=== PATIENT | male | born 1955 | race Caucasian/White ===

== ENCOUNTER → 2016-05-22 | Outpatient (CLI) | payer OTHER ==
--- NOTE | 2016-05-22 16:46 | REP ---
Lumbar spine series: Seven views. History: Pain. Comparison study: 02/13/2010. Findings: There is a mild levoconvex curve on the AP view unchanged. There is straightening of the normal lumbar lordosis on lateral radiograph. There is diffuse degenerative disc disease in the lumbar spine. This is most pronounced at L4-5 L3-4 and L2-3. The L4-5 and L3-4 changes are more pronounced than on 2009 prior study. Vacuum phenomenon are visible at L5 S1, L4-5, and L2-3 discs. There is osteoarthritic facet hypertrophy bilaterally L2-3 through L5-S1. Sacrum and SI joints are intact. Psoas margins are symmetric. Pedicles and posterior elements are intact. No bony destructive lesion is seen. There is no evidence of spondylolysis or spondylolisthesis. Impression: Advanced diffuse degenerative spondylosis change. Radiographically more pronounced than on February 2010 prior study. Signed by Yunior Portillo MD 05/22/2016 04:58 P
== END ==
LOC: M WUC 16:12
PROVIDERS: ATTEND Family Medicine
DX: M47.816 Spondylosis without myelopathy or radiculopathy, lumbar region (principal)

== ENCOUNTER → 2016-07-05 | Outpatient (CLI) | payer OTHER ==
[2016-07-05 12:22] LABS: BASO % 0.9 % (0.0-1.0); EOS # 0.2 K/mm3 (0.0-0.50); LARGE UNSTAINED CELL # 0.1 K/mm3 (0.0-0.4); LYMPH # 1.8 K/mm3 (1.5-4.5); LYMPH % 27.5 % (24.0-44.0); MEAN CORPUSCULAR HEMOGLOBIN 30.1 pg (27.0-33.0); MEAN CORPUSCULAR HGB CONC 32.7 g/dl (32.0-36.5); MONO # 0.3 K/mm3 (0.0-0.8); MONO % 5.5 % (0.0-5.0); NEUTROPHILS # 3.7 K/mm3 (1.8-7.7); NEUTROPHILS % 60.1 % (36.0-66.0); PLATELET COUNT, AUTOMATED 191 k/mm3 (150-450); RED CELL DISTRIBUTION WIDTH 12.4 % (11.5-14.5); WHITE BLOOD COUNT 6.1 K/mm3 (4.0-10.0)
[2016-07-05 12:41] LABS: ALBUMIN 3.9 GM/DL (3.2-5.2); ALBUMIN/GLOBULIN RATIO 1.18 (1.00-1.93); ALKALINE PHOSPHATASE 83 U/L (45-117); ALT/SGPT 51 U/L (12-78); ANION GAP 9 MEQ/L (8-16); AST/SGOT 39 U/L (15-37); BILIRUBIN,TOTAL 0.8 MG/DL (0.2-1.0); BLOOD UREA NITROGEN 25 MG/DL (7-18); CALCIUM LEVEL 8.6 MG/DL (8.8-10.2); CARBON DIOXIDE LEVEL 27 MEQ/L (21-32); CHLORIDE LEVEL 102 MEQ/L (98-107); CHOLESTEROL LEVEL 96 MG/DL (<200); CREATININE FOR GFR 0.87 MG/DL (0.70-1.30); FREE T4 1.17 NG/DL (0.76-1.46); GLOMERULAR FILTRATION RATE > 60.0 (>49); GLUCOSE, FASTING 120 MG/DL (80-110); POTASSIUM SERUM 4.4 MEQ/L (3.5-5.1); SODIUM LEVEL 138 MEQ/L (136-145); TOTAL PROTEIN 7.2 GM/DL (6.4-8.2); TRIGLYCERIDES LEVEL 56 MG/DL (<150)
== END ==
LOC: M WUC 08:10
PROVIDERS: ATTEND Family Medicine
DX: E11.9 Type 2 diabetes mellitus without complications (principal); K21.0 Gastro-esophageal reflux disease with esophagitis; E78.00 Pure hypercholesterolemia, unspecified

== ENCOUNTER → 2016-10-12 | Outpatient (CLI) | payer OTHER ==
[2016-10-12 12:54] LABS: ANION GAP 7 MEQ/L (8-16); BLOOD UREA NITROGEN 24 MG/DL (7-18); CALCIUM LEVEL 8.9 MG/DL (8.8-10.2); CARBON DIOXIDE LEVEL 27 MEQ/L (21-32); CHLORIDE LEVEL 103 MEQ/L (98-107); CREATININE FOR GFR 0.92 MG/DL (0.70-1.30); GLOMERULAR FILTRATION RATE > 60.0 (>49); GLUCOSE, FASTING 132 MG/DL (80-110); POTASSIUM SERUM 4.3 MEQ/L (3.5-5.1); SODIUM LEVEL 137 MEQ/L (136-145)
== END ==
LOC: M WUC 09:22
PROVIDERS: ATTEND Physician Assistant
DX: E11.9 Type 2 diabetes mellitus without complications (principal)

== ENCOUNTER → 2017-01-11 | Outpatient (CLI) | payer OTHER | LOC: M WUC 08:40 | PROVIDERS: ATTEND Physician Assistant Medical | DX: E11.9 Type 2 diabetes mellitus without complications (principal) ==

== ENCOUNTER → 2017-07-07 | Outpatient (CLI) | payer MEDICARE, OTHER ==
[2017-07-07 12:01] LABS: ALBUMIN 4.1 GM/DL (3.2-5.2); ALBUMIN/GLOBULIN RATIO 1.28 (1.00-1.93); ALKALINE PHOSPHATASE 86 U/L (45-117); ALT/SGPT 48 U/L (12-78); ANION GAP 7 MEQ/L (8-16); AST/SGOT 53 U/L (7-37); BILIRUBIN,TOTAL 1.1 MG/DL (0.2-1.0); BLOOD UREA NITROGEN 21 MG/DL (7-18); CARBON DIOXIDE LEVEL 27 MEQ/L (21-32); CHLORIDE LEVEL 104 MEQ/L (98-107); CREATININE FOR GFR 0.86 MG/DL (0.70-1.30); GLOMERULAR FILTRATION RATE > 60.0 (>49); GLUCOSE, FASTING 112 MG/DL (70-100); POTASSIUM SERUM 4.5 MEQ/L (3.5-5.1); SODIUM LEVEL 138 MEQ/L (136-145); TOTAL PROTEIN 7.3 GM/DL (6.4-8.2)
[2017-07-07 12:50] LABS: ESTIMATED AVERAGE GLUCOSE 146 MG/DL (60-110); HEMOGLOBIN A1c 6.7 %
== END ==
LOC: M WUC 10:42
DX: E11.9 Type 2 diabetes mellitus without complications (principal)
CPT/HCPCS: 80053

== ENCOUNTER → 2017-10-01 | Outpatient (CLI) | payer MEDICARE, OTHER ==
[2017-10-01 13:37] LABS: ESTIMATED AVERAGE GLUCOSE 154 MG/DL (60-110)
[2017-10-01 14:24] LABS: ANION GAP 8 MEQ/L (8-16); BLOOD UREA NITROGEN 28 MG/DL (7-18); CALCIUM LEVEL 9.1 MG/DL (8.8-10.2); CARBON DIOXIDE LEVEL 28 MEQ/L (21-32); CHLORIDE LEVEL 106 MEQ/L (98-107); CHOLESTEROL LEVEL 95 MG/DL (<200); CREATININE FOR GFR 0.95 MG/DL (0.70-1.30); GLOMERULAR FILTRATION RATE > 60.0 (>49); GLUCOSE, FASTING 98 MG/DL (70-100); HDL CHOLESTEROL 50 MG/DL (>40); NON-HDL-C 45 MG/DL; POTASSIUM SERUM 4.6 MEQ/L (3.5-5.1); SODIUM LEVEL 142 MEQ/L (136-145); TRIGLYCERIDES LEVEL 50 MG/DL (<150)
[2017-10-01 14:40] LABS: MALB URINE SIEMENS 13.4 MG/L; MAU/CREAT RATIO 4.9 MCG/MG (0.0-30.0)
== END ==
LOC: M WUC 12:34
DX: E78.00 Pure hypercholesterolemia, unspecified (principal); E11.9 Type 2 diabetes mellitus without complications
CPT/HCPCS: 83036

== ENCOUNTER → 2018-01-03 | Outpatient (CLI) | payer MEDICARE, OTHER ==
[2018-01-03 14:06] LABS: ANION GAP 10 MEQ/L (8-16); BLOOD UREA NITROGEN 24 MG/DL (7-18); CALCIUM LEVEL 8.8 MG/DL (8.8-10.2); CARBON DIOXIDE LEVEL 26 MEQ/L (21-32); CHLORIDE LEVEL 105 MEQ/L (98-107); CHOLESTEROL LEVEL 94 MG/DL (<200); CREATININE FOR GFR 0.79 MG/DL (0.70-1.30); GLOMERULAR FILTRATION RATE > 60.0 (>49); GLUCOSE, FASTING 89 MG/DL (70-100); HDL CHOLESTEROL 40 MG/DL (>40); LDL CHOLESTEROL 42 MG/DL (<100); NON-HDL-C 54 MG/DL; POTASSIUM SERUM 4.2 MEQ/L (3.5-5.1); SODIUM LEVEL 141 MEQ/L (136-145); TRIGLYCERIDES LEVEL 62 MG/DL (<150)
[2018-01-03 14:16] LABS: BASO # 0.1 10^3/uL (0.0-0.2); EOS # 0.3 10^3/uL (0.0-0.50); HEMATOCRIT 42.4 % (42.0-52.0); HEMOGLOBIN 13.9 g/dl (13.5-17.5); IMMATURE GRANULOCYTE % 0.3 % (0-3.0); LYMPH % 25.6 % (24.0-44.0); MEAN CORPUSCULAR HEMOGLOBIN 29.8 pg (27.0-33.0); MEAN CORPUSCULAR HGB CONC 32.8 g/dl (32.0-36.5); MONO # 0.6 10^3/uL (0.0-0.8); MONO % 7.5 % (0.0-5.0); NEUTROPHILS # 4.8 10^3/uL (1.8-7.7); NEUTROPHILS % 61.6 % (36.0-66.0); PLATELET COUNT, AUTOMATED 196 10^3/uL (150-450); RED BLOOD COUNT 4.66 10^6/uL (4.30-6.10); RED CELL DISTRIBUTION WIDTH 12.5 % (11.5-14.5); WHITE BLOOD COUNT 7.7 10^3/uL (4.0-10.0)
[2018-01-03 14:41] LABS: ESTIMATED AVERAGE GLUCOSE 134 MG/DL (60-110); HEMOGLOBIN A1c 6.3 %
[2018-01-04 14:27] LABS: PSA TOTAL 0.2 ng/mL (0.0-4.0)
== END ==
LOC: M WUC 09:19
DX: E11.9 Type 2 diabetes mellitus without complications (principal)
CPT/HCPCS: 83036

== ENCOUNTER → 2018-03-30 | Outpatient (CLI) | payer MEDICARE, OTHER ==
[2018-03-30 11:47] LABS: BASO # 0.1 10^3/uL (0.0-0.2); BASO % 0.9 % (0.0-1.0); EOS # 0.3 10^3/uL (0.0-0.50); EOS % 3.5 % (0.0-3.0); HEMATOCRIT 43.1 % (42.0-52.0); LYMPH # 1.7 10^3/uL (1.5-4.5); LYMPH % 21.6 % (24.0-44.0); MEAN CORPUSCULAR HEMOGLOBIN 29.8 pg (27.0-33.0); MEAN CORPUSCULAR HGB CONC 32.5 g/dl (32.0-36.5); MEAN CORPUSCULAR VOLUME 91.7 fl (80.0-96.0); MONO # 0.4 10^3/uL (0.0-0.8); MONO % 5.4 % (0.0-5.0); NEUTROPHILS # 5.3 10^3/uL (1.8-7.7); NEUTROPHILS % 68.3 % (36.0-66.0); PLATELET COUNT, AUTOMATED 215 10^3/uL (150-450); WHITE BLOOD COUNT 7.7 10^3/uL (4.0-10.0)
[2018-03-30 12:02] LABS: ALBUMIN 3.7 GM/DL (3.2-5.2); ALT/SGPT 50 U/L (12-78); BILIRUBIN,TOTAL 1.1 MG/DL (0.2-1.0); BLOOD UREA NITROGEN 20 MG/DL (7-18); CALCIUM LEVEL 8.7 MG/DL (8.8-10.2); CARBON DIOXIDE LEVEL 31 MEQ/L (21-32); CHLORIDE LEVEL 103 MEQ/L (98-107); CREATININE FOR GFR 0.89 MG/DL (0.70-1.30); GLOMERULAR FILTRATION RATE > 60.0 (>49); GLUCOSE, FASTING 127 MG/DL (70-100); POTASSIUM SERUM 4.5 MEQ/L (3.5-5.1); SODIUM LEVEL 140 MEQ/L (136-145); TOTAL PROTEIN 7.5 GM/DL (6.4-8.2)
[2018-03-30 14:04] LABS: HEMOGLOBIN A1c 7.2 %
== END ==
LOC: M WUC 09:31
PROVIDERS: ATTEND Family Medicine
DX: I10 Essential (primary) hypertension (principal); E11.9 Type 2 diabetes mellitus without complications

== ENCOUNTER → 2018-05-09 | Outpatient (CLI) | payer MEDICARE, OTHER ==
[2018-05-09 10:31] LABS: HEMOGLOBIN A1c 7.1 %
== END ==
LOC: M WUC 08:09
PROVIDERS: ATTEND Physician Assistant
DX: E11.9 Type 2 diabetes mellitus without complications (principal)

== ENCOUNTER → 2018-12-04 | Outpatient (CLI) | payer MEDICARE, OTHER ==
[2018-12-04 17:05] LABS: ALBUMIN 3.6 GM/DL (3.2-5.2); ALT/SGPT 51 U/L (12-78); BILIRUBIN,TOTAL 0.8 MG/DL (0.2-1.0); BLOOD UREA NITROGEN 20 MG/DL (7-18); CALCIUM LEVEL 8.5 MG/DL (8.8-10.2); CARBON DIOXIDE LEVEL 26 MEQ/L (21-32); CHLORIDE LEVEL 102 MEQ/L (98-107); CHOLESTEROL LEVEL 109 MG/DL (<200); CHOLESTEROL RISK RATIO 2.422 (<5); CREATININE FOR GFR 0.72 MG/DL (0.70-1.30); FREE T4 1.22 NG/DL (0.76-1.46); GLOMERULAR FILTRATION RATE > 60.0 (>49); GLUCOSE, FASTING 86 MG/DL (70-100); HDL CHOLESTEROL 45 MG/DL (>40); LDL CHOLESTEROL 52 MG/DL (<100); NON-HDL-C 64 MG/DL; POTASSIUM SERUM 3.9 MEQ/L (3.5-5.1); SODIUM LEVEL 138 MEQ/L (136-145); TRIGLYCERIDES LEVEL 58 MG/DL (<150)
[2018-12-04 17:21] LABS: MALB URINE SIEMENS 6.8 MG/L
[2018-12-04 17:47] LABS: HEMOGLOBIN A1c 6.4 %
[2018-12-06 14:29] LABS: PSA TOTAL 0.3 ng/mL (0.0-4.0)
== END ==
LOC: M ADAMS 08:47
PROVIDERS: ATTEND Physician Assistant
DX: E11.9 Type 2 diabetes mellitus without complications (principal); I10 Essential (primary) hypertension; Z12.5 Encounter for screening for malignant neoplasm of prostate; R97.20 Elevated prostate specific antigen [PSA]

== ENCOUNTER → 2018-12-05 | Outpatient (CLI) | payer MEDICARE, OTHER ==
[~2018-12-05] MED LIST: METHACHOLINE KIT (J7674) INH ONE
--- NOTE | 2018-12-05 10:07 | PFTRPT ---
Height: 70.50 Inches Weight: 245.00 Lbs BSA: 2.29 Diagnosis: R05 DATE OF PROCEDURE: 12/05/2018 ORDERED BY: Dr. Quiroz INTERPRETATION: Study of excellent technical quality. Under protocol, methacholine was administered. Even after a maximal dose of 25 mg or 188.875 CDUs, no provocation dose ever achieved. IMPRESSION: Negative methacholine challenge study. MTDD
--- NOTE | 2018-12-05 16:46 | REP ---
CT of the sinuses without contrast Indication: Cough, recurrent sinus infections. Comparison: None Technique: Axial CT of the maxillofacial bones was performed without contrast. Coronal and axial bone reformatted images were provided. Findings: There is no pneumatized right frontal sinus. The small left frontal sinus is clear. The frontal ethmoid recesses are clear. The anterior and posterior ethmoid air cells are clear. The sphenoid sinuses are clear. The sphenoethmoid recesses are clear. The sphenoid sinus septum inserts on the right. There is mild mucosal thickening of the left maxillary sinus. There is moderate dependent mucosal thickening/fluid within the right maxillary sinus. There is a linear defect within the medial wall of the right maxillary sinus. The right ostiomeatal unit is occluded. The left ostiomeatal unit is patent. The nasal processes are clear. There is rightward bowing of the nasal septum. The cribriform plate and the fovea ethmoidalis are intact. The mastoid air cells are clear. Impression: Mild of the thickening of the left maxillary sinus. Moderate of the thickening/fluid within the right maxillary sinus with involvement of the right ostiomeatal unit. Medial wall right maxillary sinus bony defect, question prior surgery. Rightward bowing of the nasal septum. Electronically Signed by Albina Pablo MD 12/05/2018 11:14 A
== END ==
LOC: M RAD 08:21
PROVIDERS: ATTEND Allergy & Immunology Allergy
DX: R05 Cough (principal); K21.9 Gastro-esophageal reflux disease without esophagitis; J32.9 Chronic sinusitis, unspecified; J30.89 Other allergic rhinitis
CPT/HCPCS: 70486; 94070; 95070; J7674

== ENCOUNTER → 2018-12-30 | Outpatient (CLI) | payer MEDICARE, OTHER ==
--- NOTE | 2018-12-30 14:55 | REP ---
Lower Extremity Venous Reflux: Right Reflux Left Reflux CFV Reflux yes no Ant. Acc. GSV Present no yes Reflux no no Greater saph/fem junction 2.4 mm yes 5.3 mm no Greater saph vein mid thigh 4.5 mm yes 4.1 mm yes Greater saph vein at knee 3.2 mm yes 2.8 mm yes SFV PROX no no SFV MID no no SFV DISTAL no no POPLITEAL VEIN no no LSV 6.2 mm yes 3.4 mm no Electronically Signed by Thien Crow MD 12/30/2018 02:46 P
--- NOTE | 2018-12-30 16:12 | REP ---
Right lower extremity Doppler arterial ultrasound: Brachial artery peak systole: 140 mmHg. Dorsalis pedis peak systole: 140 mmHg. CHIEF OF ANESTHESIOLOGY peak systole: 160 mmHg. CRISTOPHER: 1.1 Peak Systolic Phasicity Velocity VIS[employer]ER 121.2 triphasic Profunda 92.5 triphasic SFA prox 97.6 triphasic SFA mid 103.4 triphasic SFA dist 101.9 triphasic Pop 112.1 triphasic SHANDRA prox 77.9 triphasic Tib/P tr 76.7 triphasic CHIEF OF ANESTHESIOLOGY pr 48.9 triphasic CHIEF OF ANESTHESIOLOGY dst 64.8 triphasic SHANDRA dst 49.7 triphasic the Left lower extremity Doppler arterial ultrasound: Brachial artery peak systole: 130 mmHg. Dorsalis pedis peak systole: 140 mmHg. CHIEF OF ANESTHESIOLOGY peak systole: 170 mmHg. 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 There are triphasic waveforms throughout bilaterally. Electronically Signed by Thien Crow MD 12/30/2018 01:52 P
== END ==
LOC: M RAD 11:08
PROVIDERS: ATTEND Surgery Vascular Surgery
DX: I70.213 Atherosclerosis of native arteries of extremities with intermittent claudication, bilateral legs (principal); M79.604 Pain in right leg; Z86.718 Personal history of other venous thrombosis and embolism

== ENCOUNTER → 2019-03-07 | Outpatient (CLI) | payer MEDICARE, OTHER ==
[2019-03-07 09:46] LABS: BASO % 0.6 % (0.0-1.0); EOS # 0.4 10^3/uL (0.0-0.5); EOS % 5.7 % (0.0-3.0); HEMATOCRIT 44.4 % (42.0-52.0); HEMOGLOBIN 13.8 g/dl (13.5-17.5); LYMPH # 1.3 10^3/uL (1.5-5.0); LYMPH % 20.7 % (24.0-44.0); MEAN CORPUSCULAR HEMOGLOBIN 29.2 pg (27.0-33.0); MEAN CORPUSCULAR HGB CONC 31.1 g/dl (32.0-36.5); MEAN CORPUSCULAR VOLUME 93.9 fl (80.0-96.0); MONO # 0.5 10^3/uL (0.0-0.8); MONO % 8.6 % (0.0-5.0); NEUTROPHILS % 64.2 % (36.0-66.0); PLATELET COUNT, AUTOMATED 195 10^3/uL (150-450); RED BLOOD COUNT 4.73 10^6/uL (4.30-6.10); WHITE BLOOD COUNT 6.2 10^3/uL (4.0-10.0)
[2019-03-07 10:22] LABS: ALBUMIN 3.8 GM/DL (3.2-5.2); ALT/SGPT 40 U/L (12-78); BILIRUBIN,TOTAL 0.9 MG/DL (0.2-1.0); BLOOD UREA NITROGEN 22 MG/DL (7-18); CALCIUM LEVEL 8.6 MG/DL (8.8-10.2); CARBON DIOXIDE LEVEL 29 MEQ/L (21-32); CHLORIDE LEVEL 104 MEQ/L (98-107); CHOLESTEROL LEVEL 113 MG/DL (<200); CHOLESTEROL RISK RATIO 2.306 (<5); CREATININE FOR GFR 0.83 MG/DL (0.70-1.30); FREE T4 1.09 NG/DL (0.76-1.46); GLOMERULAR FILTRATION RATE > 60.0 (>49); GLUCOSE, FASTING 102 MG/DL (70-100); HDL CHOLESTEROL 49 MG/DL (>40); LDL CHOLESTEROL 52 MG/DL (<100); NON-HDL-C 64 MG/DL; POTASSIUM SERUM 4.5 MEQ/L (3.5-5.1); SODIUM LEVEL 139 MEQ/L (136-145); TOTAL PROTEIN 7.3 GM/DL (6.4-8.2); TRIGLYCERIDES LEVEL 61 MG/DL (<150)
[2019-03-07 10:45] LABS: HEMOGLOBIN A1c 6.7 %
== END ==
LOC: M WUC 08:06
PROVIDERS: ATTEND Family Medicine
DX: Z12.5 Encounter for screening for malignant neoplasm of prostate (principal); E78.00 Pure hypercholesterolemia, unspecified; E11.9 Type 2 diabetes mellitus without complications; I10 Essential (primary) hypertension
CPT/HCPCS: 36415; 80053; 80061; 83036; 84439; 84443; 85025; G0103

== ENCOUNTER → 2019-06-06 | Outpatient (CLI) | payer MEDICARE, OTHER ==
[2019-06-06 10:24] LABS: BLOOD UREA NITROGEN 20 MG/DL (7-18); CALCIUM LEVEL 8.8 MG/DL (8.8-10.2); CARBON DIOXIDE LEVEL 29 MEQ/L (21-32); CHLORIDE LEVEL 103 MEQ/L (98-107); CREATININE FOR GFR 0.75 MG/DL (0.70-1.30); GLOMERULAR FILTRATION RATE > 60.0 (>49); GLUCOSE, FASTING 118 MG/DL (70-100); SODIUM LEVEL 138 MEQ/L (136-145)
[2019-06-06 10:35] LABS: HEMOGLOBIN A1c 6.7 %
== END ==
LOC: M WUC 08:08
PROVIDERS: ATTEND Physician Assistant
DX: Z00.00 Encounter for general adult medical examination without abnormal findings (principal); E11.9 Type 2 diabetes mellitus without complications

== ENCOUNTER → 2019-09-08 | Outpatient (CLI) | payer MEDICARE, OTHER ==
--- NOTE | 2019-09-09 10:08 | REP ---
REASON FOR EXAM: Cough. COMPARISON: 07/20/2017, the latest prior. The interstitial markings have diffusely increased compared to the prior exam, right greater than left. There is cardiomegaly. There is a diffuse haziness seen throughout the pulmonary vascularity. The pleural angles remain sharp. There is no significant change in appearance of the osseous structures. IMPRESSION: There is pulmonary fibrosis, however, I am concerned that there is interstitial edema superimposed upon chronic change. This needs to be correlated clinically. Electronically Signed by Aiedn Fine DO 09/11/2019 09:54 A
== END ==
LOC: M WUC 15:24
PROVIDERS: ATTEND Physician Assistant
DX: R91.8 Other nonspecific abnormal finding of lung field (principal)

== ENCOUNTER → 2019-11-08 | Outpatient (CLI) | payer MEDICARE, OTHER ==
--- NOTE | 2019-12-28 15:25 | REP ---
HIGH RESOLUTION CHEST CT WITH IV CONTRAST: HISTORY: Other nonspecific abnormal finding of lung field. COMPARISON: CT studies reviewed from 09/27/19 done at [facility] and 08/26/15. CONTRAST DOSE: 75 ml of intravenous Isovue 370 is administered. FINDINGS: High resolution 1 mm axial images demonstrate advanced predominantly peripheral subpleural pattern of pulmonary fibrosis with areas of honeycombing. This is most pronounced in the lower lobes and bases, but also present in the upper lobes. It is essentially unchanged from the comparison study of 09/27/19, but more pronounced than on the comparison exam from 2016. There is no evidence of pleural or pericardial effusion. There are scattered, mildly prominent mediastinal and hilar lymph nodes which are unchanged from the 09/27/19 study and slightly more prominent than on the 2016 exam. No adrenal lesion is seen. There is a small accessory splenule. The visualized upper abdominal structures are otherwise unremarkable. Some left coronary artery vascular calcification is present. The main pulmonary artery and central pulmonary artery are somewhat dilated, consistent with pulmonary arterial hypertension. The ascending aorta measures 4.2 cm in AP dimension. The main pulmonary artery segment measures 4.2 cm in greatest diameter. IMPRESSION: Advanced predominantly peripheral pattern of interstitial pulmonary fibrosis with series of honeycombing, unchanged from the 09/27/19 exam. Granulomatous calcification right upper lobe. Mild mediastinal and hilar adenopathy MTDD
== END ==
LOC: M RAD 11:33
PROVIDERS: ATTEND Internal Medicine Pulmonary Disease
DX: J84.10 Pulmonary fibrosis, unspecified (principal); R59.1 Generalized enlarged lymph nodes

== ENCOUNTER → 2019-12-06 | Outpatient (CLI) | payer MEDICARE, OTHER ==
[2019-12-06 18:20] LABS: BASO # 0.1 10^3/uL (0.0-0.2); BASO % 0.9 % (0.0-1.0); EOS # 0.3 10^3/uL (0.0-0.5); EOS % 3.3 % (0.0-3.0); HEMATOCRIT 43.4 % (42.0-52.0); HEMOGLOBIN 14.3 g/dl (13.5-17.5); LYMPH % 21.9 % (24.0-44.0); MEAN CORPUSCULAR HEMOGLOBIN 31.2 pg (27.0-33.0); MEAN CORPUSCULAR HGB CONC 32.9 g/dl (32.0-36.5); MEAN CORPUSCULAR VOLUME 94.8 fl (80.0-96.0); MONO # 0.5 10^3/uL (0.0-0.8); MONO % 5.9 % (0.0-5.0); NEUTROPHILS % 67.7 % (36.0-66.0); PLATELET COUNT, AUTOMATED 204 10^3/uL (150-450); RED BLOOD COUNT 4.58 10^6/uL (4.30-6.10); WHITE BLOOD COUNT 8.9 10^3/uL (4.0-10.0)
[2019-12-06 18:34] LABS: HEMOGLOBIN A1c 6.5 %
[2019-12-06 18:43] LABS: ALBUMIN 3.9 GM/DL (3.2-5.2); ALT/SGPT 38 U/L (12-78); BILIRUBIN,TOTAL 1.1 MG/DL (0.2-1.0); BLOOD UREA NITROGEN 23 MG/DL (7-18); CALCIUM LEVEL 8.7 MG/DL (8.8-10.2); CARBON DIOXIDE LEVEL 31 MEQ/L (21-32); CHLORIDE LEVEL 105 MEQ/L (98-107); CHOLESTEROL LEVEL 97 MG/DL (<200); CHOLESTEROL RISK RATIO 2.108 (<5); CREATININE FOR GFR 0.77 MG/DL (0.70-1.30); GLOMERULAR FILTRATION RATE > 60.0 (>49); GLUCOSE, FASTING 77 MG/DL (70-100); HDL CHOLESTEROL 46 MG/DL (>40); LDL CHOLESTEROL 38 MG/DL (<100); NON-HDL-C 51 MG/DL; NT-PRO BNP 159 PG/ML (<125); POTASSIUM SERUM 4.3 MEQ/L (3.5-5.1); SODIUM LEVEL 140 MEQ/L (136-145); TOTAL PROTEIN 7.8 GM/DL (6.4-8.2); TRIGLYCERIDES LEVEL 64 MG/DL (<150)
[2019-12-06 20:14] LABS: MALB URINE SIEMENS 20.1 MG/L; MAU/CREAT RATIO 6.6 MCG/MG (0.0-30.0)
== END ==
LOC: M WUC 14:24
PROVIDERS: ATTEND Family Medicine
DX: E11.9 Type 2 diabetes mellitus without complications (principal); E78.00 Pure hypercholesterolemia, unspecified; R05 Cough

== ENCOUNTER → 2019-12-26 | Outpatient (CLI) | payer MEDICARE, OTHER ==
--- NOTE | 2020-01-10 09:42 | REP ---
CHEST X-RAY CLINICAL: Cough. COMPARISON: 09/08/2019. FINDINGS: Diffuse chronic interstitial changes and fibrosis are again noted. Superimposed pulmonary edema cannot be excluded. No discrete new focal consolidation, obvious effusion, or pneumothorax is appreciated as compared to prior examination. Stable cardiomegaly again noted. Skeletal structures are intact. IMPRESSION: * Suspected advanced chronic fibrosis and interstitial disease. Superimposed pulmonary edema cannot be excluded. * No new focal consolidation or effusion. MTDD
== END ==
LOC: M WUC 10:33
PROVIDERS: ATTEND Otolaryngology
DX: R06.02 Shortness of breath (principal); R91.8 Other nonspecific abnormal finding of lung field

== ENCOUNTER → 2020-02-23 | Outpatient (CLI) | payer MEDICARE, OTHER ==
[2020-02-23 16:20] LABS: BASO # 0.1 10^3/uL (0.0-0.2); BASO % 0.8 % (0.0-1.0); EOS # 0.3 10^3/uL (0.0-0.5); EOS % 2.4 % (0.0-3.0); HEMATOCRIT 47.4 % (42.0-52.0); HEMOGLOBIN 14.2 g/dl (13.5-17.5); LYMPH # 1.7 10^3/uL (1.5-5.0); LYMPH % 15.9 % (24.0-44.0); MEAN CORPUSCULAR HEMOGLOBIN 28.8 pg (27.0-33.0); MEAN CORPUSCULAR VOLUME 96.1 fl (80.0-96.0); MONO # 0.6 10^3/uL (0.0-0.8); MONO % 5.5 % (0.0-5.0); NEUTROPHILS # 7.9 10^3/uL (1.5-8.5); PLATELET COUNT, AUTOMATED 201 10^3/uL (150-450); RED BLOOD COUNT 4.93 10^6/uL (4.30-6.10); WHITE BLOOD COUNT 10.5 10^3/uL (4.0-10.0)
[2020-02-23 16:51] LABS: C REACTIVE PROTEIN QUANTITATIV 1.19 MG/DL (0.00-0.30); FERRITIN 46 NG/ML (26-388); IRON (FE) 80 UG/DL (65-175); PERCENT SATURATION 21.7 % (19.7-50.0); RHEUMATOID FACTOR QUANT < 10.0 IU/ML (<15.0); THYROID STIMULATING HORMONE 0.621 uIU/ML (0.358-3.740); TOTAL IRON BINDING CAPACITY 368 UG/DL (250-450)
[2020-02-23 16:52] LABS: TOTAL 25(OH) VITAMIN D 15.7 NG/ML (30.0-100.0)
[2020-02-23 16:53] LABS: FOLATE 15.3 NG/ML (>5.4); VITAMIN B12 LEVEL 349 PG/ML (247-911)
[2020-02-23 17:10] LABS: ERYTHROCYTE SEDIMENTATION RATE 11 mm/hr (0-20)
[2020-02-27 16:08] LABS: ANTI DOUBLE STRAND-DNA AB 24 IU/mL (0-9); ANTINUCLEAR ANTIBODIES DIRECT Positive (Negative); RNP ANTIBODIES 0.2 AI (0.0-0.9); SJOGREN'S ANTI SS-A <0.2 AI (0.0-0.9); SJOGREN'S ANTI SS-B <0.2 AI (0.0-0.9); SMITH ANTIBODIES <0.2 AI (0.0-0.9)
== END ==
LOC: M WUC 10:55
DX: R05 Cough (principal)

== ENCOUNTER → 2020-02-27 | Outpatient (CLI) | payer MEDICARE, OTHER ==
[~2020-02-27] MED LIST changes: +E-Z-GAS II EFFERVESCENT PACKET (SODIUM BICARB./CITRIC ACID/SIMETHICONE) As Ordered ONE; +E-Z-HD 98% w/w 340GM SUSP BTL As Ordered ONE; +E-Z-PAQUE 96% w/w SUSP 176GM BTL As Ordered ONE; -METHACHOLINE KIT (J7674) INH ONE
--- NOTE | 2020-02-27 18:03 | REP ---
INDICATION: COATING OF MUCOUS MEMBRANE OF TONGUE. Status post fundoplication surgery COMPARISON: Chest x-ray dated is 12/26/2019 TECHNIQUE: This procedure was performed by Itzel Teague [facility], under the direct supervision of Dr. Tang. Images were reviewed with Dr. Tang prior to dictation. Liquid barium was given in the erect position, as well as in the prone oblique position in order to perform a double contrast upper GI examination. FINDINGS: A single view PA chest x-ray is submitted as a batch unloader film. There appears to be no change since the previous chest x-ray dated 12/26/2019. The oral and pharyngeal stages of deglutition were unremarkable. Esophageal transport is prompt and efficient and there is no evidence of esophagitis, stricture, or mucosal ring. There is no evidence of a hiatal hernia. There is no gastroesophageal reflux noted . IMPRESSION: Unremarkable esophagram. 0.3 minutes of fluoroscopy time was utilized for this procedure. Some fluoroscopic images are performed with last image hold technology. These images require no additional radiation. <Electronically signed by Itzel Teague > 02/27/20 [id number] <Electronically signed by Thien Tang > 02/27/20 [id number]
== END ==
LOC: M RAD 08:02
PROVIDERS: ATTEND Internal Medicine Gastroenterology
DX: K14.3 Hypertrophy of tongue papillae (principal); K22.70 Barrett's esophagus without dysplasia; K44.9 Diaphragmatic hernia without obstruction or gangrene; Z12.11 Encounter for screening for malignant neoplasm of colon

== ENCOUNTER → 2020-03-11 | Outpatient (CLI) | payer MEDICARE, OTHER ==
--- NOTE | 2020-03-11 13:56 | REP ---
INDICATION: ABNORMAL LUNG FINDING. COMPARISON: Comparison chest x-ray 12/26/2019. TECHNIQUE: Two views.. FINDINGS: Lungs are symmetrically aerated. There is a diffuse interstitial fibrosis pattern moderate to marked in degree and unchanged from the 12/26/2019 study. Overall, there is some relative volume loss in the right hemithorax with shift of the mediastinum to the right. This is mild and its appearance may be exaggerated by mild dextroconvex thoracic scoliosis. It is unchanged in any event. No acute infiltrate is seen. Heart remains enlarged unchanged. Cardiothoracic ratio measures 50.0%. The aorta is somewhat tortuous as before. IMPRESSION: Advanced diffuse interstitial fibrosis pattern. Mild cardiomegaly. No focal infiltrate seen. Findings unchanged.. <Electronically signed by Immanuel Portillo > 03/11/20 [id number]
== END ==
LOC: M WUC 13:25
PROVIDERS: ATTEND Internal Medicine Pulmonary Disease
DX: R91.8 Other nonspecific abnormal finding of lung field (principal); I51.7 Cardiomegaly; J84.10 Pulmonary fibrosis, unspecified

== ENCOUNTER → 2020-03-15 | Outpatient (REF) | payer MEDICARE, OTHER ==
[~2020-03-15] MED LIST changes: +ASPI-161 PO; +ASPI81CH33 PO; +ATOR40TA75 PO; -E-Z-GAS II EFFERVESCENT PACKET (SODIUM BICARB./CITRIC ACID/SIMETHICONE) As Ordered ONE; -E-Z-HD 98% w/w 340GM SUSP BTL As Ordered ONE; -E-Z-PAQUE 96% w/w SUSP 176GM BTL As Ordered ONE; +GABA-843 PO; +VICT18IN2 SC
[2020-03-15 18:22] LABS: BLOOD UREA NITROGEN 29 MG/DL (7-18); CALCIUM LEVEL 7.9 MG/DL (8.8-10.2); CARBON DIOXIDE LEVEL 28 MEQ/L (21-32); CHLORIDE LEVEL 104 MEQ/L (98-107); CREATININE FOR GFR 0.77 MG/DL (0.70-1.30); GLOMERULAR FILTRATION RATE > 60.0 (>49); GLUCOSE, FASTING 157 MG/DL (70-100); NT-PRO BNP 482 PG/ML (<125); POTASSIUM SERUM 4.9 MEQ/L (3.5-5.1); SODIUM LEVEL 137 MEQ/L (136-145)
== END ==
LOC: M LAB REF 17:07
PROVIDERS: ATTEND Family Medicine
DX: R60.0 Localized edema (principal)

== ENCOUNTER → 2020-03-15 | Outpatient (REF) | payer MEDICARE, OTHER ==
[~2020-03-15] MED LIST changes: +LOVE0.01 SC
[2020-03-15 18:19] LABS: ALBUMIN 2.9 GM/DL (3.2-5.2); BLOOD UREA NITROGEN 28 MG/DL (7-18); C REACTIVE PROTEIN QUANTITATIV 0.35 MG/DL (0.00-0.30); CALCIUM LEVEL 7.9 MG/DL (8.8-10.2); CARBON DIOXIDE LEVEL 29 MEQ/L (21-32); CHLORIDE LEVEL 104 MEQ/L (98-107); CREATININE FOR GFR 0.76 MG/DL (0.70-1.30); GLOMERULAR FILTRATION RATE > 60.0 (>49); GLUCOSE, FASTING 157 MG/DL (70-100); NT-PRO BNP 478 PG/ML (<125); PHOSPHORUS LEVEL 3.9 MG/DL (2.5-4.9); POTASSIUM SERUM 4.8 MEQ/L (3.5-5.1); RHEUMATOID FACTOR QUANT < 10.0 IU/ML (<15.0); SODIUM LEVEL 137 MEQ/L (136-145)
[2020-03-21 16:09] LABS: ANCA-ATYPICAL <1:20 titer (Neg:<1:20); ANGIOTENSIN 1 CONVERTING ENZYM 31 U/L (14-82); ANTI DOUBLE STRAND-DNA AB 20 IU/mL (0-9); ANTINUCLEAR ANTIBODIES DIRECT Positive (Negative); ASPERGILLUS FUMIGATUS AB Negative (Negative); AUREOBASIDIUM PULLULANS Negative (Negative); CYCLIC CITRULLINATED PEPTIDE 4 units (0-19); CYTOPLASMIC NEUTROP AB ANCA-C <1:20 titer (Neg:<1:20); MICROPOLYSPORA FAENI AB Negative (Negative); PERINUCLEAR AB ANCA-P <1:20 titer (Neg:<1:20); PIGEON SERUM AB Negative (Negative); RNP ANTIBODIES <0.2 AI (0.0-0.9); SJOGREN'S ANTI SS-A <0.2 AI (0.0-0.9); SJOGREN'S ANTI SS-B <0.2 AI (0.0-0.9); SMITH ANTIBODIES <0.2 AI (0.0-0.9); THERMOACTINOMYCES SACCHARI Negative (Negative); THERMOACTINOMYCES VULGARIS Negative (Negative)
== END ==
LOC: M LAB REF 17:05
PROVIDERS: ATTEND Internal Medicine Pulmonary Disease
DX: R06.02 Shortness of breath (principal); R60.0 Localized edema

== ENCOUNTER 2020-03-19 14:49 | Inpatient (IN) | payer MEDICARE, OTHER ==
[~2020-03-19] VITALS: Ht 177.8 cm; Wt 105.9 kg
[2020-03-19] MEDS ORDERED: ASPI81CH33 PO (15:18)
[2020-03-19] MEDS ORDERED: ATOR40TA75 PO (15:18)
[2020-03-19] MEDS ORDERED: VICT18IN2 SC (15:18)
[2020-03-19] MEDS ORDERED: HEPARIN DRIP 25,000 UNITS in IV 1 EA IV SCH (15:35)
[2020-03-19] MEDS ORDERED: HEPARIN SOD (PORCINE) 5000UNITS/ML 1ML VIAL/SYRINGE IV ONE (15:45)
--- NOTE | 2020-03-19 16:05 | REP ---
INDICATION: DYSPNEA/COUGH. COMPARISON: 03/11/2020. TECHNIQUE: SINGLE PORTABLE AP VIEW OF THE CHEST WAS PERFORMED. FINDINGS: Once again there is diffuse bilateral interstitial fibrotic change which appears similar to the prior study. I see no definite superimposed acute infiltrate. There is again evident right-sided volume loss with shift of heart mediastinal structures to the right. The prominent cardiac silhouette and mediastinal silhouette are unchanged. IMPRESSION: Stable interstitial fibrotic change and mild cardiomegaly. No definite acute infiltrate. <Electronically signed by Thien Tang > 03/19/20 [id number]
[2020-03-19 16:57] LABS: BASO # 0.1 10^3/uL (0.0-0.2); BASO % 0.5 % (0.0-1.0); EOS # 0.1 10^3/uL (0.0-0.5); EOS % 0.5 % (0.0-3.0); HEMATOCRIT 42.9 % (42.0-52.0); HEMOGLOBIN 13.2 g/dl (13.5-17.5); LYMPH # 0.9 10^3/uL (1.5-5.0); LYMPH % 8.2 % (24.0-44.0); MEAN CORPUSCULAR HGB CONC 30.8 g/dl (32.0-36.5); MEAN CORPUSCULAR VOLUME 94.3 fl (80.0-96.0); MONO # 0.3 10^3/uL (0.0-0.8); MONO % 2.4 % (0.0-5.0); NEUTROPHILS # 9.6 10^3/uL (1.5-8.5); NEUTROPHILS % 87.9 % (36.0-66.0); PLATELET COUNT, AUTOMATED 204 10^3/uL (150-450); RED BLOOD COUNT 4.55 10^6/uL (4.30-6.10); WHITE BLOOD COUNT 10.9 10^3/uL (4.0-10.0)
[2020-03-19 17:14] LABS: INR 1.13; PARTIAL THROMBOPLASTIN TIME 26.2 SECONDS (24.2-38.5); PROTHROMBIN TIME 14.8 SECONDS (12.5-14.3)
[2020-03-19 17:22] LABS: ALBUMIN 3.1 GM/DL (3.2-5.2); ALT/SGPT 57 U/L (12-78); BILIRUBIN,DIRECT 0.1 MG/DL (0.0-0.2); BILIRUBIN,TOTAL 0.4 MG/DL (0.2-1.0); BLOOD UREA NITROGEN 25 MG/DL (7-18); CALCIUM LEVEL 8.3 MG/DL (8.8-10.2); CARBON DIOXIDE LEVEL 30 MEQ/L (21-32); CHLORIDE LEVEL 103 MEQ/L (98-107); CK-MB VALUE MASS 4.9 NG/ML (<3.6); CPK CREATINE PHOSPHOKINASE 148 U/L (39-308); CREATININE FOR GFR 0.73 MG/DL (0.70-1.30); GLOMERULAR FILTRATION RATE > 60.0 (>49); GLUCOSE, FASTING 155 MG/DL (70-100); MB/CK RELATIVE INDEX 3.31 (< OR =4); NT-PRO BNP 659 PG/ML (<125); POTASSIUM SERUM 4.7 MEQ/L (3.5-5.1); SODIUM LEVEL 138 MEQ/L (136-145); THYROID STIMULATING HORMONE 0.693 uIU/ML (0.358-3.740); THYROXINE (T4) 6.7 UG/DL (4.5-12.0); TOTAL PROTEIN 6.8 GM/DL (6.4-8.2); TROPONIN I < 0.02 NG/ML (< 0.10)
[2020-03-19] MEDS ORDERED: ISOVUE-370 76% 100ML VIAL As Ordered ONE (18:41)
[2020-03-19] MEDS ORDERED: ASPI-161 PO (18:49)
[2020-03-19] MEDS ORDERED: GABA-843 PO (18:49)
--- NOTE | 2020-03-19 19:00 | REPVR ---
PROCEDURE INFORMATION: Exam: CT Angiography Chest With Contrast Exam date and time: 03/19/2020 6:24 PM Age: 64 years old Clinical indication: Other: Hypoxia; Additional info: Hypoxia, suspect pulmonary embolism TECHNIQUE: Imaging protocol: Computed tomographic angiography of the chest with intravenous contrast. 3D rendering (Not supervised by radiologist): MIP and/or 3D reconstructed images were created by the technologist. Radiation optimization: All CT scans at this facility use at least one of these dose optimization techniques: automated exposure control; mA and/or kV adjustment per patient size (includes targeted exams where dose is matched to clinical indication); or iterative reconstruction. Contrast material: ISOVUE 370; Contrast volume: 75 ml; Contrast route: INTRAVENOUS (IV); COMPARISON: CT Chest with contrast 11/08/2019 12:13 PM FINDINGS: Pulmonary arteries: There is enlargement of the central pulmonary arteries, findings which can be associated with pulmonary arterial hypertension which should be correlated clinically. There are no pulmonary emboli. Aorta: There is fusiform dilatation of the ascending thoracic aorta which measures 4.2 cm. maximally. There is no dissection or saccular component. There is mild atherosclerosis in the thoracic aorta. Lungs: Redemonstration of bilateral predominantly subpleural foci of septal thickening honeycombing consistent with interstitial lung disease. Findings are unchanged in comparison to the prior study. Calcified granuloma right upper lobe. Pleural space: Unremarkable. No pneumothorax. No pleural effusion. Heart: There is moderate atherosclerotic calcification of the coronary arteries. Lymph nodes: Redemonstration of stable diffuse mediastinal and bilateral hilar lymphadenopathy. Bones/joints: The spine demonstrates mild degenerative changes. Soft tissues: Unremarkable. IMPRESSION: 1. Redemonstration of bilateral predominantly subpleural foci of septal thickening honeycombing consistent with interstitial lung disease. Findings are unchanged in comparison to the prior study. 2. There is fusiform dilatation of the ascending thoracic aorta which measures 4.2 cm. maximally. There is no dissection or saccular component. 3. Redemonstration of stable diffuse mediastinal and bilateral hilar lymphadenopathy. 4. There is enlargement of the central pulmonary arteries, findings which can be associated with pulmonary arterial hypertension which should be correlated clinically. 5. There are no pulmonary emboli. Electronically signed by: Hector Tovar On 03/19/2020 19:00:13 PM
[2020-03-19] MEDS ORDERED: ENOXAPARIN 120MG/0.8ML SYRINGE (J1650 PER 10MG) SC SCH (21:00)
[2020-03-19] MEDS ORDERED: GABAPENTIN 300 MG CAP PO PRN (21:00)
[2020-03-19] MEDS ORDERED: MAALOX 30 ML SUSP *UDC PO PRN (21:45)
[2020-03-19] MEDS ORDERED: ACETAMINOPHEN TAB 650MG DOSE (2X325MG) PO PRN (21:45)
[2020-03-19] MEDS ORDERED: DEXTROSE 50% 50 ML SYRINGE IV PRN (21:45)
[2020-03-19] MEDS ORDERED: GLUCOSE 4GM CHEW TABLET PO PRN (21:45)
[2020-03-19] MEDS ORDERED: GLUCAGON INJ 1MG VIAL SC PRN (21:45)
[2020-03-19] MEDS ORDERED: CEPACOL LOZENGE PO PRN (21:45)
[2020-03-19] MEDS: BENZONATATE 100 MG CAP PO SCH (22:00)
--- NOTE | 2020-03-19 22:00 | HPEPDOC ---
General Date of Admission Date of Service: Mar 19, 2020 Primary Care Physician: LINDSAY SELF DO Attending Physician: Gene Lang MD Chief Complaint The patient is a 64-year-old male admitted with a reason for visit of SOB. Source: Patient, Old records Exam Limitations: No limitations History of Present Illness 10-14 days ago Mr. Engle reports that he began to have bilateral leg swelling. He is not certain what caused the swelling. He denies any unusual activity. He had some Lasix on hand from previous episode of edema and he began to take it. He reports that after he started taking Lasix the swelling in his right side went down, but on the left it didn't change much. Roughly 1 week ago he was seen by Dr. Mclean to follow what he calls "scarring on his right lung." At this visit he was prescribed supplemental oxygen, which is new to him. Additionally some more lab work was done. 3-4 days ago he noticed a significant worsening in his dyspnea. Specifically he began to have difficulty walking from his chair to the bathroom which she describes as "not very far distance." Two days ago the oxygen that was prescribed by Dr. Mclean was delivered and he has been using 1. 52 liters at rest and up to 4 L with activity. On the day of admission he spoke to Dr. Mclean by phone. He explained the fact that there was a difference in the swelling in his legs Dr. Mclean ordered an ultrasound. This ultrasound was positive for "occlusive DVT in the distal femoral vein and popliteal vein on the left side." Consequently, Mr. Engle was directed to the ER for further evaluation and treatment. Almost incidentally at the end of his history he mentioned that he did have a DVT in his right leg about 5 years ago. During this episode he was prescribed Xarelto initially but it "didn't work and the clot just kept getting bigger" therefore he was changed to heparin (I tried to clarify whether was unfractionated or low molecular weight and he simply didn't know this information). Per the patient's report a doctor in [place] stopped the heparin about 2 months later and told him he didn't need it anymore. Home Medications Scheduled Aspirin (Aspirin EC) 81 Mg Tablet., 81 MG PO DAILY, (Reported) Atorvastatin Calcium (Atorvastatin Calcium) 40 Mg Tablet, 40 MG PO QHS, (Reported) Liraglutide (Victoza 3-Dontrell) 0.6 Mg/0.1 Ml Pen.injctr, 1.8 MG SC DAILY, (Reported) Scheduled PRN Gabapentin (Gabapentin) 300 Mg Capsule, 900 MG PO BID PRN for PAIN, (Reported) Allergies Coded Allergies: No Known Drug Allergies (Verified Allergy, Unknown, 12/02/18) Past Medical History Medical History Type 2 diabetes, interstitial lung disease, history of DVT in right leg (roughly 2014) Surgical History 04/2019 Nicole fundoplication ([facility] in [place]) Family History Father at 62 years old complications of diabetes Mother at 69 years old of thyroid cancer Brothers (7): 1 of complications of mental retardation and he and age, one of mesothelioma, one of liver failure Sisters (5): 1 of complications of diabetes, one of renal failure Sons (2): No known medical problems Social History * Smoker: non-smoker Alcohol: Denies Drugs: denies He owns his own home and lives there with his . He reports that he has all on he needs on one floor, however, there are 3 or 4 steps necessary to access the home. A-FIB/CHADSVASC A-FIB History Current/History of A-Fib/PAF?: No Current PO Anticoag Therapy: Yes Review of Systems Constitutional: Reports: Weakness, Fatigue; Denies: Chills, Fever ENT: Denies: Head Aches, Dysphagia, Sore Throat Skin: Denies: Rash, Lesions, Breakdown Pulmonary: Reports: Dyspnea, Cough, Pleuritic Chest Pain Cardiovascular: Reports: Edema (left greater than right); Denies: Chest Pain, Palpitations, Orthopnea Gastrointestinal: Denies: Nausea, Vomiting, Abdominal Pain, Diarrhea, Constipation Genitourinary: Denies: Dysuria, Hematuria Hematologic: Denies: Bruising, Bleeding Excessively Endocrine: Denies: Polydipsia, Polyphagia, Polyuria Neurological: Denies: Change in speech, Confusion Psych: Reports: Mood Normal Physical Examination General Exam: Positive: Alert, No Acute Distress Eye Exam: Positive: PERRLA, Conjunctiva & lids normal; Negative: Sclera icteric ENT Exam: Positive: Atraumatic, Pharynx Normal, Other ENT (upper dentures); Negative: Mucous membr. moist/pink (slightly dry) Neck Exam: Positive: Supple; Negative: JVD, Lymphadenopathy Chest Exam: Positive: Clear to auscultation, Normal air movement, Other (deep inspiration causes coughing) Heart Exam: Positive: Rate Normal, Regular Rhythm, Normal S1, Normal S2, Murmurs (23/6 holosystolic left lower sternal border, probably mitral regurg); Negative: Rubs Abdomen Exam: Positive: Normal bowel sounds, Soft; Negative: Tenderness, Hepatospenomegaly Extremity Exam: Positive: Edema (trace pitting edema on the right, 1+ pitting edema on the left), Normal pulses; Negative: Clubbing, Cyanosis Skin Exam: Positive: Nl turgor and temperature; Negative: Breakdown, Lesion Psych Exam: Positive: Mental status NL, Mood NL, Oriented x 3 Vital Signs Vital Signs Date Time Temp Pulse Resp B/P (MAP) Pulse Ox O2 Delivery O2 Flow Rate FiO2 03/19/20 21:19 72 20 97 Nasal Cannula 2.0 03/19/20 21:16 160/82 (108) 03/19/20 14:50 98.4 Laboratory Data Labs 24H Laboratory Tests 2 03/19/20 16:34: Immature Granulocyte % (Auto) 0.5, Neutrophils (%) (Auto) 87.9H, Lymphocytes (%) (Auto) 8.2L, Monocytes (%) (Auto) 2.4, Eosinophils (%) (Auto) 0.5, Basophils (%) (Auto) 0.5, Neutrophils # (Auto) 9.6H, Lymphocytes # (Auto) 0.9L, Monocytes # (Auto) 0.3, Eosinophils # (Auto) 0.1, Basophils # (Auto) 0.1, Nucleated Red Blood Cells % (auto) 0.0, Prothrombin Time 14.8H, Prothromb Time International Ratio 1.13, Activated Partial Thromboplast Time 26.2, Anion Gap 5L, Glomerular Filtration Rate > 60.0, Calcium Level 8.3L, Total Bilirubin 0.4, Direct Bilirubin 0.1, Aspartate Amino Transf (AST/SGOT) 26, Alanine Aminotransferase (ALT/SGPT) 57, Alkaline Phosphatase 107, Total Creatine Kinase 148, Creatine Kinase MB 4.9H, Creatine Kinase MB Relative Index 3.31, Troponin I < 0.02, SM-Rcj-M-Type Natriuretic Peptide 659H, Total Protein 6.8, Albumin 3.1L, Albumin/Globulin Ratio 0.8, Thyroid Stimulating Hormone (TSH) 0.693, Thyroxine (T4) 6.7 03/19/20 17:29: Coronavirus (COVID-19)(PCR) NEGATIVE, Influenza Type A (RT-PCR) NEGATIVE, Influenza Type B (RT-PCR) NEGATIVE, Respiratory Syncytial Virus (PCR) NEGATIVE CBC/BMP Laboratory Tests 03/19/20 16:34 Assessment/Plan This is a 64-year-old man with history of recurrent deep vein thrombosis and worsening dyspnea who requires an acute care admission because of a previous history of complicated anticoagulation and to further evaluate his dyspnea. Problems (1) DVT of lower limb, acute Status: Acute Discussed With: Nurse, Patient Problem Text: He has an acute DVT of his left lower extremity. He will need to be anticoagulated for this. Since this is his second DVT, and because I was unable to find a complete hypercoagulability workup, I will order this now. I'm not exactly sure what to make of the history of his previous Xarelto failure and need to go home on subcutaneous heparin. I think this needs to further i nvestigated and perhaps the day team will be able to get more information from his physician to clarify this. For now I will start him on treatment dose of low-dose molecular weight heparin. (2) Edema Discussed With: Patient Problem Text: I'm not certain why he had bilateral lower extremity edema and dyspnea in the first place. There are several possible reasons, but congestive heart failure is one of them. He has a mildly elevated BNP. I do hear a murmur consistent with mitral regurgitation. I've ordered an echocardiogram to help clarify this. I have held off on ordering diuretics at this time, in part because his creatinine is elevated over his baseline at present. He reports that he sees Dr. Zafar for his cardiac care if a consultation is needed. (3) Interstitial lung disease Status: Chronic Problem Text: He has a known history of interstitial lung disease with a chronic cough. Per the patient's report he has been sent to a specialist at [facility] in [place] specifically to address his cough. He sees Dr. Mclean for his pulmonary care. I don't see the need to involve pulmonology at this time, but it's always good to know that he does see them in case he decompensates. (4) Type 2 diabetes mellitus Status: Chronic Problem Text: His home regimen includes Victoza 1.8 mg subcutaneously daily and metformin 1 g by mouth twice a day (the metformin did not make it on to his home med list for some reason). While here in the hospital, because of the potential for dye studies, I will not start him on metformin. I did order his Victoza but he'll have to use his home medication. I also ordered fingersticks before meals and at bedtime with a standard sliding scale. Plan / VTE VTE Prophylaxis Ordered?: Yes Plan Advanced Directives: Health Care Proxy (HCP) (he believes that he has a healthcare proxy filled out but he does not have a copy with him. He verbally identified his , Margoth Gardner , as his alternate decision maker should he be unable to make his own decisions. We did also explicitly discuss his CODE STATUS and he wishes to be FULL CODE at this time.) Gene Lang MD Mar 19, 2020 22:00
[2020-03-19 23:25] VITALS: BP 145/96
[2020-03-20] MEDS ORDERED: GABAPENTIN 300 MG CAP PO PRN (00:30)
[2020-03-20] MEDS: BENZONATATE 100 MG CAP PO SCH ×3 (05:05→21:02)
[2020-03-20 06:00] VITALS: BP 125/73
[2020-03-20 06:48] LABS: HEMATOCRIT 41.3 % (42.0-52.0); HEMOGLOBIN 12.6 g/dl (13.5-17.5); MEAN CORPUSCULAR HEMOGLOBIN 28.8 pg (27.0-33.0); MEAN CORPUSCULAR HGB CONC 30.5 g/dl (32.0-36.5); MEAN CORPUSCULAR VOLUME 94.3 fl (80.0-96.0); PLATELET COUNT, AUTOMATED 192 10^3/uL (150-450); RED BLOOD COUNT 4.38 10^6/uL (4.30-6.10); WHITE BLOOD COUNT 10.3 10^3/uL (4.0-10.0)
[2020-03-20 07:16] LABS: BLOOD UREA NITROGEN 19 MG/DL (7-18); CALCIUM LEVEL 8.3 MG/DL (8.8-10.2); CARBON DIOXIDE LEVEL 32 MEQ/L (21-32); CHLORIDE LEVEL 102 MEQ/L (98-107); CREATININE FOR GFR 0.72 MG/DL (0.70-1.30); GLOMERULAR FILTRATION RATE > 60.0 (>49); GLUCOSE, FASTING 92 MG/DL (70-100); MAGNESIUM LEVEL 2.2 MG/DL (1.8-2.4); POTASSIUM SERUM 4.3 MEQ/L (3.5-5.1); SODIUM LEVEL 137 MEQ/L (136-145)
[2020-03-20] MEDS: HumaLOG INSULIN (NovoLOG) PER UNIT SC SCH ×3 (07:30→17:29)
--- NOTE | 2020-03-20 08:33 | ECGEPIP ---
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
[2020-03-20] MEDS: ASPIRIN 81 MG ENTERIC TAB PO SCH (08:36)
[2020-03-20] MEDS: predniSONE 10 MG TAB PO SCH (08:36)
[2020-03-20 11:31] LABS: DRVV SCREEN 39.3 SEC
[2020-03-20] MEDS: ENOXAPARIN 120MG/0.8ML SYRINGE (J1650 PER 10MG) SC SCH ×3 (12:00→23:02)
[2020-03-20 14:00] VITALS: BP 96/61
--- NOTE | 2020-03-20 14:12 | IPNPDOC ---
Text Note Date of Service The patient was seen on 03/20/20. NOTE SUBJECTIVE: -No leg pain. LLE continues to be swollen without pain of difficulty walking -Is on 2L NC, reports that he was recently started on home O2 by Dr. Mclean and goes up to 4L with exertion i/s/o ILD -On asking him about the history of Xarelto failure--> he reports that he was started on xarelto when he was diagnosed with his first DVT a few years ago. After about 5 month of taking, his leg had not reduced in size and the swelling was actually increasing and clot burden was worse on repeat imaging and that is why he was switched to lovenox (LMWH) injections with eventual resolution of his symptoms. They did discontinue the lovenox after about 6 months. OBJECTIVE: General: Alert, No Acute Distress Eye: PERRLA, EOMI, anicteric, MMM ENT: MMM, has dentures Neck: Supple, no JVD, or palpable adenopathy Chest: Dry velcro like crackles worse in posterior lower lung santana, no wet crackles, no rhonchi, no wheezing Heart: 2/6 holosystolic murmur at left lower sternal border, otherwise RRR Abdomen : Normal bowel sounds, Soft, NTND Extremity: Trace pitting edema on the right, 1+ pitting edema on the left, WWP, nontender calves. Skin: Nl turgor and temperature, no breakdown or rashes Psych: Mental status NL, Mood NL, Oriented x 3 Laboratory Data: Reviewed. Assessment: 64-year-old man with history of now recurrent unprovoked deep vein thrombosis and worsening dyspnea in the setting of ILD recently started on home O2. Recurrent unprovoked DVT of lower limb, acute -continue therapeutic dosing lovenox BID, with plan for anticoagulation for life, and home discharge with lovenox given the history of clot extension on xarelto over months. -Had hypercoagulability workup ordered at admission. Unfortunately utility in the setting of an acute clot is low, but will follow up. -lovenox teaching Probable CHF -Has some mild LE edema and a mildly elevated BNP. -f/u echocardiogram -will have him follow up with Dr. Zafar (his outpatient monogram maker) in the outpatient setting -lasix 40 IV once Chronic Interstitial lung disease -He has a known history of interstitial lung disease with a chronic cough. Per the patient's report he has been sent to a specialist at [facility] in [place] specifically to address his cough. He sees Dr. Mclean for his pulmonary care. -continue supplemental O2 with goal >88% -continue home cough drops Type 2 diabetes mellitus -SSI AC/HS -c/w home victoza -holding metformin -hypolgycemia protocol -FSBG AC/HS -consistent carb diet Dispo: PT/OT, likely home tomorrow VS,Fishbone, I+O VS, Fishbone, I+O Laboratory Tests 03/19/20 16:34 03/20/20 06:23 Vital Signs Date Time Temp Pulse Resp B/P (MAP) Pulse Ox O2 Delivery O2 Flow Rate FiO2 03/20/20 06:00 97.5 65 20 125/73 (90) 94 Nasal Cannula 5.0 I&O- Last 24 Hours up to 6 AM 03/20/20 06:00 Intake Total 470 ml Output Total 500 ml Balance -30 ml YSABEL BEAVERS MD Mar 20, 2020 14:12
[2020-03-20 14:30] VITALS: BP 130/80
[2020-03-20] MEDS ORDERED: FUROSEMIDE 40MG/4ML VIAL (J1940) IV ONE (14:45)
[2020-03-20] MEDS ORDERED: HumaLOG INSULIN (NovoLOG) PER UNIT SC SCH (21:00)
[2020-03-20] MEDS ORDERED: ATORVASTATIN 20 MG TAB PO SCH (21:00)
[2020-03-20] MEDS: LIRAGLUTIDE SC SCH (21:00)
[2020-03-20 22:00] VITALS: BP 129/71
[2020-03-21] MEDS: BENZONATATE 100 MG CAP PO SCH (05:18)
[2020-03-21 06:00] VITALS: BP 123/75
[2020-03-21] MEDS: ASPIRIN 81 MG ENTERIC TAB PO SCH (09:09)
[2020-03-21] MEDS: predniSONE 10 MG TAB PO SCH (09:09)
[2020-03-21] MEDS: LIRAGLUTIDE SC SCH (09:11)
[2020-03-21] MEDS: HumaLOG INSULIN (NovoLOG) PER UNIT SC SCH ×2 (09:11→12:00)
[2020-03-21] MEDS ORDERED: LOVE0.01 SC (09:34)
--- NOTE | 2020-03-21 09:46 | DS.PDOC ---
Discharge Summary General Date of Admission Mar 19, 2020 at 21:43 Date of Discharge 03/21/2020 Attending Physician: YSABEL BEAVERS MD Discharge Summary PROCEDURES PERFORMED DURING STAY: None ADMITTING DIAGNOSES: 1. Acute LLE DVT DISCHARGE DIAGNOSES: 1. Acute LLE DVT 2. ILD with chronic hypoxemic respiratory failure on home oxygen therapy 3. Type 2 diabetes 4. History of DVT in right leg (roughly 2014) COMPLICATIONS/CHIEF COMPLAINT: Dvt Of Lower Limb,Acute. HISTORY OF PRESENT ILLNESS: 64 yo man with ILD recently started on home oxygen therapy by Dr. Mclean and a history of remote unprovoked DVT in 2014 c/b xarelto failure and treated with ~6months of lovenox with resolution, who was recently seen by Dr. Mclean in clinic and complained of bilateral L>R LE swelling and Dr. Mclean ordered a doppler venous US that found an occlusive DVT in the distal femoral vein and popliteal vein on the left side and directed him to the ED for further evaluation and treatment. HOSPITAL COURSE: On presentation, he had a CTA that was negative for a PE and was started on therapeutic lovenox given the history of a NoAC failure with xarelto. On asking him about the history of the Xarelto failure, he reported that he was started on xarelto when he was diagnosed with his first DVT in 2014 but after about 5 month of taking it, his leg had not reduced in size and the swelling was actually increasing and clot burden was worse on repeat imaging and that is why he was switched to lovenox (LMWH) injections with eventual resolution of his symptoms. They did discontinue the lovenox after about 6 months. His oxygen requirement did not change from baseline 2L at rest and 4-5L with exertion. He was given 40mg of IV lasix for possible CHF for which it is unclear if he has, without any change in his respiratory status or volume status. He is now being discharged home on therapeutic BID lovenox and will follow up with is PCP in clinic within 1 week. Of note, he will require official hypercoagulable workup in about 6 weeks after treatment of the acute DVT to investigate possibly underlying disorder precipitating unprovoked DVTs. Some hypercoagulable workup was ordered at admission, but their interpretation is limited by the ongoing consumptive process i/s/an acute clot. DISCHARGE MEDICATIONS: Please see below. ALLERGIES: Please see below. PHYSICAL EXAMINATION ON DISCHARGE: VITAL SIGNS: Please see below. General: Alert, No Acute Distress Eye: PERRLA, EOMI, anicteric, MMM ENT: MMM, has dentures Neck: Supple, no JVD, or palpable adenopathy Chest: Dry velcro like crackles worse in posterior lower lung santana, no wet crackles, no rhonchi, no wheezing Heart: 2/6 holosystolic murmur at left lower sternal border, otherwise RRR Abdomen : Normal bowel sounds, Soft, NTND Extremity: Trace pitting edema on the right, 1+ pitting edema on the left, WWP, nontender calves. Skin: Nl turgor and temperature, no breakdown or rashes Psych: Mental status NL, Mood NL, Oriented x 3 LABORATORY DATA: Please see below. IMAGING: CTA chest: Pulmonary arteries: There is enlargement of the central pulmonary arteries, findings which can be associated with pulmonary arterial hypertension which should be correlated clinically. There are no pulmonary emboli. Aorta: There is fusiform dilatation of the ascending thoracic aorta which measures 4.2 cm. maximally. There is no dissection or saccular component. There is mild atherosclerosis in the thoracic aorta. Lungs: Redemonstration of bilateral predominantly subpleural foci of septal thickening honeycombing consistent with interstitial lung disease. Findings are unchanged in comparison to the prior study. Calcified granuloma right upper lobe. Pleural space: Unremarkable. No pneumothorax. No pleural effusion. Heart: There is moderate atherosclerotic calcification of the coronary arteries. Lymph nodes: Redemonstration of stable diffuse mediastinal and bilateral hilar lymphadenopathy. Bones/joints: The spine demonstrates mild degenerative changes. Soft tissues: Unremarkable. IMPRESSION: 1. Redemonstration of bilateral predominantly subpleural foci of septal thickening honeycombing consistent with interstitial lung disease. Findings are unchanged in comparison to the prior study. 2. There is fusiform dilatation of the ascending thoracic aorta which measures 4.2 cm. maximally. There is no dissection or saccular component. 3. Redemonstration of stable diffuse mediastinal and bilateral hilar lymphadenopathy. 4. There is enlargement of the central pulmonary arteries, findings which can be associated with pulmonary arterial hypertension which should be correlated clinically. 5. There are no pulmonary emboli. CXR: Stable interstitial fibrotic change and mild cardiomegaly. No definite acute infiltrate. PROGNOSIS: Good ACTIVITY: As tolerated DIET: Consistent carbohydrate DISCHARGE PLAN: Home with therapeutic lovenox DISPOSITION: Home DISCHARGE INSTRUCTIONS: 1. Home with therapeutic lovenox, and close PCP follow up ITEMS TO FOLLOWUP ON ON OUTPATIENT: 1. DVT 2. ILD with pulm DISCHARGE CONDITION: Stable TIME SPENT ON DISCHARGE: 46 minutes. Vital Signs/I&Os Vital Signs Date Time Temp Pulse Resp B/P (MAP) Pulse Ox O2 Delivery O2 Flow Rate FiO2 03/21/20 06:00 96.8 56 18 123/75 (91) 96 Nasal Cannula 2.0 I&O- Last 24 Hours up to 6 AM 03/21/20 06:00 Intake Total 930 ml Output Total 1750 ml Balance -820 ml Laboratory Data Labs 24H Laboratory Tests 2 03/20/20 12:13: Bedside Glucose (Misc Panel) 131H 03/20/20 16:28: Bedside Glucose (Misc Panel) 132H 03/20/20 19:56: Bedside Glucose (Misc Panel) 162H 03/21/20 06:02: Bedside Glucose (Misc Panel) 104 FSBS Laboratory Tests Test 03/20/20 12:13 03/20/20 16:28 03/20/20 19:56 03/21/20 06:02 Range/Units Bedside Glucose (Misc Panel) 131 132 162 104 80-115 MG/DL Discharge Medications Scheduled Aspirin (Aspirin EC) 81 Mg Tablet.dr, 81 MG PO DAILY, (Reported) Atorvastatin Calcium (Atorvastatin Calcium) 40 Mg Tablet, 40 MG PO QHS, (Reported) Enoxaparin Sodium (Lovenox) 120 Mg/0.8 Ml Syringe, 110 MG SC BID@1100,2300 Liraglutide (Victoza 3-Dontrell) 0.6 Mg/0.1 Ml Pen.injctr, 1.8 MG SC DAILY, (Reported ) Scheduled PRN Gabapentin (Gabapentin) 300 Mg Capsule, 900 MG PO BID PRN for PAIN, (Reported) Allergies Coded Allergies: No Known Drug Allergies (Verified Allergy, Unknown, 12/02/18) YSABEL BEAVERS MD Mar 21, 2020 09:46
[2020-03-21] MEDS: ENOXAPARIN 120MG/0.8ML SYRINGE (J1650 PER 10MG) SC SCH (11:23)
[2020-03-25 16:08] LABS: ANCA-ATYPICAL <1:20 titer (Neg:<1:20); ANTI THROMBIN 3 ANTIGEN IMMUNO 70 % (72-124); ANTI THROMBIN 3 FUNCT ACTIVITY 79 % (75-135); CARDIOLIPIN IGA ANTIBODY <9 APL U/mL (0-11); CARDIOLIPIN IGG ANTIBODY <9 GPL U/mL (0-14); CARDIOLIPIN IGM ANTIBODY 22 MPL U/mL (0-12); CYTOPLASMIC NEUTROP AB ANCA-C <1:20 titer (Neg:<1:20); HOMOCYST(E)INE SERUM 9.2 umol/L (0.0-17.2); PERINUCLEAR AB ANCA-P <1:20 titer (Neg:<1:20); PROTEIN C ANTIGEN 74 % (60-150); PROTEIN S ANTIGEN FREE 72 % (57-157); PROTEIN S ANTIGEN TOTAL 61 % (60-150)
== END 2020-03-21 13:00 | disposition home or self-care (01) | DRG 300 ==
LOC: M ED 14:49 → M ED INP 21:43 → ENRESERV 22:11 → M MSPAV 23:24
PROVIDERS: ADMIT Family Medicine; ATTEND Internal Medicine
DX: I82.411 Acute embolism and thrombosis of right femoral vein (principal); J84.9 Interstitial pulmonary disease, unspecified; J96.11 Chronic respiratory failure with hypoxia; I82.431 Acute embolism and thrombosis of right popliteal vein; I50.9 Heart failure, unspecified; E11.9 Type 2 diabetes mellitus without complications; Z79.82 Long term (current) use of aspirin; Z79.899 Other long term (current) drug therapy; Z99.81 Dependence on supplemental oxygen; Z20.828 Contact with and (suspected) exposure to other viral communicable diseases

== ENCOUNTER → 2020-03-19 | Outpatient (CLI) | payer MEDICARE, OTHER ==
--- NOTE | 2020-03-19 14:17 | REP ---
INDICATION: LT LEG PAIN SWELLING ? R/O DVT. COMPARISON: None. TECHNIQUE: Unilateral left lower extremity duplex venous ultrasound: FINDINGS: There is somewhat heterogeneous hypoechoic material occluding the left popliteal and distal femoral vein consistent with occlusive DVT. The segment of vein involved is noncompressible and shows absence of flow on color Doppler interrogation. The mid and proximal femoral vein and the common femoral vein segments are clear on the left.. IMPRESSION: Study is positive for occlusive DVT in the distal femoral vein and popliteal vein on the left side. <Electronically signed by Immanuel Portillo > 03/19/20 [id number]
== END ==
LOC: M RAD 13:36
PROVIDERS: ATTEND Internal Medicine Pulmonary Disease
DX: I82.4Z2 Acute embolism and thrombosis of unspecified deep veins of left distal lower extremity (principal)

== ENCOUNTER → 2020-04-29 | Outpatient (CLI) | payer MEDICARE, OTHER ==
[~2020-04-29] MED LIST changes: +GABA-282 PO; -GABA-843 PO
[2020-04-29 16:54] LABS: BASO # 0.1 10^3/uL (0.0-0.2); BASO % 0.7 % (0.0-1.0); EOS # 0.6 10^3/uL (0.0-0.5); EOS % 5.2 % (0.0-3.0); HEMOGLOBIN 14.6 g/dl (13.5-17.5); LYMPH # 1.8 10^3/uL (1.5-5.0); LYMPH % 14.4 % (24.0-44.0); MEAN CORPUSCULAR HEMOGLOBIN 29.3 pg (27.0-33.0); MEAN CORPUSCULAR HGB CONC 30.4 g/dl (32.0-36.5); MEAN CORPUSCULAR VOLUME 96.4 fl (80.0-96.0); MONO # 0.6 10^3/uL (0.0-0.8); MONO % 4.5 % (0.0-5.0); NEUTROPHILS # 9.1 10^3/uL (1.5-8.5); NEUTROPHILS % 74.9 % (36.0-66.0); PLATELET COUNT, AUTOMATED 252 10^3/uL (150-450); RED BLOOD COUNT 4.98 10^6/uL (4.30-6.10); WHITE BLOOD COUNT 12.1 10^3/uL (4.0-10.0)
[2020-04-29 17:01] LABS: C REACTIVE PROTEIN QUANTITATIV 0.42 MG/DL (0.00-0.30)
[2020-04-29 17:35] LABS: ERYTHROCYTE SEDIMENTATION RATE 36 mm/hr (0-20)
[2020-04-29 19:13] LABS: APPEARANCE, URINE CLEAR (CLEAR); BACTERIA, URINE AUTO NEGATIVE (NEGATIVE); BILIRUBIN, URINE AUTO NEGATIVE (NEGATIVE); BLOOD, URINE BLOOD NEGATIVE (NEGATIVE); COLOR, URINE YELLOW (YELLOW); GLUCOSE, URINE (UA) AUTO NEGATIVE (NEGATIVE); KETONE, URINE AUTO NEGATIVE (NEGATIVE); LEUKOCYTE ESTERASE, URINE AUTO NEGATIVE (NEGATIVE); NITRITE, URINE AUTO NEGATIVE (NEGATIVE); PROTEIN, URINE AUTO NEGATIVE (NEGATIVE); RBC, URINE AUTO 0 /HPF (0-3); SPECIFIC GRAVITY URINE AUTO 1.012 (1.002-1.035); SQUAMOUS EPITHELIAL CELL UR AU 0 /HPF (0-6); UROBILINOGEN, URINE AUTO 0.2 mg/dL (0.0-2.0); WBC, URINE AUTO 1 /HPF (0-3)
[2020-04-29 19:40] LABS: CREATININE,RANDOM URINE 78.5 MG/DL; TOTAL PROTEIN,RANDOM URINE 7.2 MG/DL (0.0-12.0)
[2020-05-01 14:08] LABS: DRVV SCREEN 47.3 SEC
[2020-05-01 14:13] LABS: PTT LUPUS TYPE ANTICOAG SCREEN 1.2 (0-1.2)
[2020-05-01 14:20] LABS: DRVV CONFIRM 37.5 SEC
[2020-05-01 14:26] LABS: NORMALIZED RATIO 1.2 (0.00-1.20)
[2020-05-02 13:08] LABS: ANA (HEP2) Positive (.); ANGIOTENSIN 1 CONVERTING ENZYM 26 U/L (14-82); ANTI CENTROMERE ANTIBODY <0.2 AI (0.0-0.9); ANTI DS-DNA AB Negative (Negative); ANTI SCLERODERMA ANTIBODIES <0.2 AI (0.0-0.9); ANTI-HISTONE ANTIBODIES 0.6 Units (0.0-0.9); BETA-2 GLYCOPROTEIN I ABY IGA <9 (0-25); BETA-2 GLYCOPROTEIN I ABY IGG <9 (0-20); BETA-2 GLYCOPROTEIN I ABY IGM <9 (0-32); CARDIOLIPIN IGA ANTIBODY <9 APL U/mL (0-11); CARDIOLIPIN IGG ANTIBODY <9 GPL U/mL (0-14); CARDIOLIPIN IGM ANTIBODY 20 MPL U/mL (0-12); COMPLEMENT TOTAL (CH50) > 60 U/mL (>41); CYCLIC CITRULLINATED PEPTIDE 5 units (0-19); RNP ANTIBODY 0.2 AI (0.0-0.9); SMITHS ANTIBODY < 0.2 AI (0.0-0.9); SSA SJOGRENS A <0.2 AI (0.0-0.9); SSB SJOGRENS B <0.2 AI (0.0-0.9)
[2020-05-04 05:09] LABS: HEXAGONAL PHASE PHOSPHOLIPID 0 sec (0-11)
== END ==
LOC: M WUC 14:39
PROVIDERS: ATTEND Internal Medicine
DX: R76.8 Other specified abnormal immunological findings in serum (principal); M25.439 Effusion, unspecified wrist; R91.8 Other nonspecific abnormal finding of lung field

== ENCOUNTER → 2020-05-06 | Outpatient (CLI) | payer MEDICARE, OTHER ==
[2020-05-16 02:07] LABS: ALDOLASE 9.4 U/L (3.3-10.3); ANTI JO-1 ANTIBODIES <20 Units (<20); ANTI-GLOMERULAR BASEMENT MEMB 6 units (0-20); ANTI-U1 RNP AB <20 Units (<20); Mi-2 ANTIBODIES Negative (Negative)
== END ==
LOC: M WUC 12:10
PROVIDERS: ATTEND Internal Medicine
DX: J84.9 Interstitial pulmonary disease, unspecified (principal); R06.02 Shortness of breath; I50.31 Acute diastolic (congestive) heart failure

== ENCOUNTER → 2020-05-06 | Outpatient (CLI) | payer MEDICARE, OTHER ==
[2020-05-06 16:46] LABS: BLOOD UREA NITROGEN 21 MG/DL (7-18); CALCIUM LEVEL 9.2 MG/DL (8.8-10.2); CARBON DIOXIDE LEVEL 35 MEQ/L (21-32); CHLORIDE LEVEL 96 MEQ/L (98-107); CREATININE FOR GFR 0.87 MG/DL (0.70-1.30); GLOMERULAR FILTRATION RATE > 60.0 (>49); GLUCOSE, FASTING 122 MG/DL (70-100); NT-PRO BNP 293 PG/ML (<125); POTASSIUM SERUM 4.3 MEQ/L (3.5-5.1); SODIUM LEVEL 137 MEQ/L (136-145)
== END ==
LOC: M WUC 12:18
PROVIDERS: ATTEND Internal Medicine Cardiovascular Disease
DX: R06.02 Shortness of breath (principal); I50.31 Acute diastolic (congestive) heart failure

== ENCOUNTER → 2020-05-25 | Outpatient (CLI) | payer MEDICARE, OTHER | LOC: M LABSMTC 10:58 | PROVIDERS: ATTEND Internal Medicine Cardiovascular Disease | DX: Z01.812 Encounter for preprocedural laboratory examination (principal); I50.31 Acute diastolic (congestive) heart failure; Z20.822 Contact with and (suspected) exposure to COVID-19 ==

== ENCOUNTER → 2020-07-11 | Outpatient (REF) | payer MEDICARE, OTHER ==
[~2020-07-11] MED LIST changes: +ELIQ5TAB PO; +ELIQ5TAB4 PO; +FURO20TA2 PO; +FURO40TA2 PO; +HYDR200T3 PO; +MEDR8TAB PO; +METF-838 PO; +OFEV1CAP2 PO; +SPIR-10 PO
[2020-07-11 17:08] LABS: PERCENT SATURATION 45.4 % (19.7-50.0)
== END ==
LOC: M LAB REF 15:34
PROVIDERS: ATTEND Internal Medicine Pulmonary Disease
DX: D64.9 Anemia, unspecified (principal)

== ENCOUNTER → 2020-07-30 | Outpatient (CLI) | payer MEDICARE, OTHER ==
[2020-07-30 12:33] LABS: BASO % 0.2 % (0.0-1.0); EOS # 0.2 10^3/uL (0.0-0.5); EOS % 2.1 % (0.0-3.0); HEMATOCRIT 47.7 % (42.0-52.0); HEMOGLOBIN 15.4 g/dl (13.5-17.5); LYMPH # 3.3 10^3/uL (1.5-5.0); LYMPH % 34.1 % (24.0-44.0); MEAN CORPUSCULAR HEMOGLOBIN 29.4 pg (27.0-33.0); MEAN CORPUSCULAR HGB CONC 32.3 g/dl (32.0-36.5); MEAN CORPUSCULAR VOLUME 91.2 fl (80.0-96.0); MONO # 0.4 10^3/uL (0.0-0.8); MONO % 3.8 % (2.0-8.0); NEUTROPHILS # 5.7 10^3/uL (1.5-8.5); NEUTROPHILS % 59.4 % (36.0-66.0); PLATELET COUNT, AUTOMATED 155 10^3/uL (150-450); RED BLOOD COUNT 5.23 10^6/uL (4.30-6.10); WHITE BLOOD COUNT 9.7 10^3/uL (4.0-10.0)
[2020-07-30 13:07] LABS: ALBUMIN 3.1 GM/DL (3.2-5.2); ALT/SGPT 138 U/L (12-78); BLOOD UREA NITROGEN 35 MG/DL (7-18); CALCIUM LEVEL 8.7 MG/DL (8.8-10.2); CARBON DIOXIDE LEVEL 37 MEQ/L (21-32); CHLORIDE LEVEL 95 MEQ/L (98-107); CHOLESTEROL LEVEL 123 MG/DL (<200); CHOLESTEROL RISK RATIO 1.556 (<5); CREATININE FOR GFR 0.76 MG/DL (0.70-1.30); GLOMERULAR FILTRATION RATE > 60.0 (>49); GLUCOSE, FASTING 150 MG/DL (70-100); HDL CHOLESTEROL 79 MG/DL (>40); LDL CHOLESTEROL 30 MG/DL (<100); NON-HDL-C 44 MG/DL; POTASSIUM SERUM 4.5 MEQ/L (3.5-5.1); SODIUM LEVEL 136 MEQ/L (136-145); TOTAL PROTEIN 6.5 GM/DL (6.4-8.2); TRIGLYCERIDES LEVEL 72 MG/DL (<150)
[2020-07-30 13:54] LABS: HEMOGLOBIN A1c 8.6 %
[2020-07-31 10:23] LABS: MALB URINE SIEMENS 33.2 MG/L; MAU/CREAT RATIO 21.6 MCG/MG (0.0-30.0)
== END ==
LOC: M WUC 08:27
PROVIDERS: ATTEND Family Medicine
DX: E78.00 Pure hypercholesterolemia, unspecified (principal); E11.9 Type 2 diabetes mellitus without complications; Z12.5 Encounter for screening for malignant neoplasm of prostate
CPT/HCPCS: 36415; 80053; 80061; 82043; 83036; 85025; G0103

== ENCOUNTER → 2020-08-11 | Outpatient (CLI) | payer MEDICARE, OTHER ==
--- NOTE | 2020-08-13 10:46 | SLEEPCENT ---
NOCTURNAL POLYSOMNOGRAPHY DATE: 08/11/2020 ORDERED BY: Cachorro Mclean M.D. Nocturnal polysomnography was performed for evaluation of sleep physiology in this patient with a prior history of obstructive sleep apnea syndrome who has accomplished significant weight loss and who suffers from significant pulmonary hypertension. Testing was started on 3 liters of oxygen delivered via nasal cannula. During the start of the test, the patient delivered his oxygen to his mouth using the nasal cannula. 8 hours and 7 minutes of data were reviewed. There were 335 minutes of sleep identified. Sleep latency was mildly prolonged at 40.5 minutes. REM latency was mildly prolonged at 121.5 minutes. Sleep architecture was fairly good. There were four REM cycles noted. Overall sleep efficiency was 69.4%. The electrocardiogram showed a sinus rhythm throughout with an average heart rate of 74 beats per minute; rate range 60 to 100. EEG showed fairly normal waveforms for wake and sleep. There were no focal events identified. There were only four obstructive respiratory events identified of 10 seconds in duration or greater for an apnea-hypopnea index of well within normal limits at 0.7. There was snoring noted and respiratory-related arousals occurred 4.5 times per hour when arousals from snoring were included. The patient's oxygen saturation was low and variable with desaturations to 80 seen over the initial portion of the study. The patient was instructed to move his cannula to his nose and the flow rate was increased to 4 liters. Subsequent to that change, no desaturations below 90% were seen throughout the remainder of the study. There was some activity noted in the limb EMG leads, but limb movement arousal index was only 5.7. IMPRESSION: 1. Normal nocturnal polysomnography with snoring. 2. Hypoxemia. RECOMMENDATION: Supplemental oxygen at 4 L/min delivered via nasal cannula placed within the nose resulted in adequate oxygen saturations. Fernando Dennis M.D. ([facility])
== END ==
LOC: M SLEEP 20:00
PROVIDERS: ATTEND Internal Medicine Pulmonary Disease
DX: G47.33 Obstructive sleep apnea (adult) (pediatric) (principal); I27.23 Pulmonary hypertension due to lung diseases and hypoxia

== ENCOUNTER → 2020-08-16 | Outpatient (CLI) | payer MEDICARE, OTHER ==
[~2020-08-16] MED LIST changes: +ISOVUE-370 76% 100ML VIAL As Ordered ONE
--- NOTE | 2020-08-16 14:32 | REP ---
INDICATION: PULMONARY HTN UNSPEC. COMPARISON: 03/19/2020. TECHNIQUE: CT chest performed following the intravenous administration of 100 cc of Isovue 370. Sagittal and coronal reconstruction images are performed. FINDINGS: Lungs: There is a large calcified granuloma anteriorly in the right upper lobe again identified. There is stable significant diffuse parenchymal fibrosis, right greater than left, with associated honeycombing. There is no superimposed acute abnormality appreciated. Mediastinum: Mild scattered mediastinal adenopathy has decreased since the prior study. Joanna: Mild bilateral hilar adenopathy has decreased since the prior study. Axilla: No adenopathy. Pleura: No effusion. Heart: Slightly enlarged. Thoracic aorta: No aneurysm or dissection. There is mild ectasia of the ascending thoracic aorta unchanged. Enlargement of the central pulmonary arteries is stable, again this may signify pulmonary arterial hypertension. Upper abdominal structures: Unremarkable. Visualized osseous structures: There are mild degenerative changes of the spine without compression deformity. IMPRESSION: Previously noted mediastinal and hilar adenopathy has decreased since the prior exam. Otherwise stable CT chest as discussed in detail above. <Electronically signed by Thien Tang > 08/16/20 [id number]
== END ==
LOC: M RAD 13:43
PROVIDERS: ATTEND Internal Medicine Pulmonary Disease
DX: I27.20 Pulmonary hypertension, unspecified (principal)
CPT/HCPCS: 71260; Q9967

== ENCOUNTER → 2020-08-22 | Outpatient (REF) | payer MEDICARE, OTHER ==
[~2020-08-22] MED LIST changes: -ISOVUE-370 76% 100ML VIAL As Ordered ONE
[2020-08-22 14:06] LABS: ALBUMIN 3.1 GM/DL (3.2-5.2); BILIRUBIN,DIRECT 0.2 MG/DL (0.0-0.2); BILIRUBIN,TOTAL 0.8 MG/DL (0.2-1.0); TOTAL PROTEIN 6.6 GM/DL (6.4-8.2)
== END ==
LOC: M LAB REF 12:55
PROVIDERS: ATTEND Internal Medicine Pulmonary Disease
DX: J84.10 Pulmonary fibrosis, unspecified (principal)

== ENCOUNTER → 2020-09-23 | Outpatient (CLI) | payer MEDICARE, OTHER ==
[2020-09-23 13:52] LABS: ALBUMIN 2.9 GM/DL (3.2-5.2); BILIRUBIN,DIRECT 0.2 MG/DL (0.0-0.2); BILIRUBIN,TOTAL 0.7 MG/DL (0.2-1.0); TOTAL PROTEIN 6.3 GM/DL (6.4-8.2)
== END ==
LOC: M WUC 11:29
DX: Z51.81 Encounter for therapeutic drug level monitoring (principal); J84.10 Pulmonary fibrosis, unspecified

== ENCOUNTER → 2020-10-01 | Outpatient (REF) | payer MEDICARE, OTHER ==
[2020-10-01 18:08] LABS: COMPLEMENT C3 127 MG/DL (90-180); COMPLEMENT C4 22 MG/DL (10-40)
[2020-10-01 18:09] LABS: TOTAL PROTEIN,RANDOM URINE 31.1 MG/DL (0.0-12.0)
[2020-10-01 18:55] LABS: AMORPHOUS SEDIMENT LARGE (NEGATIVE); APPEARANCE, URINE TURBID (CLEAR); BACTERIA, URINE AUTO NEGATIVE (NEGATIVE); BILIRUBIN, URINE AUTO NEGATIVE (NEGATIVE); BLOOD, URINE BLOOD NEGATIVE (NEGATIVE); COLOR, URINE YELLOW (YELLOW); GLUCOSE, URINE (UA) AUTO 3+ mg/dL (NEGATIVE); KETONE, URINE AUTO NEGATIVE (NEGATIVE); LEUKOCYTE ESTERASE, URINE AUTO NEGATIVE (NEGATIVE); MUCUS, URINE LARGE (NEGATIVE); NITRITE, URINE AUTO NEGATIVE (NEGATIVE); PROTEIN, URINE AUTO NEGATIVE (NEGATIVE); RBC, URINE AUTO 0 /HPF (0-3); SPECIFIC GRAVITY URINE AUTO 1.031 (1.002-1.035); SQUAMOUS EPITHELIAL CELL UR AU 0 /HPF (0-6); WBC, URINE AUTO 0 /HPF (0-3)
[2020-10-02 12:07] LABS: DRVV SCREEN 37.5 SEC
== END ==
LOC: M SFHCRHEU 13:19
PROVIDERS: ATTEND Internal Medicine
DX: R76.8 Other specified abnormal immunological findings in serum (principal)
CPT/HCPCS: 81001; 82570; 84156; 85730; 86160; 86162; G0463

== ENCOUNTER → 2020-11-14 | Outpatient (REF) | payer MEDICARE, OTHER | LOC: M LAB REF 10:03 | PROVIDERS: ATTEND Internal Medicine Pulmonary Disease | DX: R05 Cough (principal); R09.3 Abnormal sputum; J45.40 Moderate persistent asthma, uncomplicated ==

== ENCOUNTER → 2020-11-26 | Outpatient (CLI) | payer MEDICARE, OTHER ==
[2020-11-26 16:31] LABS: ALBUMIN 2.8 GM/DL (3.2-5.2); ALT/SGPT 53 U/L (12-78); BILIRUBIN,TOTAL 0.4 MG/DL (0.2-1.0); BLOOD UREA NITROGEN 19 MG/DL (7-18); CALCIUM LEVEL 8.4 MG/DL (8.8-10.2); CARBON DIOXIDE LEVEL 37 MEQ/L (21-32); CHLORIDE LEVEL 101 MEQ/L (98-107); CREATININE FOR GFR 0.53 MG/DL (0.70-1.30); GLOMERULAR FILTRATION RATE > 60.0 (>49); GLUCOSE, FASTING 82 MG/DL (70-100); POTASSIUM SERUM 4.3 MEQ/L (3.5-5.1); SODIUM LEVEL 141 MEQ/L (136-145); TOTAL PROTEIN 6.1 GM/DL (6.4-8.2)
[2020-11-26 17:03] LABS: HEMOGLOBIN A1c 6.8 %
== END ==
LOC: M WUC 09:25
PROVIDERS: ATTEND Physician Assistant
DX: E09.8 Drug or chemical induced diabetes mellitus with unspecified complications (principal)

== ENCOUNTER → 2021-01-06 | Outpatient (CLI) | payer MEDICARE, OTHER ==
[2021-01-06 20:05] LABS: ALBUMIN 2.8 GM/DL (3.2-5.2); BILIRUBIN,DIRECT 0.2 MG/DL (0.0-0.2); BILIRUBIN,TOTAL 0.4 MG/DL (0.2-1.0); TOTAL PROTEIN 6.9 GM/DL (6.4-8.2)
== END ==
LOC: M WUC 14:51
PROVIDERS: ATTEND Internal Medicine Pulmonary Disease
DX: J84.10 Pulmonary fibrosis, unspecified (principal)

== ENCOUNTER → 2021-01-15 | Outpatient (CLI) | payer MEDICARE, OTHER ==
[~2021-01-15] MED LIST changes: +BENZ-18 PO; +PANT40TA29 PO; +TRES1INJ SC; +TYVA0.6S NEB; +TYVA0.6S3
--- NOTE | 2021-01-15 13:20 | DEXAMM ---
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 COMPARISON: None. TECHNIQUE: Bone density was measured using dual-energy x-ray absorptionmetry (DEXA). FINDINGS: AP SPINE L1-L4 BMD 1.676 g/cm2 Young Adult T-Score 3.9 Age Matched Z-Score 4.0. LT FEMUR, TOTAL BMD 0.875 g/cm2 Young Adult T-Score -1.1 Age Matched Z-Score -1.0. LT NECK BMD 0.817 g/cm2 Young Adult T-Score -1.6 Age Matched Z-Score -0.8. RT FEMUR, TOTAL BMD 0.808 g/cm2 Young Adult T-Score -1.6 Age Matched Z-Score -1.5. RT NECK BMD 0.794 g/cm2 Young Adult T-Score -1.8 Age Matched Z-Score -1.0. IMPRESSION: There is normal bone density of the spine. There is low bone density of the left hip. There is low bone density of the right hip FOLLOW-UP: Recommendation for the next bone density exam: 2 years. <Electronically signed by Immanuel Portillo > 01/15/21 [id number]
== END ==
LOC: M WHC 10:53
PROVIDERS: ATTEND Internal Medicine
DX: Z79.52 Long term (current) use of systemic steroids (principal)

== ENCOUNTER 2021-01-24 18:37 | Inpatient (IN) | payer MEDICARE, OTHER ==
[~2021-01-24] VITALS: Ht 177.8 cm; Wt 80.4 kg
[~2021-01-24 18:37] MED LIST changes: -BENZ-18 PO; -PANT40TA29 PO; -TYVA0.6S NEB
--- OUTSIDE RECORDS SUMMARY | 2021-01-24 18:43 | CCD | Continuity of Care Document ---
Author Author Mateusz KAMARA AK Organization Unknown Address [id number] [place] [address] 6 [address] [place] [address] Phone [phone] Care Team Providers Care Entry Level Finance Name Role Phone Monik Hernandez D.O. AUTM Cecilia Hi M.D. AUTM [phone] Stephane Bacon M.D. AUTM [phone] Ana Maria Matos M.D FACP AUTM [phone] [facility] AUTM [phone] [employer] AUTM [phone] Cachorro Mclean D.O. AUTM [phone] Problems Active Problems Provider Date Essential hypertension Monik Hernandez D.O. Onset: Type 2 diabetes mellitus Monik Hernandez D.O. Onset: 0 07/25/2014 Pure hypercholesterolemia Monik Hernandez D.O. Onset: 07/25/2014 Morbid obesity Monik Hernandez D.O. Onset: 2014 History of thromboembolism of vein Alex Kaye Onset: 07/25/2014 Difficulty breathing Monik Hernandez D.O. Onset: 07/25 Sciatica Monik Hernandez D.O. Onset: 2014 Aneurysm of thoracic aorta Monik Hernandez D.O. Onset: 08/27/2014 Note: CT 08/2014 shows mildly dilated 4.5 cm, Echo 2016 dilated aortic root 4.4 cm Solitary nodule of lung Monik Hernandez D.O. Onset: Note: CT 08/2014 shows nodule that needs 6 month follow up 02/2015 Multiple joint pain Monik Hernandez D.O. Onset: 2014 Body mass index 40+ - severely obese Bryce Kaye Onset: 03/18/2015 Post-thrombotic syndrome of right lower extremity Monik Cisneros D.O. Onset: 03/19/2015 Obstructive sleep apnea syndrome Monik Hernandez D.O. Onset: 07/30/2015 Helicobacter-associated gastritis MARTHA Gordon Onset : 10/01/2015 Gastro-esophageal reflux disease with esophagitis Monik Cisneros D.O. Onset: 04/08/2016 Low back pain Monik Hernandez D.O. Onset: 2015 Pain in right lower limb Monik Hernandez D.O. Onset: 06/09/2015 Pain in calf Monik Hernandez D.O. Onset: 2015 Diastolic dysfunction Monik Hernandez D.O. Onset: 05/14 Note: Grade I echo 2017 Noriega's esophagus Monik Hernandez D.O. Onset: 2017 Gastro-esophageal reflux disease with esophagitis Monik Cisneros D.O. Onset: 01/04/2018 Social History Type Date Description Comments Sex Unknown ETOH Use Denies alcohol use Recreational Drug Use Denies Drug Use Tobacco Use Start: Unknown Patient has never smoked Smoking Status Reviewed: 12/02/20 Patient has never smoked Exercise Type/Frequency Does not exercise Allergies, Adverse Reactions, Alerts Description No Known Drug Allergies Medications Active Medications SIG Qnty Indications Ordering Provide r Date Blood Glucose Test Strips Premium Strips 2 times a day 200units Monik Hernandez D.O. 12/02 Tresiba Flextouch 20 0Unit/ML Solution Pen-Inject inject 8 units daily and increase per instructions. 6units E09.8 Lou KayeOHarley 08/13/2020 4 Wheeled Walker With Seat And Basket Use as directed. Dx: hypoxia, pulmonary hypertension, pulmonary fibrosis J84.9 Lou BentonOHarley 08/13/2020 BD Samantha 2Gen To Be Used With Victoza Once Daily 100units Bryec Kaye.OHarley 04/08 Oxygen 2l n/c Bryce Kaye.O Harley 03/18/2020 BD Uf Samantha Pen Needle [id number] To Be Used With Victoza Once Daily 10 0units Bryce Kaye.OHarley 05/30/2019 Pen [place] 32G X 4 mm Misc to be used with victoza once daily 100units E11.65 Lou Kaye OHarley 08/11/2017 Accu-Chek Amanda Plus Strips Use To Test Blood Sugar Once A Day 100units Lou KayeO Harley 11/27/2016 Aspir-[address] 1 by mouth every day 90tabs E11.9 Bryce Kaye.O. 07/29 Victoza 18mg/3ML Solution Pen-Inje ct Inject 1.8MG Subcutaneously Once Daily as Directed 27units E11.65 Bryce Shepard.OHarley 06/12/2015 Atorvastatin Calcium 40mg Tablets take 1 tablet by mouth every night 90tabs E78.0 Lou KayeOHarley 2014 Metformin HCL ER 500mg Tablets ER 24HR Take Two Tablets By Mouth Twice A Day With Meals 360tabs E11.9 Bryce Shepard.OHarley 07/25/2014 Eliquis 5mg Tablets take one half tablet by mouth twice a day Unknown Furosemide 40mg Tablets 1/2 tab by mouth daily Lea Lira, JACINTO Spironolactone 25mg Tablets Kenny Zafar M.D. Hydroxychloroquine Sulfate 200mg T ablets Take Two Tablet By Mouth Every Day Unknown Gabapentin 300mg Capsules Unknown Ofev 150mg Capsules Unknown Tyvaso 0.6mg/ml Solution four times a day Unknown Methylprednisolone 16mg Tablets daily Unknown Immunizations Description No Information Available Vital Signs Date Vital Result Comment 12/02/2020 1:34pm BP Systolic 124 mmHg BP Diastolic 74 mmHg Height 67 inches 5'7" Weight 187.25 lb BMI (Body Mass Index) 29.3 kg/m2 Heart Rate 92 /min Respiratory Rate 20 /min Body Temperature 97.9 F O2 % BldC Oximetry 93 % [place] Body Weight 148 lb 08/13/2020 2:14pm BP Systolic 128 mmHg BP Diastolic 84 mmHg Height 67 inches 5'7" Weight 209.00 lb BMI (Body Mass Index) 32.7 kg/m2 Heart Rate 98 /min Body Temperature 97.8 F O2 % BldC Oximetry 96 % [place] Body Weight 148 lb Results Test Acquired Date Facility Test Result H/L Range Note Hemoglobin A1c 11/26/2020 [facility] Outpatient Testi ng (Registration) [address], [place] [id number] [phone] Hemoglobin A1c 6.8 % Normal 1 Estimated Average Glucose 148 mg/dL High 60-110 Comprehensive Metabolic Profil 11/26/2020 [facility] Outpa tient Testing (Registration) [address] [place] [id number] [phone] Glucose, Fasting 82 mg/dL Normal 70-100 Blood Urea Nitrogen 19 mg/dL High 7-18 Creatinine For GFR 0.53 mg/dL Low 0.70-1.30 Glomerular Filtration Rate > 60.0 Normal >49 2 Sodium Level 141 mEq/L Normal 136-145 Potassium Serum 4.3 mEq/L Normal 3.5-5.1 Chloride Level 101 mEq/L Normal 98-107 Carbon Dioxide Level 37 mEq/L High 21-32 Anion Gap 3 mEq/L Low 8-16 Calcium Level 8.4 mg/dL Low 8.8-10.2 Ast/Sgot 32 U/L Normal 7-37 Alt/SGPT 53 U/L Normal 12-78 Alkaline Phosphatase 85 U/L Normal 45-117 Bilirubin,Total 0.4 mg/dL Normal 0.2-1.0 Total Protein 6.1 GM/DL Low 6.4-8.2 Albumin 2.8 GM/DL Low 3.2-5.2 Albumin/Globulin Ratio 0.8 Normal Comprehensive Metabolic Profil 07/30/[address] [address] [phone] Glucose, Fasting 150 mg/dL High 70-100 Blood Urea Nitrogen 35 mg/dL High 7-18 Creatinine For GFR 0.76 mg/dL Normal 0.70-1.30 Glomerular Filtration Rate > 60.0 Normal >49 3 Sodium Level 136 mEq/L Normal 136-145 Potassium Serum 4.5 mEq/L Normal 3.5-5.1 Chloride Level 95 mEq/L Low 98-107 Carbon Dioxide Level 37 mEq/L High 21-32 Anion Gap 4 mEq/L Low 8-16 Calcium Level 8.7 mg/dL Low 8.8-10.2 Ast/Sgot 40 U/L High 7-37 Alt/SGPT 138 U/L High 12-78 Alkaline Phosphatase 84 U/L Normal 45-117 Bilirubin,Total 1.0 mg/dL Normal 0.2-1.0 Total Protein 6.5 GM/DL Normal 6.4-8.2 Albumin 3.1 GM/DL Low 3.2-5.2 Albumin/Globulin Ratio 0.9 Normal Hemoglobin A1c 07/30/[address] [address] [phone] Hemoglobin A1c 8.6 % Normal 4 Estimated Average Glucose 200 mg/dL High 60-110 Lipid Panel 07/30/[address] [address] [phone] Triglycerides Level 72 mg/dL Normal <150 Cholesterol Level 123 mg/dL Normal <200 HDL Cholesterol 79 mg/dL Normal >40 LDL Cholesterol 30 mg/dL Normal <100 Non-HDL-C 44 mg/dL Normal Cholesterol Risk Ratio 1.556 Normal <5 CBC With Differential 07/30/[address] [address] [phone] White Blood Count 9.7 10 Normal 4.0-10.0 Red Blood Count 5.23 10 Normal 4.30-6.10 Hemoglobin 15.4 g/dL Normal 13.5-17.5 Hematocrit 47.7 % Normal 42.0-52.0 Mean Corpuscular Volume 91.2 fl Normal 80.0-96.0 Mean Corpuscular Hemoglobin 29.4 pg Normal 27.0-33.0 Mean Corpuscular HGB Conc 32.3 g/dL Normal 32.0-36.5 Red Cell Distribution Width 12.6 % Normal 11.5-14.5 Platelet Count, Automated 155 10 Normal 150-450 Neutrophils % 59.4 % Normal 36.0-66.0 Lymph % 34.1 % Normal 24.0-44.0 [place] % 3.8 % Normal 2.0-8.0 Eos % 2.1 % Normal 0.0-3.0 Baso % 0.2 % Normal 0.0-1.0 Immature Granulocyte % 0.4 % Normal 0-3.0 Nucleated Red Blood Cell % 0.0 % Normal 0-0 Neutrophils # 5.7 10 Normal 1.5-8.5 Lymph # 3.3 10 Normal 1.5-5.0 [place] # 0.4 10 Normal 0.0-0.8 Eos # 0.2 10 Normal 0.0-0.5 Baso # 0.0 10 Normal 0.0-0.2 Microalbumin Random 07/30/2020 [facility] nter [address] [place] [address] [phone] Creatinine, Urine 153.0 mg/dL Normal Malb Urine Siemens 33.2 mg/L Normal Jeferson/Creat Ratio 21.6 MCG/MG Normal 0.0-30.0 5 Laboratory test finding 07/30/[address] [address] [phone] PSA Screening 0.13 NG/ML Normal < 4.00 6 CBC With Differential 07/17/2020 [facility] Outpatient Ami ting (Registration) [address] [place] [address] [phone] White Blood Count 12.6 10 High 4.0-10.0 Red Blood Count 5.03 10 Normal 4.30-6.10 Hemoglobin 15.3 g/dL Normal 13.5-17.5 Hematocrit 48.4 % Normal 42.0-52.0 Mean Corpuscular Volume 96.2 fl High 80.0-96.0 Mean Corpuscular Hemoglobin 30.4 pg Normal 27.0-33.0 Mean Corpuscular HGB Conc 31.6 g/dL Low 32.0-36.5 Red Cell Distribution Width 13.2 % Normal 11.5-14.5 Platelet Count, Automated 122 10 Low 150-450 Neutrophils % 85.7 % High 36.0-66.0 Lymph % 9.8 % Low 24.0-44.0 [place] % 2.1 % Normal 2.0-8.0 Eos % 1.6 % Normal 0.0-3.0 Baso % 0.1 % Normal 0.0-1.0 Immature Granulocyte % 0.7 % Normal 0-3.0 Nucleated Red Blood Cell % 0.0 % Normal 0-0 Neutrophils # 10.8 10 High 1.5-8.5 Lymph # 1.2 10 Low 1.5-5.0 [place] # 0.3 10 Normal 0.0-0.8 Eos # 0.2 10 Normal 0.0-0.5 Baso # 0.0 10 Normal 0.0-0.2 1 REFERENCE RANGES: <=5.6% NORMAL 5.7-6.4% SUGGESTS IMPAIRED GLUCOSE META BOLISM/PREDIABETIC >= 6.5% ABNORMAL 2 Units are mL/min/1.73 m2 Chronic Kidney Disease Staging per NKF: Stage I & II GFR >=60 Normal to Mildly Decreased Stage III GFR 30-59 Moderately Decreased Stage IV GFR 15-29 Severely Decreased Stage V GFR <15 Very Little GFR Left ESRD GFR <15 on [employer] 3 Units are mL/min/1.73 m2 Chronic Kidney Disease Staging per NKF: Stage I & II GFR >=60 Normal to Mildly Decreased Stage III GFR 30-59 Moderately Decreased Stage IV GFR 15-29 Severely Decreased Stage V GFR <15 Very Little GFR Left ESRD GFR <15 on [employer] 4 REFERENCE RANGES: <=5.6% NORMAL 5.7-6.4% SUGGESTS IMPAIRED GLUCOSE META BOLISM/PREDIABETIC >= 6.5% ABNORMAL 5 THE [employer] ATION STATES THAT MICROALBUMINURIA IS PRESENT IF THE MICROALBUMIN/CREATININE RATIO EXCEEDS 30 MCG/MG. THE THRESHOLD FOR CLINICAL ALBUMINURIA IS REACHED AT 300 MCG/MG. THE CLASSIFICATION OF A PATIENT SHOULD BE BASED UPON AT LEAST 2 OF 3 ABNORMAL RESULTS ON SPECIMENS COLLECTED WITHIN A 3 TO 6 MONTH TIME FRAME. 6 The PSA assay is performed o n the Siemens [place] analyzer by Meda[employer] sandwich chemiluminescent immunoassay and should not be compared interchangeably with other methods. It should not be used alone as a screening test or diagnosis for the presence or absence of malignant disease. Predictions of disease recurrence should not be based solely on values obtained from serial patient serum values. Procedures Date Code Description Status 08/13/2020 99170 Office/Outpatient Established Mo d MDM 30-39 Min Completed Medical Devices Description No Information Available Encounters Type Date Location Provider Dx Diagnosis Office Visit 12/02/2020 1:20p [facility] MARTHA Arita Z00.00 Encntr for general adult med ical exam w/o abnormal findings E09.8 Drug/chem diabetes mellitus w unsp complications J84.9 Interstitial pulmonary disea se, unspecified I82.402 Acute embolism and thombos u nsp deep veins of l low extrem I10 Essential (primary) hyperten sanna E78.00 Pure hypercholesterolemia, u nspecified Office Visit 08/13/2020 2:20p [facility] MARTHA Gordon E09.8 Drug/chem diabetes mellitus w unsp complications J84.9 Interstitial pulmonary disea se, unspecified I82.402 Acute embolism and thombos u nsp deep veins of l low extrem Assessments Date Code Description Provider 12/02/2020 Z00.00 Encounter for genera l adult medical examination without abnormal findings MARTHA Gordon 12/02/2020 E09.8 Drug or chemical ind uced diabetes mellitus with unspecified complications MARTHA Gordon 12/02/2020 J84.9 Interstitial pulmonary disease, unspecified MARTHA Gordon 12/02/2020 I82.402 Acute embolism and t hrombosis of unspecified deep veins of left lower extremity MARTHA Gordon 12/02/2020 I10 Essential (primary) hypertension MARTHA Gordon 12/02/2020 E78.00 Pure hypercholesterolemia, unspe cified MARTHA Gordon 08/13/2020 E09.8 Drug or chemical ind uced diabetes mellitus with unspecified complications MARTHA Gordon 08/13/2020 J84.9 Interstitial pulmonary disease, unspecified MARTHA Gordon 08/13/2020 I82.402 Acute embolism and t hrombosis of unspecified deep veins of left lower extremity MARTHA Gordon Plan of Treatment Future Appointment(s):* 03/04/2021 9:40 am - MARTHA Gordon at [facility] Functional Status Description No Information Available Mental Status Description No Information Available Referrals Description No Information Available
--- OUTSIDE RECORDS SUMMARY | 2021-01-24 18:43 | CCD | Continuity of Care Document ---
Author Author Mateusz MCLEAN DO Organization Unknown Address [address] [address] Phone [phone] Care Team Providers Care [employer] M[employer] Name Role Phone Monik Hernandez D.O. AUTM [phone] AUTM Unavailable Kenny Zafar M.D. AUTM [phone] Cachorro Mclean D.O. AUTM [phone] Inez Mchugh M.D. AUTM [phone] Min Dennis M.D. AUTM [phone] Ilene, Rahulfran Saeed M.D. 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 Sandi Mclean DO Onset: 05/09/2020 Post-inflammatory pulmonary fibrosis Cachorro Mclean DO On set: 05/09/2020 Hypoxemia Cachorro Mclean DO Onset: 05/09/2020 Uncomplicated moderate persistent asthma Sandi Saavedra Onset: 10/26/2019 Social History Type Date Description Comments Sex Unknown Tobacco Use Start: Unknown Never Smoked Cigarettes Smoking Status Reviewed: 08/22/20 Never Smoked Cigarettes ETOH Use Denies alcohol use Recreational Drug Use Denies Drug Use Tobacco Use Start: Unknown Patient has never smoked Allergies, Adverse Reactions, Alerts Description No Known Drug Allergies Medications Active Medications SIG Qnty Indications Ordering Provide r Date Tyvaso 0.6mg/ml Solution three-nine breaths four times a day ( 10/29/20 taking 6 breaths per dose) 243.6ml Cachorro Mclean, DO 10/29/2020 Oxygen Device 3 l cont. (marras) poc w/ inogen Cachorro Mclean, DO 07/10/2020 Ofev 150mg Capsules one tab by mouth twice a day 60caps Cachorro Mclean, DO 07/05/2020 Neurontin 300mg Capsules 3 tab by mouth three times a day as needed as directed 180caps J84.10 Cachorro Mclean, DO 07/04/2020 Nebulizer Kit/Tubing/Mouthpiece K it use with nebulizer as directed 2units Cachorro Mclean, DO 10/26/2019 Metformin HCL 500mg Tablets 2 tablet po bid Unknown Atorvastatin Calcium 40mg Tablets 1 tab by mouth every night Unknown Victoza 18mg/3ML Solution Pen-Inje ct 1 inj sq every day Unknown Aspirin 81mg Tablets DR 1 tab by mouth every day Unknown Spironolactone 25mg Tablets Take 1 Tablet By Mouth Every Day Unknown Eliquis 2.5mg Tablets 1 tablet by mouth twice daily for DVT/Pe ordered by Dr Odom Unknown Furosemide 20mg Tablets 1 tab by mouth every day Unknown Medrol 8mg Tablets 3 tabs by mouth every day 70tabs Unknown Hydroxychloroquine Sulfate 200mg T ablets 1 tab by mouth every day Unknown 0 Tresiba 8 units daily Unknown Medications Administered in Office Medication SIG Qnty Indications Ordering Provider Date Covid-19 vaccine, Unspecified Inj ection Unknown 07/08/2020 Covid-19 vaccine, Unspecified Inj ection Unknown 06/07/2020 Immunizations Description No Information Available Vital Signs Date Vital Result Comment 10/29/2020 8:32am BP Systolic 108 mmHg BP Diastolic 72 mmHg Heart Rate 83 /min O2 % BldC Oximetry 9332 % Height 70 inches 5'10" Weight 193.00 lb BMI (Body Mass Index) 27.7 kg/m2 [place] Body Weight 166 lb Weight 87.545 kg BSA (Body Surface Area) 2.06 m2 08/22/2020 9:06am BP Systolic 122 mmHg BP Diastolic 74 mmHg Heart Rate 84 /min O2 % BldC Oximetry 943 % Height 70 inches 5'10" [place] Body Weight 166 lb Results Test Acquired Date Facility Test Result H/L Range Note Liver Profile 09/23/2020 [facility] Main Lab [address] [place] [address] [phone] Ast/Sgot 22 U/L Normal 7-37 Alt/SGPT 51 U/L Normal 12-78 Alkaline Phosphatase 82 U/L Normal 45-117 Bilirubin,Total 0.7 mg/dL Normal 0.2-1.0 Bilirubin,Direct 0.2 mg/dL Normal 0.0-0.2 Total Protein 6.3 GM/DL Low 6.4-8.2 Albumin 2.9 GM/DL Low 3.2-5.2 Albumin/Globulin Ratio 0.9 Normal Liver Profile 08/22/2020 [facility] Main Lab [address] [place], [place] [id number] [phone] Ast/Sgot 38 U/L High 7-37 Alt/SGPT 127 U/L High 12-78 Alkaline Phosphatase 100 U/L Normal 45-117 Bilirubin,Total 0.8 mg/dL Normal 0.2-1.0 Bilirubin,Direct 0.2 mg/dL Normal 0.0-0.2 Total Protein 6.6 GM/DL Normal 6.4-8.2 Albumin 3.1 GM/DL Low 3.2-5.2 Albumin/Globulin Ratio 0.9 Normal Total Iron Binding Capacit 07/11/2020 [facility] Main Lab [address] [place] [address] [phone] Iron (Fe) 154 g/dL Normal 65-175 Total Iron Binding Capacity 339 g/dL Normal 250-450 Percent Saturation 45.4 % Normal 19.7-50.0 Laboratory test finding 07/11/2020 [facility] Main Lab [address] [place] [address] [phone] Ferritin 290 NG/ML Normal 26-388 1 Soluble Transferrin Receptor 12.9 nmol/L Normal 12.2-27.3 2 1 note:<nlbl:demographic_chang ed> 2 Performed at: [address] [id number] 61 Help Desk Administrator: Rashaun Hansen MD, Phone: [phone] Procedures Date Code Description Status 10/29/2020 02202 Office/Outpatient Established Mo d MDM 30-39 Min Completed 08/22/2020 83695 Office/Outpatient Established Mo d MDM 30-39 Min Completed 07/31/2020 45118 Plethysmography Determination Leslee ng Volumes & Per Airway Resist Completed 07/31/2020 73780 Bronchospasm Evaluation Complete d 07/30/2020 17040 Office/Outpatient Established Mo d MDM 30-39 Min Completed 07/18/2020 83709 Measure Blood Oxygen Level Aditi nuous Overnight Monitor Completed 07/11/2020 67700 Measure Blood Oxygen Level Aditi nuous Overnight Monitor Completed 07/04/2020 18428 Office/Outpatient Established Mo d MDM 30-39 Min Completed 05/09/2020 64080 Office/Outpatient Established Mo d MDM 30-39 Min Completed Medical Devices Description No Information Available Encounters Type Date Location Provider Dx Diagnosis Office Visit 10/29/2020 8:30a [facility] Pul[facility]Thoracic D santa Mclean DO J84.10 Pulmonary fibrosis, unspecif ied R09.02 Hypoxemia I27.20 Pulmonary hypertension, unsp ecified Office Visit 08/22/2020 9:00a [facility] Pulmonary/Thoracic D santa Mclean DO J84.10 Pulmonary fibrosis, unspecif ied R09.02 Hypoxemia R05 Cough I27.20 Pulmonary hypertension, unsp ecified I82.402 Acute embolism and thombos u nsp deep veins of l low extrem K21.01 Gastro-esophageal reflux dis with esophagitis, with bleed R06.00 Dyspnea, unspecified Z79.899 Other long-term (current) dr rodríguez therapy Office Visit 07/30/2020 11:00a [facility] Pulmonary/Thoracic D avisandi PHarley Josephlin, DO J84.10 Pulmonary fibrosis, unspecif ied I27.20 Pulmonary hypertension, unsp ecified R09.02 Hypoxemia Office Visit 07/04/2020 11:00a [facility] Pulmonary/Thoracic D avisandi PHarley Rechlin, DO J84.10 Pulmonary fibrosis, unspecif ied R09.02 Hypoxemia R05 Cough Office Visit 05/09/2020 8:30a [facility] Pulmonary/Thoracic D avid P. Rechlin, DO R09.02 Hypoxemia J84.10 Pulmonary fibrosis, unspecif ied R05 Cough I82.402 Acute embolism and thombos u nsp deep veins of l low extrem K21.01 Gastro-esophageal reflux dis with esophagitis, with bleed R06.00 Dyspnea, unspecified D68.59 Other primary thrombophilia I50.31 Acute diastolic (congestive) heart failure G47.33 Obstructive sleep apnea (gisela lt) (pediatric) Assessments Date Code Description Provider 10/29/2020 J84.10 Pulmonary fibrosis, unspecified Cachorro Mclean, DO 10/29/2020 R09.02 Hypoxemia Cachorro Mclean , DO 10/29/2020 I27.20 Pulmonary hypertension, unspecif ied Cachorro Mclean, DO 08/22/2020 J84.10 Pulmonary fibrosis, unspecified Cachorro Mclean, DO 08/22/2020 R09.02 Hypoxemia Cachorro Mclean , DO 08/22/2020 R05 Cough Cachorro Mclean , DO 08/22/2020 I27.20 Pulmonary hypertension, unspecif ied Cachorro Mclean, DO 08/22/2020 I82.402 Acute embolism and t hrombosis of unspecified deep veins of left lower extremity Cachorro Mclean, DO 08/22/2020 K21.01 Gastro-esophageal re flux disease with esophagitis, with bleeding Cachorro Mclean, DO 08/22/2020 R06.00 Dyspnea, unspecified Cachorro stephens, DO 08/22/2020 Z79.899 Other long term care pharmacist (current) drug t herapy Cachorro Mclean, DO 07/31/2020 J84.10 Pulmonary fibrosis, unspecified Pulmonary Lab 07/30/2020 J84.10 Pulmonary fibrosis, unspecified Cachorro Mclean, DO 07/30/2020 I27.20 Pulmonary hypertension, unspecif ied Cachorro Mclean, DO 07/30/2020 R09.02 Hypoxemia Cachorro Mclean , DO 07/18/2020 J84.10 Pulmonary fibrosis, unspecified Nocturnal Oximetry 07/18/2020 R09.02 Hypoxemia Nocturnal Oximet ry 07/11/2020 J84.10 Pulmonary fibrosis, unspecified Nocturnal Oximetry 07/11/2020 R09.02 Hypoxemia Nocturnal Oximet ry 07/11/2020 J84.10 Pulmonary fibrosis, unspecified Cachorro Mclean, DO 07/04/2020 J84.10 Pulmonary fibrosis, unspecified Cachorro Mclean, DO 07/04/2020 R09.02 Hypoxemia Cachorro Mclean , DO 07/04/2020 R05 Cough Cachorro Mclean , DO 05/09/2020 R09.02 Hypoxemia Cachorro Mlcean , DO 05/09/2020 J84.10 Pulmonary fibrosis, unspecified Cachorro Mclean, DO 05/09/2020 R05 Cough Cachorro Mclean , DO 05/09/2020 I82.402 Acute embolism and t hrombosis of unspecified deep veins of left lower extremity Cachorro Mclean, DO 05/09/2020 K21.01 Gastro-esophageal re flux disease with esophagitis, with bleeding Cachorro Mclean, DO 05/09/2020 R06.00 Dyspnea, unspecified Cachorro stephens, DO 05/09/2020 D68.59 Other primary thrombophilia Ivan Mclean, DO 05/09/2020 I50.31 Acute diastolic (congestive) hea rt failure Cachorro Mclean, DO 05/09/2020 G47.33 Obstructive sleep apnea (adult) (pediatric) Cachorro Mclean, Plan of Treatment 10/29/2020 - Cachorro Mclean, * J84.10 Pulmonary fibrosis, unspecified * R09.02 Hypoxemia * I27.20 Pulmonary hypertension, unspecified * * Comments:* ~ Having reviewed the history, physical, and diagnostic findings with the patient, I have congratulated him on his progress, and encouraged him to continue with his current medication regimen. In regard to his pulmonary fibrosis, we will arrange for a follow-up CT scan in January. Liver enzymes will be rechecked in December, as they are now normalized. ~ In regard to his hypoxemia, he will continue use of oxygen at 3-3.5 liters, and increasing to 5 as required during exercise. ~ His cough symptom is much improved, and I would recommend no other intervention.~ In regard to his gastroesophageal reflux, he has undergone fundoplication. He has no active reflux symptoms at this point.~ In regard to deconditioning, he will continue efforts to slowly pursue reconditioning, and we will see him in follow-up in January to review his updated liver enzyme studies and CT imaging, earlier if new symptoms require. * Follow up:* LFT in December. CT no contrast in January, and follow-up to review it please. Functional Status Description No Information Available Mental Status Description No Information Available Referrals Refer to Reason for Referral Status Appt Date Radiology/Procedure 54688 Closed Min Dennis M.D. Pulmonary Hypertension Closed 0 06/21/2020 [facility] [address], [address] [place], [place] [address] [phone] Erin Chavez M.D. Interventional radiology con [facility] for consideration of pulmonary angiogram. Patient Declined 06/04/2020 [address] [place] [address] [phone] Radiology/Procedure 33031 Closed
--- OUTSIDE RECORDS SUMMARY | 2021-01-24 18:43 | CCD ---
Author Author [facility] Organization [facility] Address Unknown Phone Unavailable Care Team Providers Care Branch Service Leader Name Role Phone Inez Mchugh PROBLEMS Type Condition ICD9-CM Code INV95-PE Code Onset Dates Condition S tatus W/U Status Risk SNOMED Code Notes Problem Carpal tunnel syndrome, unspecified laterality G56 .00 Active confirmed 70306792 Problem Pulmonary fibrosis J84.10 Active confirmed 5 5734641 Problem long-term systemic steroid user Z79.52 Active confirmed [id number] Problem roasterman current use of inhaled steroid Z79.51 Active confirmed 146323584 Problem Paresthesias R20.2 Active confirmed 4392401 4 Problem Undifferentiated connective tissue disease M35.9 Active confirmed 806872403 Problem Interstitial lung disease J84.9 Active confirmed 512282592 Problem Pulmonary hypertension I27.20 Active confirmed 60360790 ALLERGIES No Known Allergies ENCOUNTERS from 1955 to 2020-11-12 Encounter Location Date Provider Diagnosis [facility] Rheumatology [address] [place] [address] [place] [address] Nov, Inez Mchugh Undifferentiated connective tissue disease M35.9 IMMUNIZATIONS No Information SOCIAL HISTORY Tobacco Use: Social History Observation Description Date Details (start date - stop date) Never Smoker Sex Assigned At : Social History Observation Description Sex Assigned At Unknown Alcohol Screening: Question Answer Notes Did you have a drink containing alcohol in the past year? No Points 0 Interpretation Negative Tobacco Use: Question Answer Notes Are you a: never smoker REASON FOR REFERRAL No Information VITAL SIGNS No information MEDICATIONS Medication SIG (Take, Route, Frequency, Duration) Notes Start Da te End Date Status Tyvaso 0.6 MG/ML 7 breaths Inhalation Four times a day Oct, Active Spironolactone 25 MG 1 tablet Orally for 30 day(s) Active metFORMIN HCl ER 500 MG TAKE TWO TABLETS BY MOUTH TW ICE A DAY WITH MEALS Oral for 90 Active Aspirin 81 81 MG 1 tablet Orally Once a day for 30 day(s) Active Atorvastatin Calcium 40 MG TAKE 1 TABLET BY MOUTH EVERY NIGHT Oral 90 Active Victoza 18 MG/3ML INJECT 1.8MG SUBCUTANEOUSLY ONCE DAILY DIRECTED Subcutaneous Daily Active Gabapentin 300 MG TAKE TWO CAPSULES BY MOUTH THREE TIMES A DAY O ral for 30 PRN Active Enoxaparin Sodium 120 MG/0.8ML INJECT 110MG UNDER THE SKIN EVERY DAY AT 11 00AM AND 11 00PM Subcutaneous for 20 Active methylPREDNISolone 8 mg Take two 8 MG tablets Oral Once a day Active Furosemide 40 MG TAKE 1 TABLET BY MOUTH TWICE A DAY Oral for 15 Active Plaquenil 200 MG as directed Orally daily for 30 days 08 2020 Active Plaquenil 200 MG as directed Orally twice daily for 90 days Oct, Active Plaquenil 200 MG as directed Orally once daily for 30 days Jun, Active Eliquis 5 MG TAKE 2 TABLETS BY MOUTH TWIC E DAILY FOR 7 DAYS THEN 1 TABLET BY MOUTH TWICE DAILY Oral for 30 Ac tive PROCEDURES No Information RESULTS No Results REASON FOR VISIT Plaquenil Refill MEDICAL (GENERAL) HISTORY Type Description Date Medical History Chronic cough Medical History DVT Medical History Diabetes Mellitus type 2 Medical History Hypertension Medical History Hyperlipidemia Medical History Interstitial Lung Disease Medical History Obstructive Sleep Apnea Medical History GERD Medical History Pulmonary Hypertension Surgical History Hiatal Hernia Hospitalization History Surgical related Goals Section No Information Health Concerns No Information MEDICAL EQUIPMENT No Information MENTAL STATUS No Information FUNCTIONAL STATUS No Information ASSESSMENTS Encounter Date Diagnosis Assessment Notes Treatment Notes Treatm ent Clinical Notes Nov, Undifferentiated connective tissue disease (ICD- 10 - M35.9) PLAN OF TREATMENT Medication Medication Name Sig Start Date Stop Date Plaquenil 200 MG as directed Orally twice daily for 90 days 2020 Next Appt Details Provider Name:Inez Mchugh, 2021-02-18 09:45:00 AM, [address] [place] [address], , [place], [address], Insurance Providers Payer Name Payer Address Payer Phone Insured Name Patient Relati onship to Insured Coverage Start Date Coverage End Date MEDICARE Part A and [address] [facility] [id number] MISA SCHAEFER self [facility] [address] [facility] [id number] [phone] MISA SCHAEFER self
--- OUTSIDE RECORDS SUMMARY | 2021-01-24 18:43 | CCD | Continuity of Care Document ---
Author Author Mateusz [facility] Organization Unknown Address [address] [place] [address] 6 [address] [place] [address] Phone [phone] Care Team Providers Care Spreader Operator Automatic Name Role Phone Monik Hernandez D.O. AUTM [phone] Cecilia Hi M.D. AUTM [phone] Stephane Bacon M.D. AUTM Ana Maria Matos M.D FACP AUTM [facility] AUTM [phone] [employer] AUTM [phone] Cachorro Mclean D.O. AUTM [phone] Problems Active Problems Provider Date Essential hypertension [...] 08/2014 shows mildly dilated 4.5 cm, Echo 2017 dilated aortic root 4.4 cm Solitary nodule [...] Patient has never smoked Smoking Status Reviewed: 03/26/20 Patient has never smoked Exercise Type/Frequency Does not exercise Allergies, Adverse Reactions, Alerts Description No Known Drug Allergies Medications Active Medications SIG Qnty Indications Ordering Provide r Date 4 Wheeled Walker With Seat And Basket Use as directed. Dx: hypoxia, pulmonary hypertension, pulmonary fibrosis J84.9 Monik torres D.O. 08/13/2020 Tresiba Flextouch 20 0Unit/ML Solution Pen-Inject inject 8 units daily and increase per instructions. 6units E09.8 Monik Hernandez D.OHarley 08/13/2020 BD Samantha 2Gen To Be Used With Victoza Once Daily 100units Bryce Kaye.OHarley 04/08 Oxygen 2l n/c Bryce Kaye.O . 03/18/2020 BD Uf Samantha Pen Needle [id number] To Be Used With Victoza Once Daily 10 0units Bryce Kaye.O. 05/30/2019 Pen Dumont 32G X 4 mm Misc to be used with victoza once daily 100units E11.65 Lou Kaye OHarley 08/11/2017 Accu-Chek Amanda Plus Strips Use To Test Blood Sugar Once A Day 100units Lou KayeO Harley 11/27/2016 Aspir-[address] 1 by mouth every day 90tabs E11.9 Lou KayeOHarley 07/29 Victoza 18mg/3ML Solution Pen-Inje ct Inject 1.8MG Subcutaneously Once Daily as Directed 27units E11.65 Bryce Shepard.OHarley 06/12/2015 Atorvastatin Calcium 40mg Tablets take 1 tablet by mouth every night 90tabs E78.0 Bryce Kaye.OHarley 2014 Metformin HCL ER 500mg Tablets ER 24HR Take Two Tablets By Mouth Twice A Day With Meals 360tabs E11.9 Bryce Shepard.OHarley 07/25/2014 Eliquis 5mg Tablets take one tablet by mouth twice a day Unknown Furosemide 40mg Tablets Lea Lira FNP Spironolactone 25mg Tablets Kenny Zafar M.D. Methylprednisolone 32mg Tablets Take One Tablet By Mouth Every Day Unknown Hydroxychloroquine Sulfate 200mg T ablets Take One Tablet By Mouth Every Day Unknown Gabapentin 300mg Capsules Unknown Ofev 150mg Capsules Unknown Immunizations Description No Information Available Vital Signs Date Vital Result Comment 08/13/2020 2:14pm BP Systolic 128 mmHg BP Diastolic 84 mmHg Height 67 inches 5'7" Weight 209.00 lb BMI (Body Mass Index) 32.7 kg/m2 Heart Rate 98 /min Body Temperature 97.8 F O2 % BldC Oximetry 96 % [place] Body Weight 148 lb 03/26/2020 1:34pm BP Systolic 116 mmHg BP Diastolic 78 mmHg Height 67 inches 5'7" Weight 235.12 lb BMI (Body Mass Index) 36.8 kg/m2 Heart Rate 74 /min Respiratory Rate 24 /min Body Temperature 97.4 F O2 % BldC Oximetry 98 % [place] Body Weight 148 lb Results Test Acquired Date Facility Test Result H/L Range Note Hemoglobin A1c 11/26/2020 [facility] Outpatient Testi ng (Registration) [address] [place] [address] [id number] [phone] Hemoglobin A1c 6.8 % Normal 1 Estimated Average Glucose 148 mg/dL High 60-110 Comprehensive Metabolic Profil 11/26/2020 [facility] Outpa tient Testing (Registration) [address] [place] [address] [phone] Glucose, Fasting 82 mg/dL Normal 70-100 Blood [...] Ratio 0.8 Normal Comprehensive Metabolic Profil 07/30/[address] [address] [phone] Glucose, Fasting 150 mg/dL High 70-100 Blood [...] Albumin/Globulin Ratio 0.9 Normal Hemoglobin A1c 07/30/[address] [id number] [phone] Hemoglobin A1c 8.6 % Normal 4 Estimated Average Glucose 200 mg/dL High 60-110 Lipid Panel 07/30/[address] [address] [phone] Triglycerides Level 72 mg/dL Normal <150 Cholesterol Level 123 mg/dL Normal <200 HDL Cholesterol 79 mg/dL Normal >40 LDL Cholesterol 30 mg/dL Normal <100 Non-HDL-C 44 mg/dL Normal Cholesterol Risk Ratio 1.556 Normal <5 CBC With Differential 07/30/[address] [id number] [phone] White Blood Count 9.7 10 Normal 4.0-10.0 [...] 36.0-66.0 Lymph % 34.1 % Normal 24.0-44.0 [place] % 3.8 % Normal 2.0-8.0 Eos % 2.1 % Normal 0.0-3.0 Baso % 0.2 % Normal 0.0-1.0 Immature Granulocyte % 0.4 % Normal 0-3.0 Nucleated Red Blood Cell % 0.0 % Normal 0-0 Neutrophils # 5.7 10 Normal 1.5-8.5 Lymph # 3.3 10 Normal 1.5-5.0 [place] # 0.4 10 Normal 0.0-0.8 Eos # 0.2 10 Normal 0.0-0.5 Baso # 0.0 10 Normal 0.0-0.2 Microalbumin Random 07/30/2020 [facility] nter [address] [place] [address] [phone] Creatinine, Urine 153.0 mg/dL Normal Malb Urine Siemens 33.2 mg/L Normal [place]/Creat Ratio 21.6 MCG/MG Normal 0.0-30.0 5 Laboratory test finding 07/30/[address] [address] [phone] PSA Screening 0.13 NG/ML Normal < 4.00 6 CBC With Differential 07/17/2020 [facility] Outpatient [facility] (Registration) [address] [place] [address] [phone] White Blood Count 12.6 10 High 4.0-10.0 [...] 36.0-66.0 Lymph % 9.8 % Low 24.0-44.0 [place] % 2.1 % Normal 2.0-8.0 Eos % 1.6 % Normal 0.0-3.0 Baso % 0.1 % Normal 0.0-1.0 Immature Granulocyte % 0.7 % Normal 0-3.0 Nucleated Red Blood Cell % 0.0 % Normal 0-0 Neutrophils # 10.8 10 High 1.5-8.5 Lymph # 1.2 10 Low 1.5-5.0 [place] # 0.3 10 Normal 0.0-0.8 Eos # 0.2 10 Normal 0.0-0.5 Baso # 0.0 10 Normal 0.0-0.2 CBC With Differential 06/05/2020 [facility] Outpatient [facility] (Registration) [address], [place] [phone] White Blood Count 8.4 10 Normal 4.0-10.0 Red Blood Count 4.33 10 Normal 4.30-6.10 Hemoglobin 13.2 g/dL Low 13.5-17.5 Hematocrit 41.7 % Low 42.0-52.0 Mean Corpuscular Volume 96.3 fl High 80.0-96.0 Mean Corpuscular Hemoglobin 30.5 pg Normal 27.0-33.0 Mean Corpuscular HGB Conc 31.7 g/dL Low 32.0-36.5 Red Cell Distribution Width 14.2 % Normal 11.5-14.5 Platelet Count, Automated 185 10 Normal 150-450 Neutrophils % 72.3 % High 36.0-66.0 Lymph % 17.3 % Low 24.0-44.0 [place] % 4.9 % Normal 2.0-8.0 Eos % 4.2 % High 0.0-3.0 Baso % 1.1 % High 0.0-1.0 Immature Granulocyte % 0.2 % Normal 0-3.0 Nucleated Red Blood Cell % 0.0 % Normal 0-0 Neutrophils # 6.1 10 Normal 1.5-8.5 Lymph # 1.5 10 Normal 1.5-5.0 [place] # 0.4 10 Normal 0.0-0.8 Eos # 0.4 10 Normal 0.0-0.5 Baso # 0.1 10 Normal 0.0-0.2 Comprehensive Metabolic Profil 06/05/2020 [facility] Outpa tient Testing (Registration) [address] [place] [address] [phone] Glucose, Fasting 122 mg/dL High 70-100 Blood Urea Nitrogen 18 mg/dL Normal 7-18 Creatinine For GFR 0.97 mg/dL Normal 0.70-1.30 Glomerular Filtration Rate > 60.0 Normal >49 7 Sodium Level 139 mEq/L Normal 136-145 Potassium Serum 4.2 mEq/L Normal 3.5-5.1 Chloride Level 100 mEq/L Normal 98-107 Carbon Dioxide Level 35 mEq/L High 21-32 Anion Gap 4 mEq/L Low 8-16 Calcium Level 9.1 mg/dL Normal 8.8-10.2 Ast/Sgot 18 U/L Normal 7-37 Alt/SGPT 22 U/L Normal 12-78 Alkaline Phosphatase 90 U/L Normal 45-117 Bilirubin,Total 0.7 mg/dL Normal 0.2-1.0 Total Protein 7.0 GM/DL Normal 6.4-8.2 Albumin 3.0 GM/DL Low 3.2-5.2 Albumin/Globulin Ratio 0.8 Normal Laboratory test finding 06/05/2020 [facility] Outpatient T esting (Registration) [address] [place] [address] [phone] Homocyst(E)Ine Serum 9.1 umol/L Normal 0.0-17.2 8 1 REFERENCE RANGES: <=5.6% NORMAL 5.7-6.4% SUGGESTS IMPAIRED GLUCOSE META BOLISM/PREDIABETIC >= 6.5% ABNORMAL 2 Units are mL/min/1.73 m2 Chronic Kidney Disease Staging per NKF: Stage I & II GFR >=60 Normal to Mildly Decreased Stage III GFR 30-59 Moderately Decreased Stage IV GFR 15-29 Severely Decreased Stage V GFR <15 Very Little GFR Left ESRD GFR <15 on THREAD SINGER 3 Units are mL/min/1.73 m2 Chronic Kidney Disease Staging per NKF: Stage I & II GFR >=60 Normal to Mildly Decreased Stage III GFR 30-59 Moderately Decreased Stage IV GFR 15-29 Severely Decreased Stage V GFR <15 Very Little GFR Left ESRD GFR <15 on THREAD SINGER 4 REFERENCE RANGES: <=5.6% NORMAL 5.7-6.4% SUGGESTS IMPAIRED GLUCOSE META BOLISM/PREDIABETIC >= 6.5% ABNORMAL 5 THE [employer] ATION STATES THAT MICROALBUMINURIA IS PRESENT IF THE MICROALBUMIN/CREATININE RATIO EXCEEDS 30 MCG/MG. THE THRESHOLD FOR CLINICAL ALBUMINURIA IS REACHED AT 300 MCG/MG. THE CLASSIFICATION OF A PATIENT SHOULD BE BASED UPON AT LEAST 2 OF 3 ABNORMAL RESULTS ON SPECIMENS COLLECTED WITHIN A 3 TO 6 MONTH TIME FRAME. 6 The PSA assay is performed o n the Siemens [place] analyzer by [employer] sandwich chemiluminescent immunoassay and should not be compared interchangeably with other methods. It should not be used alone as a screening test or diagnosis for the presence or absence of malignant disease. Predictions of disease recurrence should not be based solely on values obtained from serial patient serum values. 7 Units are mL/min/1.73 m2 Chronic Kidney Disease Staging per NKF: Stage I & II GFR >=60 Normal to Mildly Decreased Stage III GFR 30-59 Moderately Decreased Stage IV GFR 15-29 Severely Decreased Stage V GFR <15 Very Little GFR Left ESRD GFR <15 on THREAD SINGER 8 Performed at: RN - [facility] [address] [id number] Dental Services Director: Elda Orellana MD, Phone: [phone] Procedures Date Code Description Status 08/13/2020 58985 Office/Outpatient Established Mo d MDM 30-39 Min Completed Medical Devices Description No Information Available Encounters Type Date Location Provider Dx Diagnosis Office Visit 08/13/2020 2:20p [facility] MARTHA Gordon E09.8 Drug/chem diabetes mellitus w unsp complications J84.9 Interstitial pulmonary disea se, unspecified I82.402 Acute embolism and thombos u nsp deep veins of l low extrem Assessments Date Code Description Provider 08/13/2020 E09.8 Drug or chemical ind uced diabetes mellitus with unspecified complications MARTHA Gordon 08/13/2020 J84.9 Interstitial pulmonary disease, unspecified MARTHA Gordon 08/13/2020 I82.402 Acute embolism and t hrombosis of unspecified deep veins of left lower extremity MARTHA Gordon Plan of Treatment Future Appointment(s):* 12/02/2020 1:20 pm - MARTHA Gordon at [facility] Functional Status Description No Information Available Mental Status Description No Information Available Referrals Description No Information Available
--- OUTSIDE RECORDS SUMMARY | 2021-01-24 18:43 | CCD | Continuity of Care Document ---
Author Author Mateusz HERNANDEZ D.O. Organization Unknown Address [address] [place] [address] Phone [phone] Care Team Providers Care Field Collector Name Role Phone Monik Hernandez D.O. AUTM [phone] Cecilia Hi M.D. AUTM [phone] Stephane Bacon M.D. AUTM [phone] Ana Maria Matos M.D FACBraulio AUTM [facility] AUTM [phone] [facility] AUTM [phone] Cachorro Mclean D.O. AUTM [phone] Problems Active Problems Provider Date Essential hypertension [...] Onset: 2015 Pain in right lower limb Bryce Kaye.Millie Onset: 06/09/2015 Pain in calf Bryce Kaye.Millie Onset: 2015 Diastolic dysfunction Bryce Kaye.Millie Onset: 05/14 Note: Grade I echo 2017 [...] SIG Qnty Indications Ordering Provide r Date Novofine Plus Pen Neddle 32G X 4mm 32G X 4 mm Misc To Be Used With tresiba twice Daily 200units Monik Hernandez D.O. 12/13/2020 Blood Glucose Test Strips Premium Strips 2 times a day 200units Lou KayeOHarley 12/02 Tresiba Flextouch 20 0Unit/ML Solution Pen-Inject inject 8 units daily and increase per instructions. 6units E09.8 Lou KayeOHarley 08/13/2020 4 Wheeled Walker With Seat And Basket Use as directed. Dx: hypoxia, pulmonary hypertension, pulmonary fibrosis J84.9 Lou BentonOHarley 08/13/2020 BD Samantha 2Gen To Be Used With Victoza Once Daily 100units Lou KayeOHarley 04/08 Oxygen 2l n/c Lou KayeO Harley 03/18/2020 Pen [place] 32G X 4 mm Misc to be used with tresiba twice daily 200units E11.65 Bryce KayeOHarley 08/11/2017 Accu-Chek Amanda Plus Strips Use To Test Blood Sugar Once A Day 100units Lou KayeO Harley 11/27/2016 Aspir-[address] 1 by mouth every day 90tabs E11.9 Lou KayeOHarley 07/29 Victoza 18mg/3ML Solution Pen-Inje ct Inject 1.8MG Subcutaneously Once Daily as Directed 27units E11.65 Lou ShepardOHarley 06/12/2015 Atorvastatin Calcium 40mg Tablets take 1 tablet by mouth every night 90tabs E78.0 Lou KayeOHarley 2014 Metformin HCL ER 500mg Tablets ER 24HR take two tablets by mouth twice a day with meals 360tabs E11.9 Lou SheaprdOHarley 07/25/2014 Eliquis 5mg Tablets take one half tablet by mouth twice a day Unknown Furosemide 40mg Tablets 1/2 tab by mouth daily Lea Lira FNP Spironolactone 25mg Tablets Kenny Zafar M.D. Hydroxychloroquine [...] F O2 % BldC Oximetry 93 % Milam Body Weight 148 lb 08/13/2020 2:14pm BP Systolic 128 mmHg BP Diastolic 84 mmHg Height 67 inches 5'7" Weight 209.00 lb BMI (Body Mass Index) 32.7 kg/m2 Heart Rate 98 /min Body Temperature 97.8 F O2 % BldC Oximetry 96 % Milam Body Weight 148 lb Results Test Acquired Date Facility Test Result H/L Range Note CBC With Differential 01/14/2021 [facility] Outpatient [facility] (Registration) [address] [place], [place] [address] [phone] White Blood Count 15.0 10 High 4.0-10.0 Red Blood Count 4.32 10 Normal 4.30-6.10 Hemoglobin 14.1 g/dL Normal 13.5-17.5 Hematocrit 44.5 % Normal 42.0-52.0 Mean Corpuscular Volume 103.0 fl High 80.0-96.0 Mean Corpuscular Hemoglobin 32.6 pg Normal 27.0-33.0 Mean Corpuscular HGB Conc 31.7 g/dL Low 32.0-36.5 Red Cell Distribution Width 13.0 % Normal 11.5-14.5 Platelet Count, Automated 235 10 Normal 150-450 Neutrophils % 91.9 % High 36.0-66.0 Lymph % 5.3 % Low 24.0-44.0 Rosebud % 1.8 % Low 2.0-8.0 Eos % 0.4 % Normal 0.0-3.0 Baso % 0.3 % Normal 0.0-1.0 Immature Granulocyte % 0.3 % Normal 0-3.0 Nucleated Red Blood Cell % 0.0 % Normal 0-0 Neutrophils # 13.8 10 High 1.5-8.5 Lymph # 0.8 10 Low 1.5-5.0 Rosebud # 0.3 10 Normal 0.0-0.8 Eos # 0.1 10 Normal 0.0-0.5 Baso # 0.1 10 Normal 0.0-0.2 Comprehensive Metabolic Profil 01/14/2021 [facility] Outpa tient Testing (Registration) [address] [place] [address] [phone] Glucose, Fasting 138 mg/dL High 70-100 Blood Urea Nitrogen 26 mg/dL High 7-18 Creatinine For GFR 0.57 mg/dL Low 0.70-1.30 Glomerular Filtration Rate > 60.0 Normal >49 1 Sodium Level 137 mEq/L Normal 136-145 Potassium Serum 4.9 mEq/L Normal 3.5-5.1 Chloride Level 100 mEq/L Normal 98-107 Carbon Dioxide Level 34 mEq/L High 21-32 Anion Gap 3 mEq/L Low 8-16 Calcium Level 8.9 mg/dL Normal 8.8-10.2 Ast/Sgot 30 U/L Normal 7-37 Alt/SGPT 49 U/L Normal 12-78 Alkaline Phosphatase 63 U/L Normal 45-117 Bilirubin,Total 0.4 mg/dL Normal 0.2-1.0 Total Protein 7.0 GM/DL Normal 6.4-8.2 Albumin 2.8 GM/DL Low 3.2-5.2 Albumin/Globulin Ratio 0.7 Normal Hemoglobin A1c 11/26/2020 [facility] Outpatient Testi ng (Registration) [address] [place] [address] [phone] Hemoglobin A1c 6.8 % Normal 2 Estimated Average Glucose 148 mg/dL High 60-110 Comprehensive Metabolic Profil 11/26/2020 [facility] Outpa tient Testing (Registration) [address] [place] [address] [phone] Glucose, Fasting 82 mg/dL Normal 70-100 Blood Urea Nitrogen 19 mg/dL High 7-18 Creatinine For GFR 0.53 mg/dL Low 0.70-1.30 Glomerular Filtration Rate > 60.0 Normal >49 3 Sodium Level 141 mEq/L Normal 136-145 Potassium [...] Ratio 0.8 Normal Comprehensive Metabolic Profil 07/30/[address] [address] [phone] Glucose, Fasting 150 mg/dL High 70-100 Blood Urea Nitrogen 35 mg/dL High 7-18 Creatinine For GFR 0.76 mg/dL Normal 0.70-1.30 Glomerular Filtration Rate > 60.0 Normal >49 4 Sodium Level 136 mEq/L Normal 136-145 Potassium [...] Albumin/Globulin Ratio 0.9 Normal Hemoglobin A1c 07/30/[address] [id number] [phone] Hemoglobin A1c 8.6 % Normal 5 Estimated Average Glucose 200 mg/dL High 60-110 Lipid Panel 07/30/[address] [id number] [phone] Triglycerides Level 72 mg/dL Normal <150 Cholesterol Level 123 mg/dL Normal <200 HDL Cholesterol 79 mg/dL Normal >40 LDL Cholesterol 30 mg/dL Normal <100 Non-HDL-C 44 mg/dL Normal Cholesterol Risk Ratio 1.556 Normal <5 CBC With Differential 07/30/[address] [address] [phone] White Blood Count 9.7 10 Normal 4.0-10.0 [...] 36.0-66.0 Lymph % 34.1 % Normal 24.0-44.0 Rosebud % 3.8 % Normal 2.0-8.0 Eos % 2.1 % Normal 0.0-3.0 Baso % 0.2 % Normal 0.0-1.0 Immature Granulocyte % 0.4 % Normal 0-3.0 Nucleated Red Blood Cell % 0.0 % Normal 0-0 Neutrophils # 5.7 10 Normal 1.5-8.5 Lymph # 3.3 10 Normal 1.5-5.0 Rosebud # 0.4 10 Normal 0.0-0.8 Eos # 0.2 10 Normal 0.0-0.5 Baso # 0.0 10 Normal 0.0-0.2 Microalbumin Random 07/30/2020 [facility]ter [address] [place] [address] [phone] Creatinine, Urine 153.0 mg/dL Normal Malb Urine Siemens 33.2 mg/L Normal Jeferson/Creat Ratio 21.6 MCG/MG Normal 0.0-30.0 6 Laboratory test finding 07/30/[address] [address] [phone] PSA Screening 0.13 NG/ML Normal < 4.00 7 CBC With Differential 07/17/2020 [facility] Outpatient [facility] (Registration) [address] [place] [address] [phone] White Blood Count 12.6 10 High 4.0-10.0 [...] 36.0-66.0 Lymph % 9.8 % Low 24.0-44.0 Rosebud % 2.1 % Normal 2.0-8.0 Eos % 1.6 % Normal 0.0-3.0 Baso % 0.1 % Normal 0.0-1.0 Immature Granulocyte % 0.7 % Normal 0-3.0 Nucleated Red Blood Cell % 0.0 % Normal 0-0 Neutrophils # 10.8 10 High 1.5-8.5 Lymph # 1.2 10 Low 1.5-5.0 Rosebud # 0.3 10 Normal 0.0-0.8 Eos # 0.2 10 Normal 0.0-0.5 Baso # 0.0 10 Normal 0.0-0.2 1 Units are mL/min/1.73 m2 Chronic Kidney Disease Staging per NKF: Stage I & II GFR >=60 Normal to Mildly Decreased Stage III GFR 30-59 Moderately Decreased Stage IV GFR 15-29 Severely Decreased Stage V GFR <15 Very Little GFR Left ESRD GFR <15 on CHIEF OF VITAL STATISTICS 2 REFERENCE RANGES: <=5.6% NORMAL 5.7-6.4% SUGGESTS IMPAIRED GLUCOSE META BOLISM/PREDIABETIC >= 6.5% ABNORMAL 3 Units are mL/min/1.73 m2 Chronic Kidney Disease Staging per NKF: Stage I & II GFR >=60 Normal to Mildly Decreased Stage III GFR 30-59 Moderately Decreased Stage IV GFR 15-29 Severely Decreased Stage V GFR <15 Very Little GFR Left ESRD GFR <15 on CHIEF OF VITAL STATISTICS 4 Units are mL/min/1.73 m2 Chronic Kidney Disease Staging per NKF: Stage I & II GFR >=60 Normal to Mildly Decreased Stage III GFR 30-59 Moderately Decreased Stage IV GFR 15-29 Severely Decreased Stage V GFR <15 Very Little GFR Left ESRD GFR <15 on CHIEF OF VITAL STATISTICS 5 REFERENCE RANGES: <=5.6% NORMAL 5.7-6.4% SUGGESTS IMPAIRED GLUCOSE META BOLISM/PREDIABETIC >= 6.5% ABNORMAL 6 THE [employer] ATION STATES THAT MICROALBUMINURIA IS PRESENT IF THE MICROALBUMIN/CREATININE RATIO EXCEEDS 30 MCG/MG. THE THRESHOLD FOR CLINICAL ALBUMINURIA IS REACHED AT 300 MCG/MG. THE CLASSIFICATION OF A PATIENT SHOULD BE BASED UPON AT LEAST 2 OF 3 ABNORMAL RESULTS ON SPECIMENS COLLECTED WITHIN A 3 TO 6 MONTH TIME FRAME. 7 The PSA assay is performed o n the Darkstrandta analyzer by LOCI sandwich chemiluminescent immunoassay and should not be compared interchangeably with other methods. It should not be used alone as a screening test or diagnosis for the presence or absence of malignant disease. Predictions of disease recurrence should not be based solely on values obtained from serial patient serum values. 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 at [facility] Functional Status Description No Information Available Mental Status Description No Information Available Referrals Description No Information Available
--- OUTSIDE RECORDS SUMMARY | 2021-01-24 18:43 | CCD ---
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 Active confirmed 537521961 Problem Paresthesias R20.2 Active confirmed 4842752 4 Problem Undifferentiated connective tissue disease M35.9 Active confirmed 487559784 Problem Interstitial lung disease J84.9 Active confirmed 126273530 Problem Pulmonary hypertension I27.20 Active confirmed 64067485 ALLERGIES No Known Allergies ENCOUNTERS from 1955 to 2020-11-25 Encounter Location Date Provider Diagnosis [facility] Rheumatology [address] [place] [address] [place] [address] Oct, Inez Mchugh Undifferentiated connective tissue disease M35.9 ; Positive FELICIA (antinuclear antibody) R76.8 ; Interstitial lung disease J84.9 ; Pulmonary hypertension I27.20 ; Effusion of wrist, unspecified laterality M25.439 ; Chronic cough R05 ; snf systemic steroid user Z79.52 and High risk medication use Z79.899 IMMUNIZATIONS No Information SOCIAL HISTORY Tobacco Use: [...] REASON FOR REFERRAL No Information VITAL SIGNS Weight 196.2 lbs Oct, Weight-kg 89.0 kg Oct, Height 70 in Oct, BMI 28.15 kg/m2 Oct, Heart Rate 115 /min Oct, Temperature 99.1 degrees Fahrenheit Oct, Oximetry 94 Oct, Blood pressure systolic 104 mm Hg Oct, Blood pressure diastolic 78 mm Hg Oct, MEDICATIONS Medication SIG (Take, Route, Frequency, Duration) [...] 1 TABLET BY MOUTH EVERY NIGHT Oral fo Active Victoza 18 MG/3ML INJECT 1.8MG SUBCUTANEOUSLY [...] Information RESULTS No Results REASON FOR VISIT C/o shortness of breath MEDICAL (GENERAL) HISTORY Type Description Date Medical [...] Notes Treatment Notes Treatm ent Clinical Notes Oct, Undifferentiated connective tissue disease (ICD- 10 - M35.9) Misa Schaefer has a complicated and complex medical presentation. At this time, the clinical presentation is consistent with undifferentiated connective tissue disease (positive FELICIA (04/29/2020 1:320), positive dsDNA Ab (02/23/2020 24 IU/mL (0-9)), lymphopenia (03/19/2020 0.9 x 10^3/uL (1.5 -5.0)), low-medium positive cardiolipin ab IgM (03/20/2020 IgM 22 MPL U/L (0-12) c/w low-positive (>20-80), repeat on 04/29/2020- indeterminate cardiolipin ab M), wrist joint effusions); the clinical presentation is evolving. The patient had testing on 10/01/2020 to evaluate for a transition from an undifferentiated connective tissue disease to a differentiated connective tissue - The AVISE testing (specialized autoimmune rheumatic disease test) was reviewed in detail with the patient. The FELICIA by HEp-2 is negative. The AVISE assesssment was consistent with a low likelihood of systemic lupus erythematosus (anti- sin, anti-dsDNA, SSA (anti-Ro), SSB (anti-La), ribonucleoprotein (anti-RNP70 & anti-U1RNP), centromere antibodies, anti-topoisomerase I, RNA Polymerase III IgG, anti-histone, antiphospholipid antibodies (cardiolipin IgM & IgG, Beta-2 Glycoprotein IgM & IgG), anti-Jo1 antibody, Rheumatoid factor IgA & IgM, CCP Ab - all negative, see AVISE test for full results). The complement levels (C3, C4, CH50) were within normal limits. Urinalysis, and urine protein:creatinine ratio were unremarkable. Lupus anticoagulant negative. - Will increase Plaquenil 200 mg daily (initiated 06/18/2020) to 200 mg twice daily as a steroid sparing medication in addition to treatment for the undifferentiated connective tissue disease. - Continue lifestyle modifications (adequate sleep hygiene, well balanced diet/nutrition, physical activity and exercise, good mental health, emotional stability, stress management). - He was agreeable and expressed understanding of the plan. All questions and concerns were addressed. Oct, Positive FELICIA (antinuclear antibody) (ICD-10 - R7 6.8) Positive FELICIA is related to undifferentiated connective tissue disease; will monitor the clinical presentation closely. Oct, Interstitial lung disease (ICD-10 - J84.9) The underlying etiology of the interstital lung disease appears multifactorial, especially in the setting severe GERD requiring a fundoplication. At this time, it is not clear how much the connective tissue disease factors into the patient's etiology of ILD. Agree with the new medication, Ofev (Nintedanib) for treatment of the pulmonary fibrosis. Will consider alternative immunosuppressant therapy in the future, which can potentially impact the ILD (e.g. Cellcept). Will follow along closely with pulmonary (Dr. Mclean) and monitor the clinical presentation. Oct, Pulmonary hypertension (ICD-10 - I27.20) The patient is treated for the pulmonary hypertension with Tyvaso. Will follow along. Oct, Effusion of wrist, unspecified laterality (ICD-1 0 - M25.439) Will monitor the joint effusions closely on the Plaquenil therapy. Oct, Chronic cough (ICD-10 - R05) The underlying etiology of the chronic cough is likely multifactorial, based on the clinical history. The interstitial lung disease is likely an underlying contributor. The patient's chief concern is the chronic cough. Will continue to monitor the symptomatology closely on the Plaquenil therapy. 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 Oct, High risk medication use (ICD-10 - Z79.899) Plaquenil: This medication is an immunosuppressant and considered a high risk medication, as there is increased potential for adverse reaction and significant toxicity. Oct, Other The total time spent on the date of the encounter: 30 minutes PLAN OF TREATMENT Medication Medication Name Sig Start Date Stop Date Plaquenil 200 MG as directed Orally twice daily for 90 days 2020 Treatment Notes Assessment Notes Clinical Notes Undifferentiated connective tissue disease Misa Schaefer has a complicated and complex medical presentation. At this time, the clinical presentation is consistent with undifferentiated connective tissue disease (positive FELICIA (04/29/2020 1:320), positive dsDNA Ab (02/23/2020 24 IU/mL (0-9)), lymphopenia (03/19/2020 0.9 x 10^3/uL (1.5 -5.0)), low-medium positive cardiolipin ab IgM (03/20/2020 IgM 22 MPL U/L (0-12) c/w low-positive (>20-80), repeat on 04/29/2020- indeterminate cardiolipin ab M), wrist joint effusions); the clinical presentation is evolving. The patient had testing on 10/01/2020 to evaluate for a transition from an undifferentiated connective tissue disease to a differentiated connective tissue- The AVISE testing (specialized autoimmune rheumatic disease test) was reviewed in detail with the patient. The FELICIA by HEp -2 is negative. The AVISE assesssment was consistent with a low likelihood of systemic lupus erythematosus (anti-sin, anti-dsDNA, SSA (anti-Ro), SSB (anti- La), ribonucleoprotein (anti-RNP70 & anti-U1RNP), centromere antibodies, anti- topoisomerase I, RNA Polymerase III IgG, anti-histone, antiphospholipid antibodies (cardiolipin IgM & IgG, Beta-2 Glycoprotein IgM & IgG), anti-Jo1 antibody, Rheumatoid factor IgA & IgM, CCP Ab - all negative, see AVISE test for full results). The complement levels (C3, C4, CH50) were within normal limits. Urinalysis, and urine protein:creatinine ratio were unremarkable. Lupus anticoagulant negative.- Will increase Plaquenil 200 mg daily (initiated 06/18/2020) to 200 mg twice daily as a steroid sparing medication in addition to treatment for the undifferentiated connective tissue disease.- Continue lifestyle modifications (adequate sleep hygiene, well balanced diet/nutrition, physical activity and exercise, good mental health, emotional stability, stress management).- He was agreeable and expressed understanding of the plan. All questions and concerns were addressed. Positive FELICIA (antinuclear antibody) Posi tive FELICIA is related to undifferentiated connective tissue disease; will monitor the clinical presentation closely. Interstitial lung disease The underlying etiology of the interstital lung disease appears multifactorial, especially in the setting severe GERD requiring a fundoplication. At this time, it is not clear how much the connective tissue disease factors into the patient's etiology of ILD. Agree with the new medication, Ofev (Nintedanib) for treatment of the pulmonary fibrosis. Will consider alternative immunosuppressant therapy in the future, which can potentially impact the ILD (e.g. Cellcept). Will follow along closely with pulmonary (Dr. Mclean) and monitor the clinical presentation. Pulmonary hypertension The patient is tr eated for the pulmonary hypertension with Tyvaso. Will follow along. Effusion of wrist, unspecified laterality Will monitor the joint effusions closely on the Plaquenil therapy. Chronic cough The underlying etiol ogy of the chronic cough is likely multifactorial, based on the clinical history. The interstitial lung disease is likely an underlying contributor. The patient's chief concern is the chronic cough. Will continue to monitor the symptomatology closely on the Plaquenil therapy. snf systemic steroid user Given th e history of intermediate steroid use, will monitor the DXA scan - pending - to evaluate the bone density. High risk medication use Plaquenil: This medication is an immunosuppressant and considered a high risk medication, as there is increased potential for adverse reaction and significant toxicity. Next Appt Details Provider Name:Inez Mchugh, 2021-02-18 09:45:00 AM, [address] [place] [address], [place], [place], [facility], Insurance Providers Payer Name Payer Address Payer Phone Insured Name Patient Relati onship to Insured Coverage Start Date Coverage End Date MARY ELLEN OBI REILLY [address] [facility] [phone] MISA SCHAEFER self MEDICARE Part A and B [address] [place] [phone] MISA SCHAEFER self
--- OUTSIDE RECORDS SUMMARY | 2021-01-24 18:43 | CCD ---
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 Active confirmed 673760835 Problem Paresthesias R20.2 Active confirmed 4744227 4 Problem Undifferentiated connective tissue disease M35.9 Active confirmed 009511673 Problem Interstitial lung disease J84.9 Active confirmed 056215483 Problem Pulmonary hypertension I27.20 Active confirmed 99555257 ALLERGIES No Known Allergies ENCOUNTERS from 1955 to 2020-11-29 Encounter Location Date Provider Diagnosis [facility] Rheumatology [address] [place] [address] [place] [address] Nov, [facility] IMMUNIZATIONS No Information SOCIAL HISTORY Tobacco Use: [...] Information RESULTS No Results REASON FOR VISIT Outsanting DEXA scan MEDICAL (GENERAL) HISTORY Type Description Date Medical [...] No Information FUNCTIONAL STATUS No Information ASSESSMENTS No Information PLAN OF TREATMENT Medication Medication Name Sig Start Date Stop Date Plaquenil 200 MG as directed Orally twice daily for 90 days 2020 Next Appt Details Provider Name:Inez M Mchugh, 2021-02-18 09:45:00 AM, [address] [place] [address], , [place], [place], [facility], Insurance Providers Payer Name Payer Address Payer Phone Insured Name Patient Relati onship to Insured Coverage Start Date Coverage End Date MARY ELLEN REILLY [address] [facility] [phone] MISA SCHAEFER self MEDICARE Part A and B [address] [facility] [phone] MISA SCHAEFER self
--- OUTSIDE RECORDS SUMMARY | 2021-01-24 18:43 | CCD | Continuity of Care Document ---
Author Author Mateusz KAMARA [place] Organization Unknown Address [address] [place] [address] 6 [address] [place] [address] Phone [phone] Care Team Providers Care Interior Design Coordinator Name Role Phone Monik Hernandez D.O. AUTM Cecilia Hi M.D. AUTM [phone] Stephane Bacon M.D. AUTM Ana Maria Matos M.D FACP AUTM [facility] AUTM [phone] [facility] AUTM [phone] Cachorro Mclean D.O. AUTM [phone] Problems Active Problems Provider Date Essential hypertension [...] Harley 03/18/2020 BD Uf Samantha Pen Needle [id number] To Be Used With Victoza Once Daily 10 0units Bryce Kaye.OHarley 05/30/2019 Pen [place] 32G X 4 mm Misc to be [...] F O2 % BldC Oximetry 93 % Felicity Body Weight 148 lb 08/13/2020 2:14pm BP Systolic 128 mmHg BP Diastolic 84 mmHg Height 67 inches 5'7" Weight 209.00 lb BMI (Body Mass Index) 32.7 kg/m2 Heart Rate 98 /min Body Temperature 97.8 F O2 % BldC Oximetry 96 % Felicity Body Weight 148 lb Results Test Acquired Date Facility Test Result H/L Range Note Hemoglobin A1c 11/26/2020 [facility] Outpatient Testi ng (Registration) [address], [place] [id number] [phone] Hemoglobin A1c 6.8 % Normal 1 Estimated Average Glucose 148 mg/dL High 60-110 Comprehensive Metabolic Profil 11/26/2020 [facility] Outpa tient Testing (Registration) [address] [place] [phone] Glucose, Fasting 82 mg/dL Normal 70-100 Blood [...] Ratio 0.8 Normal Comprehensive Metabolic Profil 07/30/[address] [address] [phone] Glucose, Fasting 150 mg/dL High 70-100 Blood [...] Albumin/Globulin Ratio 0.9 Normal Hemoglobin A1c 07/30/[address] [address] [phone] Hemoglobin A1c 8.6 % Normal 4 Estimated Average Glucose 200 mg/dL High 60-110 Lipid Panel 07/30/[address] [address] [phone] Triglycerides Level 72 mg/dL Normal <150 Cholesterol Level 123 mg/dL Normal <200 HDL Cholesterol 79 mg/dL Normal >40 LDL Cholesterol 30 mg/dL Normal <100 Non-HDL-C 44 mg/dL Normal Cholesterol Risk Ratio 1.556 Normal <5 CBC With Differential 07/30/[address] [address] [phone] White Blood Count 9.7 10 Normal 4.0-10.0 [...] 36.0-66.0 Lymph % 34.1 % Normal 24.0-44.0 [place] % 3.8 % Normal 2.0-8.0 Eos % 2.1 % Normal 0.0-3.0 Baso % 0.2 % Normal 0.0-1.0 Immature Granulocyte % 0.4 % Normal 0-3.0 Nucleated Red Blood Cell % 0.0 % Normal 0-0 Neutrophils # 5.7 10 Normal 1.5-8.5 Lymph # 3.3 10 Normal 1.5-5.0 [place] # 0.4 10 Normal 0.0-0.8 Eos # 0.2 10 Normal 0.0-0.5 Baso # 0.0 10 Normal 0.0-0.2 Microalbumin Random 07/30/2020 [facility] nter [address] [place] [address] [phone] Creatinine, Urine 153.0 mg/dL Normal Malb Urine Siemens 33.2 mg/L Normal Jeferson/Creat Ratio 21.6 MCG/MG Normal 0.0-30.0 5 Laboratory test finding 07/30/[address] [address] [phone] PSA Screening 0.13 NG/ML Normal < 4.00 6 CBC With Differential 07/17/2020 [facility] Outpatient Ami ting (Registration) [address] [place] [phone] White Blood Count 12.6 10 High 4.0-10.0 [...] 36.0-66.0 Lymph % 9.8 % Low 24.0-44.0 [place] % 2.1 % Normal 2.0-8.0 Eos % 1.6 % Normal 0.0-3.0 Baso % 0.1 % Normal 0.0-1.0 Immature Granulocyte % 0.7 % Normal 0-3.0 Nucleated Red Blood Cell % 0.0 % Normal 0-0 Neutrophils # 10.8 10 High 1.5-8.5 Lymph # 1.2 10 Low 1.5-5.0 [place] # 0.3 10 Normal 0.0-0.8 Eos # 0.2 10 Normal 0.0-0.5 Baso # 0.0 10 Normal 0.0-0.2 CBC With Differential 06/05/2020 [facility] Outpatient Ami solis (Registration) [address] [place] [address] [phone] White Blood Count 8.4 10 Normal 4.0-10.0 [...] 36.0-66.0 Lymph % 17.3 % Low 24.0-44.0 [place] % 4.9 % Normal 2.0-8.0 Eos % 4.2 % High 0.0-3.0 Baso % 1.1 % High 0.0-1.0 Immature Granulocyte % 0.2 % Normal 0-3.0 Nucleated Red Blood Cell % 0.0 % Normal 0-0 Neutrophils # 6.1 10 Normal 1.5-8.5 Lymph # 1.5 10 Normal 1.5-5.0 [place] # 0.4 10 Normal 0.0-0.8 Eos # 0.4 10 Normal 0.0-0.5 Baso # 0.1 10 Normal 0.0-0.2 Comprehensive Metabolic Profil 06/05/2020 [facility] Outpa tient Testing (Registration) [address] [place] [phone] Glucose, Fasting 122 mg/dL High 70-100 Blood [...] Ratio 0.8 Normal Laboratory test finding 06/05/2020 [facility] Outpatient T esting (Registration) [address] [place] [phone] Homocyst(E)Ine Serum 9.1 umol/L Normal 0.0-17.2 8 [...] Little GFR Left ESRD GFR <15 on CAMPAIGN ANALYST 3 Units are mL/min/1.73 m2 Chronic Kidney Disease Staging per NKF: Stage I & II GFR >=60 Normal to Mildly Decreased Stage III GFR 30-59 Moderately Decreased Stage IV GFR 15-29 Severely Decreased Stage V GFR <15 Very Little GFR Left ESRD GFR <15 on CAMPAIGN ANALYST 4 REFERENCE RANGES: <=5.6% NORMAL 5.7-6.4% SUGGESTS IMPAIRED GLUCOSE META BOLISM/PREDIABETIC >= 6.5% ABNORMAL 5 THE [employer] ATION STATES THAT MICROALBUMINURIA IS PRESENT IF THE MICROALBUMIN/CREATININE RATIO EXCEEDS 30 MCG/MG. THE THRESHOLD FOR CLINICAL ALBUMINURIA IS REACHED AT 300 MCG/MG. THE CLASSIFICATION OF A PATIENT SHOULD BE BASED UPON AT LEAST 2 OF 3 ABNORMAL RESULTS ON SPECIMENS COLLECTED WITHIN A 3 TO 6 MONTH TIME FRAME. 6 The PSA assay is performed o n the Siemens Spencer analyzer by LOCI sandwich chemiluminescent immunoassay and [...] Little GFR Left ESRD GFR <15 on CAMPAIGN ANALYST 8 Performed at: RN - [facility] [address] [id number] Security Systems Administrator: Elda Orellana MD, Phone: [phone] Procedures Date Code Description Status 08/13/2020 34978 Office/Outpatient Established Mo d MDM 30-39 Min Completed Medical Devices Description No Information Available Encounters Type Date Location Provider Dx Diagnosis Office Visit 08/13/2020 2:20p Family Medicine [facility] MARTHA Gordon E09.8 Drug/chem diabetes mellitus [...] 03/04/2021 9:40 am - MARTHA Gordon at [facility] 12/02/2020 - MARTHA Gordon* Z00.00 Encounter for general adult medical examination without abnormal findings * 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 Martinez. * J84.9 Interstitial pulmonary disease, unspecified* Comments:* Continue with oxygen therapy, and with the recommendations of Dr Mclean and your specialists in [place]. * I82.402 Acute embolism and thrombosis of unspecified deep veins of left lower extremity* New Labs:* CBC With Differential, Scheduled: 03/04/21 * Comments:* Continue Eliquis as prescribed, and with the recommendations of cardiology. * I10 Essential (primary) hypertension * E78.00 Pure hypercholesterolemia, unspecified Functional Status Description No Information Available Mental Status Description No Information Available Referrals Description No Information Available
--- OUTSIDE RECORDS SUMMARY | 2021-01-24 18:46 | CCD ---
Author Author [facility] Organization [facility] Address Unknown Phone Unavailable Care Team Providers Care Quarry Equipment Operator Name Role Phone ARUNA (ROXY), Cinthya KNIGHT MD Unavailable Unavailab le ARUNA (ROXY), Cinthya KNIGHT MD Unavailable Unavailab le ARUNA (ROXY), Cinthya KNIGHT MD Unavailable Unavailab le ARUNA (ROXY), Cinthya KNIGHT MD Unavailable Unavailab le ARUNA (ROXY), Cinthya KNIGHT MD Unavailable Unavailab le ARUNA (ROXY), Cinthya KNIGHT MD Unavailable Unavailab le ARUNA (ROXY), Cinthya KNIGHT MD Unavailable Unavailab le ARUNA (ROXY), Cinthya KNIGHT MD Unavailable Unavailab le ARUNA (ROXY), Cinthya KNIGHT MD Unavailable Unavailab le ARUNA (ROXY), Cinthya KNIGHT MD Unavailable Unavailab le ARUNA (ROXY), Cinthya KNIGHT MD Unavailable Unavailab le ARUNA (ROXY), Cinthya KNIGHT MD Unavailable Unavailab le ARUNA (ROXY), Cinthya KNIGHT MD Unavailable Unavailab le ARUNA (ROXY), Cinthya KNIGHT MD Unavailable Unavailab le ARUNA (ROXY), Cinthya KNIGHT MD Unavailable Unavailab le ARUNA (ROXY), Cinthya KNIGHT MD Unavailable Unavailab le ARUNA (ROXY), Cinthya KNIGHT MD Unavailable Unavailab le ARUNA (ROXY), Cinthya KNIGHT MD Unavailable Unavailab le ARUNA (ROXY), Cinthya KNIGHT MD Unavailable Unavailab le ARUNA (ROXY), Cinthya KNIGHT MD Unavailable Unavailab le ARUNA (ROXY), Cinthya KNIGHT MD Unavailable Unavailab le ARUNA (ROXY), Cinthya KNIGHT MD Unavailable Unavailab le ARUAN (ROXY), Cinthya KNIGHT MD Unavailable Unavailab le ARUNA (ROXY), Cinthya KNIGHT MD Unavailable Unavailab le ARUNA (ROXY), Cinthya KNIGHT MD Unavailable Unavailab le ARUNA (ROXY), Cinthya KNIGHT MD Unavailable Unavailab le ARUNA (ROXY), Cinthya KNIGHT MD Unavailable Unavailab le ARUNA (ROXY), Cinthya KNIGHT MD Unavailable Unavailab le ARUNA (ROXY), Cinthya KNIGHT MD Unavailable Unavailab le ARUNA (ROXY), Cinthya KNIGHT MD Unavailable Unavailab le ARUNA (ROXY), Cinthya KNIGHT MD Unavailable Unavailab le ARUNA (ROXY), Cinthya KNIGHT MD Unavailable Unavailab le ARUNA (ROXY), Cinthya KNIGHT MD Unavailable Unavailab le ARUNA (ROXY), Cinthya KNIGHT MD Unavailable Unavailab le ARUNA (ROXY), Cinthya KNIGHT MD Unavailable Unavailab le ARUNA (ROXY), Cinthya KNIGHT MD Unavailable Unavailab le ARUNA (ROXY), Cinthya KNIGHT MD Unavailable Unavailab le ARUNA (ROXY), Cinthya KNIGHT MD Unavailable Unavailab le ARUNA (ROXY), Cinthya KNIGHT MD Unavailable Unavailab le ARUNA (ROXY), Cinthya KNIGHT MD Unavailable Unavailab le ARUNA (ROXY), Cinthya KNIGHT MD Unavailable Unavailab le ARUNA (ROXY), Cinthya KNIGHT MD Unavailable Unavailab le ARUNA (ROXY), Cinthya KNIGHT MD Unavailable Unavailab le ARUNA (ROXY), Cinthya KNIGHT MD Unavailable Unavailab le ARUNA (ROXY), Cinthya KNIGHT MD Unavailable Unavailab le ARUNA (ROXY), Cinthya KNIGHT MD Unavailable Unavailab le ARUNA (ROXY), Cinthya KNIGHT MD Unavailable Unavailab le ARUNA (ROXY), Cinthya KNIGHT MD Unavailable Unavailab le ARUNA (ROXY), Cinthya KNIGHT MD Unavailable Unavailab le ARUNA (ROXY), Cinthya KNIGHT MD Unavailable Unavailab le ARUNA (ROXY), Cinthya KNIGHT MD Unavailable Unavailab le ARUNA (ROXY), Cinthya KNIGHT MD Unavailable Unavailab le ARUNA (ROXY), Cinthya KNIGHT MD Unavailable Unavailab le ARUNA (ROXY), Cinthya KNIGHT MD Unavailable Unavailab le ARUNA (ROXY), Cinthya KNIGHT MD Unavailable Unavailab le ARUNA (ROXY), Cinthya KNIGHT MD Unavailable Unavailab le ARUAN (ROXY), Cinthya KNIGHT MD Unavailable Unavailab le ARUNA (ROXY), Cinthya KNIGHT MD Unavailable Unavailab le ARUNA (ROXY), Cinthya KNIGHT MD Unavailable Unavailab le ARUNA (ROXY), Cinthya KNIGHT MD Unavailable Unavailab le ARUNA (ROXY), Cinthya KNIGHT MD Unavailable Unavailab le ARUNA (ROXY), Cinthya KNIGHT MD Unavailable Unavailab le ARUNA (ROXY), Cinthya KNIGHT MD Unavailable Unavailab le ARUNA (ROXY), Cinthya KNIGHT MD Unavailable Unavailab le ARUNA (ROXY), Cinthya KNIGHT MD Unavailable Unavailab le ARUNA (ROXY), Cinthya KNIGHT MD Unavailable Unavailab le ARUNA (ROXY), Cinthya KNIGHT MD Unavailable Unavailab le ARUNA (ROXY), Cinthya KNIGHT MD Unavailable Unavailab le ARUNA (ROXY), Cinthya KNIGHT MD Unavailable Unavailab le ARUNA (ROXY), Cinthya KNIGHT MD Unavailable Unavailab le ARUNA (ROXY), Cinthya KNIGHT MD Unavailable Unavailab le ARUNA (ROXY), Cinthya KNIGHT MD Unavailable Unavailab le ARUNA (ROXY), Cinthya KNIGHT MD Unavailable Unavailab le ARUNA (ROXY), Cinthya KNIGHT MD Unavailable Unavailab le ARUNA (ROXY), Cinthya KNIGHT MD Unavailable Unavailab le ARUNA (ROXY), Cinthya KNIGHT MD Unavailable Unavailab le ARUNA (ROXY), Cinthya KNIGHT MD Unavailable Unavailab le ARUNA (ROXY), Cinthya KNIGHT MD Unavailable Unavailab le ARUNA (ROXY), Cinthya KNIGHT MD Unavailable Unavailab le ARUNA (ROXY), Cinthya KNIGHT MD Unavailable Unavailab le ARUNA (ROXY), Cinthya KNIGHT MD Unavailable Unavailab le ARUNA (ROXY), Cinthya KNIGHT MD Unavailable Unavailab le ARUNA (ROXY), Cinthya KNIGHT MD Unavailable Unavailab le ARUNA (ROXY), Cinthya KNIGHT MD Unavailable Unavailab le ARUNA (ROXY), Cinthya KNIGHT MD Unavailable Unavailab le ARUNA (ROXY), Cinthya KNIGHT MD Unavailable Unavailab le ARUNA (ROXY), Cinthya KNIGHT MD Unavailable Unavailab le El-Khally, Darin Raya MD Unavailable Unavailable El-Khally, Darin Raya MD Unavailable Unavailable El-Khally, Darin Raya MD Unavailable Unavailable El-Khally, Darin Raya MD Unavailable Unavailable El-Khally, Darin Raya MD Unavailable Unavailable El-Khally, Darin Raya MD Unavailable Unavailable El-Khally, A Ziad MD Unavailable Unavailable El-Khally, A Ziad MD Unavailable Unavailable El-Khally, A Ziad MD Unavailable Unavailable El-Khally, A Ziad MD Unavailable Unavailable El-Khally, A Ziad MD Unavailable Unavailable El-Khally, A Ziad MD Unavailable Unavailable El-Khally, A Ziad MD Unavailable Unavailable El-Khally, A Ziad MD Unavailable Unavailable El-Khally, A Ziad MD Unavailable Unavailable El-Khally, A Ziad MD Unavailable Unavailable El-Khally, A Ziad MD Unavailable Unavailable El-Khally, A Ziad MD Unavailable Unavailable El-Khally, A Ziad MD Unavailable Unavailable El-Khally, A Ziad MD Unavailable Unavailable El-Khally, A Ziad MD Unavailable Unavailable El-Khally, A Ziad MD Unavailable Unavailable El-Khally, A Ziad MD Unavailable Unavailable El-Khally, A Ziad MD Unavailable Unavailable El-Khally, A Ziad MD Unavailable Unavailable El-Khally, A Ziad MD Unavailable Unavailable El-Khally, A Ziad MD Unavailable Unavailable El-Khally, A Ziad MD Unavailable Unavailable El-Khally, A Ziad MD Unavailable Unavailable El-Khally, A Ziad MD Unavailable Unavailable El-Khally, A Ziad MD Unavailable Unavailable El-Khally, A Ziad MD Unavailable Unavailable El-Khally, A Ziad MD Unavailable Unavailable El-Khally, A Ziad MD Unavailable Unavailable El-Khally, A Ziad MD Unavailable Unavailable El-Khally, A Ziad MD Unavailable Unavailable El-Khally, A Ziad MD Unavailable Unavailable El-Khally, A Ziad MD Unavailable Unavailable El-Khally, A Ziad MD Unavailable Unavailable El-Khally, A Ziad MD Unavailable Unavailable El-Khally, A Ziad MD Unavailable Unavailable El-Khally, A Ziad MD Unavailable Unavailable El-Khally, A Ziad MD Unavailable Unavailable Luis Enrique, Channing PA Unavailable Unavailable Luis Enrique, Channing PA Unavailable Unavailable Luis Enrique, Channing PA Unavailable Unavailable Luis Enrique, Channing PA Unavailable Unavailable Luis Enrique, Channing PA Unavailable Unavailable Luis Enrique, Channing PA Unavailable Unavailable Luis Enrique, Channing PA Unavailable Unavailable Luis Enrique, Channing PA Unavailable Unavailable Luis Enrique, Channing PA Unavailable Unavailable Luis Enrique, Channing PA Unavailable Unavailable Luis Enrique, Channing PA Unavailable Unavailable Luis Enrique, Channing PA Unavailable Unavailable Luis Enrique, Channing PA Unavailable Unavailable Luis Enrique, Channing PA Unavailable Unavailable Luis Enrique, Channing PA Unavailable Unavailable Luis Enrique, Channing PA Unavailable Unavailable Luis Enrique, Channing PA Unavailable Unavailable Luis Enrique, Channing PA Unavailable Unavailable Luis Enrique, Channing PA Unavailable Unavailable Luis Enrique, Channing PA Unavailable Unavailable Luis Enrique, Channing PA Unavailable Unavailable Luis Enrique, Channing PA Unavailable Unavailable Luis Enrique, Channing PA Unavailable Unavailable Luis Enrique, Channing PA Unavailable Unavailable Luis Enrique, Channing PA Unavailable Unavailable Luis Enrique, Channing PA Unavailable Unavailable Luis Enrique, Channing PA Unavailable Unavailable Luis Enrique, Chnaning PA Unavailable Unavailable Luis Enrique, Channing PA Unavailable Unavailable Luis Enrique, Channing PA Unavailable Unavailable Luis Enrique, Channing PA Unavailable Unavailable Luis Enrique, Channing PA Unavailable Unavailable Luis Enrique, Channing PA Unavailable Unavailable Luis Enrique, Channing PA Unavailable Unavailable Luis Enrique, Channing PA Unavailable Unavailable Luis Enrique, Channing PA Unavailable Unavailable Luis Enrique, Channing PA Unavailable Unavailable Luis Enrique, Channing PA Unavailable Unavailable Luis Enrique, Channing PA Unavailable Unavailable Luis Enrique, Channing PA Unavailable Unavailable Luis Enrique, Channing PA Unavailable Unavailable Luis Enrique, Channing PA Unavailable Unavailable Luis Enrique, Channing PA Unavailable Unavailable Luis Enrique, Channing PA Unavailable Unavailable Luis Enrique, Channing PA Unavailable Unavailable Luis Enrique, Channing PA Unavailable Unavailable Luis Enrique, Channing PA Unavailable Unavailable Luis Enrique, Channing PA Unavailable Unavailable Luis Enrique, Channing PA Unavailable Unavailable Luis Enrique, Channing PA Unavailable Unavailable Luis Enrique, Channing PA Unavailable Unavailable Luis Enrique, Channing PA Unavailable Unavailable Luis Enrique, Channing PA Unavailable Unavailable Luis Enrique, Channing PA Unavailable Unavailable HUI-LAVELL, LINDSAY DO Unavailable Unavailable HUI-LAVELL, LINDSAY DO Unavailable Unavailable HUI-LAVELL, LINDSAY DO Unavailable Unavailable HUI-LAVELL, LINDSAY DO Unavailable Unavailable HUI-LAVELL, LINDSAY DO Unavailable Unavailable HUI-LAVELL, LINDSAY DO Unavailable Unavailable HUI-LAVELL, LINDSAY DO Unavailable Unavailable HUI-LAVELL, LINDSAY DO Unavailable Unavailable HUI-LAVELL, LINDSAY DO Unavailable Unavailable HIU-LAVELL, LINDSAY DO Unavailable Unavailable HIU-LAVELL, LINDSAY DO Unavailable Unavailable HUI-LAVELL, LINDSAY DO Unavailable Unavailable HUI-LAVELL, LINDSAY DO Unavailable Unavailable HUI-LAVELL, LINDSAY DO Unavailable Unavailable HUI-LAVELL, LINDSAY DO Unavailable Unavailable HUI-LAVELL, LINDSAY DO Unavailable Unavailable HUI-LAVELL, LINDSAY DO Unavailable Unavailable HUI-LAVELL, LINDSAY DO Unavailable Unavailable HUI-LAVELL, LINDSAY DO Unavailable Unavailable HUI-LAVELL, LINDSAY DO Unavailable Unavailable HUI-LAVELL, LINDSAY DO Unavailable Unavailable HUI-LAVELL, LINDSAY DO Unavailable Unavailable HUI-LAVELL, LINDSAY DO Unavailable Unavailable HUI-LAVELL, LINDSAY DO Unavailable Unavailable HUI-LAVELL, LINDSAY DO Unavailable Unavailable HUI-LAVELL, LINDSAY DO Unavailable Unavailable HUI-LAVELL, LINDSAY DO Unavailable Unavailable HUI-LAVELL, LINDSAY DO Unavailable Unavailable HUI-LAVELL, LINDSAY DO Unavailable Unavailable HUI-LAVELL, LINDSAY DO Unavailable Unavailable HUI-LAVELL, LINDSAY DO Unavailable Unavailable HUI-LAVELL, LINDSAY DO Unavailable Unavailable HUI-LAVELL, LINDSAY DO Unavailable Unavailable HUI-LAVELL, LINDSAY DO Unavailable Unavailable HUI-LAVELL, LINDSAY DO Unavailable Unavailable HUI-LAVELL, LINDSAY DO Unavailable Unavailable HUI-LAVELL, LINDSAY DO Unavailable Unavailable HUI-LAVELL, LINDSAY DO Unavailable Unavailable HUI-LAVELL, LINDSAY DO Unavailable Unavailable HUI-LAVELL, LINDSAY DO Unavailable Unavailable HUI-LAVELL, LINDSAY DO Unavailable Unavailable HUI-LAVELL, LINDSAY DO Unavailable Unavailable HUI-LAVELL, LINDSAY DO Unavailable Unavailable HUI-LAVELL, LINDSAY DO Unavailable Unavailable HUI-LAVELL, LINDSAY DO Unavailable Unavailable HUI-LAVELL, LINDSAY DO Unavailable Unavailable HUI-LAVELL, LINDSAY DO Unavailable Unavailable HUI-LAVELL, LINDSAY DO Unavailable Unavailable HUI-LAVELL, LINDSAY DO Unavailable Unavailable HUI-LAVELL, LINDSAY DO Unavailable Unavailable HUI-LAVELL, LINDSAY DO Unavailable Unavailable HUI-LAVELL, LINDSAY DO Unavailable Unavailable HUI-LAVELL, LINDSAY DO Unavailable Unavailable HUI-LAVELL, LINDSAY DO Unavailable Unavailable HUI-LAVELL, LINDSAY DO Unavailable Unavailable HUI-LAVELL, LINDSAY DO Unavailable Unavailable HUI-LAVELL, LINDSAY DO Unavailable Unavailable HUI-LAVELL, LINDSAY DO Unavailable Unavailable HUI-LAVELL, LINDSAY DO Unavailable Unavailable HUI-LAVELL, LINDSAY DO Unavailable Unavailable HUI-LAVELL, LINDSAY DO Unavailable Unavailable HUI-LAVELL, LINDSAY DO Unavailable Unavailable HUI-LAVELL, LINDSAY DO Unavailable Unavailable HUI-LAVELL, LINDSAY DO Unavailable Unavailable HUI-LAVELL, LINDSAY DO Unavailable Unavailable HUI-LAVELL, LINDSAY DO Unavailable Unavailable HUI-LAVELL, LINDSAY DO Unavailable Unavailable HUI-LAVELL, LINDSAY DO Unavailable Unavailable HUI-LAVELL, LINDSAY DO Unavailable Unavailable HUI-LAVELL, LINDSAY DO Unavailable Unavailable HUI-LAVELL, LINDSAY DO Unavailable Unavailable HUI-LAVELL, LINDSAY DO Unavailable Unavailable HUI-LAVELL, LINDSAY DO Unavailable Unavailable HUI-LAVELL, LINDSAY DO Unavailable Unavailable HUI-LAVELL, LINDSAY DO Unavailable Unavailable HUI-LAVELL, LINDSAY DO Unavailable Unavailable HUI-LAVELL, LINDSAY DO Unavailable Unavailable HUI-LAVELL, LINDSAY DO Unavailable Unavailable HUI-LAVELL, LINDSAY DO Unavailable Unavailable HUI-LAVELL, LINDSAY DO Unavailable Unavailable HUI-LAVELL, LINDSAY DO Unavailable Unavailable HUI-LAVELL, LINDSAY DO Unavailable Unavailable HUI-LAVELL, LINDSAY DO Unavailable Unavailable HUI-LAVELL, LINDSAY DO Unavailable Unavailable Bourg Bryant MD Unavailable Unavailable Bourg Bryant MD Unavailable Unavailable Bourg Bryant MD Unavailable Unavailable Bourg Bryant MD Unavailable Unavailable Bourg, Bryant MD Unavailable Unavailable Bourg Bryant MD Unavailable Unavailable Bourg Bryant MD Unavailable Unavailable Bourg, Bryant MD Unavailable Unavailable Bourg, Bryant MD Unavailable Unavailable Bourg Bryant MD Unavailable Unavailable Bourg, Bryant MD Unavailable Unavailable Bourg, Bryant MD Unavailable Unavailable Bourg, Bryant MD Unavailable Unavailable Bourg, Bryant MD Unavailable Unavailable Bourg, Bryant MD Unavailable Unavailable Bourg, Bryant MD Unavailable Unavailable Bourg, Bryant MD Unavailable Unavailable Bourg, Bryant MD Unavailable Unavailable Bourg, Bryant MD Unavailable Unavailable Bourg, Bryant MD Unavailable Unavailable Bourg, Bryant MD Unavailable Unavailable Bourg, Bryant RAMIREZ Unavailable Unavailable Bourg, Bryant RAMIREZ Unavailable Unavailable Bourg, Bryant RAMIREZ Unavailable Unavailable Bourg, Bryant RAMIREZ Unavailable Unavailable Bourg, Bryant RAMIREZ Unavailable Unavailable Bourg, Bryant RAMIREZ Unavailable Unavailable Bourg, Bryant RAMIREZ Unavailable Unavailable Bourg, Bryant RAMIREZ Unavailable Unavailable Bourg, Bryant RAMIREZ Unavailable Unavailable Rechlin, P Cachorro DO Unavailable Unavailable Rechlin, P Cachorro DO Unavailable Unavailable Rechlin, P Cachorro DO Unavailable Unavailable Rechlin, P Cachorro DO Unavailable Unavailable Rechlin, P Cachorro DO Unavailable Unavailable Rechlin, P Cachorro DO Unavailable Unavailable Rechlin, P Cachorro DO Unavailable Unavailable Rechlin, P Cachorro DO Unavailable Unavailable Rechlin, P Cachorro DO Unavailable Unavailable Rechlin, P Cachorro DO Unavailable Unavailable Rechlin, P Cachorro DO Unavailable Unavailable Rechlin, P Cachorro DO Unavailable Unavailable Rechlin, P Cachorro DO Unavailable Unavailable Rechlin, P Cachorro DO Unavailable Unavailable Rechlin, P Cachorro DO Unavailable Unavailable Rechlin, P Cachorro DO Unavailable Unavailable Rechlin, P Cachorro DO Unavailable Unavailable Rechlin, P Cachorro DO Unavailable Unavailable Rechlin, P Cachorro DO Unavailable Unavailable Rechlin, P Cachorro DO Unavailable Unavailable Rechlin, P Cachorro DO Unavailable Unavailable Rechlin, P Cachorro DO Unavailable Unavailable Rechlin, P Cachorro DO Unavailable Unavailable Rechlin, P Cachorro DO Unavailable Unavailable Rechlin, P Cachorro DO Unavailable Unavailable Rechlin, P Cachorro DO Unavailable Unavailable Rechlin, P Cachorro DO Unavailable Unavailable Rechlin, P Cachorro DO Unavailable Unavailable Rechlin, P Cachorro DO Unavailable Unavailable Rechlin, P Cachorro DO Unavailable Unavailable Rechlin, P Cachorro DO Unavailable Unavailable Rechlin, P Cachorro DO Unavailable Unavailable Rechlin, P Cachorro DO Unavailable Unavailable Rechlin, P Cachorro DO Unavailable Unavailable Rechlin, P Cachorro DO Unavailable Unavailable Rechlin, P Cachorro DO Unavailable Unavailable Rechlin, P Cachorro DO Unavailable Unavailable Rechlin, P Cachorro DO Unavailable Unavailable Rechlin, P Cachorro DO Unavailable Unavailable Rechlin, P Cachorro DO Unavailable Unavailable Rechlin, P Cachorro DO Unavailable Unavailable Rechlin, P Cachorro DO Unavailable Unavailable Rechlin, P Cachorro DO Unavailable Unavailable Rechlin, P Cachorro DO Unavailable Unavailable Rechlin, P Cachorro DO Unavailable Unavailable Rechlin, P Cachorro DO Unavailable Unavailable Rechlin, P Cachorro DO Unavailable Unavailable Rechlin, P Cachorro DO Unavailable Unavailable Rechlin, P Cachorro DO Unavailable Unavailable Rechlin, P Cachorro DO Unavailable Unavailable Rechlin, P Cachorro DO Unavailable Unavailable Braeden, N Ian MOP HANDLE ASSEMBLER Unavailable Unavailable Tracy, N Ian MOP HANDLE ASSEMBLER Unavailable Unavailable Tracy, N Ian MOP HANDLE ASSEMBLER Unavailable Unavailable Tracy, N Ian MOP HANDLE ASSEMBLER Unavailable Unavailable Tracy, N Ian MOP HANDLE ASSEMBLER Unavailable Unavailable Tracy, N Ian MOP HANDLE ASSEMBLER Unavailable Unavailable Tracy, N Ian MOP HANDLE ASSEMBLER Unavailable Unavailable Braeden, N Ian MOP HANDLE ASSEMBLER Unavailable Unavailable Braeden, N Ian MOP HANDLE ASSEMBLER Unavailable Unavailable Tracy, N Ian MOP HANDLE ASSEMBLER Unavailable Unavailable Braeden, N Ian MOP HANDLE ASSEMBLER Unavailable Unavailable Tracy, N Ian MOP HANDLE ASSEMBLER Unavailable Unavailable Braeden, N Ian MOP HANDLE ASSEMBLER Unavailable Unavailable Tracy, N Ian MOP HANDLE ASSEMBLER Unavailable Unavailable Braeden, N Ian MOP HANDLE ASSEMBLER Unavailable Unavailable Tracy, N Ian MOP HANDLE ASSEMBLER Unavailable Unavailable Tracy, N Ian MOP HANDLE ASSEMBLER Unavailable Unavailable Tracy, N Ian MOP HANDLE ASSEMBLER Unavailable Unavailable Tracy, N Ian MOP HANDLE ASSEMBLER Unavailable Unavailable Tracy, N Ian MOP HANDLE ASSEMBLER Unavailable Unavailable Tracy, N Ian MOP HANDLE ASSEMBLER Unavailable Unavailable Braeden, N Ian MOP HANDLE ASSEMBLER Unavailable Unavailable Tracy, N Ian MOP HANDLE ASSEMBLER Unavailable Unavailable Tracy, N Ian MOP HANDLE ASSEMBLER Unavailable Unavailable Braeden, N Ian MOP HANDLE ASSEMBLER Unavailable Unavailable Braeden, N Ian MOP HANDLE ASSEMBLER Unavailable Unavailable Braeden, N Ian MOP HANDLE ASSEMBLER Unavailable Unavailable Braeden, N Ian MOP HANDLE ASSEMBLER Unavailable Unavailable Tracy, N Ian MOP HANDLE ASSEMBLER Unavailable Unavailable Braeden, N Ian MOP HANDLE ASSEMBLER Unavailable Unavailable Tracy, N Ian MOP HANDLE ASSEMBLER Unavailable Unavailable Braeden, N Ian MOP HANDLE ASSEMBLER Unavailable Unavailable Tracy, N Ian MOP HANDLE ASSEMBLER Unavailable Unavailable Fons, M Lea GLOVE SEWER Unavailable Unavailable Fons, M Lea GLOVE SEWER Unavailable Unavailable Fons, M Lea GLOVE SEWER Unavailable Unavailable Fons, M Lea GLOVE SEWER Unavailable Unavailable Fons, M Lea GLOVE SEWER Unavailable Unavailable Fons, M Lea GLOVE SEWER Unavailable Unavailable Fons, M Lea GLOVE SEWER Unavailable Unavailable Fons, M Lea GLOVE SEWER Unavailable Unavailable Fons, M Lea GLOVE SEWER Unavailable Unavailable Fons, M Lea GLOVE SEWER Unavailable Unavailable Fons, M Lea GLOVE SEWER Unavailable Unavailable Fons, M Lea GLOVE SEWER Unavailable Unavailable Fons, M Lea GLOVE SEWER Unavailable Unavailable Fons, M Lea GLOVE SEWER Unavailable Unavailable Fons, M Lea GLOVE SEWER Unavailable Unavailable Fons, M Lea GLOVE SEWER Unavailable Unavailable Fons, M Lea GLOVE SEWER Unavailable Unavailable Fons, M Lea GLOVE SEWER Unavailable Unavailable Fons, M Lea GLOVE SEWER Unavailable Unavailable Fons, M Lea GLOVE SEWER Unavailable Unavailable Fons, M Lea GLOVE SEWER Unavailable Unavailable Fons, M Lea GLOVE SEWER Unavailable Unavailable Fons, M Lea GLOVE SEWER Unavailable Unavailable Fons, M Lea GLOVE SEWER Unavailable Unavailable Fons, M Lea GLOVE SEWER Unavailable Unavailable Fons, M Lea GLOVE SEWER Unavailable Unavailable Fons, M Lea GLOVE SEWER Unavailable Unavailable Fons, M Lea GLOVE SEWER Unavailable Unavailable Fons, M Lea GLOVE SEWER Unavailable Unavailable Fons, M Lea GLOVE SEWER Unavailable Unavailable Fons, M Lea GLOVE SEWER Unavailable Unavailable Fons, M Lea GLOVE SEWER Unavailable Unavailable Fons, M Lea GLOVE SEWER Unavailable Unavailable Fons, M Lea GLOVE SEWER Unavailable Unavailable Fons, M Lea GLOVE SEWER Unavailable Unavailable Fons, M Lea GLOVE SEWER Unavailable Unavailable Fons, M Lea GLOVE SEWER Unavailable Unavailable Fons, M Lea GLOVE SEWER Unavailable Unavailable Fons, M Lea GLOVE SEWER Unavailable Unavailable Fons, M Lea GLOVE SEWER Unavailable Unavailable Fons, M Lea GLOVE SEWER Unavailable Unavailable Fons, M Lea GLOVE SEWER Unavailable Unavailable Fons, M Lea GLOVE SEWER Unavailable Unavailable Fons, M Lea GLOVE SEWER Unavailable Unavailable Fons, M Lea GLOVE SEWER Unavailable Unavailable Fons, M Lea GLOVE SEWER Unavailable Unavailable Fons, M Lae GLOVE SEWER Unavailable Unavailable Fons, M Lea GLOVE SEWER Unavailable Unavailable Fons, M Lea GLOVE SEWER Unavailable Unavailable Fons, M Lea GLOVE SEWER Unavailable Unavailable Fons, M Lea GLOVE SEWER Unavailable Unavailable Fons, M Lea GLOVE SEWER Unavailable Unavailable Fons, M Lea GLOVE SEWER Unavailable Unavailable Rechlin, P Cachorro DO Unavailable Unavailable Rechlin, P Cachorro DO Unavailable Unavailable Rechlin, P Cachorro DO Unavailable Unavailable Rechlin, P Cachorro DO Unavailable Unavailable Rechlin, P Cachorro DO Unavailable Unavailable Rechlin, P Cachorro DO Unavailable Unavailable Rechlin, P Cachorro DO Unavailable Unavailable Rechlin, P Cachorro DO Unavailable Unavailable Rechlin, P Cachorro DO Unavailable Unavailable Rechlin, P Cachorro DO Unavailable Unavailable Rechlin, P Cachorro DO Unavailable Unavailable Rechlin, P Cachorro DO Unavailable Unavailable Rechlin, P Cachorro DO Unavailable Unavailable Rechlin, P Cachorro DO Unavailable Unavailable Rechlin, P Cachorro DO Unavailable Unavailable Rechlin, P Cachorro DO Unavailable Unavailable Rechlin, P Cachorro DO Unavailable Unavailable Rechlin, P Cachorro DO Unavailable Unavailable Rechlin, P Cachorro DO Unavailable Unavailable Rechlin, P Cachorro DO Unavailable Unavailable Rechlin, P Cachorro DO Unavailable Unavailable Rechlin, P Cachorro DO Unavailable Unavailable Rechlin, P Cachorro DO Unavailable Unavailable Rechlin, P Cachorro DO Unavailable Unavailable Rechlin, P Cachorro DO Unavailable Unavailable Rechlin, P Cachorro DO Unavailable Unavailable Rechlin, P Cachorro DO Unavailable Unavailable Rechlin, P Cachorro DO Unavailable Unavailable Rechlin, P Cachorro DO Unavailable Unavailable Rechlin, P Cachorro DO Unavailable Unavailable Rechlin, P Cachorro DO Unavailable Unavailable Rechlin, P Cachorro DO Unavailable Unavailable Rechlin, P Cachorro DO Unavailable Unavailable Rechlin, P Cachorro DO Unavailable Unavailable Rechlin, P Cachorro DO Unavailable Unavailable Rechlin, P Cachorro DO Unavailable Unavailable Rechlin, P Cachorro DO Unavailable Unavailable Rechlin, P Cachorro DO Unavailable Unavailable Rechlin, P Cachorro DO Unavailable Unavailable Rechlin, P Cachorro DO Unavailable Unavailable Rechlin, P Cachorro DO Unavailable Unavailable Rechlin, P Cachorro DO Unavailable Unavailable Rechlin, P Cachorro DO Unavailable Unavailable Rechlin, P Cachorro DO Unavailable Unavailable Rechlin, P Cachorro DO Unavailable Unavailable Rechlin, P Cachorro DO Unavailable Unavailable Rechlin, P Cachorro DO Unavailable Unavailable Rechlin, P Cachorro DO Unavailable Unavailable Rechlin, P Cachorro DO Unavailable Unavailable Rechlin, P Cachorro DO Unavailable Unavailable Rechlin, P Cachorro DO Unavailable Unavailable PEÑA, M FLORECITA PA Unavailable Unavailable PEÑA, M FLORECITA PA Unavailable Unavailable PEÑA, M FLORECITA PA Unavailable Unavailable PEÑA, M FLORECITA PA Unavailable Unavailable PEÑA, M FLORECITA PA Unavailable Unavailable PEÑA, M FLORECITA PA Unavailable Unavailable PEÑA, M FLORECITA PA Unavailable Unavailable PEÑA, M FLORECITA PA Unavailable Unavailable PEÑA, M FLORECITA PA Unavailable Unavailable PEÑA, M FLORECITA PA Unavailable Unavailable PEÑA, M FLORECITA PA Unavailable Unavailable PEÑA, M FLORECITA PA Unavailable Unavailable PEÑA, M FLORECITA PA Unavailable Unavailable PEÑA, M FLORECITA PA Unavailable Unavailable PEÑA, M FLORECITA PA Unavailable Unavailable PEÑA, M FLORECITA PA Unavailable Unavailable PEÑA, M FLORECITA PA Unavailable Unavailable PEÑA, M FLORECITA PA Unavailable Unavailable PEÑA, M FLORECITA PA Unavailable Unavailable PEÑA, M FLORECITA PA Unavailable Unavailable PEÑA, M FLORECITA PA Unavailable Unavailable PEÑA, M FLORECITA PA Unavailable Unavailable PEÑA, M FLORECITA PA Unavailable Unavailable PEÑA, M FLORECITA PA Unavailable Unavailable PEÑA, M FLORECITA PA Unavailable Unavailable PEÑA, M FLORECITA PA Unavailable Unavailable PEÑA, M FLORECITA PA Unavailable Unavailable PEÑA, M FLORECITA PA Unavailable Unavailable PEÑA, M FLORECITA PA Unavailable Unavailable PEÑA, M FLORECITA PA Unavailable Unavailable PEÑA, M FLORECITA PA Unavailable Unavailable PEÑA, M FLORECITA PA Unavailable Unavailable PEÑA, M FLORECITA PA Unavailable Unavailable PEÑA, M FLORECITA PA Unavailable Unavailable PEÑA, M FLORECITA PA Unavailable Unavailable Kenny Zafar MD Unavailable Unavailable Kenny Zafar MD Unavailable Unavailable Kenny Zafar MD Unavailable Unavailable Kenny Zafar MD Unavailable Unavailable Kenny Zafar MD Unavailable Unavailable Kenny Zafar MD Unavailable Unavailable Kenny Zafar MD Unavailable Unavailable Kenny Zafar MD Unavailable Unavailable Kenny Zafar MD Unavailable Unavailable Kenny Zafar MD Unavailable Unavailable Kenny Zafar MD Unavailable Unavailable Kenny Zafar MD Unavailable Unavailable Kenny Zafar MD Unavailable Unavailable Kenny Zafar MD Unavailable Unavailable Kenny Zafar MD Unavailable Unavailable Kenny Zafar MD Unavailable Unavailable Kenny Zafar MD Unavailable Unavailable Kenny Zafar MD Unavailable Unavailable Kenny Zafar MD Unavailable Unavailable Kenny Zafar MD Unavailable Unavailable Kenny Zafar MD Unavailable Unavailable Kenny Zafar MD Unavailable Unavailable Kenny Zafar MD Unavailable Unavailable Kenny Zafar MD Unavailable Unavailable Kenny Zafar MD Unavailable Unavailable Kenny Zafar MD Unavailable Unavailable Kenny Zafar MD Unavailable Unavailable Kenny Zafar MD Unavailable Unavailable Kenny Zafar MD Unavailable Unavailable Kenny Zafar MD Unavailable Unavailable Kenny Zafar MD Unavailable Unavailable Kenny Zafar MD Unavailable Unavailable Kenny Zafar MD Unavailable Unavailable Kenny Zafar MD Unavailable Unavailable Kenny Zafar MD Unavailable Unavailable Kenny Zafra MD Unavailable Unavailable Kenny Zafar MD Unavailable Unavailable Kenny Zafar MD Unavailable Unavailable Kenny Zafar MD Unavailable Unavailable Kenny Zafar MD Unavailable Unavailable Kenny Zafar MD Unavailable Unavailable Kenny Zafar MD Unavailable Unavailable Kenny Zafar MD Unavailable Unavailable Kenny Zafar MD Unavailable Unavailable Kenny Zafar MD Unavailable Unavailable Kenny Zafar MD Unavailable Unavailable Kenny Zafar MD Unavailable Unavailable Kenny Zafar MD Unavailable Unavailable Kenny Zafar MD Unavailable Unavailable Kenny Zafar MD Unavailable Unavailable Kenny Zafar MD Unavailable Unavailable Kenny Zafar MD Unavailable Unavailable SleKenny aguilar Unavailable Unavailable SleKenny aguilar Unavailable Unavailable SleKenny aguilar Unavailable Unavailable SlezKenny bradley Unavailable Unavailable SlezKenny bradley Unavailable Unavailable SlezKenny bradley Unavailable Unavailable Re-disclosure Warning The records that you are about to access may contain information from federally-assisted alcohol or drug abuse programs. If such information is present, then the following federally mandated warning applies: This information has been disclosed to you from records protected by federal confidentiality rules (42 CFR part 2). The federal rules prohibit you from making any further disclosure of this information unless further disclosure is expressly permitted by the written consent of the person to whom it pertains or as otherwise permitted by 42 CFR part 2. A general authorization for the release of medical or other information is NOT sufficient for this purpose. The Federal rules restrict any use of the information to criminally investigate or prosecute any alcohol or drug abuse patient.The records that you are about to access may contain highly sensitive health information, the redisclosure of which is protected by Article 27-F of the [facility] Public Health law. If you continue you may have access to information: Regarding HIV / AIDS; Provided by facilities licensed or operated by the [facility] Office of Mental Health; or Provided by the [facility] Office for People With Developmental Disabilities. If such information is present, then the following [facility] mandated warning applies: This information has been disclosed to you from confidential records which are protected by state law. State law prohibits you from making any further disclosure of this information without the specific written consent of the person to whom it pertains, or as otherwise permitted by law. Any unauthorized further disclosure in violation of state law may result in a fine or senior care sentence or both. A general authorization for the release of medical or other information is NOT sufficient authorization for further disc losure. Family History Family Member Name Family Member Gender Family Member Status Date o f Status Description Data Source(s) Unknown Unknown Problem MEDENT ([facility]) Unknown Male Problem MEDENT ([facility]) Unknown Unknown Problem MEDENT ([facility]) Unknown Unknown Problem MEDENT ([facility]) Unknown Female Encounters Encounter Providers Location Date Indications Data Source(s ) Outpatient Attender: Kenny Zafar MD SJP.SONIA-SJP.SONIA 12/2020 02:26:56 PM EDT - 12/19/2020 03:43:09 PM EDT [facility] Office Visit Attender: Channing THOMAS [facility] 12/02/2020 01:20:00 PM EDT [facility] ([facility]) [place] [address] [facility] [facility] [address] 11/26/2020 12:00:00 AM EDT [facility]) [place] [address] [facility] [address] 11/12/2020 12:00:00 AM EDT eCW1 ([facility]) Outpatient [address] [facility] [facility] [address] 11/04/2020 12:00:00 AM EDT eCW1 ([facility]) Outpatient Attender: Cachorro Atkins/Bourg/Aristides/James ndleah 10/29/2020 08:30:00 AM EDT MEDENT ([facility]) [place] [address] [facility] [facility] [address] 10/15/2020 12:00:00 AM EDT [facility] [place] [address] [facility] [address] 10/01/2020 12:00:00 AM EDT [facility]CW1 ([facility]) Outpatient Attender: Cachorro Atkins/Bourg/Aristides/James ndl 08/22/2020 09:00:00 AM EDT MEDENT ([facility]) Outpatient Attender: Channing THOMAS [facility] 08/13/2020 02:20:00 PM EDT MEDENT ([facility]) Outpatient Attender: Cachorro Atkins/Je/Aristides/James ndl 07/30/2020 11:00:00 AM EDT MEDENT ([facility]) Outpatient Attender: Cachorro Atkins/Je/Aristides/James ndleah 07/04/2020 11:00:00 AM EDT MEDENT [facility] Outpatient Attender: Kenny Zafar MD SJBraulio.SONIA-SJP.SONIA 06/11 12:00:00 AM EDT - 07/05/2020 09:32:45 AM EDT [facility] TeleMedicine Est. Pt. Level 4 [address] [place] [address] 07/02/2020 12:00:00 AM EDT eCW1 ([facility]) Unknown [address] [facility] [place] [address] 06/30/2020 12:00:00 AM EDT eCW1 ([facility]) Unknown [address] [facility] [place] [address] 06/18/2020 12:00:00 AM EST eCW1 ([facility]) Unknown [address] [facility] [place] [address] 06/14/2020 12:00:00 AM EST eCW1 ([facility]) Outpatient Attender: Kenny Zafar MD SJBraulio.SONIA-SJP.SONIA 05/14 12:00:00 AM EST - 06/06/2020 04:57:05 PM EST [facility] H Attender: Elver Olsen MDAdmitter: Elver chambers MD ES1-SJ 05/30/2020 09:46:00 AM EST - 05/30/2020 03:15:00 PM EST [facility] Patient discharged. Unknown [facility] [place] [address] 05/24/2020 12:00:00 AM EST eCW1 ([facility]) Outpatient [address] [facility] [place] [address] 05/21/2020 12:00:00 AM EST eCW1 ([facility]) Outpatient Attender: Ian Deras NPReferrer: Kenny MAYBERRYSONIA-SJP.SONIA 05/20/2020 12:00:00 AM EST - 05/20/2020 11:49:00 AM EST [facility] Outpatient Referrer: Kenny MAYBERRYSONIA-SJP.SONIA 11/2020 12:00:00 AM EST - 05/20/2020 11:48:47 AM EST [facility] Outpatient Attender: Cachorro Atkins/Je/Aristides/James ndleah 05/09/2020 07:30:00 AM EST MEDENT ([facility] Unknown [address] [facility] [place] [address] 05/08/2020 12:00:00 AM EST eCW1 ([facility]) Unknown [address] [facility] [place] [address] 05/03/2020 12:00:00 AM EST eCW1 ([facility]) Unknown [address] [facility] [place] [address] 05/01/2020 12:00:00 AM EST eCW1 ([facility]) Outpatient [address] [facility] [place] [address] 04/26/2020 12:00:00 AM EST eCW1 ([facility]) Outpatient Attender: Kenny MAYBERRYSONIA-SJP.SONIA 04/12 12:00:00 AM EST - 04/25/2020 09:45:25 AM EST [facility] Outpatient Attender: Lea MAYBERRYSONIA-SJP.SONIA 12:00:00 AM EST - 04/18/2020 09:33:16 AM EST [facility] Attender: EUGENE YEE) MDReferrer: Bryce Mclean DO 04/16/2020 08:21:01 PM EST [facility] Outpatient Attender: Channing THOMAS [facility] 03/26/2020 12:20:00 PM EST MEDENT ([facility]) Outpatient Attender: FLORECITA Abraham/Bourg/Aristides/Rein dl 03/15/2020 09:30:00 AM EST MEDENT ([facility]) Attender: EUGENE YEE) MDReferrer: Bryce Mclean DO 02/14/2020 08:20:11 PM EST [facility] Outpatient Attender: Bryant Abraham/Bourg/Aristides/Reind l 01/24/2020 09:50:00 AM EDT MEDENT ([facility]) Outpatient Attender: Lea CASEY SJBraulio.SONIA-SJP.SONIA 0 12:00:00 AM EDT - 01/23/2020 08:37:49 AM EDT [facility] Outpatient Attender: Bryant Abraham/Bourg/Aristides/Reind l 01/10/2020 09:05:00 AM EDT MEDENT ([facility]) Outpatient Attender: Bryant Abraham/Bourg/Aristides/Reind l 12/26/2019 09:00:00 AM EDT MEDENT ([facility]) Outpatient Attender: Bryant Abraham/Bourg/Aristides/Reind l 12/11/2019 11:15:00 AM EDT MEDENT ([facility]) Outpatient Attender: LINDSAY SELF DO [facility] 12/08/2019 08:00:00 AM EDT MEDENT ([facility]) Immunizations Vaccine Date Status Description Data Source(s) COVID-19 VACCINE Moderna 07/08/2020 12:00:00 AM EDT completed [facility] Vaccine Series Complete: YESThis Data wa s Submitted to [facility] Via M [employer]. COVID-19 VACCINE, MRNA-1273, LNP-S (MODERNA)/PF 07/08/2020 1 2:00:00 AM EDT completed [facility] COVID-19 VACCINE Moderna 06/07/2020 12:00:00 AM EST completed [facility] Vaccine Series Complete: NOThis Data was Submitted to [facility] Via [employer]. COVID-19 VACCINE, MRNA-1273, LNP-S (MODERNA)/PF 06/07/2020 1 2:00:00 AM EST completed [facility] Medications Medication Brand Name Start Date Product Form Dose Route Admi nistrative Instructions Pharmacy Instructions Status Indications Reaction Description Data Source(s) Novofine Plus Pen Neddle 32G X 4mm 12/13/2020 12:00:00 AM EDT active [facility] Blood Glucose Test Strips Premium 12/02/2020 12:00:00 AM EDT active MEDENT ([facility]) Tresiba FlexTouch 200 UNIT/ML SOPN 7522-9024-50 11/09/2020 12:00:00 AM EDT 4 U active 4 Units [facility] Methylprednisolone 8 MG Oral Tablet methylPREDNISolone (MEDROL) 8 MG tablet methylPREDNISolone (MEDROL) 8 MG tablet 11/05/2020 12:00:00 AM EDT 16 mg Oral active Take 16 mg by mouth [facility] Hydroxychloroquine Sulfate 200 MG Oral Tablet [Plaquen il] Plaquenil 200 MG Plaquenil 200 MG 11/04/2020 12:00:00 AM EDT a ctive Plaquenil 200 MG eCW1 ([facility]) Hydroxychloroquine Sulfate 200 MG Oral Tablet [Plaquen il] Plaquenil 200 MG Plaquenil 200 MG 11/04/2020 12:00:00 AM EDT a ctive Plaquenil 200 MG eCW1 ([facility]) Treprostinil 0.6 MG/ML Inhalant Solution [Tyvaso] Tyva so 0.6 MG/ML Tyvaso 0.6 MG/ML 11/04/2020 12:00:00 AM EDT active Tyvaso 0.6 MG/ML eCW1 ([facility]) Treprostinil 0.6 MG/ML Inhalant Solution [Tyvaso] Tyva so 0.6 MG/ML Tyvaso 0.6 MG/ML 11/04/2020 12:00:00 AM EDT active Tyvaso 0.6 MG/ML eCW1 ([facility]) Hydroxychloroquine Sulfate 200 MG Oral Tablet [Plaquen il] Plaquenil 200 MG Plaquenil 200 MG 11/04/2020 12:00:00 AM EDT a ctive Plaquenil 200 MG eCW1 ([facility]) Treprostinil 0.6 MG/ML Inhalant Solution [Tyvaso] Tyva so 0.6 MG/ML Tyvaso 0.6 MG/ML 11/04/2020 12:00:00 AM EDT active Tyvaso 0.6 MG/ML eCW1 ([facility]) Treprostinil 0.6 MG/ML Inhalant Solution [Tyvaso] Tyvaso 10/29/2020 12:00:00 AM EDT active MEDENT ([facility], ) Furosemide 40 MG Oral Tablet furosemide (LASIX) 40 MG tablet furosemide (LASIX) 40 MG tablet 10/21/2020 12:00:00 AM EDT active 0.5 tab daily [facility] Treprostinil 0.6 MG/ML Inhalant Solution [Tyvaso] treprostinil (Tyvaso) 0.6 MG/ML SOLN treprostinil (Tyvaso) 0.6 MG/ML SOLN 10/01/2020 12:00:00 AM EDT active Start with 3 b reaths (18mcg) QID, increase by 1 breath weekly if tolerated to goal of 9 breaths (54mcg) QID.Administer using the Tyvaso Inhalation System only. [facility] Tresiba Flextouch Tresiba Flextouch 08/13/2020 12:00:00 AM EDT active MEDENT ([facility]) 4 Wheeled Walker With Seat And Basket 08/13/2020 12:00:00 AM EDT active MEDENT ([facility]) Oxygen 07/10/2020 12:00:00 AM EDT active MEDENT ([facility], ) nintedanib 150 MG Oral Capsule Nintedanib Esylate 150 MG CAPS Nintedanib Esylate 150 MG CAPS 07/10/2020 12:00:00 AM EDT 150 mg Oral activ e Take 150 mg by mouth 2 (two) times a day [facility] Covid-19 vaccine, Unspecified 07/08/2020 12:00:00 AM EDT completed MEDENT ([facility], ) Medication administered onsite nintedanib 150 MG Oral Capsule [Ofev] Ofev 07/05/2020 12:00:00 AM EDT ORAL active MEDENT ([facility], ) gabapentin 300 MG Oral Capsule [Neurontin] Neurontin 07/04 12:00:00 AM EDT ORAL active MEDENT ( [facility], ) Methylprednisolone 32 MG Oral Tablet methylPREDNISolon e (MEDROL) 32 MG tablet methylPREDNISolone (MEDROL) 32 MG tablet 06/21/2020 12:00:00 AM EST 64 mg Oral aborted Take 64 mg by mouth [facility] Hydroxychloroquine Sulfate 200 MG Oral Tablet [Plaquen il] Plaquenil 200 MG Plaquenil 200 MG 06/17/2020 12:00:00 AM EST a ctive Plaquenil 200 MG eCW1 ([facility]) Hydroxychloroquine Sulfate 200 MG Oral Tablet [Plaquen il] Plaquenil 200 MG Plaquenil 200 MG 06/17/2020 12:00:00 AM EST a ctive Plaquenil 200 MG eCW1 ([facility]) Hydroxychloroquine Sulfate 200 MG Oral Tablet [Plaquen il] Plaquenil 200 MG Plaquenil 200 MG 06/17/2020 12:00:00 AM EST a ctive Plaquenil 200 MG eCW1 ([facility]) Hydroxychloroquine Sulfate 200 MG Oral Tablet [Plaquen il] Plaquenil 200 MG Plaquenil 200 MG 06/17/2020 12:00:00 AM EST a ctive Plaquenil 200 MG eCW1 ([facility]) Hydroxychloroquine Sulfate 200 MG Oral Tablet [Plaquen il] Plaquenil 200 MG Plaquenil 200 MG 06/17/2020 12:00:00 AM EST a ctive Plaquenil 200 MG eCW1 ([facility]) Hydroxychloroquine Sulfate 200 MG Oral Tablet [Plaquen il] Plaquenil 200 MG Plaquenil 200 MG 06/17/2020 12:00:00 AM EST a ctive Plaquenil 200 MG eCW1 ([facility]) Hydroxychloroquine Sulfate 200 MG Oral Tablet [Plaquen il] Plaquenil 200 MG Plaquenil 200 MG 06/17/2020 12:00:00 AM EST a ctive Plaquenil 200 MG eCW1 ([facility]) Hydroxychloroquine Sulfate 200 MG Oral Tablet [Plaquen il] Plaquenil 200 MG Plaquenil 200 MG 06/17/2020 12:00:00 AM EST a ctive Plaquenil 200 MG eCW1 ([facility]) Hydroxychloroquine Sulfate 200 MG Oral Tablet [Plaquen il] Plaquenil 200 MG Plaquenil 200 MG 06/17/2020 12:00:00 AM EST a ctive Plaquenil 200 MG eCW1 ([facility]) Hydroxychloroquine Sulfate 200 MG Oral Tablet [Plaquen il] Plaquenil 200 MG Plaquenil 200 MG 06/17/2020 12:00:00 AM EST a ctive Plaquenil 200 MG eCW1 ([facility]) Hydroxychloroquine Sulfate 200 MG Oral Tablet [Plaquen il] Plaquenil 200 MG Plaquenil 200 MG 06/17/2020 12:00:00 AM EST a ctive Plaquenil 200 MG eCW1 ([facility]) Hydroxychloroquine Sulfate 200 MG Oral Tablet [Plaquen il] Plaquenil 200 MG Plaquenil 200 MG 06/17/2020 12:00:00 AM EST a ctive Plaquenil 200 MG eCW1 ([facility]) Hydroxychloroquine Sulfate 200 MG Oral T ablet hydroxychloroquine (PLAQUENIL) 200 MG tablet hydroxychloroquine (PLAQUENIL) 200 MG tablet 12:00:00 AM EST 400 mg Oral active Take 400 mg by mo uth daily [facility] Hydroxychloroquine Sulfate 200 MG Oral Tablet [Plaquen il] Plaquenil 200 MG Plaquenil 200 MG 06/17/2020 12:00:00 AM EST a ctive Plaquenil 200 MG eCW1 ([facility]) Hydroxychloroquine Sulfate 200 MG Oral Tablet [Plaquen il] Plaquenil 200 MG Plaquenil 200 MG 06/17/2020 12:00:00 AM EST a ctive Plaquenil 200 MG eCW1 ([facility]) Hydroxychloroquine Sulfate 200 MG Oral Tablet [Plaquen il] Plaquenil 200 MG Plaquenil 200 MG 06/17/2020 12:00:00 AM EST a ctive Plaquenil 200 MG eCW1 ([facility]) Hydroxychloroquine Sulfate 200 MG Oral Tablet [Plaquen il] Plaquenil 200 MG Plaquenil 200 MG 06/17/2020 12:00:00 AM EST a ctive Plaquenil 200 MG eCW1 ([facility]) Hydroxychloroquine Sulfate 200 MG Oral Tablet [Plaquen il] Plaquenil 200 MG Plaquenil 200 MG 06/17/2020 12:00:00 AM EST a ctive Plaquenil 200 MG eCW1 ([facility]) Hydroxychloroquine Sulfate 200 MG Oral Tablet [Plaquen il] Plaquenil 200 MG Plaquenil 200 MG 06/17/2020 12:00:00 AM EST a ctive Plaquenil 200 MG eCW1 ([facility]) Covid-19 vaccine, Unspecified 06/07/2020 12:00:00 AM EST completed MEDENT ([facility]) Medication administered onsite Furosemide 40 MG Oral Tablet furosemide (LASIX) 40 MG tablet furosemide (LASIX) 40 MG tablet 06/06/2020 12:00:00 AM EST activ e One tab daily, additional 1/2 tab as needed [facility] apixaban 2.5 MG Oral Tablet [Eliquis] Eliquis 2.5 MG T ABS tablet Eliquis 2.5 MG TABS tablet 06/05/2020 12:00:00 AM EST 2.5 mg Oral active Take 2.5 mg by mouth 2 (two) times a day 2 tabs 2 times a day for next 7 days and then one tab bid [facility] normal saline flush 0.9 % injection 3 mL [id number] 05/30/2020 02:00:00 PM EST 3 mL Intravenous active 3 mL , Intravenous, Every 8 hours (scheduled), First dose on Lacey 05/30/20 at 1400, Pre-op
Rapid push positive pressure flushing shall be performed with a 10 cc normal saline syringe to check the PATENCY of a PIV site prior to any infusion therapy initiation unless resistance is met.
[facility] Medication administered onsite lidocaine 1 % injection 2107-3670-35 05/30/2020 12:54:20 PM EST active As needed, Starting Lacey 05/30/20 at 1254, Intra-Procedure [facility] Medication administered onsite sodium chloride 0.9% (NS) infusion 0796-6425-09 05/30/2020 11:00:00 AM EST 100 mL/h Intravenous active at 100 m L/hr, 100 mL/hr, Intravenous, Continuous, Starting Lacey 05/30/20 at 1100, Pre-op [facility] Medication administered onsite Furosemide 40 MG Oral Tablet furosemide (LASIX) 40 MG tablet furosemide (LASIX) 40 MG tablet 04/26/2020 12:00:00 AM EST abort ed One tab daily, additional 1/2 tab as needed [facility] Spironolactone 25 MG Oral Tablet spironolactone (ALDAC TONE) 25 MG tablet spironolactone (ALDACTONE) 25 MG tablet 04/25/2020 12:00:00 AM EST 25 mg Oral active Take 1 tablet (25 mg tota l) by mouth daily [facility] Furosemide 40 MG Oral Tablet furosemide (LASIX) 40 MG tablet furosemide (LASIX) 40 MG tablet 04/18/2020 12:00:00 AM EST 40 mg Oral activ e Take 1 tablet (40 mg total) by mouth 2 (two) times a day [facility] gabapentin 300 MG Oral Capsule gabapentin (NEURONTIN) 300 MG capsule gabapentin (NEURONTIN) 300 MG capsule 04/15/2020 12:00:00 AM EST 900 mg active 900 mg RT ONCE DAILY NEEDED 6-7 capsule through out the day as needed. [facility] BD Samantha 04/08/2020 12:00:00 AM EST active MEDENT ([facility]) Esomeprazole 40 MG Delayed Release Oral Capsule Esomeprazole Magnesium 03/18/2020 12:00:00 AM EST ORAL completed MEDENT ([facility]) Oxygen 03/18/2020 12:00:00 AM EST active MEDENT ([facility]) Omeprazole 40 MG Delayed Release Oral Capsule Omeprazole 02/08/2020 12:00:00 AM EDT completed MEDENT ([facility]) Lidocaine Hydrochloride 40 MG/ML Injectable Solution Lidocai ne HCL (PF) 01/31/2020 12:00:00 AM EDT completed MEDENT ([facility], ) Albuterol 1 MG/ML Inhalant Solution Albuterol Sulfate 01/11 12:00:00 AM EDT completed MEDENT ([facility], ) Amitriptyline Hydrochloride 25 MG Oral Tablet Amitriptyline HCL 01/24/2020 12:00:00 AM EDT completed MEDENT ([facility], ) gabapentin 300 MG Oral Capsule [Neurontin] Neurontin 01/09 12:00:00 AM EDT ORAL active MEDENT ( [facility], ) Furosemide 40 MG Oral Tablet Furosemide 12/28/2019 12:00:00 AM EDT ORAL completed MEDENT ([facility]) Oxycodone Hydrochloride 5 MG Oral Capsule Oxycodone HCL 12/26/2019 12:00:00 AM EDT completed MED[facility] ([facility], ) Acetaminophen 300 MG / Codeine Phosphate 15 MG Oral Ta blet Acetaminophen-Codeine #2 12/11/2019 12:00:00 AM EDT completed [facility] ([facility], ) Omeprazole 40 MG Delayed Release Oral Capsule Omeprazole 12/11/2019 12:00:00 AM EDT ORAL completed [facility] ([facility], ) Codeine Phosphate 2 MG/ML / Guaifenesin 20 MG/ML Oral Soluti on Virtussin A/C 11/28/2019 12:00:00 AM EDT ORAL completed [facility] ([facility], ) Codeine Phosphate 2 MG/ML / Guaifenesin 20 MG/ML Oral Solution Virtussin ac W/Alc 11/21/2019 12:00:00 AM EDT ORAL completed [facility] ([facility] ) Furosemide 40 MG Oral Tablet Furosemide 09/11/2019 12:00:00 AM EDT ORAL completed [facility] ([facility]) Losartan Potassium 50 MG Oral Tablet losartan (COZAAR) 50 MG tablet losartan (COZAAR) 50 MG tablet 50 mg Oral aborted Ta ke 50 mg by mouth daily [facility] 1 ML Enoxaparin sodium 150 MG/ML Prefill ed Syringe enoxaparin (LOVENOX) 150 MG/ML injection enoxaparin (LOVENOX) 150 MG/ML injection Subcutaneous aborted Inject under the skin every 12 ( twelve) hours 3.5ml BID [facility] Omeprazole 40 MG Delayed Release Oral Ca psule omeprazole (PRILOSEC) 40 MG capsule omeprazole (PRILOSEC) 40 MG capsule 40 mg Oral aborted Take 40 mg by mouth 2 (two) times a day [facility] Furosemide 40 MG Oral Tablet furosemide (LASIX) 40 MG tablet furosemide (LASIX) 40 MG tablet 40 mg Oral aborted French e 40 mg by mouth 2 (two) times a day [facility] Insurance Providers Payer name Policy type / Coverage type Policy ID Covered constitution party ID Covered constitution party's relationship to aleg[place] Policy [place] Plan Information [facility] P [id number] SELF [id number] [facility] [id number] 0 [id number] Medicare Part B [facility] [id number] 0 [id number] MEDICARE [id number] Dalia [id number] U53 Medicare Part B [facility] [id number] MEDICARE [id number] SP [id number] U53 MEDICARE [id number] xxxxxxxxxxx [id number] [facility] [id number] Dalia [id number] [facility] [id number] xxxxxxxxxxx [id number] [place] Medicare Primary [id number] Self [id number] Medicare [place] Medicare Primary [id number] Self [id number] Medicare [place] Medicare Primary [id number] Self [id number] MEDICARE [id number] S [id number] [facility] [id number] [employer] [id number] Medicare [id number] Medicare Part B [id number] Medicare [place] Medicare Primary [id number] Self [id number] [facility] Commercial [id number] [facility] Health Maintenance Organization (HMO) [id number] Self [id number] Medicare [place]/NGS Medicare Primary [id number] Self [id number] Medicare [place] Medicare Primary [id number] [facility] [id number] SP [id number] [facility] Commercial [id number] Self [id number] Medicare Natl Gov't Servi Medicare Primary [id number] Self [id number] MVP Health Maintenance Organization (HMO) [id number] Self [id number] Medicare [place]/NGS Medicare Primary [id number] Self [id number] Medicare [place] Medicare Primary [id number] Self [id number] UNAVAILABLE S UNAVAILA BLE MEDICARE [id number] SP [id number] A MVP HEALTH CARE [id number] SP [id number] MVP (HMO/PPO) HEALTH CARE [id number] 0 [id number] Medicare [place] Medicare Primary [id number] Self [id number] MEDICARE C [id number] S [id number] A MVP Health Maintenance Organization (HMO) [id number] Self [id number] Medicare - NGS Medicare Primary [id number] Self 1 [id number] Medicare [place] Medicare Primary [id number] Self [id number] MVP Commercial [id number] 0 Self [id number] Medicare [place] Medicare Primary [id number] Self [id number] MVP Commercial [id number] Self [employer] [id number] 18 [id number] MVP HE[employer]UR[employer] [id number] 18 [id number] [facility] O UNAVAILABLE [id number] S UNAVAILABLE MEDICARE [id number] SP [id number] U53 [facility] [id number] SP [id number] [facility] Health Maintenance Organization (HMO) [id number] Se lf [employer] P [id number] S NGN [id number] [employer] [place] 200/700 [id number] SP [id number] BLUE CROSS BLUE [facility] [id number] [facility] [id number] S [id number] ONE CALL MEDICAL S [id number] S [id number] [employer] [place] 20 P [id number] S [id number] BLUE CROSS O [id number] S [id number] BLUE CROSS [id number] S [id number] [facility] [id number] SP [id number] [facility] O [id number] S [id number] Problems, Conditions, and Diagnoses Code Display Name Description Problem Type Effective Dates Data Source(s) I50.810 Right heart failure, unspecified Right heart remigio lure, unspecified Diagnosis 12/19/2020 02:26:56 PM EDT [facility] I27.20 Pulmonary hypertension, unspecified Pulmonary hy pertension, unspecified Diagnosis 12/19/2020 02:26:56 PM EDT [facility] E11.9 Type 2 diabetes mellitus without complic ations Type 2 diabetes mellitus without complic Diagnosis 06/06/2020 03:36:47 PM EST [facility] I50.812 Chronic right heart failure Chronic right heart failur e Diagnosis 06/06/2020 03:36:47 PM EST [facility] R06.02 Shortness of breath Shortness of breath Diagnosis 0 06/06/2020 03:36:47 PM EST [facility] I50.31 Acute diastolic (congestive) heart failu re Acute diastolic (congestive) heart failu Diagnosis 06/06/2020 03:36:47 PM [facility] I82.491 Acute embolism and thrombosi s of other specified deep vein of right lower extremity Acute embolism and thrombosis of other s Diagnosis 05/30/2020 09:46:00 AM [facility] E66.01 Morbid (severe) obesity due to excess ca lories Morbid (severe) obesity due to excess ca Diagnosis 05/30/2020 09:46:00 AM [facility] E78.49 Other hyperlipidemia Other hyperlipidemia Diagnosis 05/30/2020 09:46:00 AM [facility] I71.2 Thoracic aortic aneurysm, without ruptur e Thoracic aortic aneurysm, without ruptur Diagnosis 05/30/2020 09:46:00 AM [facility] I10 Essential (primary) hypertension Essential (primary) h ypertension Diagnosis 05/30/2020 09:46:00 AM [facility] I82.409 Acute embolism and thrombosi s of unspecified deep veins of unspecified lower extremity Acute embolism and thrombosis of unspeci Diagnosis 05/30/2020 09:46:00 AM [facility] I82.412 Acute embolism and thrombosis of left fe moral vein Acute embolism and thrombosis of left fe Diagnosis 04/18/2020 07:56:10 AM [facility] Z79.51 [id number] [employer] current use of inhaled steroid Problem 10/01/2020 12:00:00 AM EDT eCW1 ([facility]) Z79.52 [id number] [facility] systemic steroid user Prob lise 10/01/2020 12:00:00 AM EDT eCW1 ([facility]) I27.20 Pulmonary hypertension Pulmonary hypertension Problem 07/30/2020 12:00:00 AM EDT [facility] ([facility]) I27.20 [id number] Pulmonary hypertension Problem 07/02/2020 12 :00:00 AM EDT eCW1 ([facility]) I27.20 Pulmonary hypertension Pulmonary hypertension [id number] 06/20/2020 12:00:00 AM [facility] E78.49 Other hyperlipidemia Other hyperlipidemia [id number] 05/22/2020 12:00:00 AM [facility] I71.2 Thoracic aortic aneurysm without rupture Thoracic aortic aneurysm without rupture [id number] 05/22/2020 12:00:00 AM [facility] I10 Essential hypertension Essential hypertension [id number] 05/22/2020 12:00:00 AM [facility] I82.409 Deep venous thrombosis Deep venous thrombosis [id number] 05/22/2020 12:00:00 AM [facility] E11.9 Type 2 diabetes mellitus wit hout complication, without long-term current use of insulin Type 2 diabetes mellitus without complic ation, without long-term current use of insulin [id number] 05/22/2020 12:00:00 AM 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 Pos t-inflammatory pulmonary fibrosis Problem 05/09/2020 12:00:00 AM EST [facility] ([facility]) I82.402 Embolism from thrombosis of vein of dist al lower extremity Embolism from thrombosis of vein of distal lower extremity Problem 05/09/19 12:00:00 AM EST [facility] ([facility]) R06.00 Difficulty breathing Difficulty breathing Problem 05/09/2020 12:00:00 AM EST [facility] ([facility]) D68.59 Hypercoagulability state Hypercoagulability state Prob lise 05/09/2020 12:00:00 AM EST [facility] ([facility]) I50.31 Acute diastolic heart failure Acute diastolic heart fa ilure Problem 05/09/2020 12:00:00 AM EST [facility] ([facility], ) G47.33 Obstructive sleep apnea syndrome Obstructive sle ep apnea syndrome Problem 05/09/2020 12:00:00 AM EST [facility] ([facility], ) K21.01 Gastro-esophageal reflux disease with es ophagitis Gastro-esophageal reflux disease with esophagitis Problem 05/09/2020 12:00:00 AM EST Cinthya ARECHIGA ([facility], ) J84.9 [id number] Interstitial lung disease Problem 05/03/2020 12:00:00 AM EST eCW1 ([facility]) R20.2 [id number] Paresthesias Problem 04/26/2020 12:00:00 AM EST eCW1 ([facility]) J84.10 [id number] Pulmonary fibrosis Problem 04/26/2020 12:00: 00 AM EST eCW1 ([facility]) G56.00 [id number] Carpal tunnel syndrome, unspecified later ality Problem 04/26/2020 12:00:00 AM EST eCW1 ([facility]) I82.412 Acute deep vein thrombosis ( DVT) of femoral vein of left lower extremity Acute deep vein thrombosis (DVT) of femoral vein of le ft lower extremity [id number] 04/18/2020 12:00:00 AM EST [facility] I50.810 RVF (right ventricular failure) RVF (right ventr icular failure) [id number] 04/18/2020 12:00:00 AM EST [facility] Surgeries/Procedures Procedure Description Date Indications Data Source(s) ECG ROUTINE ECG W/LEAST 12 LDS W/I&R <td>POCT AMB EKG</td><td>Routine</td><td>12/19/2020 3:07 PM EDT</td><td> Pulmonary hypertension RVF (right ventricular failure)</td><td> </td> 12/19/2020 03:07:00 PM EDT RVF (right ventricular failure)Pulmonary hypertension [facility] RVF (right ventricular failure) Pulmonary hypertension HEMOGLOBIN GLYCOSYLATED A1C <td>HEMOGLOBIN A1C</td><td>Routine</td><td>11/26/2020</td><td></td><td> </td> 11/26/2020 12:00:00 AM EDT [facility] BASIC METABOLIC PANEL CALCIUM TOTAL <td>BASIC METABOLI C PANEL</td><td>Routine</td><td>11/26/2020</td><td></td><td> </td> 11/26/2020 12:00:00 AM EDT [facility] OFFICE OUTPATIENT VISIT 25 MINUTES 10/29/2020 12:00:00 AM EDT MED[facility] ([facility], ) OFFICE OUTPATIENT VISIT 25 MINUTES 08/22/2020 12:00:00 AM EDT MED[facility] ([facility], ) OFFICE OUTPATIENT VISIT 25 MINUTES 08/13/2020 12:00:00 AM EDT MED[facility] ([facility]) Bronchospasm Evaluation 07/31/2020 12:00:00 AM EDT MED[facility] ([facility], ) Plethysmography Determination Lung Volumes & Per Airway Resi st 07/31/2020 12:00:00 AM EDT MED[facility] ([facility], ) BLOOD COUNT COMPLETE AUTO&AUTO DIFRNTL WBC COUNT <td>C BC AND DIFFERENTIAL</td><td>Routine</td><td>07/30/2020</td><td></td><td> </td> 07/30/2020 12:00:00 AM EDT [facility] OFFICE OUTPATIENT VISIT 25 MINUTES 07/30/2020 12:00:00 AM EDT [facility] ([facility] ) Measure Blood Oxygen Level Continuous Overnight Monitor 07/18/2020 12:00:00 AM EDT [facility] ([facility] Measure Blood Oxygen Level Continuous Overnight Monitor 07/11/2020 12:00:00 AM EDT [facility] ([facility] OFFICE OUTPATIENT VISIT 25 MINUTES 07/04/2020 12:00:00 AM EDT [facility] ([facility], ) ECG ROUTINE ECG W/LEAST 12 LDS W/I&R <td>POCT AMB EKG</td><td>Routine</td><td>06/06/2020 4:17 PM EST</td><td> Shortness of breath PHT (pulmonary hypertension)</td><td> </td> 06/06/2020 09:17:00 PM EST PHT (pulmonary hypertension)Shortness of breath [facility] PHT (pulmonary hypertension) Shortness of breath RADEX SPINE ENTIRE SURVEY STD ANTEROPOST&LAT <td>CARDI AC CATHETERIZATION</td><td>Routine</td><td>05/30/2020 1:13 PM EST</td><td> Acute diastolic heart failure Shortness of breath Type 2 diabetes mellitus without complication, without long-term current use of insulin Obesity, morbid Acute deep vein thrombosis (DVT) of other specified vein of right lower extremity Essential hypertension Thoracic aortic aneurysm without rupture Other hyperlipidemia</td><td> </td> 05/30/2020 06:13:21 PM EST Other hyperlipidemiaThoracic aortic aneu rysm without ruptureEssential hypertensionAcute deep vein thrombosis (DVT) of other specified vein of right lower extremityObesity, morbidType 2 diabetes mellitus without complication, without long-term current use of insulinShortness of breathAcute diastolic heart failure [facility] Other hyperlipidemia Thoracic aortic aneurysm without rupture Essential hypertension Acute deep vein thrombosis (DVT) of othe r specified vein of right lower extremity Obesity, morbid Type 2 diabetes mellitus without complic ation, without long-term current use of insulin Shortness of breath Acute diastolic heart failure ECG ROUTINE ECG W/LEAST 12 LDS TRCG ONLY W/O I&R <td>E CG 12- LEAD</td><td>Routine</td><td>05/30/2020 10:21 AM EST</td><td></td><td></td> 05/30/2020 03:21:52 PM EST [facility] OFFICE OUTPATIENT VISIT 25 MINUTES 05/09/2020 12:00:00 AM EST [facility] ([facility], ) ECG ROUTINE ECG W/LEAST 12 LDS W/I&R <td>POCT AMB EKG</td><td>Routine</td><td>04/18/2020 9:54 AM EST</td><td> Essential hypertension Acute diastolic heart failure</td><td> </td> 04/18/2020 02:54:00 PM EST Acute diastolic heart failureEssential hypertension [facility] Acute diastolic heart failure Essential hypertension Airway Inhalation Treatment 02/09/2020 12:00:00 AM EDT MED[facility] ([facility], ) Airway Inhalation Treatment 01/30/2020 12:00:00 AM EDT [facility] ([facility], ) LARYNGOSCOPY FLEXIBLE FIBEROPTIC DIAGNOSTIC 12/11/2019 12:00:00 AM EDT [facility] ([facility] ) Results ID Date Data Source [id number] 01/14/2021 02:21:00 PM EDT MED[facility] ([facility]) Name Value Range Interpretation Code Description Data Shaila rce(s) Supporting Document(s) Glucose, Fasting 138 mg/dL 70-100 Above high normal M EDENT ([facility]) Blood Urea Nitrogen 26 mg/dL 7-18 Above high normal [facility] ([facility]) Creatinine For GFR 0.57 mg/dL 0.70-1.30 Below low normal [facility] ([facility]) Glomerular Filtration Rate Laboratory test result Normal (applies to non- numeric results) [facility] ([facility]) <content>Units are mL/min/1.73 m2</content>
<content></content>
<content>Chronic Kidney Disease Staging per NKF:</content>
<content></content>
<content>Stage I & II GFR >=60 Normal to Mildly Decreased</content>
<content>Stage III GFR 30- 59 Moderately Decreased</content>
<content>Stage IV GFR 15-29 Severely Decreased</content>
<content>Stage V GFR <15 Very Little GFR Left</content>
<content>ESRD GFR <15 on CORN SHELLER OPERATOR</content>
<content></content> Sodium Level 137 meq/L 136-145 Normal (applies to non-numeric res ults) [facility] ([facility]) Carbon Dioxide Level 34 meq/L 21-32 Above high normal [facility] ([facility]) Chloride Level 100 meq/L 98-107 Normal (applies to non-numeric r esults) [facility] ([facility]) Potassium Serum 4.9 meq/L 3.5-5.1 Normal (applies to non-numeric results) [facility] ([facility]) Calcium Level 8.9 mg/dL 8.8-10.2 Normal (applies to non-numeric re sults) [facility]) Anion Gap 3 meq/L 8-16 Below low normal [facility]) Alkaline Phosphatase 63 U/L 45-117 Normal (applies to non-num laura results) [facility] ([facility]) Ast/Sgot 30 U/L 7-37 Normal (applies to non-numeric resul ts) [facility] ([facility]) Alt/SGPT 49 U/L 12-78 Normal (applies to non-numeric resul ts) [facility] ([facility]) Total Protein 7.0 GM/DL 6.4-8.2 Normal (applies to non-numeric re sults) [facility] ([facility]) Bilirubin,Total 0.4 mg/dL 0.2-1.0 Normal (applies to non-numeric results) [facility] ([facility]) Albumin/Globulin Ratio 0.7 Normal (applies to non-n umeric results) [facility] ([facility]) Albumin 2.8 GM/DL 3.2-5.2 Below low normal [facility] ( [facility]) ID Date Data Source [id number] 01/14/2021 02:21:00 PM EDT MED[facility] ([facility]) Name Value Range Interpretation Code Description Data Shaila rce(s) Supporting Document(s) White Blood Count 15.0 10 4.0-10.0 Above high normal [facility] ([facility]) Red Blood Count 4.32 10 4.30-6.10 Normal (applies to non-numeric results) [facility] ([facility]) Hemoglobin 14.1 g/dL 13.5-17.5 Normal (applies to non-numeric resul ts) [facility] ([facility]) Hematocrit 44.5 % 42.0-52.0 Normal (applies to non-numeric resul ts) [facility] ([facility]) Mean Corpuscular Hemoglobin 32.6 pg 27.0-33.0 Norm al (applies to non-numeric results) [facility] ([facility]) Mean Corpuscular Volume 103.0 fl 80.0-96.0 Above high normal [facility] ([facility]) Red Cell Distribution Width 13.0 % 11.5-14.5 Norm al (applies to non-numeric results) [facility] ([facility]) Mean Corpuscular HGB Conc 31.7 g/dL 32.0-36.5 Below low normal [facility] ([facility]) Lymph % 5.3 % 24.0-44.0 Below low normal [facility] ( [facility]) Neutrophils % 91.9 % 36.0-66.0 Above high normal [facility] ([facility]) Platelet Count, Automated 235 10 150-450 Normal (applies to non-numeric results) [facility] ([facility]) Dyer % 1.8 % 2.0-8.0 Below low normal [facility] ( [facility]) Eos % 0.4 % 0.0-3.0 Normal (applies to non-numeric resul ts) [facility] ([facility]) Immature Granulocyte % 0.3 % 0-3.0 Normal (applies to non-n umeric results) [facility] ([facility]) Baso % 0.3 % 0.0-1.0 Normal (applies to non-numeric resul ts) [facility] ([facility]) Neutrophils # 13.8 10 1.5-8.5 Above high normal [facility] ([facility]) Nucleated Red Blood Cell % 0.0 % 0-0 Normal (applies to n on-numeric results) [facility] ([facility]) Dyer # 0.3 10 0.0-0.8 Normal (applies to non-numeric resul ts) [facility] ([facility]) Eos # 0.1 10 0.0-0.5 Normal (applies to non-numeric resul ts) [facility] ([facility]) Lymph # 0.8 10 1.5-5.0 Below low normal [facility] ( [facility]) Baso # 0.1 10 0.0-0.2 Normal (applies to non-numeric resul ts) [facility] ([facility]) ID Date Data Source [id number] 11/26/2020 09:28:00 AM EDT MED[facility] ([facility]) Name Value Range Interpretation Code Description Data Shaila rce(s) Supporting Document(s) Glucose, Fasting 82 mg/dL 70-100 Normal (applies to non-numeric results) [facility] ([facility]) Blood Urea Nitrogen 19 mg/dL 7-18 Above high normal [facility] ([facility]) Glomerular Filtration Rate Laboratory test result Normal (applies to non- numeric results) [facility]) <content>Units are mL/min/1.73 m2</content>
<content></content>
<content>Chronic Kidney Disease Staging per NKF:</content>
<content></content>
<content>Stage I & II GFR >=60 Normal to Mildly Decreased</content>
<content>Stage III GFR 30- 59 Moderately Decreased</content>
<content>Stage IV GFR 15-29 Severely Decreased</content>
<content>Stage V GFR <15 Very Little GFR Left</content>
<content>ESRD GFR <15 on [employer]N SHELLER OPERATOR</content>
<content></content> Sodium Level 141 meq/L 136-145 Normal (applies to non-numeric res ults) [facility] ([facility]) Creatinine For GFR 0.53 mg/dL 0.70-1.30 Below low normal [facility] ([facility]) Potassium Serum 4.3 meq/L 3.5-5.1 Normal (applies to non-numeric results) [facility] ([facility]) Carbon Dioxide Level 37 meq/L 21-32 Above high normal [facility]) Chloride Level 101 meq/L 98-107 Normal (applies to non-numeric r esults) [facility] ([facility]) Ast/Sgot 32 U/L 7-37 Normal (applies to non-numeric resul ts) [facility] ([facility]) Calcium Level 8.4 mg/dL 8.8-10.2 Below low normal [facility] ([facility]) Anion Gap 3 meq/L 8-16 Below low normal [facility] ( [facility]) Alkaline Phosphatase 85 U/L 45-117 Normal (applies to non-num laura results) [facility] ([facility]) Alt/SGPT 53 U/L 12-78 Normal (applies to non-numeric resul ts) [facility] ([facility]) Bilirubin,Total 0.4 mg/dL 0.2-1.0 Normal (applies to non-numeric results) [facility] ([facility]) Total Protein 6.1 GM/DL 6.4-8.2 Below low normal [facility] ([facility]) Albumin 2.8 GM/DL 3.2-5.2 Below low normal [facility] ( [facility]) Albumin/Globulin Ratio 0.8 Normal (applies to non-n umeric results) [facility] ([facility]) ID Date Data Source [id number] 11/26/2020 09:28:00 AM EDT [facility] Name Value Range Interpretation Code Description Data Shaila rce(s) Supporting Document(s) Hemoglobin A1c 6.8 % Normal (applies to non-numeric r esults) [facility] ([facility]) <content>REFERENCE RANGES:</content><br/ ><content></content>
<content><=5.6% NORMAL</content>
<content>5.7-6.4% SUGGESTS IMPAIRED GLUCOSE METABOLISM/PREDIABETIC</content>
<content>>= 6.5% ABNORMAL</content>
<content></content> Estimated Average Glucose 148 mg/dL 60-110 Above high normal [facility] ([facility]) ID Date Data Source TOTAL PROTEIN,RANDOM URINE 10/01/2020 12:00:00 AM EDT eCW1 ( [facility]) Name Value Range Interpretation Code Description Data Shaila rce(s) Supporting Document(s) 31.1 0.0-12.0 TOTAL PROTEIN,RANDOM URIN E eCW1 ([facility]) ID Date Data Source CREATININE,RANDOM URINE 10/01/2020 12:00:00 AM EDT eCW1 ([facility]) Name Value Range Interpretation Code Description Data Shaila rce(s) Supporting Document(s) 163.0 CREATININE,RANDOM URINE eCW1 ( [facility]) ID Date Data Source UA URINALYSIS 10/01/2020 12:00:00 AM EDT eCW1 ([facility]) Name Value Range Interpretation Code Description Data Shaila rce(s) Supporting Document(s) UA URINALYSIS eCW1 ([facility]) ID Date Data Source LUPUS TYPE ANTICOAGULANT SCREE 10/01/2020 12:00:00 AM EDT eC W1 ([facility]) Name Value Range Interpretation Code Description Data Shaila rce(s) Supporting Document(s) 1.0 0-1.2 PTT LUPUS TYPE ANTICOAG S CREEN eCW1 ([facility]) ID Date Data Source COMPLEMENT TOTAL (CH50) 10/01/2020 12:00:00 AM EDT eCW1 ([facility]) Name Value Range Interpretation Code Description Data Shaila rce(s) Supporting Document(s) > 60 >41 COMPLEMENT TOTAL (CH50) eCW1 ( [facility]) ID Date Data Source COMPLEMENT C4 10/01/2020 12:00:00 AM EDT eCW1 ([facility]) Name Value Range Interpretation Code Description Data Shaila rce(s) Supporting Document(s) 22 10-40 COMPLEMENT C4 eCW1 ([facility]) ID Date Data Source COMPLEMENT C3 10/01/2020 12:00:00 AM EDT eCW1 ([facility]) Name Value Range Interpretation Code Description Data Shaila rce(s) Supporting Document(s) 127 90-180 COMPLEMENT C3 eCW1 ([facility]) ID Date Data Source [id number] 09/23/2020 11:35:00 AM EDT [facility] ([facility]) Name Value Range Interpretation Code Description Data Shaila rce(s) Supporting Document(s) Ast/Sgot 22 U/L 7-37 Normal (applies to non-numeric resul ts) [facility] ([facility]) Alt/SGPT 51 U/L 12-78 Normal (applies to non-numeric resul ts) [facility] ([facility]) Alkaline Phosphatase 82 U/L 45-117 Normal (applies to non-num laura results) [facility] ([facility]) Bilirubin,Total 0.7 mg/dL 0.2-1.0 Normal (applies to non-numeric results) [facility]) Total Protein 6.3 GM/DL 6.4-8.2 Below low normal [facility] ([facility]) Bilirubin,Direct 0.2 mg/dL 0.0-0.2 Normal (applies to non-numeric results) [facility] ([facility]) Albumin 2.9 GM/DL 3.2-5.2 Below low normal [facility] ( [facility]) Albumin/Globulin Ratio 0.9 Normal (applies to non-n umeric results) [facility] ([facility]) ID Date Data Source [id number] 08/22/2020 09:44:00 AM EDT [facility] ([facility]) Name Value Range Interpretation Code Description Data Shaila rce(s) Supporting Document(s) Ast/Sgot 38 U/L 7-37 Above high normal [facility] ([facility]) Alkaline Phosphatase 100 U/L 45-117 Normal (applies to non-num laura results) [facility] ([facility]) Alt/SGPT 127 U/L 12-78 Above high normal [facility] ([facility]) Bilirubin,Total 0.8 mg/dL 0.2-1.0 Normal (applies to non-numeric results) [facility]) Bilirubin,Direct 0.2 mg/dL 0.0-0.2 Normal (applies to non-numeric results) [facility]) Total Protein 6.6 GM/DL 6.4-8.2 Normal (applies to non-numeric re sults) [facility]) Albumin/Globulin Ratio 0.9 Normal (applies to non-n umeric results) [facility]) Albumin 3.1 GM/DL 3.2-5.2 Below low normal [facility] ( [facility]) ID Date Data Source [id number] 07/30/2020 08:29:00 AM [facility]) Name Value Range Interpretation Code Description Data Shaila rce(s) Supporting Document(s) Prostate specific Ag [Mass/volume] in Serum or Plasma 0.13 ng/mL Normal (applies to non-numeric results) [facility]) The PSA assay is performed on the CloudVerticalta analyzer by [employer] sandwich chemiluminescent immunoassay and should not be compared interchangeably with other methods. It should not be used alone as a screening test or diagnosis for the presence or absence of malignant disease. Predictions of disease recurrence should not be based solely on values obtained from serial patient serum values. ID Date Data Source [id number] 07/30/2020 08:29:00 AM [facility]) Name Value Range Interpretation Code Description Data Shaila rce(s) Supporting Document(s) Jeferson/Creat Ratio 21.6 MCG/MG 0.0-30.0 Normal (applies to non-numeric results) [facility] ([facility]) THE [employer] STATES THAT MICROALBUMINURIA IS PRESENT IF THE MICROALBUMIN/CREATININE RATIO EXCEEDS 30 MCG/MG. THE THRESHOLD FOR CLINICAL ALBUMINURIA IS REACHED AT 300 MCG/MG. THE CLASSIFICATION OF A PATIENT SHOULD BE BASED UPON AT LEAST 2 OF 3 ABNORMAL RESULTS ON SPECIMENS COLLECTED WITHIN A 3 TO 6 MONTH TIME FRAME. Malb Urine Siemens 33.2 mg/L Normal (applies to non-numer ic results) [facility] ([facility]) Creatinine, Urine 153.0 mg/dL Normal (applies to non-numer ic results) [facility] ([facility]) ID Date Data Source [id number] 07/30/2020 08:29:00 AM EDT [facility] ([facility]) Name Value Range Interpretation Code Description Data Shaila rce(s) Supporting Document(s) White Blood Count 9.7 10 4.0-10.0 Normal (applies to non-numeri c results) [facility] ([facility]) Red Blood Count 5.23 10 4.30-6.10 Normal (applies to non-numeric results) [facility] ([facility]) Hemoglobin 15.4 g/dL 13.5-17.5 Normal (applies to non-numeric resul ts) [facility] ([facility]) Hematocrit 47.7 % 42.0-52.0 Normal (applies to non-numeric resul ts) [facility] ([facility]) Mean Corpuscular Volume 91.2 fl 80.0-96.0 Normal ( applies to non-numeric results) [facility] ([facility]) Mean Corpuscular Hemoglobin 29.4 pg 27.0-33.0 Norm al (applies to non-numeric results) [facility] ([facility]) Red Cell Distribution Width 12.6 % 11.5-14.5 Norm al (applies to non-numeric results) [facility] ([facility]) Mean Corpuscular HGB Conc 32.3 g/dL 32.0-36.5 Normal (applies to non-numeric results) [facility] ([facility]) Platelet Count, Automated 155 10 150-450 Normal (applies to non-numeric results) [facility] ([facility]) Neutrophils % 59.4 % 36.0-66.0 Normal (applies to non-numeric re sults) [facility] ([facility]) Lymph % 34.1 % 24.0-44.0 Normal (applies to non-numeric resul ts) [facility] ([facility]) Eos % 2.1 % 0.0-3.0 Normal (applies to non-numeric resul ts) [facility] ([facility]) Dyer % 3.8 % 2.0-8.0 Normal (applies to non-numeric resul ts) [facility] ([facility]) Baso % 0.2 % 0.0-1.0 Normal (applies to non-numeric resul ts) [facility] ([facility]) Nucleated Red Blood Cell % 0.0 % 0-0 Normal (applies to n on-numeric results) [facility] ([facility]) Immature Granulocyte % 0.4 % 0-3.0 Normal (applies to non-n umeric results) [facility] ([facility]) Lymph # 3.3 10 1.5-5.0 Normal (applies to non-numeric resul ts) [facility] ([facility]) Neutrophils # 5.7 10 1.5-8.5 Normal (applies to non-numeric re sults) [facility] ([facility]) Dyer # 0.4 10 0.0-0.8 Normal (applies to non-numeric resul ts) [facility] ([facility]) Eos # 0.2 10 0.0-0.5 Normal (applies to non-numeric resul ts) [facility] ([facility]) Baso # 0.0 10 0.0-0.2 Normal (applies to non-numeric resul ts) [facility] ([facility]) ID Date Data Source [id number] 07/30/2020 08:29:00 AM EDT [facility] ([facility]) Name Value Range Interpretation Code Description Data Shaila rce(s) Supporting Document(s) Triglycerides Level 72 mg/dL Normal (applies to non-nume cedric results) [facility] ([facility]) Cholesterol Level 123 mg/dL Normal (applies to non-numeri c results) [facility] ([facility]) HDL Cholesterol 79 mg/dL Normal (applies to non-numeric results) [facility] ([facility]) LDL Cholesterol 30 mg/dL Normal (applies to non-numeric results) [facility] ([facility]) Non-HDL-C 44 mg/dL Normal (applies to non-numeric resul ts) [facility] ([facility]) Cholesterol Risk Ratio 1.556 Normal (applies to non-n umeric results) [facility] ([facility]) ID Date Data Source [id number] 07/30/2020 08:29:00 AM EDT [facility] ([facility]) Name Value Range Interpretation Code Description Data Shaila rce(s) Supporting Document(s) Hemoglobin A1c 8.6 % Normal (applies to non-numeric r esults) [facility] ([facility]) <content>REFERENCE RANGES:</content><br/ ><content></content>
<content><=5.6% NORMAL</content>
<content>5.7-6.4% SUGGESTS IMPAIRED GLUCOSE METABOLISM/PREDIABETIC</content>
<content>>= 6.5% ABNORMAL</content>
<content></content> Estimated Average Glucose 200 mg/dL 60-110 Above high normal [facility] ([facility]) ID Date Data Source [id number] 07/30/2020 08:29:00 AM EDT [facility]) Name Value Range Interpretation Code Description Data Shaila rce(s) Supporting Document(s) Blood Urea Nitrogen 35 mg/dL 7-18 Above high normal [facility] ([facility]) Creatinine For GFR 0.76 mg/dL 0.70-1.30 Normal (applies to non -numeric results) [facility] ([facility]) Glucose, Fasting 150 mg/dL 70-100 Above high normal [facility] Glomerular Filtration Rate Laboratory test result Normal (applies to non- numeric results) [facility] ([facility]) <content>Units are mL/min/1.73 m2</content>
<content></content>
<content>Chronic Kidney Disease Staging per NKF:</content>
<content></content>
<content>Stage I & II GFR >=60 Normal to Mildly Decreased</content>
<content>Stage III GFR 30- 59 Moderately Decreased</content>
<content>Stage IV GFR 15-29 Severely Decreased</content>
<content>Stage V GFR <15 Very Little GFR Left</content>
<content>ESRD GFR <15 on [employer]N SHELLER OPERATOR</content>
<content></content> Sodium Level 136 meq/L 136-145 Normal (applies to non-numeric res ults) [facility] ([facility]) Potassium Serum 4.5 meq/L 3.5-5.1 Normal (applies to non-numeric results) [facility] ([facility]) Chloride Level 95 meq/L 98-107 Below low normal [facility] ([facility]) Carbon Dioxide Level 37 meq/L 21-32 Above high normal [facility] ([facility]) Calcium Level 8.7 mg/dL 8.8-10.2 Below low normal [facility] ([facility]) Anion Gap 4 meq/L 8-16 Below low normal [facility] ( [facility]) Alkaline Phosphatase 84 U/L 45-117 Normal (applies to non-num laura results) [facility] ([facility]) Ast/Sgot 40 U/L 7-37 Above high normal [facility] ([facility]) Alt/SGPT 138 U/L 12-78 Above high normal [facility] ([facility]) Total Protein 6.5 GM/DL 6.4-8.2 Normal (applies to non-numeric re sults) [facility] ([facility]) Albumin 3.1 GM/DL 3.2-5.2 Below low normal [facility] ( [facility]) Bilirubin,Total 1.0 mg/dL 0.2-1.0 Normal (applies to non-numeric results) [facility] ([facility]) Albumin/Globulin Ratio 0.9 Normal (applies to non-n umeric results) [facility] ([facility]) ID Date Data Source [id number] 07/17/2020 10:38:00 AM EDT [facility] ([facility]) Name Value Range Interpretation Code Description Data Shaila rce(s) Supporting Document(s) White Blood Count 12.6 10 4.0-10.0 Above high normal [facility] ([facility]) Red Blood Count 5.03 10 4.30-6.10 Normal (applies to non-numeric results) [facility] ([facility]) Hemoglobin 15.3 g/dL 13.5-17.5 Normal (applies to non-numeric resul ts) [facility] ([facility]) Hematocrit 48.4 % 42.0-52.0 Normal (applies to non-numeric resul ts) [facility] ([facility]) Mean Corpuscular Volume 96.2 fl 80.0-96.0 Above high normal [facility] ([facility]) Mean Corpuscular HGB Conc 31.6 g/dL 32.0-36.5 Below low normal [facility] ([facility]) Mean Corpuscular Hemoglobin 30.4 pg 27.0-33.0 Norm al (applies to non-numeric results) [facility] ([facility]) Red Cell Distribution Width 13.2 % 11.5-14.5 Norm al (applies to non-numeric results) [facility] ([facility]) Platelet Count, Automated 122 10 150-450 Below low normal [facility] ([facility]) Neutrophils % 85.7 % 36.0-66.0 Above high normal [facility] ([facility]) Lymph % 9.8 % 24.0-44.0 Below low normal [facility] ( [facility]) Dyer % 2.1 % 2.0-8.0 Normal (applies to non-numeric resul ts) [facility] ([facility]) Baso % 0.1 % 0.0-1.0 Normal (applies to non-numeric resul ts) [facility] ([facility]) Eos % 1.6 % 0.0-3.0 Normal (applies to non-numeric resul ts) [facility] ([facility]) Immature Granulocyte % 0.7 % 0-3.0 Normal (applies to non-n umeric results) [facility] ([facility]) Nucleated Red Blood Cell % 0.0 % 0-0 Normal (applies to n on-numeric results) [facility] ([facility]) Neutrophils # 10.8 10 1.5-8.5 Above high normal [facility] ([facility]) Lymph # 1.2 10 1.5-5.0 Below low normal [facility] ( [facility]) Dyer # 0.3 10 0.0-0.8 Normal (applies to non-numeric resul ts) [facility] ([facility]) Eos # 0.2 10 0.0-0.5 Normal (applies to non-numeric resul ts) [facility] ([facility]) Baso # 0.0 10 0.0-0.2 Normal (applies to non-numeric resul ts) [facility] ([facility]) ID Date Data Source [id number] 07/11/2020 03:05:00 PM EDT [facility] ([facility]) Name Value Range Interpretation Code Description Data Shaila rce(s) Supporting Document(s) Ferritin [Mass/volume] in Serum or Plasma 290 ng/mL 26-388 Normal (applies to non-numeric results) [facility]) <content>note:<nlbl:demographic_changed> </content>
<content></content> Transferrin receptor.soluble [Mass/volume] in Serum or Plasm a 12.9 nmol/L 12.2-27.3 Normal (applies to non-numeric results) [facility]) Performed at: [address] [id number] [place] [employer] Operator: Rashaun Hansen MD, Phone: [phone] ID Date Data Source [id number] 07/11/2020 03:05:00 PM EDT [facility] ([facility]) Name Value Range Interpretation Code Description Data Shaila rce(s) Supporting Document(s) Total Iron Binding Capacity 339 ug/dL 250-450 Norm al (applies to non-numeric results) [facility] ([facility]) Iron (Fe) 154 ug/dL 65-175 Normal (applies to non-numeric resul ts) [facility] Percent Saturation 45.4 % 19.7-50.0 Normal (applies to non-numer ic results) [facility]) ID Date Data Source [id number] 06/05/2020 10:00:00 AM EST [facility] ([facility]) Name Value Range Interpretation Code Description Data Shaila rce(s) Supporting Document(s) Homocysteine [Moles/volume] in Serum or Plasma 9.1 umol/L 0 .0-17.2 Normal (applies to non-numeric results) [facility] ([facility]) Performed at: RN - [facility] [address] [id number] [place] [employer]: Elda Orellana MD, Phone: [phone] ID Date Data Source [id number] 06/05/2020 10:00:00 AM EST [facility] ([facility]) Name Value Range Interpretation Code Description Data Shaila rce(s) Supporting Document(s) Glucose, Fasting 122 mg/dL 70-100 Above high normal [facility]) Blood Urea Nitrogen 18 mg/dL 7-18 Normal (applies to non-nume cedric results) [facility] ([facility]) Creatinine For GFR 0.97 mg/dL 0.70-1.30 Normal (applies to non -numeric results) [facility] ([facility]) Glomerular Filtration Rate Laboratory test result Normal (applies to non- numeric results) [facility] ([facility]) <content>Units are mL/min/1.73 m2</content>
<content></content>
<content>Chronic Kidney Disease Staging per NKF:</content>
<content></content>
<content>Stage I & II GFR >=60 Normal to Mildly Decreased</content>
<content>Stage III GFR 30- 59 Moderately Decreased</content>
<content>Stage IV GFR 15-29 Severely Decreased</content>
<content>Stage V GFR <15 Very Little GFR Left</content>
<content>ESRD GFR <15 on [employer]N SHELLER OPERATOR</content>
<content></content> Sodium Level 139 meq/L 136-145 Normal (applies to non-numeric res ults) [facility] ([facility]) Potassium Serum 4.2 meq/L 3.5-5.1 Normal (applies to non-numeric results) [facility] ([facility]) Chloride Level 100 meq/L 98-107 Normal (applies to non-numeric r esults) [facility] ([facility]) Carbon Dioxide Level 35 meq/L 21-32 Above high normal [facility] ([facility]) Anion Gap 4 meq/L 8-16 Below low normal [facility] ( [facility]) Calcium Level 9.1 mg/dL 8.8-10.2 Normal (applies to non-numeric re sults) [facility] ([facility]) Ast/Sgot 18 U/L 7-37 Normal (applies to non-numeric resul ts) [facility] ([facility]) Alt/SGPT 22 U/L 12-78 Normal (applies to non-numeric resul ts) [facility] ([facility]) Alkaline Phosphatase 90 U/L 45-117 Normal (applies to non-num laura results) [facility] ([facility]) Bilirubin,Total 0.7 mg/dL 0.2-1.0 Normal (applies to non-numeric results) [facility] ([facility]) Total Protein 7.0 GM/DL 6.4-8.2 Normal (applies to non-numeric re sults) [facility] ([facility]) Albumin 3.0 GM/DL 3.2-5.2 Below low normal [facility] ( [facility]) Albumin/Globulin Ratio 0.8 Normal (applies to non-n umeric results) [facility] ([facility]) ID Date Data Source [id number] 06/05/2020 10:00:00 AM EST [facility] ([facility]) Name Value Range Interpretation Code Description Data Shaila rce(s) Supporting Document(s) White Blood Count 8.4 10 4.0-10.0 Normal (applies to non-numeri c results) [facility] ([facility]) Red Blood Count 4.33 10 4.30-6.10 Normal (applies to non-numeric results) [facility] ([facility]) Hematocrit 41.7 % 42.0-52.0 Below low normal [facility] ( [facility]) Hemoglobin 13.2 g/dL 13.5-17.5 Below low normal [facility] ( [facility]) Mean Corpuscular Volume 96.3 fl 80.0-96.0 Above high normal [facility] ([facility]) Mean Corpuscular Hemoglobin 30.5 pg 27.0-33.0 Norm al (applies to non-numeric results) [facility] ([facility]) Red Cell Distribution Width 14.2 % 11.5-14.5 Norm al (applies to non-numeric results) [facility] ([facility]) Mean Corpuscular HGB Conc 31.7 g/dL 32.0-36.5 Below low normal [facility] ([facility]) Platelet Count, Automated 185 10 150-450 Normal (applies to non-numeric results) [facility] ([facility]) Neutrophils % 72.3 % 36.0-66.0 Above high normal [facility] ([facility]) Lymph % 17.3 % 24.0-44.0 Below low normal [facility] ( [facility]) Dyer % 4.9 % 2.0-8.0 Normal (applies to non-numeric resul ts) [facility] ([facility]) Eos % 4.2 % 0.0-3.0 Above high normal [facility] ([facility]) Baso % 1.1 % 0.0-1.0 Above high normal [facility] ([facility]) Immature Granulocyte % 0.2 % 0-3.0 Normal (applies to non-n umeric results) [facility] ([facility]) Nucleated Red Blood Cell % 0.0 % 0-0 Normal (applies to n on-numeric results) [facility] ([facility]) Neutrophils # 6.1 10 1.5-8.5 Normal (applies to non-numeric re sults) [facility] ([facility]) Lymph # 1.5 10 1.5-5.0 Normal (applies to non-numeric resul ts) [facility] ([facility]) Dyer # 0.4 10 0.0-0.8 Normal (applies to non-numeric resul ts) [facility] ([facility]) Eos # 0.4 10 0.0-0.5 Normal (applies to non-numeric resul ts) [facility] ([facility]) Baso # 0.1 10 0.0-0.2 Normal (applies to non-numeric resul ts) [facility] ([facility]) ID Date Data Source [id number] 05/30/2020 01:08:19 PM EST [facility] Name Value Range Interpretation Code Description Data Shaila rce(s) Supporting Document(s) &PDF [facility] [id number] yKE [file] [id number]/[employer] [file] [id number] ID Date Data Source [id number] 05/30/2020 10:55:51 AM EST [facility] Name Value Range Interpretation Code Description Data Shaila rce(s) Supporting Document(s) EKG [facility] [id number] jb2 [file] [id number]+[id number]+[employer]/kKPJ+2C+ [file] [id number] ID Date Data Source [id number] 05/25/2020 11:00:00 AM EST [facility] ([facility]) Name Value Range Interpretation Code Description Data Shaila rce(s) Supporting Document(s) Coronavirus 2019 Nasopharygeal Laboratory test result [facility] ([facility]) This nucleic acid amplification test was developed and its performance characteristics determined by [employer]. Nucleic acid amplification tests include RT- PCR and TMA. This test has not been FDA cleared or approved. This test has been authorized by FDA under an Emergency Use Authorization (EUA). This test is only authorized for the duration of time the declaration that circumstances exist justifying the authorization of the emergency use of in vitro diagnostic tests for detection of SARS-CoV-2 virus and/or diagnosis of COVID-19 infection under section 564(b)(1) of the Act, 21 U.S.C. 360bbb-3(b) (1), unless the authorization is termina beatriz or revoked sooner. When diagnostic testing is negative, the possibility of a false negative result should be considered in the context of a patient's recent exposures and the presence of clinical signs and symptoms consistent with COVID-19. An individual without symptoms of COVID-19 and who is not shedding SARS-CoV-2 virus would expect to have a negative (not detected) result in this assay. Performed at: [facility] [id number] [place] Press Operator: Elda Orellana MD, Phone: [phone] Not Detected ID Date Data Source [id number] 05/25/2020 11:00:00 AM EST [place] Name Value Range Interpretation Code Description Data Shaila rce(s) Supporting Document(s) SARS coronavirus 2 RNA Not Detected [place] This lab was ordered by [facility] and reported by [facility]. ID Date Data Source CYCLIC CITRULLINATED PEPTIDE 04/29/2020 12:00:00 AM EST eCW1 ([facility]) Name Value Range Interpretation Code Description Data Shaila rce(s) Supporting Document(s) 5 0-19 eCW1 ([facility]) ID Date Data Source ANTI SCLERODERMA ANTIBODIES 04/29/2020 12:00:00 AM EST eCW1 ([facility]) Name Value Range Interpretation Code Description Data Shaila rce(s) Supporting Document(s) <0.2 0.0-0.9 eCW1 ([facility]) ID Date Data Source ANTI DOUBLE STRAND DNA PATRICIA 04/29/2020 12:00:00 AM EST eCW1 ( [facility]) Name Value Range Interpretation Code Description Data Shaila rce(s) Supporting Document(s) eCW1 ([facility]) ID Date Data Source ANTI-SJOGRENS A&B ANTIBODIES 04/29/2020 12:00:00 AM EST eCW1 ([facility]) Name Value Range Interpretation Code Description Data Shaila rce(s) Supporting Document(s) <0.2 0.0-0.9 eCW1 ([facility]) <0.2 0.0-0.9 eCW1 ([facility]) ID Date Data Source ANTI-HISTONE ANTIBODIES 04/29/2020 12:00:00 AM EST eCW1 ([facility]) Name Value Range Interpretation Code Description Data Shaila rce(s) Supporting Document(s) 0.6 0.0-0.9 eCW1 ([facility]) ID Date Data Source FELICIA TITER & PATTERN 04/29/2020 12:00:00 AM EST eCW1 ([facility]) Name Value Range Interpretation Code Description Data Shaila rce(s) Supporting Document(s) Positive . eCW1 ([facility]) ID Date Data Source ANTI-CARDIOLIPIN ANTIBODIES 04/29/2020 12:00:00 AM EST eCW1 ([facility]) Name Value Range Interpretation Code Description Data Shaila rce(s) Supporting Document(s) <9 0-14 eCW1 ([facility]) <9 0-11 eCW1 ([facility]) 20 0-12 eCW1 ([facility]) ID Date Data Source ANTI CENTROMERE ANTIBODY 04/29/2020 12:00:00 AM EST eCW1 ([facility]) Name Value Range Interpretation Code Description Data Shaila rce(s) Supporting Document(s) <0.2 0.0-0.9 eCW1 ([facility]) ID Date Data Source BETA-2 GLYCOPROTEIN 1 PATRICIA GLENN 04/29/2020 12:00:00 AM EST eCW 1 ([facility]) Name Value Range Interpretation Code Description Data Shaila rce(s) Supporting Document(s) <9 0-20 eCW1 ([facility]) <9 0-32 eCW1 ([facility]) <9 0-25 eCW1 ([facility]) ID Date Data Source ANGIOTENSIN 1 CONVERTING ENZYM 04/29/2020 12:00:00 AM EST eC W1 ([facility]) Name Value Range Interpretation Code Description Data Shaila rce(s) Supporting Document(s) 26 14-82 eCW1 ([facility]) ID Date Data Source C REACTIVE PROTEIN QUANTITATIV (At [facility]) 04/29/2020 12:00 :00 AM EST eCW1 ([facility]) Name Value Range Interpretation Code Description Data Shaila rce(s) Supporting Document(s) 0.42 0.00-0.30 eCW1 ([facility]) ID Date Data Source ERYTHROCYTE SEDIMENTATION RATE 04/29/2020 12:00:00 AM EST eC W1 ([facility]) Name Value Range Interpretation Code Description Data Shaila rce(s) Supporting Document(s) 36 0-20 eCW1 ([facility]) ID Date Data Source CBC with Differential 04/29/2020 12:00:00 AM EST eCW1 ([facility]) Name Value Range Interpretation Code Description Data Shaila rce(s) Supporting Document(s) 48.0 42.0-52.0 eCW1 ([facility]) 12.1 4.0-10.0 eCW1 ([facility]) 4.98 4.30-6.10 eCW1 ([facility]) 14.6 13.5-17.5 eCW1 ([facility]) 29.3 27.0-33.0 eCW1 ([facility]) 13.7 11.5-14.5 eCW1 ([facility]) 96.4 80.0-96.0 eCW1 ([facility]) 30.4 32.0-36.5 eCW1 ([facility]) 252 150-450 eCW1 ([facility]) 74.9 36.0-66.0 eCW1 ([facility]) 5.2 0.0-3.0 eCW1 ([facility]) 14.4 24.0-44.0 eCW1 ([facility]) 4.5 0.0-5.0 eCW1 ([facility]) 1.8 1.5-5.0 eCW1 ([facility]) 0.7 0.0-1.0 eCW1 ([facility]) 9.1 1.5-8.5 eCW1 ([facility]) 0.6 0.0-0.8 eCW1 ([facility]) 0.6 0.0-0.5 eCW1 ([facility]) 0.1 0.0-0.2 eCW1 ([facility]) ID Date Data Source [id number] 03/19/2020 05:29:00 PM EST [place] Name Value Range Interpretation Code Description Data Shaila rce(s) Supporting Document(s) SARS coronavirus 2 RNA [Presence] in Res piratory specimen by RAPHAEL with probe detection [facility] This lab was ordered by [facility] a nd reported by [facility]. ID Date Data Source [id number] 03/19/2020 04:34:00 PM EST MEDENT ([facility]) Name Value Range Interpretation Code Description Data Shaila rce(s) Supporting Document(s) Thyrotropin [Units/volume] in Serum or Plasma 0.693 uIU/ML 0. 358-3.740 Normal (applies to non-numeric results) MEDENT ([facility]) <content>note:<nlbl:demographic_changed> </content>
<content></content> Thyroxine (T4) [Mass/volume] in Serum or Plasma 6.7 ug/dL 4.5-12.0 Normal (applies to non-numeric results) [facility] ([facility]) <content>note:<nlbl:demographic_changed> </content>
<content></content> Natriuretic peptide.B prohormone N-Terminal [Mass/volu me] in Serum or Plasma 659 pg/mL Above high normal MEDENT ([facility]) <content>note:<nlbl:demographic_changed> </content>
<content></content> ID Date Data Source [id number] 03/19/2020 04:34:00 PM EST MEDENT ([facility]) Name Value Range Interpretation Code Description Data Shaila rce(s) Supporting Document(s) Glucose, Fasting 155 mg/dL 70-100 Above high normal M EDENT ([facility]) Blood Urea Nitrogen 25 mg/dL 7-18 Above high normal [facility]) Creatinine For GFR 0.73 mg/dL 0.70-1.30 Normal (applies to non -numeric results) [facility] ([facility]) Glomerular Filtration Rate Laboratory test result Normal (applies to non- numeric results) [facility] ([facility]) <content>Units are mL/min/1.73 m2</content>
<content></content>
<content>Chronic Kidney Disease Staging per NKF:</content>
<content></content>
<content>Stage I & II GFR >=60 Normal to Mildly Decreased</content>
<content>Stage III GFR 30- 59 Moderately Decreased</content>
<content>Stage IV GFR 15-29 Severely Decreased</content>
<content>Stage V GFR <15 Very Little GFR Left</content>
<content>ESRD GFR <15 on CORN SHELLER OPERATOR</content>
<content></content> Sodium Level 138 meq/L 136-145 Normal (applies to non-numeric res ults) [facility] ([facility]) Potassium Serum 4.7 meq/L 3.5-5.1 Normal (applies to non-numeric results) [facility] ([facility]) Chloride Level 103 meq/L 98-107 Normal (applies to non-numeric r esults) [facility] ([facility]) Carbon Dioxide Level 30 meq/L 21-32 Normal (applies to non-num laura results) [facility] ([facility]) Anion Gap 5 meq/L 8-16 Below low normal [facility] ( [facility]) Calcium Level 8.3 mg/dL 8.8-10.2 Below low normal [facility] T ([facility]) ID Date Data Source [id number] 03/19/2020 04:34:00 PM EST MEDENT ([facility]) Name Value Range Interpretation Code Description Data Shaila rce(s) Supporting Document(s) Ast/Sgot 26 U/L 7-37 Normal (applies to non-numeric resul ts) [facility] ([facility]) Alt/SGPT 57 U/L 12-78 Normal (applies to non-numeric resul ts) [facility] ([facility]) Alkaline Phosphatase 107 U/L 45-117 Normal (applies to non-num laura results) [facility] ([facility]) Bilirubin,Total 0.4 mg/dL 0.2-1.0 Normal (applies to non-numeric results) [facility] ([facility]) Bilirubin,Direct 0.1 mg/dL 0.0-0.2 Normal (applies to non-numeric results) [facility] ([facility]) Total Protein 6.8 GM/DL 6.4-8.2 Normal (applies to non-numeric re sults) [facility] ([facility]) Albumin 3.1 GM/DL 3.2-5.2 Below low normal [facility] ( [facility]) Albumin/Globulin Ratio 0.8 Normal (applies to non-n umeric results) [facility] ([facility]) ID Date Data Source [id number] 03/19/2020 04:34:00 PM EST [facility] ([facility]) Name Value Range Interpretation Code Description Data [facility] rce(s) Supporting Document(s) MB/CK Relative Index 3.31 Normal (applies to non-num laura results) [facility] ([facility]) <content>DIAGNOSIS CRITERIA</content>
<content>MMB ng/ml Relative Index (RI)</content>
<content>NON-AMI < or = 5 N/A</content>
<content>QUIÑONES ZONE > 5 < or = 4</content>
<content>AMI > 5 > 4</content>
<content></content> CK-MB Value Mass 4.9 ng/mL Above high normal [facility] CPK Creatine Phosphokinase 148 U/L 39-308 Hollie l (applies to non-numeric results) [facility] ([facility]) Troponin I Laboratory test result Normal (applies to non-n umeric results) [facility] ([facility]) <content>Troponin I Reference Interval f or Siemens [place] LOCI:</content>
<content></content>
<content>99th Percentile= 0.00-0.045 ng/ml</content>
<content></content>
<content>Risk Stratification:</content>
<content><= 0.10 ng/ml Decreased Risk for Adverse Clinical</content>
<content>Events.</content>
<content>0.10-1.50 ng/ml Increased Risk for Adverse Clinical</content>
<content>Events. Evaluation of additional</content>
<content>criterion and/or repeat testing in 2-6</content>
<content>hours is suggested to rule out myocardial</content>
<content>damage.</content>
<content>>= 1.50 ng/ml Indicative of Myocardial Injury.</content>
<content></content> ID Date Data Source [id number] 03/19/2020 04:34:00 PM EST [facility] ([facility]) Name Value Range Interpretation Code Description Data Shaila rce(s) Supporting Document(s) aPTT in Platelet poor plasma by Coagulation assay 26.2 s 24.2-38.5 Normal (applies to non-numeric results) [facility] ([facility]) ID Date Data Source [id number] 03/19/2020 04:34:00 PM EST [facility] ([facility]) Name Value Range Interpretation Code Description Data Shaila rce(s) Supporting Document(s) Inr 1.13 Normal (applies to non-numeric resul ts) [facility] ([facility]) THERAPUTIC HUMAN INR VALUES INDICATIONS NORMAL RANGES PROPHYLAXIS/TREATMENT OF: VENOUS THROMBOSIS 2.0-3.0 PULMONARY EMBOLISM 2.0-3.0 PREVENTION OF SYSTEMIC EMBOLISM FROM: TISSUE HEART VALVES 2.0-3.0 ACUTE MYOCARDIAL INFARCTION 2.0-3.0 VALVULAR HEART DISEASE 2.0-3.0 ATRIAL FIBRILLATION 2.0-3.0 MECHANICAL VALVES(HIGH RISK) 2.5-3.5 RECURRENT MYOCARDIAL INFARCTION 2.5-3.5 Prothrombin Time 14.8 s 12.5-14.3 Above high normal M [facility]ENT ([facility]) ID Date Data Source [id number] 03/19/2020 04:34:00 PM EST MEDENT ([facility]) Name Value Range Interpretation Code Description Data Shaila rce(s) Supporting Document(s) White Blood Count 10.9 10 4.0-10.0 Above high normal [facility] ([facility]) Red Blood Count 4.55 10 4.30-6.10 Normal (applies to non-numeric results) [facility] ([facility]) Hemoglobin 13.2 g/dL 13.5-17.5 Below low normal [facility] ( [facility]) Mean Corpuscular Volume 94.3 fl 80.0-96.0 Normal ( applies to non-numeric results) [facility] ([facility]) Hematocrit 42.9 % 42.0-52.0 Normal (applies to non-numeric resul ts) [facility] ([facility]) Mean Corpuscular Hemoglobin 29.0 pg 27.0-33.0 Norm al (applies to non-numeric results) [facility] ([facility]) Mean Corpuscular HGB Conc 30.8 g/dL 32.0-36.5 Below low normal [facility] ([facility]) Red Cell Distribution Width 13.3 % 11.5-14.5 Norm al (applies to non-numeric results) [facility] ([facility]) Platelet Count, Automated 204 10 150-450 Normal (applies to non-numeric results) [facility] ([facility]) Dyer % 2.4 % 0.0-5.0 Normal (applies to non-numeric resul ts) [facility] ([facility]) Neutrophils % 87.9 % 36.0-66.0 Above high normal [facility] NT ([facility]) Lymph % 8.2 % 24.0-44.0 Below low normal [facility] ( [facility]) Baso % 0.5 % 0.0-1.0 Normal (applies to non-numeric resul ts) [facility] ([facility]) Eos % 0.5 % 0.0-3.0 Normal (applies to non-numeric resul ts) [facility] ([facility]) Immature Granulocyte % 0.5 % 0-3.0 Normal (applies to non-n umeric results) [facility] ([facility]) Nucleated Red Blood Cell % 0.0 % 0-0 Normal (applies to n on-numeric results) [facility] ([facility]) Neutrophils # 9.6 10 1.5-8.5 Above high normal [facility] NT ([facility]) Dyer # 0.3 10 0.0-0.8 Normal (applies to non-numeric resul ts) [facility] ([facility]) Lymph # 0.9 10 1.5-5.0 Below low normal [facility] ( [facility]) Eos # 0.1 10 0.0-0.5 Normal (applies to non-numeric resul ts) [facility] ([facility]) Baso # 0.1 10 0.0-0.2 Normal (applies to non-numeric resul ts) [facility] ([facility]) ID Date Data Source [id number] 03/15/2020 12:00:00 PM EST MEDENT ([facility]) Name Value Range Interpretation Code Description Data Shaila rce(s) Supporting Document(s) Glucose, Fasting 157 mg/dL 70-100 Above high normal [facility] ([facility]) Blood Urea Nitrogen 29 mg/dL 7-18 Above high normal [facility] ([facility]) Sodium Level 137 meq/L 136-145 Normal (applies to non-numeric res ults) [facility] ([facility]) Glomerular Filtration Rate Laboratory test result Normal (applies to non- numeric results) [facility] ([facility]) <content>Units are mL/min/1.73 m2</content>
<content></content>
<content>Chronic Kidney Disease Staging per NKF:</content>
<content></content>
<content>Stage I & II GFR >=60 Normal to Mildly Decreased</content>
<content>Stage III GFR 30- 59 Moderately Decreased</content>
<content>Stage IV GFR 15-29 Severely Decreased</content>
<content>Stage V GFR <15 Very Little GFR Left</content>
<content>ESRD GFR <15 on CORN SHELLER OPERATOR</content>
<content></content> Creatinine For GFR 0.77 mg/dL 0.70-1.30 Normal (applies to non -numeric results) [facility] ([facility]) Potassium Serum 4.9 meq/L 3.5-5.1 Normal (applies to non-numeric results) [facility] ([facility]) This specimen has an elevated potassium level but there is NO visible hemolysis noted. Chloride Level 104 meq/L 98-107 Normal (applies to non-numeric r esults) [facility] ([facility]) Carbon Dioxide Level 28 meq/L 21-32 Normal (applies to non-num laura results) [facility] ([facility]) Anion Gap 5 meq/L 8-16 Below low normal [facility] ( [facility]) Calcium Level 7.9 mg/dL 8.8-10.2 Below low normal [facility]) ID Date Data Source [id number] 03/15/2020 12:00:00 PM EST MEDENT ([facility]) Name Value Range Interpretation Code Description Data Shaila rce(s) Supporting Document(s) Natriuretic peptide.B prohormone N-Terminal [Mass/volu me] in Serum or Plasma 482 pg/mL Above high normal [facility] ([facility]) ID Date Data Source [id number] 03/15/2020 11:54:00 AM EST MEDENT ([facility] ) Name Value Range Interpretation Code Description Data Shaila rce(s) Supporting Document(s) Glucose, Fasting 157 mg/dL 70-100 Above high normal M EDENT ([facility], ) Creatinine For GFR 0.76 mg/dL 0.70-1.30 Normal (applies to non -numeric results) [facility] ([facility] ) Blood Urea Nitrogen 28 mg/dL 7-18 Above high normal [facility] ([facility]) Glomerular Filtration Rate Laboratory test result Normal (applies to non- numeric results) [facility] ([facility]) <content>Units are mL/min/1.73 m2</content>
<content></content>
<content>Chronic Kidney Disease Staging per NKF:</content>
<content></content>
<content>Stage I & II GFR >=60 Normal to Mildly Decreased</content>
<content>Stage III GFR 30- 59 Moderately Decreased</content>
<content>Stage IV GFR 15-29 Severely Decreased</content>
<content>Stage V GFR <15 Very Little GFR Left</content>
<content>ESRD GFR <15 on CORN SHELLER OPERATOR</content>
<content></content> Sodium Level 137 meq/L 136-145 Normal (applies to non-numeric res ults) [facility] ([facility]) Potassium Serum 4.8 meq/L 3.5-5.1 Normal (applies to non-numeric results) [facility] ([facility]) Chloride Level 104 meq/L 98-107 Normal (applies to non-numeric r esults) [facility] ([facility]) Carbon Dioxide Level 29 meq/L 21-32 Normal (applies to non-num laura results) [facility] ([facility]) Anion Gap 4 meq/L 8-16 Below low normal [facility] ( [facility]) Calcium Level 7.9 mg/dL 8.8-10.2 Below low normal [facility] T ([facility]) Albumin 2.9 GM/DL 3.2-5.2 Below low normal [facility] ( [facility]) Phosphorus Level 3.9 mg/dL 2.5-4.9 Normal (applies to non-numeric results) [facility] ([facility]) ID Date Data Source [id number] 03/15/2020 11:54:00 AM EST [facility] ([facility]) Name Value Range Interpretation Code Description Data Shaila rce(s) Supporting Document(s) Natriuretic peptide.B prohormone N-Terminal [Mass/volu me] in Serum or Plasma 478 pg/mL Above high normal [facility] ([facility], ) ID Date Data Source [id number] 03/15/2020 11:54:00 AM [facility]) Name Value Range Interpretation Code Description Data Shaila rce(s) Supporting Document(s) Aspergillus Fumigatus AB Laboratory test result Normal (applies to non-numeric results) [facility] ([facility]) Micropolyspora Faeni AB Laboratory test result N ormal (applies to non-numeric results) [facility] ([facility]) Aureobasidium Pullulans Laboratory test result N ormal (applies to non-numeric results) [facility] ([facility]) [place] Serum AB Laboratory test result Normal (a pplies to non-numeric results) [facility] ([facility]) Performed at: [facility] [address] [id number] [place] Press Operator: Rashaun Hansen MD, Phone: [phone] Performed at: [facility] [id number] [place] [employer] Operator: Elda Orellana MD, Phone: [phone] Thermoactinomyces Vulgaris Laboratory test result Normal (applies to non- numeric results) [facility] ([facility]) Thermoactinomyces Sacchari Laboratory test result Normal (applies to non- numeric results) [facility]) ID Date Data Source [id number] 03/15/2020 11:54:00 AM EST [facility] ([facility]) Name Value Range Interpretation Code Description Data Shaila rce(s) Supporting Document(s) Cytoplasmic Neutrop AB Anca-C Laboratory test result Normal (applies to non- numeric results) [facility] ([facility]) Perinuclear AB Anca-P Laboratory test result Nor mal (applies to non-numeric results) [facility] ([facility]) The presence of positive fluorescence ex hibiting P-ANCA or C-ANCA patterns alone is not specific for the diagnosis of Anamaria's Granulomatosis (WG) or microscopic polyangiitis. Decisions about treatment should not be based solely on ANCA IFA results. The International ANCA [employer] Consensus recommends follow up testing of positive sera with both IN- 3 and MPO-ANCA enzyme immunoassays. As m any as 5% serum samples are positive only by EIA. Ref. AM J Clin Pathol 1999;111:507-513. Anca-Atypical Laboratory test result Normal (applies t o non-numeric results) [facility] ([facility]) The atypical pANCA pattern has been obse rved in a significant percentage of patients with ulcerative colitis, primary sclerosing cholangitis and autoimmune hepatitis. ID Date Data Source [id number] 03/15/2020 11:54:00 AM EST [facility] ([facility]) Name Value Range Interpretation Code Description Data Shaila rce(s) Supporting Document(s) Anti Double Strand-Dna AB 20 IU/ml 0-9 Above high normal [facility] ([facility]) <content>Negative <5</content>
<content>Equivocal 5 - 9</content>
<content>Positive >9</content>
<content></content> Antinuclear Antibodies Direct Laboratory test result Abnormal (applies to non- numeric results) [facility] ([facility]) Gardner Antibodies Laboratory test result 0.0-0.9 Normal ( applies to non-numeric results) [facility] ([facility]) SERVICE LEARNING COORDINATOR Antibodies Laboratory test result 0.0-0.9 Normal (a pplies to non-numeric results) [facility] ([facility]) Sjogren's Anti SS-B Laboratory test result 0.0-0.9 Hollie l (applies to non- numeric results) [facility] ([facility]) Sjogren's Anti SS-A Laboratory test result 0.0-0.9 Hollie l (applies to non- numeric results) [facility] ([facility]) Felicia Comment Laboratory test result Normal (applies to non- numeric results) [facility] ([facility]) . Autoantibody Disease Association Condition Frequency -------- --------- Antinuclear Antibody, SLE, mixed connective Direct (FELICIA-D) tissue diseases -------- --------- dsDNA SLE 40 - 60% -------- --------- Chromatin Drug induced SLE 90% SLE 48 - 97% -------- --------- SSA (Ro) SLE 25 - 35% Sjogren's Syndrome 40 - 70% Lupus 100% -------- --------- SSB (La) SLE 10% Sjogren's Syndrome 30% ------- --------- Sm (anti-Gardner) SLE 15 - 30% ------- --------- SERVICE LEARNING COORDINATOR Mixed Connective Tissue Disease 95% (U1 nRNP, SLE 30 - 50% anti-ribonucleoprotein) Polymyositis and/or Dermatomyositis 20% -------- --------- Scl-70 (antiDNA Scleroderma (diffuse) 20 - 35% topoisomerase) Crest 13% -------- --------- Shyam-1 Polymyositis and/or Dermatomyositis 20 - 40% -------- --------- Centromere B Scleroderma - Crest variant 80% ID Date Data Source [id number] 03/15/2020 11:54:00 AM EST [facility] ([facility]) Name Value Range Interpretation Code Description Data Shaila rce(s) Supporting Document(s) Erythrocyte sedimentation rate by Westergren method 7 mm/hr 0-20 Normal (applies to non-numeric results) [facility] ([facility]) Rheumatoid factor [Units/volume] in Serum or Plasma Laboratory t est result Normal (applies to non-numeric results) [facility] ([facility]) Angiotensin converting enzyme [Enzymatic activity/volu me] in Serum or Plasma 31 U/L 14-82 Normal (applies to non-numeric results) [facility] ([facility]) C reactive protein [Mass/volume] in Serum or Plasma by High sensitivity method 0.35 mg/dL 0.00-0.30 Above high normal [facility] ([facility]) Cyclic citrullinated peptide IgG Ab [Units/volume] in Serum or Plasma 4 units 0-19 Normal (applies to non-numeric results) [facility] ([facility]) <content>Negative <20</con tent>
<content>Weak positive 20 - 39</content>
<content>Moderate positive 40 - 59</content>
<content>Strong positive >59</content>
<content></content> ID Date Data Source [id number] 02/14/2020 01:00:00 PM EST [facility] Name Value Range Interpretation Code Description Data Shaila rce(s) Supporting Document(s) Follow Up [facility] ZUJJQi0aEcSPWeXtHLEnCvxSTMtmKTvmPYMcN3K1ANckLj1HKAxmxxBjDOLoVa8+FIFbQB1dql0zHGUy gMy [file] tikmGpzEoyRoTF+mwQgEkfHxjohmHnnIkCLd+kgwim qn1BqDo8rXr2qUhp+87RU5S5Ix5ox0MYKKs9CGypop2ji4AXhrviboiSbrnOnANYTK0linTdw32HlNQJ 4SgBuklXm1C3+FyG/DfOuyt0ALC7oHty5Ei3Gde6X3ltqKGboJDW+SYzaiYRjOLAzcaAlNETEcIGGXvj 9h4o1G3vCPlZzT9C+620WIUjHvKI5Mxqi9WjnNGjh4 RWXkjB/slJ2vsNENv5Egn1Yug0vkFKIireG18u5yBi0hSfH9kBo/15H8ZjgFsx1ra4CzDvsll4INeyWp SR7LpgLrWQvLtuuierjP+BWHqS1JWprmlHkYzaulq8wyjAnYJpzL+9GS/mOWotf1OeDfbL6OMSINOd3v LLuyr9ioeHrhLUBXOf2zol+CuvN0rmkUxlVPp6Z4oC yjOq3K4ve1otU58TrU1Q+CWp7SeCiFJx6o8Ev/qLuN6HNVltNN+9h9e0KY8We/kvXgTiUYRYlk0MNUZ0 zOWxaeyRQ8rTu2mTjhDTyOHH49GzCdUIzyiLOzFBffnW3g88Rwve8lDvQ8rzJaSxWilStIXLnb8a0e9x AH/INSPECTOR [employer]/W5IEfUFLlrRIuyKDNsGcH6go32g2C4ZwfPDs [file] wMsyNtyamHxhgasEhRm2fcEZcRN9sndp8HnOah8I/Iván+2WcgetjtyA9U48NDVStP3hQE3mJytveHXej [file] b2Jgxm/gkLscwKxv22VaIxgqEV76KU7uL6DNF4PySL7T5ZX88TBNyeC7H6KatAm43/jg1YXV5wtt/psychology intern [file] [facility]+yN3aH+jYkiJeiVo3QKWC3TplydnSviXg [file] h0zTUaR9CxNESphvE1xvm9Rx097nzPaECkI1hVKu+6HiqK2vmxU9DosMmvD9N/IXZebW0XnlMcpg/Maria Dolores [file] wgInC65BgRrE9fmlE8TldG0KgbavgWucis0uUnqrRPjP8r2lj1aQ8H6IIsqI4UODJRULgGKrzybm+skilled nursing [file] diversional therapist+bcANLWsn8J9iGH/0XnH0e2gF8Ktln9sDcD/w6H [file] 27KhX1GzvNagxWdJsrCEqR5LjpG5Iv2VcXU5PL3CsHnEcLK+vp mobile products/G5kOezsVPi4/LSUpmVj36xD01nx3T [file] iZmyUkicXY19FJcB6IuI/long term/D1/9Cc0gSWqXRUQz22BhHGScNluRmFzrZaedLwsWj1BQAfDqOHbez+/ [file] VvOjJTjHGSRcwmxomoQQjsvC4KRTnMpXdXVBaBL3e/pAMN7a/José Luis/nBS4h/oOag9EqJQiuAlvwSRt8fu [file] AcMLmG1d5g7+EMapUEf8KBuyoAGUmCOgAwj5FYXRSqT9T35j+MOP HANDLE ASSEMBLER/mOfLtNYog+zF+8RsPN43kGQcFgXP [file] aylGpqRNkrp8rQKNrJHf3kvc8tF1e1LLzWs6K94ENcI7IdRUoCLmoaPxgf+Pedro Luis/4kMqD6Pivvw4NL3+X [file] Wl+x/Equipment Operator [employer]+LtH3K6/ZYEsBZaSbr8Dywf4MIzT6VUgwphj13iyhUuz9uemk7D19LqBcNA8Syaxm5Ubgcuw [file] Shake Maker+oT4bItpOkH49R1V9Wb5i+18dgm1VRa8jnRkiVKb [file] 1h6I0cyIfRGKXTbtM09iCmepaJ3KGMlZkP5XJVLMDVY0HBYRKUp7nUSTA4uJQ+bi manager/2BrS5lG2h3L3wL [file] /TaZpbmjiJ7+insurance defense paralegal+r5P66OXpg0nTuCY8MSqKNQ2hAEO [file] j/RWG4YKDWnmj2sLgICLT/MARY ANN/vnXPZLU9cF/qfrdT XvCtMgtfQES+etjj99cWAXkxYTi6nfjQmgElIp59rHDGHT26/MW3giBsItHxXpAwLIzFOArrrfeZ3b4w skgEADow436MF/PHc/fV1l9HeFWl7weiJs0qdKXhTY9c8AC+MJNJEFly6OszDjyBP6uRIthT43JPJAbb JXX0G8RPZeFH9NDXRl6IEpuJwlSI9GDFXGd2oGBdgD 1uWWWbd5Jw+qQAqxiQakfs8VyUZ+9eHvKA/3Zc40Zqd7FGWlRt6fngyisMPN2yJusfRtUOEiXi5J4jac hCocIkQwufI88VyEmBd1P52S0GzxJzveeM/p86qUNt1K0bRihIcY52LQXmQcfq0rTKNt/CSyD5gGUe/+ d2vd5/auzVEhbGfYgdmYuLTFF7Ni9Y2pWo118D6LxR X3TWQGCZd8hofGi8dZ8oCWFjSU8FK3BPMk8qLDeHRPRphpdPiGhFL3NtBCEynUwk4+V+qtoRbqrWYdio w/oxf7Hhdyumd55t3m26/jC1Vv7yZsAiEs+TSgXIKOatIBjCW6rmXiKSFWcM/2r7QI5Ll6/OH7PdLWwU O6A1AeZU990H09Ln/0lBFf/DNgaIQHIY6NrujBzYtd Iw0wCifI2m6pc7ua7DBJxlrre/vUlfEKQYglNpx4v3Wuk/7HSOBvEuwbH02DXAF1PZJvbIfW0uOb39sc WYZ6f6/iTLpzalQgQ1aiCJhEYPDcT/zN1CUwzLP9mvo8pZVdv3zkXIcAh+gS63GyMVIVzDlTIBMAOUKe RxoQFnr0hLbcz/asJ0IOSEdAdnViZ9DDpjrgc2dsPY IK6h0U7NqzcIh/ZV2UhI2csx1tRU1WpPJ4K63ghqtjEtHQRwEFxnpsFQEmZjkID8uL5XOVTLKa2M9szz UG0I4mPSDzQl6oWu9Ybvy9h9SVT1G1BRdIqfzo2ujc2q5nszvx9w2npbFfhrO9AotpQXRW4d8upr1DHU +UHM4V8/C2xc7M6mE0OQWN2cLPNTNs5mVtKYIYIQET [file] YDBTExZVTfJGAhI3YfDWctG7fHPHs7HWZWPWNBBVfDWEKBUYEKNWIJTAYQKtIiWKmnCQIpLYT+IDw0NE T1AhCQBICPOfYPDMAGOfGWGQEZDKAHPBTaFZWfIL0qA8Lki7DoVYJaBPHeWX2kbwDpMMHoEw3XjSneRM QsU2F8vJLdP0rLTVUpVmBxDMA4XZQeBx7eqBFzMD3S LkwtB8GoBJAnUYCKROBNJeh+URKV04CpofSDHQ4jSBzxk4sf6iXOP7ZheLU9OsPkGJHA4HjCnUTVs3GO gXd3QAB8HAp+KbWGGmnyUqbSKLnQUcKRQrNsMOV2mcHdsK3DIC6zm6TqPH3Ty1ImarK7wwAyDTxwQve6 GbT7NXeeTQZDDn== ID Date Data Source [id number] 12/06/2019 02:25:00 PM EDT [facility] ([facility]) Name Value Range Interpretation Code Description Data Shaila rce(s) Supporting Document(s) Natriuretic peptide.B prohormone N-Terminal [Mass/volu me] in Serum or Plasma 159 pg/mL Above high normal [facility] ([facility]) ID Date Data Source [id number] 12/06/2019 02:25:00 PM EDT [facility] ([facility]) Name Value Range Interpretation Code Description Data Shaila rce(s) Supporting Document(s) Cholesterol Level 97 mg/dL Normal (applies to non-numeri c results) [facility] ([facility]) Triglycerides Level 64 mg/dL Normal (applies to non-nume cedric results) [facility] ([facility]) Non-HDL-C 51 mg/dL Normal (applies to non-numeric resul ts) [facility] ([facility]) HDL Cholesterol 46 mg/dL Normal (applies to non-numeric results) [facility] ([facility]) LDL Cholesterol 38 mg/dL Normal (applies to non-numeric results) [facility] ([facility]) Cholesterol Risk Ratio 2.108 Normal (applies to non-n umeric results) [facility] ([facility]) ID Date Data Source [id number] 12/06/2019 02:25:00 PM EDT [facility] ([facility]) Name Value Range Interpretation Code Description Data Shaila rce(s) Supporting Document(s) White Blood Count 8.9 10 4.0-10.0 Normal (applies to non-numeri c results) [facility] ([facility]) Red Blood Count 4.58 10 4.30-6.10 Normal (applies to non-numeric results) [facility] ([facility]) Hemoglobin 14.3 g/dL 13.5-17.5 Normal (applies to non-numeric resul ts) [facility] ([facility]) Hematocrit 43.4 % 42.0-52.0 Normal (applies to non-numeric resul ts) [facility] ([facility]) Mean Corpuscular Volume 94.8 fl 80.0-96.0 Normal ( applies to non-numeric results) [facility] ([facility]) Mean Corpuscular Hemoglobin 31.2 pg 27.0-33.0 Norm al (applies to non-numeric results) [facility] ([facility]) Mean Corpuscular HGB Conc 32.9 g/dL 32.0-36.5 Normal (applies to non-numeric results) [facility] ([facility]) Platelet Count, Automated 204 10 150-450 Normal (applies to non-numeric results) [facility] ([facility]) Red Cell Distribution Width 12.8 % 11.5-14.5 Norm al (applies to non-numeric results) [facility] ([facility]) Dyer % 5.9 % 0.0-5.0 Above high normal [facility] ([facility]) Lymph % 21.9 % 24.0-44.0 Below low normal [facility] ( [facility]) Neutrophils % 67.7 % 36.0-66.0 Above high normal [facility] ([facility]) Baso % 0.9 % 0.0-1.0 Normal (applies to non-numeric resul ts) [facility] ([facility]) Immature Granulocyte % 0.3 % 0-3.0 Normal (applies to non-n umeric results) [facility] ([facility]) Eos % 3.3 % 0.0-3.0 Above high normal [facility] ([facility]) Neutrophils # 6.0 10 1.5-8.5 Normal (applies to non-numeric re sults) [facility] ([facility]) Nucleated Red Blood Cell % 0.0 % 0-0 Normal (applies to n on-numeric results) [facility] ([facility]) Lymph # 2.0 10 1.5-5.0 Normal (applies to non-numeric resul ts) [facility] ([facility]) Dyer # 0.5 10 0.0-0.8 Normal (applies to non-numeric resul ts) [facility] ([facility]) Eos # 0.3 10 0.0-0.5 Normal (applies to non-numeric resul ts) [facility] ([facility]) Baso # 0.1 10 0.0-0.2 Normal (applies to non-numeric resul ts) [facility] ([facility]) ID Date Data Source [id number] 12/06/2019 02:25:00 PM EDT [facility] ([facility]) Name Value Range Interpretation Code Description Data Shaila rce(s) Supporting Document(s) Creatinine, Urine 304.0 mg/dL Normal (applies to non-numer ic results) [facility] ([facility]) Malb Urine Siemens 20.1 mg/L Normal (applies to non-numer ic results) [facility] ([facility]) Jeferson/Creat Ratio 6.6 MCG/MG 0.0-30.0 Normal (applies to non-numeric results) [facility] ([facility]) THE [employer] STATES THAT MICROALBUMINURIA IS PRESENT IF THE MICROALBUMIN/CREATININE RATIO EXCEEDS 30 MCG/MG. THE THRESHOLD FOR CLINICAL ALBUMINURIA IS REACHED AT 300 MCG/MG. THE CLASSIFICATION OF A PATIENT SHOULD BE BASED UPON AT LEAST 2 OF 3 ABNORMAL RESULTS ON SPECIMENS COLLECTED WITHIN A 3 TO 6 MONTH TIME FRAME. ID Date Data Source [id number] 12/06/2019 02:25:00 PM EDT [facility] ([facility]) Name Value Range Interpretation Code Description Data Shaila rce(s) Supporting Document(s) Hemoglobin A1c 6.5 % Normal (applies to non-numeric r esults) [facility] ([facility]) <content>REFERENCE RANGES:</content><br/ ><content></content>
<content><=5.6% NORMAL</content>
<content>5.7-6.4% SUGGESTS IMPAIRED GLUCOSE METABOLISM/PREDIABETIC</content>
<content>>= 6.5% ABNORMAL</content>
<content></content> Estimated Average Glucose 140 mg/dL 60-110 Above high normal [facility] ([facility]) ID Date Data Source [id number] 12/06/2019 02:25:00 PM EDT [facility] ([facility]) Name Value Range Interpretation Code Description Data Shaila rce(s) Supporting Document(s) Blood Urea Nitrogen 23 mg/dL 7-18 Above high normal [facility]) Glucose, Fasting 77 mg/dL 70-100 Normal (applies to non-numeric results) [facility] ([facility]) Glomerular Filtration Rate Laboratory test result Normal (applies to non- numeric results) [facility] ([facility]) <content>Units are mL/min/1.73 m2</content>
<content></content>
<content>Chronic Kidney Disease Staging per NKF:</content>
<content></content>
<content>Stage I & II GFR >=60 Normal to Mildly Decreased</content>
<content>Stage III GFR 30- 59 Moderately Decreased</content>
<content>Stage IV GFR 15-29 Severely Decreased</content>
<content>Stage V GFR <15 Very Little GFR Left</content>
<content>ESRD GFR <15 on CORN SHELLER OPERATOR</content>
<content></content> Sodium Level 140 meq/L 136-145 Normal (applies to non-numeric res ults) [facility] ([facility]) Creatinine For GFR 0.77 mg/dL 0.70-1.30 Normal (applies to non -numeric results) [facility] ([facility]) Chloride Level 105 meq/L 98-107 Normal (applies to non-numeric r esults) [facility] ([facility]) Potassium Serum 4.3 meq/L 3.5-5.1 Normal (applies to non-numeric results) [facility] ([facility]) Carbon Dioxide Level 31 meq/L 21-32 Normal (applies to non-num laura results) [facility] ([facility]) Ast/Sgot 34 U/L 7-37 Normal (applies to non-numeric resul ts) [facility] ([facility]) Calcium Level 8.7 mg/dL 8.8-10.2 Below low normal [facility] ([facility]) Anion Gap 4 meq/L 8-16 Below low normal [facility] ( [facility]) Alkaline Phosphatase 121 U/L 45-117 Above high normal [facility] ([facility]) Bilirubin,Total 1.1 mg/dL 0.2-1.0 Above high normal [facility] ([facility]) Alt/SGPT 38 U/L 12-78 Normal (applies to non-numeric resul ts) [facility] ([facility]) Albumin/Globulin Ratio 1.0 Normal (applies to non-n umeric results) [facility] ([facility]) Albumin 3.9 GM/DL 3.2-5.2 Normal (applies to non-numeric resul ts) [facility] ([facility]) Total Protein 7.8 GM/DL 6.4-8.2 Normal (applies to non-numeric re sults) [facility] ([facility]) Procedure Social History Code Duration Value Status Description Data Source(s ) Smoking 12/02/2020 12:00:00 AM EDT Patient has never smoked co mpleted Patient has never smoked [facility] ([facility]) Smoking 11/04/2020 12:00:00 AM EDT Never Smoker completed Never S moker eCW1 ([facility]) Smoking 11/04/2020 12:00:00 AM EDT Never Smoker completed Never S moker eCW1 ([facility]) Smoking 11/04/2020 12:00:00 AM EDT Never Smoker completed Never S moker eCW1 ([facility]) Smoking 10/01/2020 12:00:00 AM EDT Never Smoker completed Never S moker eCW1 ([facility]) Smoking 10/01/2020 12:00:00 AM EDT Never Smoker completed Never S moker eCW1 ([facility]) Smoking 08/22/2020 12:00:00 AM EDT Never Smoked Cigarettes com pleted Never Smoked Cigarettes [facility] ([facility]) Smoking 07/20/2020 12:00:00 AM EDT Never Smoker completed Never S moker eCW1 ([facility]) Alcohol intake 07/04/2020 12:00:00 AM EDT Ex-drinker (finding) comp leted Ex- drinker (finding) [facility] Smoking 07/04/2020 12:00:00 AM EDT Never smoker completed Never s moker [facility] Smoking 07/02/2020 12:00:00 AM EDT Never Smoker completed Never S moker eCW1 ([facility]) Alcohol intake 06/06/2020 12:00:00 AM EST Not Currently completed [facility] Smoking 06/06/2020 12:00:00 AM EST Never smoker completed Never s moker [facility] Alcohol intake 05/30/2020 12:00:00 AM EST Not Currently completed [facility] Smoking 05/30/2020 12:00:00 AM EST Never smoker completed Never s moker [facility] Smoking 05/21/2020 12:00:00 AM EST Never Smoker completed Never S moker eCW1 ([facility]) Smoking 05/21/2020 12:00:00 AM EST Never Smoker completed Never S moker eCW1 ([facility]) Smoking 05/21/2020 12:00:00 AM EST Never Smoker completed Never S moker eCW1 ([facility]) Smoking 05/21/2020 12:00:00 AM EST Never Smoker completed Never S moker eCW1 ([facility]) Alcohol intake 05/17/2020 12:00:00 AM EST Not Currently completed [facility] Smoking 05/17/2020 12:00:00 AM EST Never smoker completed Never s moker [facility] Smoking 04/29/2020 12:00:00 AM EST Never Smoker completed Never S moker eCW1 ([facility]) Smoking 04/29/2020 12:00:00 AM EST Never Smoker completed Never S moker eCW1 ([facility]) Smoking 04/29/2020 12:00:00 AM EST Never Smoker completed Never S moker eCW1 ([facility]) Smoking 04/29/2020 12:00:00 AM EST Never Smoker completed Never S moker eCW1 ([facility]) Alcohol intake 04/25/2020 12:00:00 AM EST Not Currently completed [facility] Smoking 04/25/2020 12:00:00 AM EST Never smoker completed Never [facility] Alcohol intake 04/18/2020 12:00:00 AM EST Not Currently completed [facility] Smoking 04/18/2020 12:00:00 AM EST Never smoker completed Never [facility] Vital Signs ID Date Data Source UNK Name Value Range Interpretation Code Description Data Source(s) Systolic blood pressure 104 mm[Hg] 104 mm[Hg] [facility] Diastolic blood pressure 70 mm[Hg] 70 mm[Hg] [facility] Heart rate 94 /min 94 /min [facility] Body height 177.8 cm 177.8 cm [facility] Body weight 85.458 kg 85.458 kg [facility] Body mass index (BMI) [Ratio] 27.03 kg/m2 27.03 kg/m2 [facility] Oxygen saturation in Arterial blood by Pulse oximetry 95 % 95 % [facility] Respiratory rate 20 /min 20 /min [facility] ( [facility]) Body mass index (BMI) [Ratio] 29.3 kg/m2 29.3 k g/m2 [facility] ([facility]) Heart rate 92 /min 92 /min [facility] ([facility]) Body temperature 97.9 [degF] 97.9 [degF] [facility] ([facility]) Oxygen saturation in Arterial blood by Pulse oximetry 93 % 93 % [facility] ([facility]) [place] body weight 148 [lb_av] 148 [lb_av] [facility] ([facility]) Systolic blood pressure 124 mm[Hg] 124 mm[Hg] [facility] ([facility]) Diastolic blood pressure 74 mm[Hg] 74 mm[Hg] [facility] ([facility]) Body height 67 [in_i] 67 [in_i] [facility]) 5'7" Body weight 187.25 [lb_av] 187.25 [lb_av] [facility] T ([facility]) Body weight 196.2 [lb_av] 196.2 [lb_av] eCW1 ([facility]) Body weight 89.0 kg 89.0 kg W1 ([facility]) Body height 70 [in_i] 70 [in_i] eCW1 ([facility]) Body mass index (BMI) [Ratio] 28.15 kg/m2 28.15 kg/m2 W1 ([facility]) Heart rate 115 /min 115 /min W1 ([facility]) Body temperature 99.1 [degF] 99.1 [degF] eCW1 ( [facility]) Systolic blood pressure 104 mm[Hg] 104 mm[Hg] e CW1 ([facility]) Diastolic blood pressure 78 mm[Hg] 78 mm[Hg] eCW1 ([facility]) Body height 70 [in_i] 70 [in_i] [facility] ([facility], ) 5'10" Systolic blood pressure 108 mm[Hg] 108 mm[Hg] [facility] ([facility], ) Diastolic blood pressure 72 mm[Hg] 72 mm[Hg] [facility] ([facility], ) Heart rate 83 /min 83 /min [facility] ([facility], ) Oxygen saturation in Arterial blood by Pulse oximetry 9332 % 9332 % [facility] ([facility], ) Body weight 87.545 kg 87.545 kg [facility] ([facility], ) [place] body weight 166 [lb_av] 166 [lb_av] [facility] ([facility], ) Body weight 193.00 [lb_av] 193.00 [lb_av] [facility] T ([facility], ) Body surface area Derived from formula 2.06 m2 2.06 m2 [facility] ([facility], ) Body mass index (BMI) [Ratio] 27.7 kg/m2 27.7 k g/m2 [facility] ([facility], ) Body weight 198.0 [lb_av] 198.0 [lb_av] eCW1 ([facility]) Heart rate 98 /min 98 /min eCW1 ([facility]) Body weight 89.8 kg 89.8 kg eCW1 ([facility]) Body height 70 [in_i] 70 [in_i] eCW1 ([facility]) Body mass index (BMI) [Ratio] 28.41 kg/m2 28.41 kg/m2 eCW1 ([facility]) Body temperature 98.2 [degF] 98.2 [degF] eCW1 ( [facility]) Systolic blood pressure 116 mm[Hg] 116 mm[Hg] e CW1 ([facility]) Diastolic blood pressure 76 mm[Hg] 76 mm[Hg] eCW1 ([facility]) Oxygen saturation in Arterial blood by Pulse oximetry 943 % 943 % [facility] ([facility], ) Systolic blood pressure 122 mm[Hg] 122 mm[Hg] [facility] ([facility], ) [place] body weight 166 [lb_av] 166 [lb_av] [facility] T ([facility], ) Body height 70 [in_i] 70 [in_i] [facility] ([facility]) 5'10" Diastolic blood pressure 74 mm[Hg] 74 mm[Hg] [facility] ([facility], ) [place] body weight 166 [lb_av] 166 [lb_av] [facility] T ([facility], ) Oxygen saturation in Arterial blood by Pulse oximetry 943 % 943 % [facility] ([facility], ) Body height 70 [in_i] 70 [in_i] [facility] ([facility], ) 5'10" Heart rate 84 /min 84 /min [facility] ([facility], ) Body weight 209.00 [lb_av] 209.00 [lb_av] MEDEN T ([facility]) Body mass index (BMI) [Ratio] 32.7 kg/m2 32.7 k g/m2 [facility] ([facility]) Heart rate 98 /min 98 /min [facility] Body temperature 97.8 [degF] 97.8 [degF] [facility] Oxygen saturation in Arterial blood by Pulse oximetry 96 % 96 % [facility] [place] body weight 148 [lb_av] 148 [lb_av] MEDEN T ([facility]) Systolic blood pressure 128 mm[Hg] 128 mm[Hg] M EDENT ([facility]) Diastolic blood pressure 84 mm[Hg] 84 mm[Hg] [facility] Body height 67 [in_i] 67 [in_i] [facility] ([facility]) 5'7" Systolic blood pressure 130 mm[Hg] 130 mm[Hg] [facility] Diastolic blood pressure 80 mm[Hg] 80 mm[Hg] [facility] ([facility], ) Heart rate 91 /min 91 /min [facility] ([facility], ) Oxygen saturation in Arterial blood by Pulse oximetry 904 % 904 % [facility] ([facility], ) Body height 70 [in_i] 70 [in_i] [facility] ([facility], ) 5'10" [place] body weight 166 [lb_av] 166 [lb_av] MEDEN T ([facility], ) Systolic blood pressure 105 mm[Hg] 105 mm[Hg] [facility] Diastolic blood pressure 62 mm[Hg] 62 mm[Hg] [facility] Heart rate 98 /min 98 /min [facility] Body height 177.8 cm 177.8 cm [facility] Body weight 99.791 kg 99.791 kg [facility] Body mass index (BMI) [Ratio] 31.57 kg/m2 31.57 kg/m2 [facility] Oxygen saturation in Arterial blood by Pulse oximetry 93 % 93 % [facility] Body surface area Derived from formula 2.17 m2 2.17 m2 [facility], ) Body weight 99.792 kg 99.792 kg [facility] ([facility], ) [place] body weight 166 [lb_av] 166 [lb_av] MEDEN T ([facility]) Body mass index (BMI) [Ratio] 31.6 kg/m2 31.6 k g/m2 [facility] ([facility]) Systolic blood pressure 130 mm[Hg] 130 mm[Hg] [facility] Diastolic blood pressure 78 mm[Hg] 78 mm[Hg] [facility] ([facility]) Heart rate 84 /min 84 /min [facility] ([facility]) Oxygen saturation in Arterial blood by Pulse oximetry 92 % 92 % [facility] ([facility]) o2 sat on 1.5L Body height 70 [in_i] 70 [in_i] [facility] ([facility]) 5'10" Body weight 220.00 [lb_av] 220.00 [lb_av] [facility] ([facility], ) Systolic blood pressure 102 mm[Hg] 102 mm[Hg] [facility] Diastolic blood pressure 60 mm[Hg] 60 mm[Hg] [facility] Body height 177.8 cm 177.8 cm [facility] Heart rate 68 /min 68 /min [facility] Body weight 100.245 kg 100.245 kg [facility] Body mass index (BMI) [Ratio] 31.71 kg/m2 31.71 kg/m2 [facility] Oxygen saturation in Arterial blood by Pulse oximetry 86 % 86 % [facility] Body temperature 36.78 Yareli 36.78 Yareli [facility] Systolic blood pressure 105 mm[Hg] 105 mm[Hg] [facility] Diastolic blood pressure 67 mm[Hg] 67 mm[Hg] [facility] Heart rate 82 /min 82 /min [facility] Respiratory rate 20 /min 20 /min [facility] Oxygen saturation in Arterial blood by Pulse oximetry 92 % 92 % [facility] Body height 179.1 cm 179.1 cm [facility] Body weight 100.2 kg 100.2 kg [facility] Body mass index (BMI) [Ratio] 31.25 kg/m2 31.25 kg/m2 [facility] Body weight 223 [lb_av] 223 [lb_av] eCW1 ([facility]) Body height 70 [in_i] 70 [in_i] eCW1 ([facility]) Body mass index (BMI) [Ratio] 31.99 kg/m2 31.99 kg/m2 [facility] ([facility]) Heart rate 101 /min 101 /min W1 ([facility]) Body temperature 98.5 [degF] 98.5 [degF] eCW1 ( [facility]) Systolic blood pressure 116 mm[Hg] 116 mm[Hg] e CW1 ([facility]) Diastolic blood pressure 72 mm[Hg] 72 mm[Hg] eCW1 ([facility]) Systolic blood pressure 130 mm[Hg] 130 mm[Hg] [facility] Diastolic blood pressure 78 mm[Hg] 78 mm[Hg] [facility] Heart rate 88 /min 88 /min [facility] Respiratory rate 16 /min 16 /min [facility] Body height 177.8 cm 177.8 cm [facility] Body weight 101.152 kg 101.152 kg [facility] Body mass index (BMI) [Ratio] 32.00 kg/m2 32.00 kg/m2 [facility] Oxygen saturation in Arterial blood by Pulse oximetry 91 % 91 % [facility] Body weight 231.0 [lb_av] 231.0 [lb_av] eCW1 ([facility]) Body weight 104.7 kg 104.7 kg W1 ([facility]) Body height 70 [in_i] 70 [in_i] eCW1 ([facility]) Body mass index (BMI) [Ratio] 33.14 kg/m2 33.14 kg/m2 eCW1 ([facility]) Heart rate 109 /min 109 /min eCW1 ([facility]) Body temperature 98.2 [degF] 98.2 [degF] eCW1 ( [facility]) Systolic blood pressure 122 mm[Hg] 122 mm[Hg] e CW1 ([facility]) Diastolic blood pressure 86 mm[Hg] 86 mm[Hg] eCW1 ([facility]) Diastolic blood pressure 80 mm[Hg] 80 mm[Hg] [facility] Systolic blood pressure 118 mm[Hg] 118 mm[Hg] [facility] Heart rate 84 /min 84 /min [facility] Body height 177.8 cm 177.8 cm [facility] Body weight 105.325 kg 105.325 kg [facility] Body mass index (BMI) [Ratio] 33.32 kg/m2 33.32 kg/m2 [facility] Oxygen saturation in Arterial blood by Pulse oximetry 89 % 89 % [facility] Systolic blood pressure 102 mm[Hg] 102 mm[Hg] [facility] Diastolic blood pressure 72 mm[Hg] 72 mm[Hg] [facility] Heart rate 76 /min 76 /min [facility] Body height 177.8 cm 177.8 cm [facility] Body weight 110.224 kg 110.224 kg [facility] Body mass index (BMI) [Ratio] 34.87 kg/m2 34.87 kg/m2 [facility] Oxygen saturation in Arterial blood by Pulse oximetry 89 % 89 % [facility] Body temperature 97.4 [degF] 97.4 [degF] [facility] ([facility]) Oxygen saturation in Arterial blood by Pulse oximetry 98 % 98 % [facility] ([facility]) Body height 67 [in_i] 67 [in_i] MED[facility] ([facility]) 5'7" Body weight 235.12 [lb_av] 235.12 [lb_av] MEDEN T ([facility]) Systolic blood pressure 116 mm[Hg] 116 mm[Hg] M EDENT ([facility]) Body mass index (BMI) [Ratio] 36.8 kg/m2 36.8 k g/m2 [facility] ([facility]) Diastolic blood pressure 78 mm[Hg] 78 mm[Hg] [facility] ([facility]) Heart rate 74 /min 74 /min [facility] ([facility]) Respiratory rate 24 /min 24 /min [facility] ( [facility]) [place] body weight 148 [lb_av] 148 [lb_av] MEDEN T ([facility]) Heart rate 112 /min 112 /min [facility], [facility] Oxygen saturation in Arterial blood by Pulse oximetry 85 % 85 % [facility] ([facility], ) Body height 70 [in_i] 70 [in_i] [facility], [facility] 5'10" [place] body weight 166 [lb_av] 166 [lb_av] MEDEN T ([facility], ) Systolic blood pressure 120 mm[Hg] 120 mm[Hg] M [facility] ([facility], ) Diastolic blood pressure 70 mm[Hg] 70 mm[Hg] [facility] ([facility], ) Systolic blood pressure 102 mm[Hg] 102 mm[Hg] M [facility] ([facility], ) Diastolic blood pressure 70 mm[Hg] 70 mm[Hg] [facility], ) Heart rate 96 /min 96 /min [facility] ([facility], ) Oxygen saturation in Arterial blood by Pulse oximetry 88 % 88 % [facility], ) Body height 70 [in_i] 70 [in_i] [facility] ([facility], ) 5'10" [place] body weight 166 [lb_av] 166 [lb_av] MEDEN T ([facility], ) Body height 70 [in_i] 70 [in_i] [facility] ([facility], ) 5'10" Body weight 235.00 [lb_av] 235.00 [lb_av] MEDEN T ([facility]) Body mass index (BMI) [Ratio] 33.7 kg/m2 33.7 k g/m2 [facility] ([facility]) [place] body weight 166 [lb_av] 166 [lb_av] MEDEN T ([facility]) Body weight 106.596 kg 106.596 kg [facility] ([facility]) Body height 70 [in_i] 70 [in_i] [facility] ([facility]) 5'10" Body weight 235.00 [lb_av] 235.00 [lb_av] MEDEN T ([facility]) Body mass index (BMI) [Ratio] 33.7 kg/m2 33.7 k g/m2 [facility] ([facility]) [place] body weight 166 [lb_av] 166 [lb_av] MEDEN T ([facility]) Body weight 106.596 kg 106.596 kg [facility] ([facility]) Body mass index (BMI) [Ratio] 33.7 kg/m2 33.7 k g/m2 [facility] ([facility]) Body weight 106.596 kg 106.596 kg [facility] ([facility]) [place] body weight 166 [lb_av] 166 [lb_av] MED[facility] T ([facility]) Body height 70 [in_i] 70 [in_i] [facility] ([facility]) 5'10" Body weight 235.00 [lb_av] 235.00 [lb_av] MEDEN T ([facility]) Body height 70 [in_i] 70 [in_i] [facility] ([facility]) 5'10" Body weight 235.00 [lb_av] 235.00 [lb_av] MEDEN T ([facility]) Body mass index (BMI) [Ratio] 33.7 kg/m2 33.7 k g/m2 [facility] ([facility]) Body weight 106.596 kg 106.596 kg [facility] ([facility]) Systolic blood pressure 118 mm[Hg] 118 mm[Hg] M EDENT ([facility]) Diastolic blood pressure 78 mm[Hg] 78 mm[Hg] [facility] ([facility]) Body weight 233.12 [lb_av] 233.12 [lb_av] MED[facility] T ([facility]) Body mass index (BMI) [Ratio] 36.5 kg/m2 36.5 k g/m2 [facility] ([facility]) Heart rate 82 /min 82 /min [facility] ([facility]) Body temperature 97.7 [degF] 97.7 [degF] [facility] ([facility]) [place] body weight 148 [lb_av] 148 [lb_av] MEDEN T ([facility]) Body height 67 [in_i] 67 [in_i] [facility] ([facility]) 5'7" Respiratory rate 20 /min 20 /min [facility]) Oxygen saturation in Arterial blood by Pulse oximetry 91 % 91 % [facility]) Patient Treatment Plan of Care Planned Activity Planned Date Details Description Data Source (s) Tresiba FlexTouch 200 UNIT/ML SOPN 11/09/2020 12:00:00 AM EDT [facility] Methylprednisolone 8 MG Oral Tablet 11/05/2020 12:00:00 AM EDT [facility] Hydroxychloroquine Sulfate 200 MG Oral Tablet [[place]] 11/04/2020 12:00:00 AM EDT eCW1 ([facility]) Hydroxychloroquine Sulfate 200 MG Oral Tablet [Plaqu[place]] 11/04/2020 12:00:00 AM EDT eCW1 ([facility]) Hydroxychloroquine Sulfate 200 MG Oral Tablet [[place]] 11/04/2020 12:00:00 AM EDT eCW1 ([facility]) Furosemide 40 MG Oral Tablet 10/21/2020 12:00:00 AM EDT [facility] Treprostinil 0.6 MG/ML Inhalant Solution [Tyvaso] 10/01/2020 12: 00:00 AM EDT [facility] nintedanib 150 MG Oral Capsule 07/10/2020 12:00:00 AM EDT [facility] Methylprednisolone 32 MG Oral Tablet 06/21/2020 12:00:00 AM EST [facility] Hydroxychloroquine Sulfate 200 MG Oral Tablet 06/17/2020 12:00:00 A M EST [facility] Hydroxychloroquine Sulfate 200 MG Oral Tablet [[place]] 06/17/2020 12:00:00 AM EST eCW1 ([facility]) Hydroxychloroquine Sulfate 200 MG Oral Tablet [Plaqu[place]] 06/17/2020 12:00:00 AM EST eCW1 ([facility]) Hydroxychloroquine Sulfate 200 MG Oral Tablet [Plaqu[place]] 06/17/2020 12:00:00 AM EST eCW1 ([facility]) Hydroxychloroquine Sulfate 200 MG Oral Tablet [Pl[place]] 06/17/2020 12:00:00 AM EST eCW1 ([facility]) Hydroxychloroquine Sulfate 200 MG Oral Tablet [Plaqu[place]] 06/17/2020 12:00:00 AM EST eCW1 ([facility]) Hydroxychloroquine Sulfate 200 MG Oral Tablet [Plaqu[place]] 06/17/2020 12:00:00 AM EST eCW1 ([facility]) Furosemide 40 MG Oral Tablet 06/06/2020 12:00:00 AM EST [facility] apixaban 2.5 MG Oral Tablet [Eliquis] 06/05/2020 12:00:00 AM EST [facility] Furosemide 40 MG Oral Tablet 04/26/2020 12:00:00 AM EST [facility] Spironolactone 25 MG Oral Tablet 04/25/2020 12:00:00 AM EST [facility] Furosemide 40 MG Oral Tablet 04/18/2020 12:00:00 AM EST [facility] gabapentin 300 MG Oral Capsule 04/15/2020 12:00:00 AM EST [facility] Losartan Potassium 50 MG Oral Tablet 12/06/2018 12:00:00 AM EDT [facility] 1 ML Enoxaparin sodium 150 MG/ML Prefilled Syringe [facility] Furosemide 40 MG Oral Tablet [facility] Omeprazole 40 MG Delayed Release Oral Capsule [facility]
[2021-01-24 19:57] LABS: ABG BASE EXCESS 4.6 (-2.0-2.0); ABG HCO3 29.8 MEQ/L (22.0-26.0); ABG O2 SATURATION 97.9 % (95.0-99.0); ABG PARTIAL PRESSURE CO2 46.3 mmHg (35.0-45.0); ABG PARTIAL PRESSURE O2 116.2 mmHg (75.0-100.0); ABG STANDARD HCO3 28.6 MEQ/L (22.0-26.0); ABG TOTAL CO2 31.3 MEQ/L (23.0-31.0); ABG pH (ARTERIAL) 7.427 UNITS (7.350-7.450)
[2021-01-24 20:03] LABS: BASO % 0.2 % (0.0-1.0); EOS % 0.2 % (0.0-3.0); HEMATOCRIT 41.7 % (42.0-52.0); HEMOGLOBIN 13.4 g/dl (13.5-17.5); LYMPH # 0.6 10^3/uL (1.5-5.0); LYMPH % 6.2 % (24.0-44.0); MEAN CORPUSCULAR HEMOGLOBIN 32.7 pg (27.0-33.0); MEAN CORPUSCULAR HGB CONC 32.1 g/dl (32.0-36.5); MEAN CORPUSCULAR VOLUME 101.7 fl (80.0-96.0); MONO # 0.3 10^3/uL (0.0-0.8); MONO % 3.7 % (2.0-8.0); NEUTROPHILS # 7.9 10^3/uL (1.5-8.5); NEUTROPHILS % 89.3 % (36.0-66.0); PLATELET COUNT, AUTOMATED 189 10^3/uL (150-450); WHITE BLOOD COUNT 8.9 10^3/uL (4.0-10.0)
[2021-01-24 20:22] LABS: INR 1.12; PARTIAL THROMBOPLASTIN TIME 30.1 SECONDS (25.9-37.0); PROTHROMBIN TIME 14.8 SECONDS (12.7-14.5)
--- NOTE | 2021-01-24 20:44 | REP ---
INDICATION: CHEST PAIN COMPARISON: 03/19/2020 TECHNIQUE: Portable AP view of the chest FINDINGS: The mediastinum and cardiac silhouette are stable and mild cardiomegaly is again suggested. The lung santana demonstrate advanced fibrosis and scarring. Superimposed acute process cannot definitively be excluded. No obvious effusion. No pneumothorax. Skeletal structures are intact. IMPRESSION: Advanced fibrotic changes similar to prior examination. Subtle superimposed process cannot be excluded. <Electronically signed by Paul Luis > 01/24/21 [id number]
[2021-01-24 20:48] LABS: ALBUMIN 2.6 GM/DL (3.2-5.2); ALT/SGPT 43 U/L (12-78); BILIRUBIN,DIRECT 0.3 MG/DL (0.0-0.2); BILIRUBIN,TOTAL 0.8 MG/DL (0.2-1.0); BLOOD UREA NITROGEN 24 MG/DL (7-18); CALCIUM LEVEL 8.3 MG/DL (8.8-10.2); CARBON DIOXIDE LEVEL 34 MEQ/L (21-32); CHLORIDE LEVEL 99 MEQ/L (98-107); CPK CREATINE PHOSPHOKINASE 40 U/L (39-308); CREATININE FOR GFR 0.65 MG/DL (0.70-1.30); FREE T4 1.21 NG/DL (0.76-1.46); GLOMERULAR FILTRATION RATE > 60.0 (>49); GLUCOSE, FASTING 126 MG/DL (70-100); NT-PRO BNP 5019 PG/ML (<125); POTASSIUM SERUM 4.5 MEQ/L (3.5-5.1); SODIUM LEVEL 137 MEQ/L (136-145); THYROID STIMULATING HORMONE 0.943 uIU/ML (0.358-3.740); TOTAL PROTEIN 6.6 GM/DL (6.4-8.2); TROPONIN I < 0.02 NG/ML (< 0.10)
[2021-01-24] MEDS: HYDROXYCHLOROQUINE 200 MG TAB PO SCH (21:00)
[2021-01-24] MEDS: HumaLOG INSULIN (NovoLOG) PER UNIT SC SCH (21:00)
--- OUTSIDE RECORDS SUMMARY | 2021-01-24 21:40 | CCD ---
Author Author [facility] Organization [facility] Address Unknown Phone Unavailable Care Team Providers Care Title Supervisor Name Role Phone ARUNA (ROXY), Cinthya KNIGHT [...] (ROXY), Cinthya KNIGHT MD Unavailable Unavailab le RAUNA (ROXY), Cinthya KNIGHT MD Unavailable Unavailab le ARUNA (ROXY), Cinthya KNIGHT MD Unavailable Unavailab le ARUNA (ROXY), Cinthya KNIGHT MD Unavailable Unavailab le ARUNA (ROXY), Cinthya KNIGHT MD Unavailable Unavailab le ARUNA (ORXY), Cinthya KNIGHT MD Unavailable Unavailab le ARUNA [...] KNIGHT MD Unavailable Unavailab le ARUNA (ROXY), Citnhya KNIGHT MD Unavailable Unavailab le ARUNA (ROXY), [...] Enrique, Channing PA Unavailable Unavailable Luis Enrique, Chaninng PA Unavailable Unavailable HUI-LAVELL, LINDSAY DO Unavailable [...] Unavailable HUI-LAVELL, LINDSAY DO Unavailable Unavailable HUI-LAVELL, LINDASY DO Unavailable Unavailable HUI-LAVELL, LINDSAY DO Unavailable [...] Unavailable Unavailable HUI-LAVELL, LINDSAY DO Unavailable Unavailable Kenton Bryant MD Unavailable Unavailable Kenton Bryant MD Unavailable Unavailable Kenton Bryant MD Unavailable Unavailable Kenton Bryant MD Unavailable Unavailable Kenton, Bryant MD Unavailable Unavailable Kenton Bryant MD Unavailable Unavailable Kenton Bryant MD Unavailable Unavailable Kenton, Bryant MD Unavailable Unavailable Kenton, Bryant MD Unavailable Unavailable Kenton Bryant MD Unavailable Unavailable Kenton, Bryant MD Unavailable Unavailable Kenton, Bryant MD Unavailable Unavailable Kenton, Bryant MD Unavailable Unavailable Kenton, Bryant MD Unavailable Unavailable Kenton, Bryant MD Unavailable Unavailable Kenton, Bryant MD Unavailable Unavailable Kenton, Bryant MD Unavailable Unavailable Kenton, Bryant MD Unavailable Unavailable Kenton, Bryant MD Unavailable Unavailable Kenton, Bryant MD Unavailable Unavailable Kenton, Bryant MD Unavailable Unavailable Kenton, Bryant RAMIREZ Unavailable Unavailable Kenton, Bryant RAMIREZ Unavailable Unavailable Kenton, Bryant RAMIREZ Unavailable Unavailable Kenton, Bryant RAMIREZ Unavailable Unavailable Kenton, Bryant RAMIREZ Unavailable Unavailable Kenton, Bryant RAMIREZ Unavailable Unavailable Kenton, Bryant RAMIREZ Unavailable Unavailable Kenton, Bryant RAMIREZ Unavailable Unavailable Kenton, Bryant RAMIREZ Unavailable Unavailable Rechlin, P Cachorro DO Unavailable Unavailable Rechlin, P Ccahorro DO Unavailable Unavailable Rechlin, P Cachorro DO [...] Cachorro DO Unavailable Unavailable Braeden, N Ian BAG LINER Unavailable Unavailable [place], N Ian BAG LINER Unavailable Unavailable [place], N Ian BAG LINER Unavailable Unavailable [place], N Ian BAG LINER Unavailable Unavailable [place], N Ian BAG LINER Unavailable Unavailable [place], N Ian BAG LINER Unavailable Unavailable [place], N Ian BAG LINER Unavailable Unavailable Braeden, N Ian BAG LINER Unavailable Unavailable Braeden, N Ian BAG LINER Unavailable Unavailable [place], N Ian BAG LINER Unavailable Unavailable Braeden, N Ian BAG LINER Unavailable Unavailable [place], N Ian BAG LINER Unavailable Unavailable Braeden, N Ian BAG LINER Unavailable Unavailable [place], N Ian BAG LINER Unavailable Unavailable Braeden, N Ian BAG LINER Unavailable Unavailable [place], N Ian BAG LINER Unavailable Unavailable [place], N Ian BAG LINER Unavailable Unavailable [place], N Ian BAG LINER Unavailable Unavailable [place], N Ian BAG LINER Unavailable Unavailable [place], N Ian BAG LINER Unavailable Unavailable [place], N Ian BAG LINER Unavailable Unavailable Braeden, N Ian BAG LINER Unavailable Unavailable [place], N Ian BAG LINER Unavailable Unavailable [place], N Ian BAG LINER Unavailable Unavailable Braeden, N Ian BAG LINER Unavailable Unavailable Braeden, N Ian BAG LINER Unavailable Unavailable Braeden, N Ian BAG LINER Unavailable Unavailable Braeden, N Ian BAG LINER Unavailable Unavailable [place], N Ian BAG LINER Unavailable Unavailable Braeden, N Ian BAG LINER Unavailable Unavailable [place], N Ian BAG LINER Unavailable Unavailable Braeden, N Ian BAG LINER Unavailable Unavailable [place], N Ian BAG LINER Unavailable Unavailable Fons, M Lea APPLIANCE LINE ASSEMBLER Unavailable Unavailable Fons, M Lea APPLIANCE LINE ASSEMBLER Unavailable Unavailable Fons, M Lea APPLIANCE LINE ASSEMBLER Unavailable Unavailable Fons, M Lea APPLIANCE LINE ASSEMBLER Unavailable Unavailable Fons, M Lea APPLIANCE LINE ASSEMBLER Unavailable Unavailable Fons, M Lea APPLIANCE LINE ASSEMBLER Unavailable Unavailable Fons, M Lea APPLIANCE LINE ASSEMBLER Unavailable Unavailable Fons, M Lea APPLIANCE LINE ASSEMBLER Unavailable Unavailable Fons, M Lea APPLIANCE LINE ASSEMBLER Unavailable Unavailable Fons, M Lea APPLIANCE LINE ASSEMBLER Unavailable Unavailable Fons, M Lea APPLIANCE LINE ASSEMBLER Unavailable Unavailable Fons, M Lea APPLIANCE LINE ASSEMBLER Unavailable Unavailable Fons, M Lea APPLIANCE LINE ASSEMBLER Unavailable Unavailable Fons, M Lea APPLIANCE LINE ASSEMBLER Unavailable Unavailable Fons, M Lea APPLIANCE LINE ASSEMBLER Unavailable Unavailable Fons, M Lea APPLIANCE LINE ASSEMBLER Unavailable Unavailable Fons, M Lea APPLIANCE LINE ASSEMBLER Unavailable Unavailable Fons, M Lea APPLIANCE LINE ASSEMBLER Unavailable Unavailable Fons, M Lea APPLIANCE LINE ASSEMBLER Unavailable Unavailable Fons, M Lea APPLIANCE LINE ASSEMBLER Unavailable Unavailable Fons, M Lea APPLIANCE LINE ASSEMBLER Unavailable Unavailable Fons, M Lea APPLIANCE LINE ASSEMBLER Unavailable Unavailable Fons, M Lea APPLIANCE LINE ASSEMBLER Unavailable Unavailable Fons, M Lea APPLIANCE LINE ASSEMBLER Unavailable Unavailable Fons, M Lea APPLIANCE LINE ASSEMBLER Unavailable Unavailable Fons, M Lea APPLIANCE LINE ASSEMBLER Unavailable Unavailable Fons, M Lea APPLIANCE LINE ASSEMBLER Unavailable Unavailable Fons, M Lea APPLIANCE LINE ASSEMBLER Unavailable Unavailable Fons, M Lea APPLIANCE LINE ASSEMBLER Unavailable Unavailable Fons, M Lea APPLIANCE LINE ASSEMBLER Unavailable Unavailable Fons, M Lea APPLIANCE LINE ASSEMBLER Unavailable Unavailable Fons, M Lea APPLIANCE LINE ASSEMBLER Unavailable Unavailable Fons, M Lea APPLIANCE LINE ASSEMBLER Unavailable Unavailable Fons, M Lea APPLIANCE LINE ASSEMBLER Unavailable Unavailable Fons, M Lea APPLIANCE LINE ASSEMBLER Unavailable Unavailable Fons, M Lea APPLIANCE LINE ASSEMBLER Unavailable Unavailable Fons, M Lea APPLIANCE LINE ASSEMBLER Unavailable Unavailable Fons, M Lea APPLIANCE LINE ASSEMBLER Unavailable Unavailable Fons, M Lea APPLIANCE LINE ASSEMBLER Unavailable Unavailable Fons, M Lea APPLIANCE LINE ASSEMBLER Unavailable Unavailable Fons, M Lea APPLIANCE LINE ASSEMBLER Unavailable Unavailable Fons, M Lea APPLIANCE LINE ASSEMBLER Unavailable Unavailable Fons, M Lea APPLIANCE LINE ASSEMBLER Unavailable Unavailable Fons, M Lea APPLIANCE LINE ASSEMBLER Unavailable Unavailable Fons, M Lea APPLIANCE LINE ASSEMBLER Unavailable Unavailable Fons, M Lea APPLIANCE LINE ASSEMBLER Unavailable Unavailable Fons, M Lea APPLIANCE LINE ASSEMBLER Unavailable Unavailable Fons, M Lea APPLIANCE LINE ASSEMBLER Unavailable Unavailable Fons, M Lea APPLIANCE LINE ASSEMBLER Unavailable Unavailable Fons, M Lea APPLIANCE LINE ASSEMBLER Unavailable Unavailable Fons, M Lea APPLIANCE LINE ASSEMBLER Unavailable Unavailable Fons, M Lea APPLIANCE LINE ASSEMBLER Unavailable Unavailable Fons, M Lea APPLIANCE LINE ASSEMBLER Unavailable Unavailable Rechlin, P Cachorro DO Unavailable [...] Unavailable PEÑA, M FLORECITA PA Unavailable Unavailable PEAÑ, M FOLRECITA PA Unavailable Unavailable PEÑA, M FLORECITA PA [...] is protected by Article 27-F of the [facility] Public Health law. If you continue you may have access to information: Regarding HIV / AIDS; Provided by facilities licensed or operated by the [facility] Office of Mental Health; or Provided by the [facility] Office for People With Developmental Disabilities. If such information is present, then the following [facility] mandated warning applies: This information has been [...] law may result in a fine or alf sentence or both. A general authorization for the release of medical or other information is NOT sufficient authorization for further disc losure. Family History Family Member Name Family Member Gender Family Member Status Date o f Status Description Data Source(s) Unknown Unknown Problem MEDENT ([facility]) Unknown Male Problem MEDENT ([facility]) Unknown Unknown Problem MEDENT ([facility]) Unknown Unknown Problem MEDENT ([facility]) Unknown Female Encounters Encounter Providers Location Date Indications Data Source(s ) Outpatient Attender: Kenny Zafar MD SJP.SONIA-SJP.SONIA 12/2020 02:26:56 PM EDT - 12/19/2020 03:43:09 PM EDT [facility] Office Visit Attender: Channing THOMAS Family Medicine [facility] 12/02/2020 01:20:00 PM EDT MEDENT ([facility]) [place] [address] [facility] [address] 11/26/2020 12:00:00 AM EDT [facility] [place] [address] [facility] [address] 11/12/2020 12:00:00 AM EDT [facility]CW1 [facility]) [place]patient [address] [facility] [address] 11/04/2020 12:00:00 AM EDT eCW1 ([facility]) Outpatient Attender: Cachorro Atkins/Kenton/Aristides/James ndleah 10/29/2020 08:30:00 AM EDT MEDENT ([facility]) [place] [address] [facility] [address] 10/15/2020 12:00:00 AM EDT [facility] [place] [address] [facility] [address] 10/01/2020 12:00:00 AM EDT [facility]CW1 [facility]) Outpatient Attender: Cachorro Atkins/Kenton/Aristides/James ndl 08/22/2020 09:00:00 AM EDT MEDENT ([facility]) Outpatient Attender: Channing THOMAS [facility] 08/13/2020 02:20:00 PM EDT MEDENT ([facility]) Outpatient Attender: Cachorro Atkins/Je/Aristides/James ndl 07/30/2020 11:00:00 AM EDT MEDENT ([facility]) Outpatient Attender: Cachorro Atkins/Je/Aristides/James ndleah 07/04/2020 11:00:00 AM EDT MEDENT ([facility] Outpatient Attender: Kenny Zafar MD SJBraulio.SONIA-SJP.SONIA 06/11 12:00:00 AM EDT - 07/05/2020 09:32:45 AM EDT [facility] TeleMedicine Est. Pt. Level 4 [address] [place] [address] 07/02/2020 12:00:00 AM EDT eCW1 ([facility]) Unknown [address] [facility] [address] 06/30/2020 12:00:00 AM EDT eCW1 ([facility]) Unknown [address] [facility] [address] 06/18/2020 12:00:00 AM EST eCW1 ([facility]) Unknown [address] [facility] [address] 06/14/2020 12:00:00 AM EST eCW1 ([facility]) Outpatient Attender: Kenny Zafar MD SJBraulio.SONIA-SJP.SONIA 05/14 12:00:00 AM EST - 06/06/2020 04:57:05 PM EST [facility] H Attender: Elver Olsen MDAdmitter: Elver chambers MD ES1-SJ 05/30/2020 09:46:00 AM EST - 05/30/2020 03:15:00 PM EST [facility] Patient discharged. Unknown [facility] [facility] [address] 05/24/2020 12:00:00 AM EST eCW1 ([facility]) Outpatient [address] [facility] [address] 05/21/2020 12:00:00 AM EST eCW1 ([facility]) Outpatient Attender: Ian Deras NPReferrer: Kenny MAYBERRYSONIA-SJP.SONIA 05/20/2020 12:00:00 AM EST - 05/20/2020 11:49:00 AM EST [facility] Outpatient Referrer: Kenny MAYBERRYSONIA-SJP.SONIA 11/2020 12:00:00 AM EST - 05/20/2020 11:48:47 AM EST [facility] Outpatient Attender: Cachorro Atkins/Je/Aristides/James ndleah 05/09/2020 07:30:00 AM EST MEDENT ([facility] Unknown [address] [facility] [address] 05/08/2020 12:00:00 AM EST eCW1 ([facility]) Unknown [address] [facility] [address] 05/03/2020 12:00:00 AM EST eCW1 ([facility]) Unknown [address] [facility] [address] 05/01/2020 12:00:00 AM EST eCW1 ([facility]) Outpatient [address] [facility] [address] 04/26/2020 12:00:00 AM EST eCW1 ([facility]) Outpatient Attender: Kenny MAYBERRYSONIA-SJP.SONIA 04/12 12:00:00 AM EST - 04/25/2020 09:45:25 AM EST [facility] Outpatient Attender: Lea MAYBERRYSONIA-SJP.SONIA 12:00:00 AM EST - 04/18/2020 09:33:16 AM EST [facility] Attender: EUGENE YEE) MDReferrer: Bryce Mclean DO 04/16/2020 08:21:01 PM EST [facility] Outpatient Attender: Channing THOMAS Family Medicine [facility] 03/26/2020 12:20:00 PM EST MEDENT ([facility]) Outpatient Attender: FLORECITA Abraham/Kenton/Aristides/Rein dl 03/15/2020 09:30:00 AM EST MEDENT ([facility]) Attender: EUGENE YEE) MDReferrer: rByce Mclean DO 02/14/2020 08:20:11 PM EST [facility] Outpatient Attender: Bryant Abraham/Kenton/Aristides/Reind l 01/24/2020 09:50:00 AM EDT MEDENT ([facility]) Outpatient Attender: Lea CASEY SJBraulio.SONIA-SJP.SONIA 0 12:00:00 AM EDT - 01/23/2020 08:37:49 AM EDT [facility] Outpatient Attender: Bryant Abraham/Kenton/Aristides/Reind l 01/10/2020 09:05:00 AM EDT MEDENT ([facility]) Outpatient Attender: Bryant Abraham/Kenton/Aristides/Reind l 12/26/2019 09:00:00 AM EDT MEDENT ([facility]) Outpatient Attender: Bryant Abraham/Kenton/Aristides/Reind l 12/11/2019 11:15:00 AM EDT MEDENT ([facility]) Outpatient Attender: LINDSAY SELF DO Family Medicine [facility] 12/08/2019 08:00:00 AM EDT MEDENT ([facility]) Immunizations Vaccine Date Status Description Data Source(s) COVID-19 VACCINE Moderna 07/08/2020 12:00:00 AM EDT completed [facility] Vaccine Series Complete: YESThis Data wa s Submitted to [facility] Via [employer]cierge[employer]. COVID-19 VACCINE, MRNA-1273, LNP-S (MODERNA)/PF 07/08/2020 1 2:00:00 AM EDT completed [facility] COVID-19 VACCINE Moderna 06/07/2020 12:00:00 AM EST completed [facility] Vaccine Series Complete: NOThis Data was Submitted to [facility] Via [employer]. COVID-19 VACCINE, MRNA-1273, LNP-S (MODERNA)/PF 06/07/2020 1 2:00:00 AM EST completed [facility] Medications Medication Brand Name Start Date Product Form Dose Route Admi nistrative Instructions Pharmacy Instructions Status Indications Reaction Description Data Source(s) Novofine Plus Pen Neddle 32G X 4mm 12/13/2020 12:00:00 AM EDT active [facility] Blood Glucose Test Strips Premium 12/02/2020 12:00:00 AM EDT active MEDENT ([facility]) Tresiba FlexTouch 200 UNIT/ML SOPN 4498-6229-11 11/09/2020 12:00:00 AM EDT 4 U active 4 Units [facility] Methylprednisolone 8 MG Oral Tablet methylPREDNISolone (MEDROL) 8 MG tablet methylPREDNISolone (MEDROL) 8 MG tablet 11/05/2020 12:00:00 AM EDT 16 mg Oral active Take 16 mg by mouth [facility] Hydroxychloroquine Sulfate 200 MG Oral Tablet [Plaquen il] Plaquenil 200 MG Plaquenil 200 MG 11/04/2020 12:00:00 AM EDT a ctive Plaquenil 200 MG eCW1 ([facility]) Hydroxychloroquine Sulfate 200 MG Oral Tablet [Plaquen il] Plaquenil 200 MG Plaquenil 200 MG 11/04/2020 12:00:00 AM EDT a ctive Plaquenil 200 MG eCW1 ([facility]) Treprostinil 0.6 MG/ML Inhalant Solution [Tyvaso] Tyva so 0.6 MG/ML Tyvaso 0.6 MG/ML 11/04/2020 12:00:00 AM EDT active Tyvaso 0.6 MG/ML eCW1 ([facility]) Treprostinil 0.6 MG/ML Inhalant Solution [Tyvaso] Tyva so 0.6 MG/ML Tyvaso 0.6 MG/ML 11/04/2020 12:00:00 AM EDT active Tyvaso 0.6 MG/ML eCW1 ([facility]) Hydroxychloroquine Sulfate 200 MG Oral Tablet [Plaquen il] Plaquenil 200 MG Plaquenil 200 MG 11/04/2020 12:00:00 AM EDT a ctive Plaquenil 200 MG eCW1 ([facility]) Treprostinil 0.6 MG/ML Inhalant Solution [Tyvaso] Tyva so 0.6 MG/ML Tyvaso 0.6 MG/ML 11/04/2020 12:00:00 AM EDT active Tyvaso 0.6 MG/ML eCW1 ([facility]) Treprostinil 0.6 MG/ML Inhalant Solution [Tyvaso] Tyvaso 10/29/2020 12:00:00 AM EDT active MEDENT ([facility] ) Furosemide 40 MG Oral Tablet furosemide (LASIX) 40 MG tablet furosemide (LASIX) 40 MG tablet 10/21/2020 12:00:00 AM EDT active 0.5 tab daily [facility] Treprostinil 0.6 MG/ML Inhalant Solution [Tyvaso] treprostinil (Tyvaso) 0.6 MG/ML SOLN treprostinil (Tyvaso) 0.6 MG/ML SOLN 10/01/2020 12:00:00 AM EDT active Start with 3 b reaths (18mcg) QID, increase by 1 breath weekly if tolerated to goal of 9 breaths (54mcg) QID.Administer using the Tyvaso Inhalation System only. [facility] Tresiba Flextouch Tresiba Flextouch 08/13/2020 12:00:00 AM EDT active MEDENT ([facility]) 4 Wheeled Walker With Seat And Basket 08/13/2020 12:00:00 AM EDT active MEDENT ([facility]) Oxygen 07/10/2020 12:00:00 AM EDT active MEDENT ([facility], ) nintedanib 150 MG Oral Capsule Nintedanib Esylate 150 MG CAPS Nintedanib Esylate 150 MG CAPS 07/10/2020 12:00:00 AM EDT 150 mg Oral activ e Take 150 mg by mouth 2 (two) times a day [facility] Covid-19 vaccine, Unspecified 07/08/2020 12:00:00 AM EDT completed MEDENT ([facility], ) Medication administered onsite nintedanib 150 MG Oral Capsule [Ofev] Ofev 07/05/2020 12:00:00 AM EDT ORAL active MEDENT ([facility], ) gabapentin 300 MG Oral Capsule [Neurontin] Neurontin 07/04 12:00:00 AM EDT ORAL active MEDENT ( [facility], ) Methylprednisolone 32 MG Oral Tablet methylPREDNISolon e (MEDROL) 32 MG tablet methylPREDNISolone (MEDROL) 32 MG tablet 06/21/2020 12:00:00 AM EST 64 mg Oral aborted Take 64 mg by mouth [facility] Hydroxychloroquine Sulfate 200 MG Oral Tablet [Plaquen il] Plaquenil 200 MG Plaquenil 200 MG 06/17/2020 12:00:00 AM EST a ctive Plaquenil 200 MG eCW1 ([facility]) Hydroxychloroquine Sulfate 200 MG Oral Tablet [Plaquen il] Plaquenil 200 MG Plaquenil 200 MG 06/17/2020 12:00:00 AM EST a ctive Plaquenil 200 MG eCW1 ([facility]) Hydroxychloroquine Sulfate 200 MG Oral Tablet [Plaquen il] Plaquenil 200 MG Plaquenil 200 MG 06/17/2020 12:00:00 AM EST a ctive Plaquenil 200 MG eCW1 ([facility]) Hydroxychloroquine Sulfate 200 MG Oral Tablet [Plaquen il] Plaquenil 200 MG Plaquenil 200 MG 06/17/2020 12:00:00 AM EST a ctive Plaquenil 200 MG eCW1 ([facility]) Hydroxychloroquine Sulfate 200 MG Oral Tablet [Plaquen il] Plaquenil 200 MG Plaquenil 200 MG 06/17/2020 12:00:00 AM EST a ctive Plaquenil 200 MG eCW1 ([facility]) Hydroxychloroquine Sulfate 200 MG Oral Tablet [Plaquen il] Plaquenil 200 MG Plaquenil 200 MG 06/17/2020 12:00:00 AM EST a ctive Plaquenil 200 MG eCW1 ([facility]) Hydroxychloroquine Sulfate 200 MG Oral Tablet [Plaquen il] Plaquenil 200 MG Plaquenil 200 MG 06/17/2020 12:00:00 AM EST a ctive Plaquenil 200 MG eCW1 ([facility]) Hydroxychloroquine Sulfate 200 MG Oral Tablet [Plaquen il] Plaquenil 200 MG Plaquenil 200 MG 06/17/2020 12:00:00 AM EST a ctive Plaquenil 200 MG eCW1 ([facility]) Hydroxychloroquine Sulfate 200 MG Oral Tablet [Plaquen il] Plaquenil 200 MG Plaquenil 200 MG 06/17/2020 12:00:00 AM EST a ctive Plaquenil 200 MG eCW1 ([facility]) Hydroxychloroquine Sulfate 200 MG Oral Tablet [Plaquen il] Plaquenil 200 MG Plaquenil 200 MG 06/17/2020 12:00:00 AM EST a ctive Plaquenil 200 MG eCW1 ([facility]) Hydroxychloroquine Sulfate 200 MG Oral Tablet [Plaquen il] Plaquenil 200 MG Plaquenil 200 MG 06/17/2020 12:00:00 AM EST a ctive Plaquenil 200 MG eCW1 ([facility]) Hydroxychloroquine Sulfate 200 MG Oral Tablet [Plaquen il] Plaquenil 200 MG Plaquenil 200 MG 06/17/2020 12:00:00 AM EST a ctive Plaquenil 200 MG eCW1 ([facility]) Hydroxychloroquine Sulfate 200 MG Oral T ablet hydroxychloroquine (PLAQUENIL) 200 MG tablet hydroxychloroquine (PLAQUENIL) 200 MG tablet 12:00:00 AM EST 400 mg Oral active Take 400 mg by mo uth daily [facility] Hydroxychloroquine Sulfate 200 MG Oral Tablet [Plaquen il] Plaquenil 200 MG Plaquenil 200 MG 06/17/2020 12:00:00 AM EST a ctive Plaquenil 200 MG eCW1 ([facility]) Hydroxychloroquine Sulfate 200 MG Oral Tablet [Plaquen il] Plaquenil 200 MG Plaquenil 200 MG 06/17/2020 12:00:00 AM EST a ctive Plaquenil 200 MG eCW1 ([facility]) Hydroxychloroquine Sulfate 200 MG Oral Tablet [Plaquen il] Plaquenil 200 MG Plaquenil 200 MG 06/17/2020 12:00:00 AM EST a ctive Plaquenil 200 MG eCW1 ([facility]) Hydroxychloroquine Sulfate 200 MG Oral Tablet [Plaquen il] Plaquenil 200 MG Plaquenil 200 MG 06/17/2020 12:00:00 AM EST a ctive Plaquenil 200 MG eCW1 ([facility]) Hydroxychloroquine Sulfate 200 MG Oral Tablet [Plaquen il] Plaquenil 200 MG Plaquenil 200 MG 06/17/2020 12:00:00 AM EST a ctive Plaquenil 200 MG eCW1 ([facility]) Hydroxychloroquine Sulfate 200 MG Oral Tablet [Plaquen il] Plaquenil 200 MG Plaquenil 200 MG 06/17/2020 12:00:00 AM EST a ctive Plaquenil 200 MG eCW1 ([facility]) Covid-19 vaccine, Unspecified 06/07/2020 12:00:00 AM EST completed MEDENT ([facility]) Medication administered onsite Furosemide 40 MG Oral Tablet furosemide (LASIX) 40 MG tablet furosemide (LASIX) 40 MG tablet 06/06/2020 12:00:00 AM EST activ e One tab daily, additional 1/2 tab as needed [facility] apixaban 2.5 MG Oral Tablet [Eliquis] Eliquis 2.5 MG T ABS tablet Eliquis 2.5 MG TABS tablet 06/05/2020 12:00:00 AM EST 2.5 mg Oral active Take 2.5 mg by mouth 2 (two) times a day 2 tabs 2 times a day for next 7 days and then one tab bid [facility] normal saline flush 0.9 % injection 3 mL 37843-645-64 05/30/2020 02:00:00 PM EST 3 mL Intravenous active 3 mL , Intravenous, Every 8 hours (scheduled), First dose on Lacey 05/30/20 at 1400, Pre-op
Rapid push positive pressure flushing shall be performed with a 10 cc normal saline syringe to check the PATENCY of a PIV site prior to any infusion therapy initiation unless resistance is met.
[facility] Medication administered onsite lidocaine 1 % injection 6228-2296-65 05/30/2020 12:54:20 PM EST active As needed, Starting Lacey 05/30/20 at 1254, Intra-Procedure [facility] Medication administered onsite sodium chloride 0.9% (NS) infusion 9150-5495-89 05/30/2020 11:00:00 AM EST 100 mL/h Intravenous active at 100 m L/hr, 100 mL/hr, Intravenous, Continuous, Starting Lacey 05/30/20 at 1100, Pre-op [facility] Medication administered onsite Furosemide 40 MG Oral Tablet furosemide (LASIX) 40 MG tablet furosemide (LASIX) 40 MG tablet 04/26/2020 12:00:00 AM EST abort ed One tab daily, additional 1/2 tab as needed [facility] Spironolactone 25 MG Oral Tablet spironolactone (ALDAC TONE) 25 MG tablet spironolactone (ALDACTONE) 25 MG tablet 04/25/2020 12:00:00 AM EST 25 mg Oral active Take 1 tablet (25 mg tota l) by mouth daily [facility] Furosemide 40 MG Oral Tablet furosemide (LASIX) 40 MG tablet furosemide (LASIX) 40 MG tablet 04/18/2020 12:00:00 AM EST 40 mg Oral activ e Take 1 tablet (40 mg total) by mouth 2 (two) times a day [facility] gabapentin 300 MG Oral Capsule gabapentin (NEURONTIN) 300 MG capsule gabapentin (NEURONTIN) 300 MG capsule 04/15/2020 12:00:00 AM EST 900 mg active 900 mg RT ONCE DAILY NEEDED 6-7 capsule through out the day as needed. [facility] BD Samantha 04/08/2020 12:00:00 AM EST active [facility] ([facility]) Esomeprazole 40 MG Delayed Release Oral Capsule Esomeprazole Magnesium 03/18/2020 12:00:00 AM EST ORAL completed [facility] ([facility]) Oxygen 03/18/2020 12:00:00 AM EST active [facility] ([facility]) Omeprazole 40 MG Delayed Release Oral Capsule Omeprazole 02/08/2020 12:00:00 AM EDT completed [facility] ([facility]) Lidocaine Hydrochloride 40 MG/ML Injectable Solution Lidocai ne HCL (PF) 01/31/2020 12:00:00 AM EDT completed [facility] ([facility], ) Albuterol 1 MG/ML Inhalant Solution Albuterol Sulfate 01/11 12:00:00 AM EDT completed [facility] ([facility], ) Amitriptyline Hydrochloride 25 MG Oral Tablet Amitriptyline HCL 01/24/2020 12:00:00 AM EDT completed [facility] ([facility], ) gabapentin 300 MG Oral Capsule [Neurontin] Neurontin 01/09 12:00:00 AM EDT ORAL active [facility] ( [facility], ) Furosemide 40 MG Oral Tablet Furosemide 12/28/2019 12:00:00 AM EDT ORAL completed [facility] ([facility]) Oxycodone Hydrochloride 5 MG Oral Capsule Oxycodone HCL 12/26/2019 12:00:00 AM EDT completed [facility] ([facility], ) Acetaminophen 300 MG / Codeine Phosphate 15 MG Oral Ta blet Acetaminophen-Codeine #2 12/11/2019 12:00:00 AM EDT completed [facility] ([facility], ) Omeprazole 40 MG Delayed Release Oral Capsule Omeprazole 12/11/2019 12:00:00 AM EDT ORAL completed [facility] ([facility], ) Codeine Phosphate 2 MG/ML / Guaifenesin 20 MG/ML Oral Soluti on Virtussin A/C 11/28/2019 12:00:00 AM EDT ORAL completed [facility] ([facility], ) Codeine Phosphate 2 MG/ML / Guaifenesin 20 MG/ML Oral Solution Virtussin ac W/Alc 11/21/2019 12:00:00 AM EDT ORAL completed [facility] ([facility] ) Furosemide 40 MG Oral Tablet Furosemide 09/11/2019 12:00:00 AM EDT ORAL completed [facility] ([facility]) Losartan Potassium 50 MG Oral Tablet losartan (COZAAR) 50 MG tablet losartan (COZAAR) 50 MG tablet 50 mg Oral aborted Ta ke 50 mg by mouth daily [facility] 1 ML Enoxaparin sodium 150 MG/ML Prefill ed Syringe enoxaparin (LOVENOX) 150 MG/ML injection enoxaparin (LOVENOX) 150 MG/ML injection Subcutaneous aborted Inject under the skin every 12 ( twelve) hours 3.5ml BID [facility] Omeprazole 40 MG Delayed Release Oral Ca psule omeprazole (PRILOSEC) 40 MG capsule omeprazole (PRILOSEC) 40 MG capsule 40 mg Oral aborted Take 40 mg by mouth 2 (two) times a day [facility] Furosemide 40 MG Oral Tablet furosemide (LASIX) 40 MG tablet furosemide (LASIX) 40 MG tablet 40 mg Oral aborted French e 40 mg by mouth 2 (two) times a day [facility] Insurance Providers Payer name Policy type / Coverage type Policy ID Covered republican ID Covered republican's relationship to alegria Policy [place] Plan Information [facility] P [id number] SELF [id number] [facility] [id number] 0 [id number] Medicare Part B [facility] [id number] 0 [id number] MEDICARE [id number] Dalia [id number] U53 Medicare Part B [facility] [id number] MEDICARE [id number] SP [id number] U53 MEDICARE [id number] xxxxxxxxxxx [id number] [facility] [id number] Dalia [id number] [facility] [id number] xxxxxxxxxxx [id number] Medicare [place] Medicare Primary [id number] Self [id number] Medicare [place] Medicare Primary [id number] Self [id number] Medicare [place] Medicare Primary [id number] Self [id number] MEDICARE [id number] S [id number] [facility] [id number] Commercial [employer] [id number] Medicare [id number] Medicare Part B [id number] Medicare [place] Medicare Primary [id number] Self [id number] [facility] Commercial [id number] Self [id number] [facility] Health Maintenance Organization (HMO) [id number] Self [id number] Medicare [place]/NGS Medicare Primary [id number] Self [id number] Medicare [place] Medicare Primary [id number] Self [id number] [facility] HEALTH CARE [id number] SP [id number] [facility] Commercial [id number] Self [id number] Medicare Natl Gov't Servi Medicare Primary [id number] Self [id number] MVP Health Maintenance Organization (HMO) [id number] 00 [id number] Self [id number] Medicare Upstate/NGS Medicare Primary [id number] Self [id number] Medicare [place] Medicare Primary [id number] Self [id number] O UNAVAILABLE S UNAVAILA BLE MEDICARE [id number] SP [id number] A [employer] HEALTH CARE [id number] SP [id number] MVP (HMO/PPO) HEALTH CARE [id number] 0 [id number] Medicare [place] Medicare Primary [id number] Self [id number] MEDICARE C [id number] S [id number] A MVP Health Maintenance Organization (HMO) [id number] 0 [id number] Self [id number] Medicare - NGS Medicare Primary [id number] Self 1 [id number] Medicare [place] Medicare Primary [id number] Self [id number] [employer] Commercial [id number] 0 Self [id number] Medicare [place] Medicare Primary [id number] Self [id number] MVP Commercial [id number] Self [employer] [id number] 18 [id number] [employer] [id number] 18 [id number] [facility] O UNAVAILABLE [id number] S UNAVAILABLE MEDICARE [id number] SP [id number] U[address] [facility] [id number] SP [id number] [facility] Health Maintenance Organization (HMO) [id number] Se lf [employer]BS P [id number] S NGN [id number] [employer] [place] 200/700 [id number] SP [id number] BLUE CROSS BLUE [facility] [id number] [facility] O [id number] S [id number] ONE CALL MEDICAL S [id number] S [id number] [employer] [place] 20 P [id number] S [id number] BLUE CROSS O [id number] S [id number] BLUE CROSS [id number] S [id number] [facility] HEALTH CARE [id number] SP [id number] [facility] HEALTH CARE O [id number] S [id number] Problems, Conditions, and Diagnoses Code Display Name Description Problem Type Effective Dates Data Source(s) I50.810 Right heart failure, unspecified Right heart remigio lure, unspecified Diagnosis 12/19/2020 02:26:56 PM EDT [facility] I27.20 Pulmonary hypertension, unspecified Pulmonary hy pertension, unspecified Diagnosis 12/19/2020 02:26:56 PM EDT [facility] E11.9 Type 2 diabetes mellitus without complic ations Type 2 diabetes mellitus without complic Diagnosis 06/06/2020 03:36:47 PM EST [facility] I50.812 Chronic right heart failure Chronic right heart failur e Diagnosis 06/06/2020 03:36:47 PM EST [facility] R06.02 Shortness of breath Shortness of breath Diagnosis 0 06/06/2020 03:36:47 PM EST [facility] I50.31 Acute diastolic (congestive) heart failu re Acute diastolic (congestive) heart failu Diagnosis 06/06/2020 03:36:47 PM [facility] I82.491 Acute embolism and thrombosi s of other specified deep vein of right lower extremity Acute embolism and thrombosis of other s Diagnosis 05/30/2020 09:46:00 AM [facility] E66.01 Morbid (severe) obesity due to excess ca lories Morbid (severe) obesity due to excess ca Diagnosis 05/30/2020 09:46:00 AM [facility] E78.49 Other hyperlipidemia Other hyperlipidemia Diagnosis 05/30/2020 09:46:00 AM [facility] I71.2 Thoracic aortic aneurysm, without ruptur e Thoracic aortic aneurysm, without ruptur Diagnosis 05/30/2020 09:46:00 AM [facility] I10 Essential (primary) hypertension Essential (primary) h ypertension Diagnosis 05/30/2020 09:46:00 AM [facility] I82.409 Acute embolism and thrombosi s of unspecified deep veins of unspecified lower extremity Acute embolism and thrombosis of unspeci Diagnosis 05/30/2020 09:46:00 AM [facility] I82.412 Acute embolism and thrombosis of left fe moral vein Acute embolism and thrombosis of left fe Diagnosis 04/18/2020 07:56:10 AM [facility] Z79.51 [id number] middle or intermediate [employer] 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 current use of inhaled steroid Problem 10/01/2020 12:00:00 AM EDT eCW1 ([facility]) Z79.52 [id number] intermediate systemic steroid user Prob lise 10/01/2020 12:00:00 AM EDT eCW1 ([facility]) I27.20 Pulmonary hypertension Pulmonary hypertension Problem 07/30/2020 12:00:00 AM EDT [facility] ([facility]) I27.20 [id number] Pulmonary hypertension Problem 07/02/2020 12 :00:00 AM EDT eCW1 ([facility]) I27.20 Pulmonary hypertension Pulmonary hypertension [id number] 06/20/2020 12:00:00 AM [facility] E78.49 Other hyperlipidemia Other hyperlipidemia [id number] 05/22/2020 12:00:00 AM [facility] I71.2 Thoracic aortic aneurysm without rupture Thoracic aortic aneurysm without rupture [id number] 05/22/2020 12:00:00 AM [facility] I10 Essential hypertension Essential hypertension [id number] 05/22/2020 12:00:00 AM [facility] I82.409 Deep venous thrombosis Deep venous thrombosis [id number] 05/22/2020 12:00:00 AM [facility] E11.9 Type 2 diabetes mellitus wit hout complication, without long-term current use of insulin Type 2 diabetes mellitus without complic ation, without long-term current use of insulin [id number] 05/22/2020 12:00:[address] 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 Pos t-inflammatory pulmonary fibrosis Problem 05/09/2020 12:00:00 AM EST [facility] ([facility]) I82.402 Embolism from thrombosis of vein of dist al lower extremity Embolism from thrombosis of vein of distal lower extremity Problem 05/09/19 12:00:00 AM EST [facility] ([facility]) R06.00 Difficulty breathing Difficulty breathing Problem 05/09/2020 12:00:00 AM EST [facility] ([facility]) D68.59 Hypercoagulability state Hypercoagulability state Prob lise 05/09/2020 12:00:00 AM EST [facility] ([facility]) I50.31 Acute diastolic heart failure Acute diastolic heart fa ilure Problem 05/09/2020 12:00:00 AM EST [facility] ([facility], ) G47.33 Obstructive sleep apnea syndrome Obstructive sle ep apnea syndrome Problem 05/09/2020 12:00:00 AM EST [facility] ([facility], ) K21.01 Gastro-esophageal reflux disease with es ophagitis Gastro-esophageal reflux disease with esophagitis Problem 05/09/2020 12:00:00 AM EST Cinthya ARECHIGA ([facility], ) J84.9 [id number] Interstitial lung disease Problem 05/03/2020 12:00:00 AM EST eCW1 ([facility]) R20.2 [id number] Paresthesias Problem 04/26/2020 12:00:00 AM EST eCW1 ([facility]) J84.10 [id number] Pulmonary fibrosis Problem 04/26/2020 12:00: 00 AM EST eCW1 ([facility]) G56.00 [id number] Carpal tunnel syndrome, unspecified later ality Problem 04/26/2020 12:00:00 AM EST eCW1 ([facility]) I82.412 Acute deep vein thrombosis ( DVT) of femoral vein of left lower extremity Acute deep vein thrombosis (DVT) of femoral vein of le ft lower extremity [id number] 04/18/2020 12:00:00 AM EST [facility] I50.810 RVF (right ventricular failure) RVF (right ventr icular failure) [id number] 04/18/2020 12:00:00 AM EST [facility] Surgeries/Procedures Procedure Description Date Indications Data Source(s) ECG ROUTINE ECG W/LEAST 12 LDS W/I&R <td>POCT AMB EKG</td><td>Routine</td><td>12/19/2020 3:07 PM EDT</td><td> Pulmonary hypertension RVF (right ventricular failure)</td><td> </td> 12/19/2020 03:07:00 PM EDT RVF (right ventricular failure)Pulmonary hypertension [facility] RVF (right ventricular failure) Pulmonary hypertension HEMOGLOBIN GLYCOSYLATED A1C <td>HEMOGLOBIN A1C</td><td>Routine</td><td>11/26/2020</td><td></td><td> </td> 11/26/2020 12:00:00 AM EDT [facility] BASIC METABOLIC PANEL CALCIUM TOTAL <td>BASIC METABOLI C PANEL</td><td>Routine</td><td>11/26/2020</td><td></td><td> </td> 11/26/2020 12:00:00 AM EDT [facility] OFFICE OUTPATIENT VISIT 25 MINUTES 10/29/2020 12:00:00 AM EDT MED[facility] ([facility], ) OFFICE OUTPATIENT VISIT 25 MINUTES 08/22/2020 12:00:00 AM EDT MED[facility] ([facility], ) OFFICE OUTPATIENT VISIT 25 MINUTES 08/13/2020 12:00:00 AM EDT MED[facility] ([facility]) Bronchospasm Evaluation 07/31/2020 12:00:00 AM EDT [facility] ([facility], ) Plethysmography Determination Lung Volumes & Per Airway Resi st 07/31/2020 12:00:00 AM EDT MED[facility] ([facility], ) BLOOD COUNT COMPLETE AUTO&AUTO DIFRNTL WBC COUNT <td>C BC AND DIFFERENTIAL</td><td>Routine</td><td>07/30/2020</td><td></td><td> </td> 07/30/2020 12:00:00 AM EDT [facility] OFFICE OUTPATIENT VISIT 25 MINUTES 07/30/2020 12:00:00 AM EDT MED[facility] ([facility], ) Measure Blood Oxygen Level Continuous Overnight Monitor 07/18/2020 12:00:00 AM EDT [facility] ([facility] Measure Blood Oxygen Level Continuous Overnight Monitor 07/11/2020 12:00:00 AM EDT [facility] ([facility] OFFICE OUTPATIENT VISIT 25 MINUTES 07/04/2020 12:00:00 AM EDT [facility] ([facility], ) ECG ROUTINE ECG W/LEAST 12 LDS W/I&R <td>POCT AMB EKG</td><td>Routine</td><td>06/06/2020 4:17 PM EST</td><td> Shortness of breath PHT (pulmonary hypertension)</td><td> </td> 06/06/2020 09:17:00 PM EST PHT (pulmonary hypertension)Shortness of breath [facility] PHT (pulmonary hypertension) Shortness of breath [facility] [...] of insulinShortness of breathAcute diastolic heart failure [facility] Other hyperlipidemia Thoracic aortic aneurysm without rupture [...] 10:21 AM EST</td><td></td><td></td> 05/30/2020 03:21:52 PM EST [facility] Center OFFICE OUTPATIENT VISIT 25 MINUTES 05/09/2020 12:00:00 AM EST MED[facility] ([facility], ) ECG ROUTINE ECG W/LEAST 12 LDS W/I&R <td>POCT AMB EKG</td><td>Routine</td><td>04/18/2020 9:54 AM EST</td><td> Essential hypertension Acute diastolic heart failure</td><td> </td> 04/18/2020 02:54:00 PM EST Acute diastolic heart failureEssential hypertension [facility] Acute diastolic heart failure Essential hypertension Airway Inhalation Treatment 02/09/2020 12:00:00 AM EDT MED[facility] ([facility], ) Airway Inhalation Treatment 01/30/2020 12:00:00 AM EDT MED[facility] ([facility], ) LARYNGOSCOPY FLEXIBLE FIBEROPTIC DIAGNOSTIC 12/11/2019 12:00:00 AM EDT [facility] ([facility], ) Results ID Date Data Source [id number] 01/14/2021 02:21:00 PM EDT [facility] ([facility]) Name Value Range Interpretation Code Description Data Shaila rce(s) Supporting Document(s) Glucose, Fasting 138 mg/dL 70-100 Above high normal M EDENT ([facility]) Blood Urea Nitrogen 26 mg/dL 7-18 Above high normal [facility] ([facility]) Creatinine For GFR 0.57 mg/dL 0.70-1.30 Below low normal [facility] ([facility]) Glomerular Filtration Rate Laboratory test result Normal (applies to non- numeric results) [facility] ([facility]) <content>Units are mL/min/1.73 m2</content>
<content></content>
<content>Chronic Kidney Disease Staging per NKF:</content>
<content></content>
<content>Stage I & II GFR >=60 Normal to Mildly Decreased</content>
<content>Stage III GFR 30- 59 Moderately Decreased</content>
<content>Stage IV GFR 15-29 Severely Decreased</content>
<content>Stage V GFR <15 Very Little GFR Left</content>
<content>ESRD GFR <15 on [employer]TER[employer]INE[employer]</content>
<content></content> Sodium Level 137 meq/L 136-145 Normal (applies to non-numeric res ults) [facility] ([facility]) Carbon Dioxide Level 34 meq/L 21-32 Above high normal [facility] ([facility]) Chloride Level 100 meq/L 98-107 Normal (applies to non-numeric r esults) [facility] ([facility]) Potassium Serum 4.9 meq/L 3.5-5.1 Normal (applies to non-numeric results) [facility] ([facility]) Calcium Level 8.9 mg/dL 8.8-10.2 Normal (applies to non-numeric re sults) [facility]) Anion Gap 3 meq/L 8-16 Below low normal [facility] Alkaline Phosphatase 63 U/L 45-117 Normal (applies to non-num laura results) [facility] ([facility]) Ast/Sgot 30 U/L 7-37 Normal (applies to non-numeric resul ts) [facility] ([facility]) Alt/SGPT 49 U/L 12-78 Normal (applies to non-numeric resul ts) [facility] ([facility]) Total Protein 7.0 GM/DL 6.4-8.2 Normal (applies to non-numeric re sults) [facility]) Bilirubin,Total 0.4 mg/dL 0.2-1.0 Normal (applies to non-numeric results) [facility]) Albumin/Globulin Ratio 0.7 Normal (applies to non-n umeric results) [facility] ([facility]) Albumin 2.8 GM/DL 3.2-5.2 Below low normal [facility] ( [facility]) ID Date Data Source [id number] 01/14/2021 02:21:00 PM EDT MED[facility] ([facility]) Name Value Range Interpretation Code Description Data Shaila rce(s) Supporting Document(s) White Blood Count 15.0 10 4.0-10.0 Above high normal [facility] ([facility]) Red Blood Count 4.32 10 4.30-6.10 Normal (applies to non-numeric results) [facility] ([facility]) Hemoglobin 14.1 g/dL 13.5-17.5 Normal (applies to non-numeric resul ts) [facility] ([facility]) Hematocrit 44.5 % 42.0-52.0 Normal (applies to non-numeric resul ts) [facility] ([facility]) Mean Corpuscular Hemoglobin 32.6 pg 27.0-33.0 Norm al (applies to non-numeric results) [facility] ([facility]) Mean Corpuscular Volume 103.0 fl 80.0-96.0 Above high normal [facility] ([facility]) Red Cell Distribution Width 13.0 % 11.5-14.5 Norm al (applies to non-numeric results) [facility] ([facility]) Mean Corpuscular HGB Conc 31.7 g/dL 32.0-36.5 Below low normal [facility] ([facility]) Lymph % 5.3 % 24.0-44.0 Below low normal [facility] ( [facility]) Neutrophils % 91.9 % 36.0-66.0 Above high normal [facility] ([facility]) Platelet Count, Automated 235 10 150-450 Normal (applies to non-numeric results) [facility] ([facility]) Beadle % 1.8 % 2.0-8.0 Below low normal [facility] ( [facility]) Eos % 0.4 % 0.0-3.0 Normal (applies to non-numeric resul ts) [facility] ([facility]) Immature Granulocyte % 0.3 % 0-3.0 Normal (applies to non-n umeric results) [facility] ([facility]) Baso % 0.3 % 0.0-1.0 Normal (applies to non-numeric resul ts) [facility] ([facility]) Neutrophils # 13.8 10 1.5-8.5 Above high normal [facility] ([facility]) Nucleated Red Blood Cell % 0.0 % 0-0 Normal (applies to n on-numeric results) [facility] ([facility]) Beadle # 0.3 10 0.0-0.8 Normal (applies to non-numeric resul ts) [facility] ([facility]) Eos # 0.1 10 0.0-0.5 Normal (applies to non-numeric resul ts) [facility] ([facility]) Lymph # 0.8 10 1.5-5.0 Below low normal [facility] ( [facility]) Baso # 0.1 10 0.0-0.2 Normal (applies to non-numeric resul ts) [facility] ([facility]) ID Date Data Source [id number] 11/26/2020 09:28:00 AM EDT [facility] ([facility]) Name Value Range Interpretation Code Description Data Shaila rce(s) Supporting Document(s) Glucose, Fasting 82 mg/dL 70-100 Normal (applies to non-numeric results) [facility] ([facility]) Blood Urea Nitrogen 19 mg/dL 7-18 Above high normal [facility] ([facility]) Glomerular Filtration Rate Laboratory test result Normal (applies to non- numeric results) [facility]) <content>Units are mL/min/1.73 m2</content>
<content></content>
<content>Chronic Kidney Disease Staging per NKF:</content>
<content></content>
<content>Stage I & II GFR >=60 Normal to Mildly Decreased</content>
<content>Stage III GFR 30- 59 Moderately Decreased</content>
<content>Stage IV GFR 15-29 Severely Decreased</content>
<content>Stage V GFR <15 Very Little GFR Left</content>
<content>ESRD GFR <15 on [employer]</content>
<content></content> Sodium Level 141 meq/L 136-145 Normal (applies to non-numeric res ults) [facility] ([facility]) Creatinine For GFR 0.53 mg/dL 0.70-1.30 Below low normal [facility] ([facility]) Potassium Serum 4.3 meq/L 3.5-5.1 Normal (applies to non-numeric results) [facility] ([facility]) Carbon Dioxide Level 37 meq/L 21-32 Above high normal [facility] Chloride Level 101 meq/L 98-107 Normal (applies to non-numeric r esults) [facility] ([facility]) Ast/Sgot 32 U/L 7-37 Normal (applies to non-numeric resul ts) [facility] ([facility]) Calcium Level 8.4 mg/dL 8.8-10.2 Below low normal [facility] ([facility]) Anion Gap 3 meq/L 8-16 Below low normal [facility] Alkaline Phosphatase 85 U/L 45-117 Normal (applies to non-num laura results) [facility] Alt/SGPT 53 U/L 12-78 Normal (applies to non-numeric resul ts) [facility] ([facility]) Bilirubin,Total 0.4 mg/dL 0.2-1.0 Normal (applies to non-numeric results) [facility] Total Protein 6.1 GM/DL 6.4-8.2 Below low normal [facility] ([facility]) Albumin 2.8 GM/DL 3.2-5.2 Below low normal [facility] ( [facility]) Albumin/Globulin Ratio 0.8 Normal (applies to non-n umeric results) [facility] ([facility]) ID Date Data Source [id number] 11/26/2020 09:28:00 AM EDT [facility]) Name Value Range Interpretation Code Description Data Shaila rce(s) Supporting Document(s) Hemoglobin A1c 6.8 % Normal (applies to non-numeric r esults) [facility] ([facility]) <content>REFERENCE RANGES:</content><br/ ><content></content>
<content><=5.6% NORMAL</content>
<content>5.7-6.4% SUGGESTS IMPAIRED GLUCOSE METABOLISM/PREDIABETIC</content>
<content>>= 6.5% ABNORMAL</content>
<content></content> Estimated Average Glucose 148 mg/dL 60-110 Above high normal [facility] ([facility]) ID Date Data Source TOTAL PROTEIN,RANDOM URINE 10/01/2020 12:00:00 AM EDT eCW1 ( [facility]) Name Value Range Interpretation Code Description Data Shaila rce(s) Supporting Document(s) 31.1 0.0-12.0 TOTAL PROTEIN,RANDOM URIN E eCW1 ([facility]) ID Date Data Source CREATININE,RANDOM URINE 10/01/2020 12:00:00 AM EDT eCW1 ([facility]) Name Value Range Interpretation Code Description Data Shaila rce(s) Supporting Document(s) 163.0 CREATININE,RANDOM URINE eCW1 ( [facility]) ID Date Data Source UA URINALYSIS 10/01/2020 12:00:00 AM EDT eCW1 ([facility]) Name Value Range Interpretation Code Description Data Shaila rce(s) Supporting Document(s) UA URINALYSIS eCW1 ([facility]) ID Date Data Source LUPUS TYPE ANTICOAGULANT SCREE 10/01/2020 12:00:00 AM EDT eC W1 ([facility]) Name Value Range Interpretation Code Description Data Shaila rce(s) Supporting Document(s) 1.0 0-1.2 PTT LUPUS TYPE ANTICOAG S CREEN eCW1 ([facility]) ID Date Data Source COMPLEMENT TOTAL (CH50) 10/01/2020 12:00:00 AM EDT eCW1 ([facility]) Name Value Range Interpretation Code Description Data Shaila rce(s) Supporting Document(s) > 60 >41 COMPLEMENT TOTAL (CH50) eCW1 ( [facility]) ID Date Data Source COMPLEMENT C4 10/01/2020 12:00:00 AM EDT eCW1 ([facility]) Name Value Range Interpretation Code Description Data Shaila rce(s) Supporting Document(s) 22 10-40 COMPLEMENT C4 eCW1 ([facility]) ID Date Data Source COMPLEMENT C3 10/01/2020 12:00:00 AM EDT eCW1 ([facility]) Name Value Range Interpretation Code Description Data Shaila rce(s) Supporting Document(s) 127 90-180 COMPLEMENT C3 eCW1 ([facility]) ID Date Data Source [id number] 09/23/2020 11:35:00 AM EDT [facility] ([facility]) Name Value Range Interpretation Code Description Data Shaila rce(s) Supporting Document(s) Ast/Sgot 22 U/L 7-37 Normal (applies to non-numeric resul ts) [facility] ([facility]) Alt/SGPT 51 U/L 12-78 Normal (applies to non-numeric resul ts) [facility] ([facility]) Alkaline Phosphatase 82 U/L 45-117 Normal (applies to non-num laura results) [facility] ([facility]) Bilirubin,Total 0.7 mg/dL 0.2-1.0 Normal (applies to non-numeric results) [facility] Total Protein 6.3 GM/DL 6.4-8.2 Below low normal [facility] ([facility]) Bilirubin,Direct 0.2 mg/dL 0.0-0.2 Normal (applies to non-numeric results) [facility] ([facility]) Albumin 2.9 GM/DL 3.2-5.2 Below low normal [facility] ( [facility]) Albumin/Globulin Ratio 0.9 Normal (applies to non-n umeric results) [facility] ([facility]) ID Date Data Source [id number] 08/22/2020 09:44:00 AM EDT [facility]) Name Value Range Interpretation Code Description Data Shaila rce(s) Supporting Document(s) Ast/Sgot 38 U/L 7-37 Above high normal [facility] ([facility]) Alkaline Phosphatase 100 U/L 45-117 Normal (applies to non-num laura results) [facility]) Alt/SGPT 127 U/L 12-78 Above high normal [facility] ([facility]) Bilirubin,Total 0.8 mg/dL 0.2-1.0 Normal (applies to non-numeric results) [facility]) Bilirubin,Direct 0.2 mg/dL 0.0-0.2 Normal (applies to non-numeric results) [facility]) Total Protein 6.6 GM/DL 6.4-8.2 Normal (applies to non-numeric re sults) [facility]) Albumin/Globulin Ratio 0.9 Normal (applies to non-n umeric results) [facility]) Albumin 3.1 GM/DL 3.2-5.2 Below low normal [facility] ( [facility]) ID Date Data Source [id number] 07/30/2020 08:29:[address] [facility]) Name Value Range Interpretation Code Description Data Shaila rce(s) Supporting Document(s) Prostate specific Ag [Mass/volume] in Serum or Plasma 0.13 ng/mL Normal (applies to non-numeric results) [facility]) The PSA assay is performed on the Pathfireta analyzer by [employer] sandwich chemiluminescent immunoassay and should not be compared interchangeably with other methods. It should not be used alone as a screening test or diagnosis for the presence or absence of malignant disease. Predictions of disease recurrence should not be based solely on values obtained from serial patient serum values. ID Date Data Source [id number] 07/30/2020 08:29:[address] [facility]) Name Value Range Interpretation Code Description Data Shaila rce(s) Supporting Document(s) Jeferson/Creat Ratio 21.6 MCG/MG 0.0-30.0 Normal (applies to non-numeric results) [facility] ([facility]) THE [employer] STATES THAT MICROALBUMINURIA IS PRESENT IF THE MICROALBUMIN/CREATININE RATIO EXCEEDS 30 MCG/MG. THE THRESHOLD FOR CLINICAL ALBUMINURIA IS REACHED AT 300 MCG/MG. THE CLASSIFICATION OF A PATIENT SHOULD BE BASED UPON AT LEAST 2 OF 3 ABNORMAL RESULTS ON SPECIMENS COLLECTED WITHIN A 3 TO 6 MONTH TIME FRAME. Malb Urine Siemens 33.2 mg/L Normal (applies to non-numer ic results) [facility] ([facility]) Creatinine, Urine 153.0 mg/dL Normal (applies to non-numer ic results) [facility] ([facility]) ID Date Data Source [id number] 07/30/2020 08:29:00 AM EDT [facility] ([facility]) Name Value Range Interpretation Code Description Data Shaila rce(s) Supporting Document(s) White Blood Count 9.7 10 4.0-10.0 Normal (applies to non-numeri c results) [facility] ([facility]) Red Blood Count 5.23 10 4.30-6.10 Normal (applies to non-numeric results) [facility] ([facility]) Hemoglobin 15.4 g/dL 13.5-17.5 Normal (applies to non-numeric resul ts) [facility] ([facility]) Hematocrit 47.7 % 42.0-52.0 Normal (applies to non-numeric resul ts) [facility] ([facility]) Mean Corpuscular Volume 91.2 fl 80.0-96.0 Normal ( applies to non-numeric results) [facility] ([facility]) Mean Corpuscular Hemoglobin 29.4 pg 27.0-33.0 Norm al (applies to non-numeric results) [facility] ([facility]) Red Cell Distribution Width 12.6 % 11.5-14.5 Norm al (applies to non-numeric results) [facility] ([facility]) Mean Corpuscular HGB Conc 32.3 g/dL 32.0-36.5 Normal (applies to non-numeric results) [facility] ([facility]) Platelet Count, Automated 155 10 150-450 Normal (applies to non-numeric results) [facility] ([facility]) Neutrophils % 59.4 % 36.0-66.0 Normal (applies to non-numeric re sults) [facility] ([facility]) Lymph % 34.1 % 24.0-44.0 Normal (applies to non-numeric resul ts) [facility] ([facility]) Eos % 2.1 % 0.0-3.0 Normal (applies to non-numeric resul ts) [facility] ([facility]) Beadle % 3.8 % 2.0-8.0 Normal (applies to non-numeric resul ts) [facility] ([facility]) Baso % 0.2 % 0.0-1.0 Normal (applies to non-numeric resul ts) [facility] ([facility]) Nucleated Red Blood Cell % 0.0 % 0-0 Normal (applies to n on-numeric results) [facility] ([facility]) Immature Granulocyte % 0.4 % 0-3.0 Normal (applies to non-n umeric results) [facility] ([facility]) Lymph # 3.3 10 1.5-5.0 Normal (applies to non-numeric resul ts) [facility] ([facility]) Neutrophils # 5.7 10 1.5-8.5 Normal (applies to non-numeric re sults) [facility] ([facility]) Beadle # 0.4 10 0.0-0.8 Normal (applies to non-numeric resul ts) [facility] ([facility]) Eos # 0.2 10 0.0-0.5 Normal (applies to non-numeric resul ts) [facility] ([facility]) Baso # 0.0 10 0.0-0.2 Normal (applies to non-numeric resul ts) [facility] ([facility]) ID Date Data Source [id number] 07/30/2020 08:29:00 AM EDT [facility] ([facility]) Name Value Range Interpretation Code Description Data Shaila rce(s) Supporting Document(s) Triglycerides Level 72 mg/dL Normal (applies to non-nume cedric results) [facility] ([facility]) Cholesterol Level 123 mg/dL Normal (applies to non-numeri c results) [facility] ([facility]) HDL Cholesterol 79 mg/dL Normal (applies to non-numeric results) [facility] ([facility]) LDL Cholesterol 30 mg/dL Normal (applies to non-numeric results) [facility] ([facility]) Non-HDL-C 44 mg/dL Normal (applies to non-numeric resul ts) [facility] ([facility]) Cholesterol Risk Ratio 1.556 Normal (applies to non-n umeric results) [facility] ([facility]) ID Date Data Source [id number] 07/30/2020 08:29:00 AM EDT [facility] ([facility]) Name Value Range Interpretation Code Description Data Shaila rce(s) Supporting Document(s) Hemoglobin A1c 8.6 % Normal (applies to non-numeric r esults) [facility] ([facility]) <content>REFERENCE RANGES:</content><br/ ><content></content>
<content><=5.6% NORMAL</content>
<content>5.7-6.4% SUGGESTS IMPAIRED GLUCOSE METABOLISM/PREDIABETIC</content>
<content>>= 6.5% ABNORMAL</content>
<content></content> Estimated Average Glucose 200 mg/dL 60-110 Above high normal [facility] ([facility]) ID Date Data Source [id number] 07/30/2020 08:29:00 AM EDT [facility]) Name Value Range Interpretation Code Description Data Shaila rce(s) Supporting Document(s) Blood Urea Nitrogen 35 mg/dL 7-18 Above high normal [facility] ([facility]) Creatinine For GFR 0.76 mg/dL 0.70-1.30 Normal (applies to non -numeric results) [facility] ([facility]) Glucose, Fasting 150 mg/dL 70-100 Above high normal [facility]) Glomerular Filtration Rate Laboratory test result Normal (applies to non- numeric results) [facility] ([facility]) <content>Units are mL/min/1.73 m2</content>
<content></content>
<content>Chronic Kidney Disease Staging per NKF:</content>
<content></content>
<content>Stage I & II GFR >=60 Normal to Mildly Decreased</content>
<content>Stage III GFR 30- 59 Moderately Decreased</content>
<content>Stage IV GFR 15-29 Severely Decreased</content>
<content>Stage V GFR <15 Very Little GFR Left</content>
<content>ESRD GFR <15 on [employer]</content>
<content></content> Sodium Level 136 meq/L 136-145 Normal (applies to non-numeric res ults) [facility] ([facility]) Potassium Serum 4.5 meq/L 3.5-5.1 Normal (applies to non-numeric results) [facility] ([facility]) Chloride Level 95 meq/L 98-107 Below low normal [facility] ([facility]) Carbon Dioxide Level 37 meq/L 21-32 Above high normal [facility] ([facility]) Calcium Level 8.7 mg/dL 8.8-10.2 Below low normal [facility] ([facility]) Anion Gap 4 meq/L 8-16 Below low normal [facility] ( [facility]) Alkaline Phosphatase 84 U/L 45-117 Normal (applies to non-num laura results) [facility] ([facility]) Ast/Sgot 40 U/L 7-37 Above high normal [facility] ([facility]) Alt/SGPT 138 U/L 12-78 Above high normal [facility] Total Protein 6.5 GM/DL 6.4-8.2 Normal (applies to non-numeric re sults) [facility] ([facility]) Albumin 3.1 GM/DL 3.2-5.2 Below low normal [facility] ( [facility]) Bilirubin,Total 1.0 mg/dL 0.2-1.0 Normal (applies to non-numeric results) [facility] ([facility]) Albumin/Globulin Ratio 0.9 Normal (applies to non-n umeric results) [facility] ([facility]) ID Date Data Source [id number] 07/17/2020 10:38:00 AM EDT [facility] ([facility]) Name Value Range Interpretation Code Description Data Shaila rce(s) Supporting Document(s) White Blood Count 12.6 10 4.0-10.0 Above high normal [facility] ([facility]) Red Blood Count 5.03 10 4.30-6.10 Normal (applies to non-numeric results) [facility] ([facility]) Hemoglobin 15.3 g/dL 13.5-17.5 Normal (applies to non-numeric resul ts) [facility] ([facility]) Hematocrit 48.4 % 42.0-52.0 Normal (applies to non-numeric resul ts) [facility] ([facility]) Mean Corpuscular Volume 96.2 fl 80.0-96.0 Above high normal [facility] ([facility]) Mean Corpuscular HGB Conc 31.6 g/dL 32.0-36.5 Below low normal [facility] ([facility]) Mean Corpuscular Hemoglobin 30.4 pg 27.0-33.0 Norm al (applies to non-numeric results) [facility] ([facility]) Red Cell Distribution Width 13.2 % 11.5-14.5 Norm al (applies to non-numeric results) [facility] ([facility]) Platelet Count, Automated 122 10 150-450 Below low normal [facility] ([facility]) Neutrophils % 85.7 % 36.0-66.0 Above high normal [facility] ([facility]) Lymph % 9.8 % 24.0-44.0 Below low normal [facility] ( [facility]) Beadle % 2.1 % 2.0-8.0 Normal (applies to non-numeric resul ts) [facility] ([facility]) Baso % 0.1 % 0.0-1.0 Normal (applies to non-numeric resul ts) [facility] ([facility]) Eos % 1.6 % 0.0-3.0 Normal (applies to non-numeric resul ts) [facility] ([facility]) Immature Granulocyte % 0.7 % 0-3.0 Normal (applies to non-n umeric results) [facility] ([facility]) Nucleated Red Blood Cell % 0.0 % 0-0 Normal (applies to n on-numeric results) [facility] ([facility]) Neutrophils # 10.8 10 1.5-8.5 Above high normal [facility] ([facility]) Lymph # 1.2 10 1.5-5.0 Below low normal [facility] ( [facility]) Beadle # 0.3 10 0.0-0.8 Normal (applies to non-numeric resul ts) [facility] ([facility]) Eos # 0.2 10 0.0-0.5 Normal (applies to non-numeric resul ts) [facility] ([facility]) Baso # 0.0 10 0.0-0.2 Normal (applies to non-numeric resul ts) [facility]) ID Date Data Source [id number] 07/11/2020 03:05:00 PM EDT [facility]) Name Value Range Interpretation Code Description Data Shaila rce(s) Supporting Document(s) Ferritin [Mass/volume] in Serum or Plasma 290 ng/mL 26-388 Normal (applies to non-numeric results) [facility]) <content>note:<nlbl:demographic_changed> </content>
<content></content> Transferrin receptor.soluble [Mass/volume] in Serum or Plasm a 12.9 nmol/L 12.2-27.3 Normal (applies to non-numeric results) [facility]) Performed at: [address] [id number] Cash Person: Rashaun Hansen MD, Phone: [phone] ID Date Data Source [id number] 07/11/2020 03:05:00 PM EDT [facility] ([facility]) Name Value Range Interpretation Code Description Data Shaila rce(s) Supporting Document(s) Total Iron Binding Capacity 339 ug/dL 250-450 Norm al (applies to non-numeric results) [facility]) Iron (Fe) 154 ug/dL 65-175 Normal (applies to non-numeric resul ts) [facility] Percent Saturation 45.4 % 19.7-50.0 Normal (applies to non-numer ic results) [facility]) ID Date Data Source [id number] 06/05/2020 10:00:00 AM EST [facility] ([facility]) Name Value Range Interpretation Code Description Data Shaila rce(s) Supporting Document(s) Homocysteine [Moles/volume] in Serum or Plasma 9.1 umol/L 0 .0-17.2 Normal (applies to non-numeric results) [facility]) Performed at: RN - [facility] [address] [id number] Cash Person: Elda Orellaan MD, Phone: [phone] ID Date Data Source [id number] 06/05/2020 10:00:00 AM EST [facility]) Name Value Range Interpretation Code Description Data Shaila rce(s) Supporting Document(s) Glucose, Fasting 122 mg/dL 70-100 Above high normal [facility]) Blood Urea Nitrogen 18 mg/dL 7-18 Normal (applies to non-nume cedric results) [facility] ([facility]) Creatinine For GFR 0.97 mg/dL 0.70-1.30 Normal (applies to non -numeric results) [facility] ([facility]) Glomerular Filtration Rate Laboratory test result Normal (applies to non- numeric results) [facility] ([facility]) <content>Units are mL/min/1.73 m2</content>
<content></content>
<content>Chronic Kidney Disease Staging per NKF:</content>
<content></content>
<content>Stage I & II GFR >=60 Normal to Mildly Decreased</content>
<content>Stage III GFR 30- 59 Moderately Decreased</content>
<content>Stage IV GFR 15-29 Severely Decreased</content>
<content>Stage V GFR <15 Very Little GFR Left</content>
<content>ESRD GFR <15 on [employer]</content>
<content></content> Sodium Level 139 meq/L 136-145 Normal (applies to non-numeric res ults) [facility] ([facility]) Potassium Serum 4.2 meq/L 3.5-5.1 Normal (applies to non-numeric results) [facility] ([facility]) Chloride Level 100 meq/L 98-107 Normal (applies to non-numeric r esults) [facility] ([facility]) Carbon Dioxide Level 35 meq/L 21-32 Above high normal [facility] ([facility]) Anion Gap 4 meq/L 8-16 Below low normal [facility] ( [facility]) Calcium Level 9.1 mg/dL 8.8-10.2 Normal (applies to non-numeric re sults) [facility] ([facility]) Ast/Sgot 18 U/L 7-37 Normal (applies to non-numeric resul ts) [facility] ([facility]) Alt/SGPT 22 U/L 12-78 Normal (applies to non-numeric resul ts) [facility] ([facility]) Alkaline Phosphatase 90 U/L 45-117 Normal (applies to non-num laura results) [facility] ([facility]) Bilirubin,Total 0.7 mg/dL 0.2-1.0 Normal (applies to non-numeric results) [facility] ([facility]) Total Protein 7.0 GM/DL 6.4-8.2 Normal (applies to non-numeric re sults) [facility] ([facility]) Albumin 3.0 GM/DL 3.2-5.2 Below low normal [facility] ( [facility]) Albumin/Globulin Ratio 0.8 Normal (applies to non-n umeric results) [facility] ([facility]) ID Date Data Source [id number] 06/05/2020 10:00:00 AM EST [facility] ([facility]) Name Value Range Interpretation Code Description Data Shaila rce(s) Supporting Document(s) White Blood Count 8.4 10 4.0-10.0 Normal (applies to non-numeri c results) [facility] ([facility]) Red Blood Count 4.33 10 4.30-6.10 Normal (applies to non-numeric results) [facility] ([facility]) Hematocrit 41.7 % 42.0-52.0 Below low normal [facility] [facility]) Hemoglobin 13.2 g/dL 13.5-17.5 Below low normal [facility] ( [facility]) Mean Corpuscular Volume 96.3 fl 80.0-96.0 Above high normal [facility] ([facility]) Mean Corpuscular Hemoglobin 30.5 pg 27.0-33.0 Norm al (applies to non-numeric results) [facility] ([facility]) Red Cell Distribution Width 14.2 % 11.5-14.5 Norm al (applies to non-numeric results) [facility] ([facility]) Mean Corpuscular HGB Conc 31.7 g/dL 32.0-36.5 Below low normal [facility] ([facility]) Platelet Count, Automated 185 10 150-450 Normal (applies to non-numeric results) [facility] ([facility]) Neutrophils % 72.3 % 36.0-66.0 Above high normal [facility] ([facility]) Lymph % 17.3 % 24.0-44.0 Below low normal [facility] ( [facility]) Beadle % 4.9 % 2.0-8.0 Normal (applies to non-numeric resul ts) [facility] ([facility]) Eos % 4.2 % 0.0-3.0 Above high normal [facility] ([facility]) Baso % 1.1 % 0.0-1.0 Above high normal [facility] ([facility]) Immature Granulocyte % 0.2 % 0-3.0 Normal (applies to non-n umeric results) [facility] ([facility]) Nucleated Red Blood Cell % 0.0 % 0-0 Normal (applies to n on-numeric results) [facility] ([facility]) Neutrophils # 6.1 10 1.5-8.5 Normal (applies to non-numeric re sults) [facility] ([facility]) Lymph # 1.5 10 1.5-5.0 Normal (applies to non-numeric resul ts) [facility] ([facility]) Beadle # 0.4 10 0.0-0.8 Normal (applies to non-numeric resul ts) [facility] ([facility]) Eos # 0.4 10 0.0-0.5 Normal (applies to non-numeric resul ts) [facility] ([facility]) Baso # 0.1 10 0.0-0.2 Normal (applies to non-numeric resul ts) [facility] ([facility]) ID Date Data Source [id number] 05/30/2020 01:08:19 PM EST [facility] Name Value Range Interpretation Code Description Data Shaila rce(s) Supporting Document(s) &PDF [facility] [id number] yKE [file] [id number]/PHOTOENGRAVING APPRENTICE [file] [id number]= ID Date Data Source [id number] 05/30/2020 10:55:51 AM EST [facility] Name Value Range Interpretation Code Description Data Shaila rce(s) Supporting Document(s) EKG [facility] [id number] jb2 [file] [id number]+[id number]+MANAGER AGRICULTURAL/kKPJ+2C+ [file] [id number]= ID Date Data Source [id number] 05/25/2020 11:00:00 AM EST [facility] ([facility]) Name Value Range Interpretation Code Description Data Shaila rce(s) Supporting Document(s) Coronavirus 2019 Nasopharygeal Laboratory test result [facility] ([facility]) This nucleic acid amplification test was developed and its performance characteristics determined by [employer]. Nucleic acid amplification tests include RT- PCR [...] detected) result in this assay. Performed at: [facility] [address] [id number] Cash Person: Elda Orellana MD, Phone: [phone] Not Detected ID Date Data Source [id number] 05/25/2020 11:00:00 AM EST [facility] Name Value Range Interpretation Code Description Data Shaila rce(s) Supporting Document(s) SARS coronavirus 2 RNA Not Detected [facility] [place] This lab was ordered by [facility] and reported by [facility]. ID Date Data Source CYCLIC CITRULLINATED PEPTIDE 04/29/2020 12:00:00 AM EST eCW1 ([facility]) Name Value Range Interpretation Code Description Data Shaila rce(s) Supporting Document(s) 5 0-19 eCW1 ([facility]) ID Date Data Source ANTI SCLERODERMA ANTIBODIES 04/29/2020 12:00:00 AM EST eCW1 ([facility]) Name Value Range Interpretation Code Description Data Shaila rce(s) Supporting Document(s) <0.2 0.0-0.9 eCW1 ([facility]) ID Date Data Source ANTI DOUBLE STRAND DNA PATRICIA 04/29/2020 12:00:00 AM EST eCW1 ( [facility]) Name Value Range Interpretation Code Description Data Shaila rce(s) Supporting Document(s) eCW1 ([facility]) ID Date Data Source ANTI-SJOGRENS A&B ANTIBODIES 04/29/2020 12:00:00 AM EST eCW1 ([facility]) Name Value Range Interpretation Code Description Data Shaila rce(s) Supporting Document(s) <0.2 0.0-0.9 eCW1 ([facility]) <0.2 0.0-0.9 eCW1 ([facility]) ID Date Data Source ANTI-HISTONE ANTIBODIES 04/29/2020 12:00:00 AM EST eCW1 ([facility]) Name Value Range Interpretation Code Description Data Shaila rce(s) Supporting Document(s) 0.6 0.0-0.9 eCW1 ([facility]) ID Date Data Source FELICIA TITER & PATTERN 04/29/2020 12:00:00 AM EST eCW1 ([facility]) Name Value Range Interpretation Code Description Data Shaila rce(s) Supporting Document(s) Positive . eCW1 ([facility]) ID Date Data Source ANTI-CARDIOLIPIN ANTIBODIES 04/29/2020 12:00:00 AM EST eCW1 ([facility]) Name Value Range Interpretation Code Description Data Shaila rce(s) Supporting Document(s) <9 0-14 eCW1 ([facility]) <9 0-11 eCW1 ([facility]) 20 0-12 eCW1 ([facility]) ID Date Data Source ANTI CENTROMERE ANTIBODY 04/29/2020 12:00:00 AM EST eCW1 ([facility]) Name Value Range Interpretation Code Description Data Shaila rce(s) Supporting Document(s) <0.2 0.0-0.9 eCW1 ([facility]) ID Date Data Source BETA-2 GLYCOPROTEIN 1 PATRICIA GLENN 04/29/2020 12:00:00 AM EST eCW 1 ([facility]) Name Value Range Interpretation Code Description Data Shaila rce(s) Supporting Document(s) <9 0-20 eCW1 ([facility]) <9 0-32 eCW1 ([facility]) <9 0-25 eCW1 ([facility]) ID Date Data Source ANGIOTENSIN 1 CONVERTING ENZYM 04/29/2020 12:00:00 AM EST eC W1 ([facility]) Name Value Range Interpretation Code Description Data Shaila rce(s) Supporting Document(s) 26 14-82 eCW1 ([facility]) ID Date Data Source C REACTIVE PROTEIN QUANTITATIV (At [facility]) 04/29/2020 12:00 :00 AM EST eCW1 ([facility]) Name Value Range Interpretation Code Description Data Shaila rce(s) Supporting Document(s) 0.42 0.00-0.30 eCW1 ([facility]) ID Date Data Source ERYTHROCYTE SEDIMENTATION RATE 04/29/2020 12:00:00 AM EST eC W1 ([facility]) Name Value Range Interpretation Code Description Data Shaila rce(s) Supporting Document(s) 36 0-20 eCW1 ([facility]) ID Date Data Source CBC with Differential 04/29/2020 12:00:00 AM EST eCW1 ([facility]) Name Value Range Interpretation Code Description Data Shaila rce(s) Supporting Document(s) 48.0 42.0-52.0 eCW1 ([facility]) 12.1 4.0-10.0 eCW1 ([facility]) 4.98 4.30-6.10 eCW1 ([facility]) 14.6 13.5-17.5 eCW1 ([facility]) 29.3 27.0-33.0 eCW1 ([facility]) 13.7 11.5-14.5 eCW1 ([facility]) 96.4 80.0-96.0 eCW1 ([facility]) 30.4 32.0-36.5 eCW1 ([facility]) 252 150-450 eCW1 ([facility]) 74.9 36.0-66.0 eCW1 ([facility]) 5.2 0.0-3.0 eCW1 ([facility]) 14.4 24.0-44.0 eCW1 ([facility]) 4.5 0.0-5.0 eCW1 ([facility]) 1.8 1.5-5.0 eCW1 ([facility]) 0.7 0.0-1.0 eCW1 ([facility]) 9.1 1.5-8.5 eCW1 ([facility]) 0.6 0.0-0.8 eCW1 ([facility]) 0.6 0.0-0.5 eCW1 ([facility]) 0.1 0.0-0.2 eCW1 ([facility]) ID Date Data Source [id number] 03/19/2020 05:29:00 PM EST [facility] Name Value Range Interpretation Code Description Data Shaila rce(s) Supporting Document(s) SARS coronavirus 2 RNA [Presence] in Res piratory specimen by RAPHAEL with probe detection [facility] This lab was ordered by [facility] a nd reported by [facility]. ID Date Data Source [id number] 03/19/2020 04:34:00 PM EST [facility] ([facility]) Name Value Range Interpretation Code Description [...] Plasma 659 pg/mL Above high normal [facility] ([facility]) <content>note:<nlbl:demographic_changed> </content>
<content></content> ID Date Data Source [id number] 03/19/2020 04:34:00 PM EST [facility] ([facility]) Name Value Range Interpretation Code Description Data Shaila rce(s) Supporting Document(s) Glucose, Fasting 155 mg/dL 70-100 Above high normal [facility] ([facility]) Blood Urea Nitrogen 25 mg/dL 7-18 Above [facility] Creatinine For GFR 0.73 mg/dL 0.70-1.30 Normal (applies to non -numeric results) [facility] ([facility]) Glomerular Filtration Rate Laboratory test result Normal (applies to non- numeric results) [facility] ([facility]) <content>Units are mL/min/1.73 m2</content>
<content></content>
<content>Chronic Kidney Disease Staging per NKF:</content>
<content></content>
<content>Stage I & II GFR >=60 Normal to Mildly Decreased</content>
<content>Stage III GFR 30- 59 Moderately Decreased</content>
<content>Stage IV GFR 15-29 Severely Decreased</content>
<content>Stage V GFR <15 Very Little GFR Left</content>
<content>ESRD GFR <15 on [employer]</content>
<content></content> Sodium Level 138 meq/L 136-145 Normal (applies to non-numeric res ults) [facility] ([facility]) Potassium Serum 4.7 meq/L 3.5-5.1 Normal (applies to non-numeric results) [facility]) Chloride Level 103 meq/L 98-107 Normal (applies to non-numeric r esults) [facility] ([facility]) Carbon Dioxide Level 30 meq/L 21-32 Normal (applies to non-num laura results) [facility]) Anion Gap 5 meq/L 8-16 Below low normal [facility] Calcium Level 8.3 mg/dL 8.8-10.2 Below low normal [facility] ([facility]) ID Date Data Source [id number] 03/19/2020 04:34:00 PM EST [facility] ([facility]) Name Value Range Interpretation Code Description Data Shaila rce(s) Supporting Document(s) Ast/Sgot 26 U/L 7-37 Normal (applies to non-numeric resul ts) [facility]) Alt/SGPT 57 U/L 12-78 Normal (applies to non-numeric resul ts) [facility]) Alkaline Phosphatase 107 U/L 45-117 Normal (applies to non-num laura results) [facility] ([facility]) Bilirubin,Total 0.4 mg/dL 0.2-1.0 Normal (applies to non-numeric results) [facility] ([facility]) Bilirubin,Direct 0.1 mg/dL 0.0-0.2 Normal (applies to non-numeric results) [facility] ([facility]) Total Protein 6.8 GM/DL 6.4-8.2 Normal (applies to non-numeric re sults) [facility] ([facility]) Albumin 3.1 GM/DL 3.2-5.2 Below low normal [facility] ( [facility]) Albumin/Globulin Ratio 0.8 Normal (applies to non-n umeric results) [facility] ([facility]) ID Date Data Source [id number] 03/19/2020 04:34:00 PM EST [facility]) Name Value Range Interpretation Code Description Data [facility] rce(s) Supporting Document(s) MB/CK Relative Index 3.31 Normal (applies to non-num laura results) [facility] ([facility]) <content>DIAGNOSIS CRITERIA</content>
<content>MMB ng/ml Relative Index (RI)</content>
<content>NON-AMI < or = 5 N/A</content>
<content>QUIÑONES ZONE > 5 < or = 4</content>
<content>AMI > 5 > 4</content>
<content></content> CK-MB Value Mass 4.9 ng/mL Above high normal [facility] CPK Creatine Phosphokinase 148 U/L 39-308 Hollie l (applies to non-numeric results) [facility] ([facility]) Troponin I Laboratory test result Normal (applies to non-n umeric results) [facility] ([facility]) <content>Troponin I Reference Interval f or Siemens [place] LOCI:</content>
<content></content>
<content>99th Percentile= 0.00-0.045 ng/ml</content>
<content></content>
<content>Risk Stratification:</content>
<content><= 0.10 ng/ml Decreased Risk for Adverse Clinical</content>
<content>Events.</content>
<content>0.10-1.50 ng/ml Increased Risk for Adverse Clinical</content>
<content>Events. Evaluation of additional</content>
<content>criterion and/or repeat testing in 2-6</content>
<content>hours is suggested to rule out myocardial</content>
<content>damage.</content>
<content>>= 1.50 ng/ml Indicative of Myocardial Injury.</content>
<content></content> ID Date Data Source [id number] 03/19/2020 04:34:00 PM EST [facility] ([facility]) Name Value Range Interpretation Code Description Data Shaila rce(s) Supporting Document(s) aPTT in Platelet poor plasma by Coagulation assay 26.2 s 24.2-38.5 Normal (applies to non-numeric results) [facility] ([facility]) ID Date Data Source [id number] 03/19/2020 04:34:00 PM EST [facility] ([facility]) Name Value Range Interpretation Code Description Data Shaila rce(s) Supporting Document(s) Inr 1.13 Normal (applies to non-numeric resul ts) [facility] ([facility]) THERAPUTIC HUMAN INR VALUES INDICATIONS NORMAL RANGES PROPHYLAXIS/TREATMENT OF: VENOUS THROMBOSIS 2.0-3.0 PULMONARY EMBOLISM 2.0-3.0 PREVENTION OF SYSTEMIC EMBOLISM FROM: TISSUE HEART VALVES 2.0-3.0 ACUTE MYOCARDIAL INFARCTION 2.0-3.0 VALVULAR HEART DISEASE 2.0-3.0 ATRIAL FIBRILLATION 2.0-3.0 MECHANICAL VALVES(HIGH RISK) 2.5-3.5 RECURRENT MYOCARDIAL INFARCTION 2.5-3.5 Prothrombin Time 14.8 s 12.5-14.3 Above high normal [facility] ([facility]) ID Date Data Source [id number] 03/19/2020 04:34:00 PM EST [facility] ([facility]) Name Value Range Interpretation Code Description Data Shaila rce(s) Supporting Document(s) White Blood Count 10.9 10 4.0-10.0 Above high normal [facility] ([facility]) Red Blood Count 4.55 10 4.30-6.10 Normal (applies to non-numeric results) [facility] ([facility]) Hemoglobin 13.2 g/dL 13.5-17.5 Below low normal [facility] ( [facility]) Mean Corpuscular Volume 94.3 fl 80.0-96.0 Normal ( applies to non-numeric results) [facility] ([facility]) Hematocrit 42.9 % 42.0-52.0 Normal (applies to non-numeric resul ts) [facility]) Mean Corpuscular Hemoglobin 29.0 pg 27.0-33.0 Norm al (applies to non-numeric results) [facility] ([facility]) Mean Corpuscular HGB Conc 30.8 g/dL 32.0-36.5 Below low normal [facility] ([facility]) Red Cell Distribution Width 13.3 % 11.5-14.5 Norm al (applies to non-numeric results) [facility] ([facility]) Platelet Count, Automated 204 10 150-450 Normal (applies to non-numeric results) [facility] ([facility]) Beadle % 2.4 % 0.0-5.0 Normal (applies to non-numeric resul ts) [facility] ([facility]) Neutrophils % 87.9 % 36.0-66.0 Above high normal [facility] ([facility]) Lymph % 8.2 % 24.0-44.0 Below low normal [facility] ( [facility]) Baso % 0.5 % 0.0-1.0 Normal (applies to non-numeric resul ts) [facility] ([facility]) Eos % 0.5 % 0.0-3.0 Normal (applies to non-numeric resul ts) [facility] ([facility]) Immature Granulocyte % 0.5 % 0-3.0 Normal (applies to non-n umeric results) [facility] ([facility]) Nucleated Red Blood Cell % 0.0 % 0-0 Normal (applies to n on-numeric results) [facility] ([facility]) Neutrophils # 9.6 10 1.5-8.5 Above high normal [facility] ([facility]) Beadle # 0.3 10 0.0-0.8 Normal (applies to non-numeric resul ts) [facility] ([facility]) Lymph # 0.9 10 1.5-5.0 Below low normal [facility] ( [facility]) Eos # 0.1 10 0.0-0.5 Normal (applies to non-numeric resul ts) [facility] ([facility]) Baso # 0.1 10 0.0-0.2 Normal (applies to non-numeric resul ts) [facility] ([facility]) ID Date Data Source [id number] 03/15/2020 12:00:00 PM EST [facility] ([facility]) Name Value Range Interpretation Code Description Data Shaila rce(s) Supporting Document(s) Glucose, Fasting 157 mg/dL 70-100 Above high normal [facility] ([facility]) Blood Urea Nitrogen 29 mg/dL 7-18 Above high normal [facility] ([facility]) Sodium Level 137 meq/L 136-145 Normal (applies to non-numeric res ults) [facility] ([facility]) Glomerular Filtration Rate Laboratory test result Normal (applies to non- numeric results) [facility]) <content>Units are mL/min/1.73 m2</content>
<content></content>
<content>Chronic Kidney Disease Staging per NKF:</content>
<content></content>
<content>Stage I & II GFR >=60 Normal to Mildly Decreased</content>
<content>Stage III GFR 30- 59 Moderately Decreased</content>
<content>Stage IV GFR 15-29 Severely Decreased</content>
<content>Stage V GFR <15 Very Little GFR Left</content>
<content>ESRD GFR <15 on [employer]</content>
<content></content> Creatinine For GFR 0.77 mg/dL 0.70-1.30 Normal (applies to non -numeric results) [facility] ([facility]) Potassium Serum 4.9 meq/L 3.5-5.1 Normal (applies to non-numeric results) [facility] ([facility]) This specimen has an elevated potassium level but there is NO visible hemolysis noted. Chloride Level 104 meq/L 98-107 Normal (applies to non-numeric r esults) [facility] ([facility]) Carbon Dioxide Level 28 meq/L 21-32 Normal (applies to non-num laura results) [facility] ([facility]) Anion Gap 5 meq/L 8-16 Below low normal [facility] ( [facility]) Calcium Level 7.9 mg/dL 8.8-10.2 Below low [facility] ID Date Data Source [id number] 03/15/2020 12:00:00 PM EST [facility] ([facility]) Name Value Range Interpretation Code Description Data Shaila rce(s) Supporting Document(s) Natriuretic peptide.B prohormone N-Terminal [Mass/volu me] in Serum or Plasma 482 pg/mL Above high normal [facility] ([facility]) ID Date Data Source [id number] 03/15/2020 11:54:00 AM EST [facility] ([facility] ) Name Value Range Interpretation Code Description Data Shaila rce(s) Supporting Document(s) Glucose, Fasting 157 mg/dL 70-100 Above high normal [facility] ([facility], ) Creatinine For GFR 0.76 mg/dL 0.70-1.30 Normal (applies to non -numeric results) [facility] ) Blood Urea Nitrogen 28 mg/dL 7-18 Above high normal [facility] ([facility]) Glomerular Filtration Rate Laboratory test result Normal (applies to non- numeric results) [facility] ([facility]) <content>Units are mL/min/1.73 m2</content>
<content></content>
<content>Chronic Kidney Disease Staging per NKF:</content>
<content></content>
<content>Stage I & II GFR >=60 Normal to Mildly Decreased</content>
<content>Stage III GFR 30- 59 Moderately Decreased</content>
<content>Stage IV GFR 15-29 Severely Decreased</content>
<content>Stage V GFR <15 Very Little GFR Left</content>
<content>ESRD GFR <15 on [employer]</content>
<content></content> Sodium Level 137 meq/L 136-145 Normal (applies to non-numeric res ults) [facility] ([facility]) Potassium Serum 4.8 meq/L 3.5-5.1 Normal (applies to non-numeric results) [facility] ([facility]) Chloride Level 104 meq/L 98-107 Normal (applies to non-numeric r esults) [facility] ([facility]) Carbon Dioxide Level 29 meq/L 21-32 Normal (applies to non-num laura results) [facility] ([facility]) Anion Gap 4 meq/L 8-16 Below low [facility] Calcium Level 7.9 mg/dL 8.8-10.2 Below low normal [facility] ([facility]) Albumin 2.9 GM/DL 3.2-5.2 Below low normal [facility] Phosphorus Level 3.9 mg/dL 2.5-4.9 Normal (applies to non-numeric results) [facility] ([facility]) ID Date Data Source [id number] 03/15/2020 11:54:00 AM EST [facility] ([facility]) Name Value Range Interpretation Code Description Data Shaila rce(s) Supporting Document(s) Natriuretic peptide.B prohormone N-Terminal [Mass/volu me] in Serum or Plasma 478 pg/mL Above high normal [facility] ([facility], ) ID Date Data Source [id number] 03/15/2020 11:54:00 AM [facility]) Name Value Range Interpretation Code Description Data Shaila rce(s) Supporting Document(s) Aspergillus Fumigatus AB Laboratory test result Normal (applies to non-numeric results) [facility] ([facility]) Micropolyspora Faeni AB Laboratory test result N ormal (applies to non-numeric results) [facility] ([facility]) Aureobasidium [place] Laboratory test result N ormal (applies to non-numeric results) [facility] ([facility]) [place] Serum AB Laboratory test result Normal (a pplies to non-numeric results) [facility] ([facility]) Performed at: [facility] [address] [id number] Cash Person: Rashaun Hansen MD, Phone: [phone] Performed at: [facility] [address] [id number] Cash Person: Elda Orellana MD, Phone: [phone] Thermoactinomyces Vulgaris Laboratory test result Normal (applies to non- numeric results) [facility] [facility] ([facility]) Thermoactinomyces Sacchari Laboratory test result Normal (applies to non- numeric results) [facility]) ID Date Data Source [id number] 03/15/2020 11:54:00 AM EST [facility]) Name Value Range Interpretation Code Description Data Shaila rce(s) Supporting Document(s) Cytoplasmic Neutrop AB Anca-C Laboratory test result Normal (applies to non- numeric results) [facility]) Perinuclear AB Anca-P Laboratory test result Nor mal (applies to non-numeric results) [facility]) The presence of positive fluorescence ex hibiting P-ANCA or C-ANCA patterns alone is not specific for the diagnosis of Anamaria's Granulomatosis (WG) or microscopic polyangiitis. Decisions about treatment should not be based solely on ANCA IFA results. The International ANCA Group Consensus recommends follow up testing of positive sera with both DC- 3 and MPO-ANCA enzyme immunoassays. As m any as 5% serum samples are positive only by EIA. Ref. AM J Clin Pathol 1999;111:507-513. Anca-Atypical Laboratory test result Normal (applies t o non-numeric results) [facility] ([facility]) The atypical pANCA pattern has been obse rved in a significant percentage of patients with ulcerative colitis, primary sclerosing cholangitis and autoimmune hepatitis. ID Date Data Source [id number] 03/15/2020 11:54:00 AM EST [facility] ([facility]) Name Value Range Interpretation Code Description Data Shaila rce(s) Supporting Document(s) Anti Double Strand-Dna AB 20 IU/ml 0-9 Above high normal [facility] ([facility]) <content>Negative <5</content>
<content>Equivocal 5 - 9</content>
<content>Positive >9</content>
<content></content> Antinuclear Antibodies Direct Laboratory test result Abnormal (applies to non- numeric results) [facility] ([facility]) Gardner Antibodies Laboratory test result 0.0-0.9 Normal ( applies to non-numeric results) [facility]) COAL HANDLER Antibodies Laboratory test result 0.0-0.9 Normal (a pplies to non-numeric results) [facility] ([facility]) Sjogren's Anti SS-B Laboratory test result 0.0-0.9 Hollie l (applies to non- numeric results) [facility] ([facility]) Sjogren's Anti SS-A Laboratory test result 0.0-0.9 Hollie l (applies to non- numeric results) [facility]) Felicia Comment Laboratory test result Normal (applies to non- numeric results) [facility] ([facility]) . Autoantibody Disease Association Condition Frequency -------- [...] (anti-Gardner) SLE 15 - 30% ------- --------- COAL HANDLER Mixed Connective Tissue Disease 95% (U1 nRNP, SLE 30 - 50% anti-ribonucleoprotein) Polymyositis and/or Dermatomyositis 20% -------- --------- Scl-70 (antiDNA Scleroderma (diffuse) 20 - 35% topoisomerase) Crest 13% -------- --------- Shyam-1 Polymyositis and/or Dermatomyositis 20 - 40% -------- --------- Centromere B Scleroderma - Crest variant 80% ID Date Data Source [id number] 03/15/2020 11:54:00 AM EST [facility] ([facility]) Name Value Range Interpretation Code Description Data Shaila rce(s) Supporting Document(s) Erythrocyte sedimentation rate by Westergren method 7 mm/hr 0-20 Normal (applies to non-numeric results) [facility] ([facility]) Rheumatoid factor [Units/volume] in Serum or Plasma Laboratory t est result Normal (applies to non-numeric results) [facility] ([facility]) Angiotensin converting enzyme [Enzymatic activity/volu me] in Serum or Plasma 31 U/L 14-82 Normal (applies to non-numeric results) [facility] ([facility]) C reactive protein [Mass/volume] in Serum or Plasma by High sensitivity method 0.35 mg/dL 0.00-0.30 Above high normal [facility] ([facility]) Cyclic citrullinated peptide IgG Ab [Units/volume] in Serum or Plasma 4 units 0-19 Normal (applies to non-numeric results) [facility] ([facility]) <content>Negative <20</con tent>
<content>Weak positive 20 - 39</content>
<content>Moderate positive 40 - 59</content>
<content>Strong positive >59</content>
<content></content> ID Date Data Source [id number] 02/14/2020 01:00:00 PM EST [facility] Name Value Range Interpretation Code Description Data Shaila rce(s) Supporting Document(s) Follow Up [facility] VMEMAs1wMmDOZsRbGMAcJxmUMMgfVRvsSKEdZ9P7PLozWv1LGPesdpWsCYIhMt1+TCEyHD4uct2gVPEk gMy [file] tikmGpzEoyRoTF+mwQgEkfHxjohmHnnIkCLd+kgwim um6HsYe3wTx4gCtn+74NS3L4Fn1py5EVWSr0QXocai4sk9RXlzzqvpxDthnIwMEJAP6ucjMop77KkUAL 0ApTlnsYw0C1+FyG/ElYyvz1FEV9cXpi9Bi2Rqk1C9qffMGweJWH+SYzaiYRjOLAzcaAlNETEcIGGXvj 8u6g0L2rBGtLvS6T+728UDDyPcFO3Cpse5SagHJbh4 RWXkjB/ocD0yjLPFl6Okp8Zfh5fsWMLxmgY47w4iGr7xMmH8kBd/62C1FvyMep6od5CiJioym5DExsYd TM9HxgTfAXnMxupqjzpK+TXQuD4SQvxpeVpDuiukf9ppeYaLJevO+9GS/cQMeci7MxPlkG1LZTUEEo9y WDbhq9tzzJcoBBQHVc6wxx+OpzA0plyVwxWRk1T2uD vhHh6M4fa4yrD51UtY1M+LUc8CaYdJKh1p6Bg/xVdY1FFLppJU+1c4o2HT7Yt/myDkByMOANlq2USVD4 eYXhrngEG0yQu4uPqqXFhMLL00DpMnVGuzwVWrPYoycC7k74Jxae1eOyI0wtFwNpQojRyARZvt7w8d2m AH/MANAGER AGRICULTURAL/T2MPhUOItpNTmbKSZsKkD9yu32m9R6DwgNFk [file] pQvmElnggNikgpbViLb5guWCqQR3ysmg5XsCxf9C/Iván+3XvrqihgmU5G49OLIOjX8sBE7wNwbduMMgg [file] b2Jgxm/vsFcmpOpq05QoJdoyYB02HV8uW8QMR3TeRT2X5EP48TRTfcX1E7XchMy77/ao0RYA3hnj/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 [file] [facility]+yN3aH+qHjoRrzRc9KKSK4AkykeoKcjCa [file] p4bGZsT9QaGLFuzoN0tqn6Jg496hePgLWeO4sZCx+1FpeN0ayhT6KlbCvbD7Y/JGPzzN1VeiBjki/Maria Dolores [file] molasses and caramel operator+dxEJDTin8I4jWL/4MkG1b1hB3Cahp9cLwA/w6H [file] 22ElL3AclVlfaBmQheCFaJ1BzzQ8Ow4SqWJ7EF8DcExXuHF+executive vp/E7eSuusMWm0/ZFNpgYt45nK21mk1F [file] KtWlBNxGFSRpyudgxrOEfkwE5VKOhQfYvWNLgRT3a/pAMN7a/José Luis/nBS4h/aRep3KhNHwlRmenLNl3uh [file] UsFGrC4v8c6+VGbaIQr6YDuvsCFXsNJzBya5STKQKdN9Z53a+BAG LINER/mOfLtNYog+zF+8JpAW82zIObYfTX [file] lslLzsMLjaa6hXKHqVTi0oct6lQ2l6QIlLu3V17QWtQ6NvLCiMEffjGxbm+Pedro Luis/3xQsG2Pfzzy0PW6+X [file] Wl+x/Hub Bander+LtH3K6/GIPnNFrJyx3Hrrk1ZKbE5JCdznxs04vmnEnn4icft8V69JnOfMH8Qvxpd3Qzyvca [file] Chief Librarian Branch+kP1eAoeJgR29C8M6Xl7g+54rod8VIg6gyVxoYNt [file] 1i4A7bcFyTSEIXsuN03dMwqywG2AGZxWjF4ABJTYCQZ3NGBMLVq6vRSOV5sNS+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/2BgR5dM0e0J7mI [file] /TaZpbmjiJ7+member service [file] j/IMW7BKTYtkl8yWeYSZV/MARY ANN/twILOWE2eW/qfrdT XvCtMgtfQES+qjxj44tJZAkzSJs0emuAyePbQy66sUHZWY30/YR2ijXkMoHkXsKdROrWBJjqrwqK9w1t bqmYGUgg826SI/PHc/eA8i5LwNPk6kurYf1utBMzYE7y0GW+DTWNYKdk8OgtSjkIO2jGNmrB23MVUAgd IPN4E2KPMzRW6EHFAn9DTxfWpaSW3WQREOt4lWWszJ 3vIALpn0Ng+pRAukkOsfpj1VjPR+9eHvKA/5Qv83Uza3TOBwTy8cdksarMHH2sKvnzUyPJZyPj7D7hvw jKpjTfQjmhQ12TqRlDl4R05E1AzmOhmxkP/i15sOMj6H3sIyxSiX17KYHoBkzh4nNRJa/GQuD8jWLw/+ d2vd5/xnoAGkvGxZbkfTiXVXF0An9V0iQk519E3XjZ A8OVZHVBb1jvzDj1sD9pARHyWO8KE8SKRh4hHOgSXKDyhisMoGgCU9AcYECzjIaw0+V+qtoRbqrWYdio w/kwt2Ejqneqn75g2a67/vY0Ml8kFqWrJo+ZPlUFXFomVUySY9cnNzNOCNsS/3e1QT1Vh9/HL2JzMCeN J7M2CmKL361Q77Sm/0lBFf/PQaxCXSIG8GigfSyDbf Yl2hPysJ2g0nz8xi2CQGvnogb/jQacAKDOfdEca0r3Gen/6EBPIqQiokV18EWRT2QAWwnTvU6iZz72nf WYZ6f6/gMJvmkjCvV8zeZBtKYVRlX/mI7HGndGS9nzs3rKMjq2trLGpFi+hA26OlBXMYfWrDNWNEVWCw BfjDNab8aVkpr/vkO0GLHMbGfpSxN1RAabxmy4hhIK LH8b5R6ZzrwGx/GF3NpY1enf4qFJ6IrCS8B31rvcyqYtRTXaRRdcojUSUxMznHQ1iA5WCPDHSy1S3fuu UK4Z4zALSeTv0fFo6Kqpn3g1HZZ1B8VEdOcgnp2uzg4q9sabto3j4zblBsgaR7IcmiBOBC2o5ftc3NPS +UHM4V8/S2il8A4fB9GOVQ4kNRIWMz4tIxETZFEPRW [file] ITTDDhQKGzRSKfA9OiUBcxY7pYCXd0BLSQVOBFXBfGQMFZXEELQOHHCGRXDvErZIvxQCZpCTH+IDw0NE Y1JtKQXAMADcZMJRXVLqMHOVFDKUQHRSVrIIRzAD0vW3Jnf7GyEFMeDJYnPP1zwiOnCEQzGh2PpBhlEN AaZ5G9eOBlD9qCKHPrMhLmKUR4LCOcNt7aaRMtCF6W DwghR7HaUEXyMRHHQBACGno+ZTMN99IihyLIZY7qKMcgu3dn8cACJ3FagGP5TvVhYTGF6ImNuGWYq7RT gNi3PGP2SCd+FfJAIiyvPdlHYUrCImKRZiEbJDV5fvPsvN3SCU7yl2GrAU1Iw3EnyrB9ppRgFMkjZab7 HyG6NZhbFJTZAe== ID Date Data Source [id number] 12/06/2019 02:25:00 PM EDT [facility] ([facility]) Name Value Range Interpretation Code Description Data Shaila rce(s) Supporting Document(s) Natriuretic peptide.B prohormone N-Terminal [Mass/volu me] in Serum or Plasma 159 pg/mL Above high normal [facility] ([facility]) ID Date Data Source [id number] 12/06/2019 02:25:00 PM EDT [facility] ([facility]) Name Value Range Interpretation Code Description Data Shaila rce(s) Supporting Document(s) Cholesterol Level 97 mg/dL Normal (applies to non-numeri c results) [facility] ([facility]) Triglycerides Level 64 mg/dL Normal (applies to non-nume cedric results) [facility] ([facility]) Non-HDL-C 51 mg/dL Normal (applies to non-numeric resul ts) [facility] ([facility]) HDL Cholesterol 46 mg/dL Normal (applies to non-numeric results) [facility] ([facility]) LDL Cholesterol 38 mg/dL Normal (applies to non-numeric results) [facility]) Cholesterol Risk Ratio 2.108 Normal (applies to non-n umeric results) [facility] ([facility]) ID Date Data Source [id number] 12/06/2019 02:25:00 PM EDT [facility] ([facility]) Name Value Range Interpretation Code Description Data Shaila rce(s) Supporting Document(s) White Blood Count 8.9 10 4.0-10.0 Normal (applies to non-numeri c results) [facility] ([facility]) Red Blood Count 4.58 10 4.30-6.10 Normal (applies to non-numeric results) [facility] ([facility]) Hemoglobin 14.3 g/dL 13.5-17.5 Normal (applies to non-numeric resul ts) [facility] ([facility]) Hematocrit 43.4 % 42.0-52.0 Normal (applies to non-numeric resul ts) [facility] ([facility]) Mean Corpuscular Volume 94.8 fl 80.0-96.0 Normal ( applies to non-numeric results) [facility] ([facility]) Mean Corpuscular Hemoglobin 31.2 pg 27.0-33.0 Norm al (applies to non-numeric results) [facility] ([facility]) Mean Corpuscular HGB Conc 32.9 g/dL 32.0-36.5 Normal (applies to non-numeric results) [facility] ([facility]) Platelet Count, Automated 204 10 150-450 Normal (applies to non-numeric results) [facility] ([facility]) Red Cell Distribution Width 12.8 % 11.5-14.5 Norm al (applies to non-numeric results) [facility] ([facility]) Beadle % 5.9 % 0.0-5.0 Above high normal [facility] ([facility]) Lymph % 21.9 % 24.0-44.0 Below low normal [facility] ( [facility]) Neutrophils % 67.7 % 36.0-66.0 Above high normal [facility] ([facility]) Baso % 0.9 % 0.0-1.0 Normal (applies to non-numeric resul ts) [facility] ([facility]) Immature Granulocyte % 0.3 % 0-3.0 Normal (applies to non-n umeric results) [facility] ([facility]) Eos % 3.3 % 0.0-3.0 Above high normal [facility] ([facility]) Neutrophils # 6.0 10 1.5-8.5 Normal (applies to non-numeric re sults) [facility] ([facility]) Nucleated Red Blood Cell % 0.0 % 0-0 Normal (applies to n on-numeric results) [facility] ([facility]) Lymph # 2.0 10 1.5-5.0 Normal (applies to non-numeric resul ts) [facility] ([facility]) Beadle # 0.5 10 0.0-0.8 Normal (applies to non-numeric resul ts) [facility] ([facility]) Eos # 0.3 10 0.0-0.5 Normal (applies to non-numeric resul ts) [facility] ([facility]) Baso # 0.1 10 0.0-0.2 Normal (applies to non-numeric resul ts) [facility] ([facility]) ID Date Data Source [id number] 12/06/2019 02:25:00 PM EDT [facility] ([facility]) Name Value Range Interpretation Code Description Data Shaila rce(s) Supporting Document(s) Creatinine, Urine 304.0 mg/dL Normal (applies to non-numer ic results) [facility] ([facility]) Malb Urine Siemens 20.1 mg/L Normal (applies to non-numer ic results) [facility] ([facility]) Jeferson/Creat Ratio 6.6 MCG/MG 0.0-30.0 Normal (applies to non-numeric results) [facility] ([facility]) THE [employer] STATES THAT MICROALBUMINURIA IS PRESENT IF THE MICROALBUMIN/CREATININE RATIO EXCEEDS 30 MCG/MG. THE THRESHOLD FOR CLINICAL ALBUMINURIA IS REACHED AT 300 MCG/MG. THE CLASSIFICATION OF A PATIENT SHOULD BE BASED UPON AT LEAST 2 OF 3 ABNORMAL RESULTS ON SPECIMENS COLLECTED WITHIN A 3 TO 6 MONTH TIME FRAME. ID Date Data Source [id number] 12/06/2019 02:25:00 PM EDT [facility] ([facility]) Name Value Range Interpretation Code Description Data Shaila rce(s) Supporting Document(s) Hemoglobin A1c 6.5 % Normal (applies to non-numeric r esults) [facility] ([facility]) <content>REFERENCE RANGES:</content><br/ ><content></content>
<content><=5.6% NORMAL</content>
<content>5.7-6.4% SUGGESTS IMPAIRED GLUCOSE METABOLISM/PREDIABETIC</content>
<content>>= 6.5% ABNORMAL</content>
<content></content> Estimated Average Glucose 140 mg/dL 60-110 Above high normal [facility] ([facility]) ID Date Data Source [id number] 12/06/2019 02:25:00 PM EDT [facility] ([facility]) Name Value Range Interpretation Code Description Data Shaila rce(s) Supporting Document(s) Blood Urea Nitrogen 23 mg/dL 7-18 Above high normal [facility] Glucose, Fasting 77 mg/dL 70-100 Normal (applies to non-numeric results) [facility] ([facility]) Glomerular Filtration Rate Laboratory test result Normal (applies to non- numeric results) [facility] ([facility]) <content>Units are mL/min/1.73 m2</content>
<content></content>
<content>Chronic Kidney Disease Staging per NKF:</content>
<content></content>
<content>Stage I & II GFR >=60 Normal to Mildly Decreased</content>
<content>Stage III GFR 30- 59 Moderately Decreased</content>
<content>Stage IV GFR 15-29 Severely Decreased</content>
<content>Stage V GFR <15 Very Little GFR Left</content>
<content>ESRD GFR <15 on ENTERPRISE SOFTWARE ENGINEER</content>
<content></content> Sodium Level 140 meq/L 136-145 Normal (applies to non-numeric res ults) [facility] ([facility]) Creatinine For GFR 0.77 mg/dL 0.70-1.30 Normal (applies to non -numeric results) [facility] ([facility]) Chloride Level 105 meq/L 98-107 Normal (applies to non-numeric r esults) [facility] ([facility]) Potassium Serum 4.3 meq/L 3.5-5.1 Normal (applies to non-numeric results) [facility] ([facility]) Carbon Dioxide Level 31 meq/L 21-32 Normal (applies to non-num laura results) [facility] ([facility]) Ast/Sgot 34 U/L 7-37 Normal (applies to non-numeric resul ts) [facility] ([facility]) Calcium Level 8.7 mg/dL 8.8-10.2 Below low normal [facility] ([facility]) Anion Gap 4 meq/L 8-16 Below low normal [facility] ( [facility]) Alkaline Phosphatase 121 U/L 45-117 Above high normal [facility] ([facility]) Bilirubin,Total 1.1 mg/dL 0.2-1.0 Above high normal [facility] ([facility]) Alt/SGPT 38 U/L 12-78 Normal (applies to non-numeric resul ts) [facility] ([facility]) Albumin/Globulin Ratio 1.0 Normal (applies to non-n umeric results) [facility] ([facility]) Albumin 3.9 GM/DL 3.2-5.2 Normal (applies to non-numeric resul ts) [facility] ([facility]) Total Protein 7.8 GM/DL 6.4-8.2 Normal (applies to non-numeric re sults) [facility] ([facility]) Procedure Social History Code Duration Value Status Description Data Source(s ) Smoking 12/02/2020 12:00:00 AM EDT Patient has never smoked co mpleted Patient has never smoked [facility] ([facility]) Smoking 11/04/2020 12:00:00 AM EDT Never Smoker completed Never S moker eCW1 ([facility]) Smoking 11/04/2020 12:00:00 AM EDT Never Smoker completed Never S moker eCW1 ([facility]) Smoking 11/04/2020 12:00:00 AM EDT Never Smoker completed Never S moker eCW1 ([facility]) Smoking 10/01/2020 12:00:00 AM EDT Never Smoker completed Never S moker eCW1 ([facility]) Smoking 10/01/2020 12:00:00 AM EDT Never Smoker completed Never S moker eCW1 ([facility]) Smoking 08/22/2020 12:00:00 AM EDT Never Smoked Cigarettes com pleted Never Smoked Cigarettes [facility] ([facility]) Smoking 07/20/2020 12:00:00 AM EDT Never Smoker completed Never S moker eCW1 ([facility]) Alcohol intake 07/04/2020 12:00:00 AM EDT Ex-drinker (finding) comp leted Ex- drinker (finding) [facility] Smoking 07/04/2020 12:00:00 AM EDT Never smoker completed Never s moker [facility] Smoking 07/02/2020 12:00:00 AM EDT Never Smoker completed Never S moker eCW1 ([facility]) Alcohol intake 06/06/2020 12:00:00 AM EST Not Currently completed [facility] Smoking 06/06/2020 12:00:00 AM EST Never smoker completed Never s moker [facility] Alcohol intake 05/30/2020 12:00:00 AM EST Not Currently completed [facility] Smoking 05/30/2020 12:00:00 AM EST Never smoker completed Never s moker [facility] Smoking 05/21/2020 12:00:00 AM EST Never Smoker completed Never S moker eCW1 ([facility]) Smoking 05/21/2020 12:00:00 AM EST Never Smoker completed Never S moker eCW1 ([facility]) Smoking 05/21/2020 12:00:00 AM EST Never Smoker completed Never S moker eCW1 ([facility]) Smoking 05/21/2020 12:00:00 AM EST Never Smoker completed Never S moker eCW1 ([facility]) Alcohol intake 05/17/2020 12:00:00 AM EST Not Currently completed [facility] Smoking 05/17/2020 12:00:00 AM EST Never smoker completed Never s moker [facility] Smoking 04/29/2020 12:00:00 AM EST Never Smoker completed Never S moker eCW1 ([facility]) Smoking 04/29/2020 12:00:00 AM EST Never Smoker completed Never S moker eCW1 ([facility]) Smoking 04/29/2020 12:00:00 AM EST Never Smoker completed Never S moker eCW1 ([facility]) Smoking 04/29/2020 12:00:00 AM EST Never Smoker completed Never S moker eCW1 ([facility]) Alcohol intake 04/25/2020 12:00:00 AM EST Not Currently completed [facility] Smoking 04/25/2020 12:00:00 AM EST Never smoker completed Never [facility] Alcohol intake 04/18/2020 12:00:00 AM EST Not Currently completed [facility] Smoking 04/18/2020 12:00:00 AM EST Never smoker completed Never [facility] Vital Signs ID Date Data Source UNK Name Value Range Interpretation Code Description Data Source(s) Oxygen saturation in Arterial blood by Pulse oximetry 95 % 95 % [facility] Systolic blood pressure 104 mm[Hg] 104 mm[Hg] [facility] Diastolic blood pressure 70 mm[Hg] 70 mm[Hg] [facility] Heart rate 94 /min 94 /min [facility] Body height 177.8 cm 177.8 cm [facility] Body weight 85.458 kg 85.458 kg [facility] Body mass index (BMI) [Ratio] 27.03 kg/m2 27.03 kg/m2 [facility] Respiratory rate 20 /min 20 /min [facility] ( [facility]) Body mass index (BMI) [Ratio] 29.3 kg/m2 29.3 k g/m2 [facility] ([facility]) Heart rate 92 /min 92 /min [facility] ([facility]) Body temperature 97.9 [degF] 97.9 [degF] [facility] ([facility]) Oxygen saturation in Arterial blood by Pulse oximetry 93 % 93 % [facility] ([facility]) Systolic blood pressure 124 mm[Hg] 124 mm[Hg] [facility] ([facility]) Diastolic blood pressure 74 mm[Hg] 74 mm[Hg] [facility] ([facility]) Body height 67 [in_i] 67 [in_i] [facility] 5'7" Body weight 187.25 [lb_av] 187.25 [lb_av] [facility] ([facility]) [place] body weight 148 [lb_av] 148 [lb_av] [facility] ([facility]) Body weight 196.2 [lb_av] 196.2 [lb_av] eCW1 ([facility]) Body weight 89.0 kg 89.0 kg eCW1 ([facility]) Body height 70 [in_i] 70 [in_i] eCW1 ([facility]) Body mass index (BMI) [Ratio] 28.15 kg/m2 28.15 kg/m2 eCW1 ([facility]) Heart rate 115 /min 115 /min W1 ([facility]) Body temperature 99.1 [degF] 99.1 [degF] eCW1 ( [facility]) Systolic blood pressure 104 mm[Hg] 104 mm[Hg] e CW1 ([facility]) Diastolic blood pressure 78 mm[Hg] 78 mm[Hg] eCW1 ([facility]) Body height 70 [in_i] 70 [in_i] [facility] ([facility] ) 5'10" Systolic blood pressure 108 mm[Hg] 108 mm[Hg] M EDENT ([facility], ) Diastolic blood pressure 72 mm[Hg] 72 mm[Hg] [facility] ([facility], ) Heart rate 83 /min 83 /min [facility] ([facility], ) Oxygen saturation in Arterial blood by Pulse oximetry 9332 % 9332 % [facility] ([facility], ) Body weight 87.545 kg 87.545 kg [facility] ([facility], ) Body weight 193.00 [lb_av] 193.00 [lb_av] MEDEN T ([facility], ) Body mass index (BMI) [Ratio] 27.7 kg/m2 27.7 k g/m2 [facility] ([facility], ) [place] body weight 166 [lb_av] 166 [lb_av] MEDEN T ([facility], ) Body surface area Derived from formula 2.06 m2 2.06 m2 [facility] ([facility], ) Heart rate 98 /min 98 /min eCW1 ([facility]) Body temperature 98.2 [degF] 98.2 [degF] eCW1 ( [facility]) Systolic blood pressure 116 mm[Hg] 116 mm[Hg] e CW1 ([facility]) Diastolic blood pressure 76 mm[Hg] 76 mm[Hg] eCW1 ([facility]) Body weight 198.0 [lb_av] 198.0 [lb_av] eCW1 ([facility]) Body weight 89.8 kg 89.8 kg eCW1 ([facility]) Body height 70 [in_i] 70 [in_i] eCW1 ([facility]) Body mass index (BMI) [Ratio] 28.41 kg/m2 28.41 kg/m2 W1 ([facility]) Oxygen saturation in Arterial blood by Pulse oximetry 943 % 943 % [facility], ) Systolic blood pressure 122 mm[Hg] 122 mm[Hg] M EDENT ([facility], ) [place] body weight 166 [lb_av] 166 [lb_av] MEDEN T ([facility], ) Body height 70 [in_i] 70 [in_i] [facility]) 5'10" Diastolic blood pressure 74 mm[Hg] 74 mm[Hg] [facility] ([facility], ) [place] body weight 166 [lb_av] 166 [lb_av] MEDEN T ([facility], ) Oxygen saturation in Arterial blood by Pulse oximetry 943 % 943 % [facility] ([facility], ) Body height 70 [in_i] 70 [in_i] MEDENT ([facility], ) 5'10" Heart rate 84 /min 84 /min [facility] ([facility], ) Body weight 209.00 [lb_av] 209.00 [lb_av] MEDEN T ([facility]) Body mass index (BMI) [Ratio] 32.7 kg/m2 32.7 k g/m2 MEDENT ([facility]) Heart rate 98 /min 98 /min [facility]) Body temperature 97.8 [degF] 97.8 [degF] MEDENT ([facility]) Oxygen saturation in Arterial blood by Pulse oximetry 96 % 96 % MEDENT ([facility]) [place] body weight 148 [lb_av] 148 [lb_av] MEDEN T ([facility]) Systolic blood pressure 128 mm[Hg] 128 mm[Hg] M EDENT ([facility]) Diastolic blood pressure 84 mm[Hg] 84 mm[Hg] MEDENT ([facility]) Body height 67 [in_i] 67 [in_i] MEDENT ([facility]) 5'7" Systolic blood pressure 130 mm[Hg] 130 mm[Hg] [facility], ) Diastolic blood pressure 80 mm[Hg] 80 mm[Hg] MEDENT ([facility], ) Heart rate 91 /min 91 /min [facility] ([facility], ) Oxygen saturation in Arterial blood by Pulse oximetry 904 % 904 % [facility] ([facility], ) Body height 70 [in_i] 70 [in_i] [facility] ([facility], ) 5'10" [place] body weight 166 [lb_av] 166 [lb_av] MEDEN T ([facility], ) Systolic blood pressure 105 mm[Hg] 105 mm[Hg] [facility] Diastolic blood pressure 62 mm[Hg] 62 mm[Hg] [facility] Heart rate 98 /min 98 /min [facility] Body height 177.8 cm 177.8 cm [facility] Body weight 99.791 kg 99.791 kg [facility] Body mass index (BMI) [Ratio] 31.57 kg/m2 31.57 kg/m2 [facility] Oxygen saturation in Arterial blood by Pulse oximetry 93 % 93 % [facility] [place] body weight 166 [lb_av] 166 [lb_av] MEDEN T ([facility], ) Body weight 99.792 kg 99.792 kg MEDENT ([facility]) Body surface area Derived from formula 2.17 m2 2.17 m2 [facility] ([facility]) Body mass index (BMI) [Ratio] 31.6 kg/m2 31.6 k g/m2 [facility] ([facility]) Systolic blood pressure 130 mm[Hg] 130 mm[Hg] [facility] Diastolic blood pressure 78 mm[Hg] 78 mm[Hg] [facility] ([facility]) Heart rate 84 /min 84 /min [facility] ([facility]) Oxygen saturation in Arterial blood by Pulse oximetry 92 % 92 % [facility] ([facility]) o2 sat on 1.5L Body height 70 [in_i] 70 [in_i] [facility] ([facility]) 5'10" Body weight 220.00 [lb_av] 220.00 [lb_av] [facility] Systolic blood pressure 102 mm[Hg] 102 mm[Hg] [facility] Diastolic blood pressure 60 mm[Hg] 60 mm[Hg] [facility] Heart rate 68 /min 68 /min [facility] Body height 177.8 cm 177.8 cm [facility] Body weight 100.245 kg 100.245 kg [facility] Body mass index (BMI) [Ratio] 31.71 kg/m2 31.71 kg/m2 [facility] Oxygen saturation in Arterial blood by Pulse oximetry 86 % 86 % [facility] Body temperature 36.78 Yareli 36.78 Yareli [facility] Systolic blood pressure 105 mm[Hg] 105 mm[Hg] [facility] Diastolic blood pressure 67 mm[Hg] 67 mm[Hg] [facility] Heart rate 82 /min 82 /min [facility] Respiratory rate 20 /min 20 /min [facility] Oxygen saturation in Arterial blood by Pulse oximetry 92 % 92 % [facility] Body height 179.1 cm 179.1 cm [facility] Body weight 100.2 kg 100.2 kg [facility] Body mass index (BMI) [Ratio] 31.25 kg/m2 31.25 kg/m2 [facility] Body weight 223 [lb_av] 223 [lb_av] eCW1 ([facility]) Body height 70 [in_i] 70 [in_i] eCW1 ([facility]) Body mass index (BMI) [Ratio] 31.99 kg/m2 31.99 kg/m2 W1 ([facility]) Heart rate 101 /min 101 /min eCW1 ([facility]) Body temperature 98.5 [degF] 98.5 [degF] eCW1 ( [facility]) Systolic blood pressure 116 mm[Hg] 116 mm[Hg] e CW1 ([facility]) Diastolic blood pressure 72 mm[Hg] 72 mm[Hg] eCW1 ([facility]) Systolic blood pressure 130 mm[Hg] 130 mm[Hg] [facility] Diastolic blood pressure 78 mm[Hg] 78 mm[Hg] [facility] Heart rate 88 /min 88 /min [facility] Respiratory rate 16 /min 16 /min [facility] Body height 177.8 cm 177.8 cm [facility] Body weight 101.152 kg 101.152 kg [facility] Body mass index (BMI) [Ratio] 32.00 kg/m2 32.00 kg/m2 [facility] Oxygen saturation in Arterial blood by Pulse oximetry 91 % 91 % [facility] Body mass index (BMI) [Ratio] 33.14 kg/m2 33.14 kg/m2 eCW1 ([facility]) Heart rate 109 /min 109 /min eCW1 ([facility]) Body temperature 98.2 [degF] 98.2 [degF] eCW1 ( [facility]) Systolic blood pressure 122 mm[Hg] 122 mm[Hg] e CW1 ([facility]) Diastolic blood pressure 86 mm[Hg] 86 mm[Hg] eCW1 ([facility]) Body weight 231.0 [lb_av] 231.0 [lb_av] eCW1 ([facility]) Body weight 104.7 kg 104.7 kg eCW1 ([facility]) Body height 70 [in_i] 70 [in_i] W1 ([facility]) Systolic blood pressure 118 mm[Hg] 118 mm[Hg] [facility] Diastolic blood pressure 80 mm[Hg] 80 mm[Hg] [facility] Heart rate 84 /min 84 /min [facility] Body height 177.8 cm 177.8 cm [facility] Body weight 105.325 kg 105.325 kg [facility] Body mass index (BMI) [Ratio] 33.32 kg/m2 33.32 kg/m2 [facility] Oxygen saturation in Arterial blood by Pulse oximetry 89 % 89 % [facility] Systolic blood pressure 102 mm[Hg] 102 mm[Hg] [facility] Diastolic blood pressure 72 mm[Hg] 72 mm[Hg] [facility] Heart rate 76 /min 76 /min [facility] Body height 177.8 cm 177.8 cm [facility] Body weight 110.224 kg 110.224 kg [facility] Body mass index (BMI) [Ratio] 34.87 kg/m2 34.87 kg/m2 [facility] Oxygen saturation in Arterial blood by Pulse oximetry 89 % 89 % [facility] Body temperature 97.4 [degF] 97.4 [degF] MEDENT ([facility]) Oxygen saturation in Arterial blood by Pulse oximetry 98 % 98 % [facility] ([facility]) Systolic blood pressure 116 mm[Hg] 116 mm[Hg] M EDENT ([facility]) Diastolic blood pressure 78 mm[Hg] 78 mm[Hg] MEDENT ([facility]) Body height 67 [in_i] 67 [in_i] MEDENT ([facility]) 5'7" Body weight 235.12 [lb_av] 235.12 [lb_av] MEDEN T ([facility]) Body mass index (BMI) [Ratio] 36.8 kg/m2 36.8 k g/m2 MEDENT ([facility]) Heart rate 74 /min 74 /min MEDENT ([facility]) Respiratory rate 24 /min 24 /min MEDENT ( [facility]) [place] body weight 148 [lb_av] 148 [lb_av] MEDEN T ([facility]) Heart rate 112 /min 112 /min MEDENT ([facility], ) Oxygen saturation in Arterial blood by Pulse oximetry 85 % 85 % MEDENT ([facility], ) Body height 70 [in_i] 70 [in_i] MEDENT ([facility], ) 5'10" [place] body weight 166 [lb_av] 166 [lb_av] MEDEN T ([facility], ) Systolic blood pressure 120 mm[Hg] 120 mm[Hg] [facility], ) Diastolic blood pressure 70 mm[Hg] 70 mm[Hg] MEDENT ([facility], ) Systolic blood pressure 102 mm[Hg] 102 mm[Hg] [facility], ) Diastolic blood pressure 70 mm[Hg] 70 mm[Hg] MEDENT ([facility], ) Heart rate 96 /min 96 /min MEDENT ([facility], ) Oxygen saturation in Arterial blood by Pulse oximetry 88 % 88 % MEDENT ([facility], ) Body height 70 [in_i] 70 [in_i] MEDENT ([facility], ) 5'10" [place] body weight 166 [lb_av] 166 [lb_av] MEDEN T ([facility], ) Body height 70 [in_i] 70 [in_i] MEDENT ([facility], ) 5'10" Body weight 235.00 [lb_av] 235.00 [lb_av] MEDEN T ([facility]) Body mass index (BMI) [Ratio] 33.7 kg/m2 33.7 k g/m2 MEDENT ([facility]) [place] body weight 166 [lb_av] 166 [lb_av] MEDEN T ([facility]) Body weight 106.596 kg 106.596 kg MEDENT ([facility]) Body height 70 [in_i] 70 [in_i] MEDENT ([facility]) 5'10" Body weight 235.00 [lb_av] 235.00 [lb_av] MEDEN T ([facility]) Body mass index (BMI) [Ratio] 33.7 kg/m2 33.7 k g/m2 MEDENT ([facility]) [place] body weight 166 [lb_av] 166 [lb_av] MEDEN T ([facility]) Body weight 106.596 kg 106.596 kg MEDENT ([facility]) Body mass index (BMI) [Ratio] 33.7 kg/m2 33.7 k g/m2 MEDENT ([facility]) Body weight 106.596 kg 106.596 kg MEDENT ([facility]) [place] body weight 166 [lb_av] 166 [lb_av] MEDEN T ([facility]) Body height 70 [in_i] 70 [in_i] MEDENT ([facility]) 5'10" Body weight 235.00 [lb_av] 235.00 [lb_av] MEDEN T ([facility]) Body height 70 [in_i] 70 [in_i] MEDENT ([facility]) 5'10" Body weight 235.00 [lb_av] 235.00 [lb_av] MEDEN T ([facility]) Body mass index (BMI) [Ratio] 33.7 kg/m2 33.7 k g/m2 MEDENT ([facility]) Body weight 106.596 kg 106.596 kg MEDENT ([facility]) Systolic blood pressure 118 mm[Hg] 118 mm[Hg] M EDENT ([facility]) Diastolic blood pressure 78 mm[Hg] 78 mm[Hg] MEDENT ([facility]) Body weight 233.12 [lb_av] 233.12 [lb_av] MEDEN T ([facility]) Body mass index (BMI) [Ratio] 36.5 kg/m2 36.5 k g/m2 MEDENT ([facility]) Heart rate 82 /min 82 /min [facility] ([facility]) Body temperature 97.7 [degF] 97.7 [degF] MEDENT ([facility]) [place] body weight 148 [lb_av] 148 [lb_av] MEDEN T ([facility]) Body height 67 [in_i] 67 [in_i] MEDENT ([facility]) 5'7" Respiratory rate 20 /min 20 /min [facility]) Oxygen saturation in Arterial blood by Pulse oximetry 91 % 91 % [facility]) Patient Treatment Plan of Care Planned Activity Planned Date Details Description Data Source (s) Tresiba FlexTouch 200 UNIT/ML SOPN 11/09/2020 12:00:00 AM EDT [facility] Methylprednisolone 8 MG Oral Tablet 11/05/2020 12:00:00 AM EDT [facility] Hydroxychloroquine Sulfate 200 MG Oral Tablet [[place]] 11/04/2020 12:00:00 AM EDT eCW1 ([facility]) Hydroxychloroquine Sulfate 200 MG Oral Tablet [[place]] 11/04/2020 12:00:00 AM EDT eCW1 ([facility]) Hydroxychloroquine Sulfate 200 MG Oral Tablet [[place]] 11/04/2020 12:00:00 AM EDT eCW1 ([facility]) Furosemide 40 MG Oral Tablet 10/21/2020 12:00:00 AM EDT [facility] Treprostinil 0.6 MG/ML Inhalant Solution [Tyvaso] 10/01/2020 12: 00:00 AM EDT [facility] nintedanib 150 MG Oral Capsule 07/10/2020 12:00:00 AM EDT [facility] Methylprednisolone 32 MG Oral Tablet 06/21/2020 12:00:00 AM EST [facility] Hydroxychloroquine Sulfate 200 MG Oral Tablet 06/17/2020 12:00:00 A M EST [facility] Hydroxychloroquine Sulfate 200 MG Oral Tablet [[place]] 06/17/2020 12:00:00 AM EST eCW1 ([facility]) Hydroxychloroquine Sulfate 200 MG Oral Tablet [[place]] 06/17/2020 12:00:00 AM EST eCW1 ([facility]) Hydroxychloroquine Sulfate 200 MG Oral Tablet [[place]] 06/17/2020 12:00:00 AM EST eCW1 ([facility]) Hydroxychloroquine Sulfate 200 MG Oral Tablet [[place]] 06/17/2020 12:00:00 AM EST eCW1 ([facility]) Hydroxychloroquine Sulfate 200 MG Oral Tablet [[place]] 06/17/2020 12:00:00 AM EST eCW1 ([facility]) Hydroxychloroquine Sulfate 200 MG Oral Tablet [[place]] 06/17/2020 12:00:00 AM EST eCW1 ([facility]) Furosemide 40 MG Oral Tablet 06/06/2020 12:00:00 AM EST [facility] apixaban 2.5 MG Oral Tablet [Eliquis] 06/05/2020 12:00:00 AM EST [facility] Furosemide 40 MG Oral Tablet 04/26/2020 12:00:00 AM EST [facility] Spironolactone 25 MG Oral Tablet 04/25/2020 12:00:00 AM EST [facility] Furosemide 40 MG Oral Tablet 04/18/2020 12:00:00 AM EST [facility] gabapentin 300 MG Oral Capsule 04/15/2020 12:00:00 AM EST [facility] Losartan Potassium 50 MG Oral Tablet 12/06/2018 12:00:00 AM EDT [facility] 1 ML Enoxaparin sodium 150 MG/ML Prefilled Syringe [facility] Furosemide 40 MG Oral Tablet [facility] Omeprazole 40 MG Delayed Release Oral Capsule [facility]
[2021-01-24] MEDS ORDERED: ELIQ5TAB PO (22:13)
[2021-01-24] MEDS ORDERED: TYVA0.6S NEB (22:18)
[2021-01-24] MEDS ORDERED: FURO40TA2 PO (22:18)
[2021-01-24] MEDS ORDERED: HOME MED LIST COMPLETE! XX SCH (22:20)
--- OUTSIDE RECORDS SUMMARY | 2021-01-24 22:29 | CCD ---
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 Role Phone ARUNA (ROXY), Cinthya KNIGHT [...] (ROXY), Cinthya KNIGHT MD Unavailable Unavailab le AURNA (ROXY), Cinthya KNIGHT MD Unavailable Unavailab le [...] Unavailable HUI-LAVELL, LINDSAY DO Unavailable Unavailable HUI-LAVELL, LINDSYA DO Unavailable Unavailable HUI-LAVELL, LINDSAY DO Unavailable [...] Unavailable Unavailable HUI-LAVELL, LINDSAY DO Unavailable Unavailable Dayton Bryant MD Unavailable Unavailable Dayton Bryant MD Unavailable Unavailable Dayton Bryant MD Unavailable Unavailable Dayton Bryant MD Unavailable Unavailable Dayton, Bryant MD Unavailable Unavailable Dayton Bryant MD Unavailable Unavailable Dayton Bryant MD Unavailable Unavailable Dayton, Bryant MD Unavailable Unavailable Dayton, Bryant MD Unavailable Unavailable Dayton Bryant MD Unavailable Unavailable Dayton, Bryant MD Unavailable Unavailable Dayton, Bryant MD Unavailable Unavailable Dayton, Bryant MD Unavailable Unavailable Dayton, Bryant MD Unavailable Unavailable Dayton, Bryant MD Unavailable Unavailable Dayton, Bryant MD Unavailable Unavailable Dayton, Bryant MD Unavailable Unavailable Dayton, Bryant MD Unavailable Unavailable Dayton, Bryant MD Unavailable Unavailable Dayton, Bryant MD Unavailable Unavailable Dayton, Bryant MD Unavailable Unavailable Dayton, Bryant RAMIREZ Unavailable Unavailable Dayton, Bryant RAMIREZ Unavailable Unavailable Dayton, Bryant RAMIREZ Unavailable Unavailable Dayton, Bryant RAMIREZ Unavailable Unavailable Dayton, Bryant RAMIREZ Unavailable Unavailable Dayton, Bryant RAMIREZ Unavailable Unavailable Dayton, Bryant RAMIREZ Unavailable Unavailable Dayton, Bryant RAMIREZ Unavailable Unavailable Dayton, Bryant RAMIREZ Unavailable Unavailable Rechlin, P Cachorro [...] Cachorro DO Unavailable Unavailable Braeden, N Ian ELIGIBILITY SPECIALIST Unavailable Unavailable [place], N Ian ELIGIBILITY SPECIALIST Unavailable Unavailable [place], N Ian ELIGIBILITY SPECIALIST Unavailable Unavailable [place], N Ian ELIGIBILITY SPECIALIST Unavailable Unavailable [place], N Ian ELIGIBILITY SPECIALIST Unavailable Unavailable [place], N Ian ELIGIBILITY SPECIALIST Unavailable Unavailable [place], N Ian ELIGIBILITY SPECIALIST Unavailable Unavailable Braeden, N Ina ELIGIBILITY SPECIALIST Unavailable Unavailable Braeden, N Ian ELIGIBILITY SPECIALIST Unavailable Unavailable [place], N Ian ELIGIBILITY SPECIALIST Unavailable Unavailable Braeden, N Ian ELIGIBILITY SPECIALIST Unavailable Unavailable [place], N Ian ELIGIBILITY SPECIALIST Unavailable Unavailable Braeden, N Ian ELIGIBILITY SPECIALIST Unavailable Unavailable [place], N Ian ELIGIBILITY SPECIALIST Unavailable Unavailable Braeden, N Ian ELIGIBILITY SPECIALIST Unavailable Unavailable [place], N Ian ELIGIBILITY SPECIALIST Unavailable Unavailable [place], N Ian ELIGIBILITY SPECIALIST Unavailable Unavailable [place], N Ian ELIGIBILITY SPECIALIST Unavailable Unavailable [place], N Ian ELIGIBILITY SPECIALIST Unavailable Unavailable [place], N Ian ELIGIBILITY SPECIALIST Unavailable Unavailable [place], N Ian ELIGIBILITY SPECIALIST Unavailable Unavailable Braeden, N Ian ELIGIBILITY SPECIALIST Unavailable Unavailable [place], N Ian ELIGIBILITY SPECIALIST Unavailable Unavailable [place], N Ian ELIGIBILITY SPECIALIST Unavailable Unavailable Braeden, N Ian ELIGIBILITY SPECIALIST Unavailable Unavailable Braeden, N Ian ELIGIBILITY SPECIALIST Unavailable Unavailable Braeden, N Ian ELIGIBILITY SPECIALIST Unavailable Unavailable Braeden, N Ian ELIGIBILITY SPECIALIST Unavailable Unavailable [place], N Ian ELIGIBILITY SPECIALIST Unavailable Unavailable Braeden, N Ian ELIGIBILITY SPECIALIST Unavailable Unavailable [place], N Ian ELIGIBILITY SPECIALIST Unavailable Unavailable Braeden, N Ian ELIGIBILITY SPECIALIST Unavailable Unavailable [place], N Ian ELIGIBILITY SPECIALIST Unavailable Unavailable Fons, M Lea SUPERVISOR PHOTOENGRAVING Unavailable Unavailable Fons, M Lea SUPERVISOR PHOTOENGRAVING Unavailable Unavailable Fons, M Lea SUPERVISOR PHOTOENGRAVING Unavailable Unavailable Fons, M Lea SUPERVISOR PHOTOENGRAVING Unavailable Unavailable Fons, M Lea SUPERVISOR PHOTOENGRAVING Unavailable Unavailable Fons, M Lea SUPERVISOR PHOTOENGRAVING Unavailable Unavailable Fons, M Lea SUPERVISOR PHOTOENGRAVING Unavailable Unavailable Fons, M Lea SUPERVISOR PHOTOENGRAVING Unavailable Unavailable Fons, M Lea SUPERVISOR PHOTOENGRAVING Unavailable Unavailable Fons, M Lea SUPERVISOR PHOTOENGRAVING Unavailable Unavailable Fons, M Lea SUPERVISOR PHOTOENGRAVING Unavailable Unavailable Fons, M Lea SUPERVISOR PHOTOENGRAVING Unavailable Unavailable Fons, M Lea SUPERVISOR PHOTOENGRAVING Unavailable Unavailable Fons, M Lea SUPERVISOR PHOTOENGRAVING Unavailable Unavailable Fons, M Lea SUPERVISOR PHOTOENGRAVING Unavailable Unavailable Fons, M Lea SUPERVISOR PHOTOENGRAVING Unavailable Unavailable Fons, M Lea SUPERVISOR PHOTOENGRAVING Unavailable Unavailable Fons, M Lea SUPERVISOR PHOTOENGRAVING Unavailable Unavailable Fons, M Lea SUPERVISOR PHOTOENGRAVING Unavailable Unavailable Fons, M Lea SUPERVISOR PHOTOENGRAVING Unavailable Unavailable Fons, M Lea SUPERVISOR PHOTOENGRAVING Unavailable Unavailable Fons, M Lea SUPERVISOR PHOTOENGRAVING Unavailable Unavailable Fons, M Lea SUPERVISOR PHOTOENGRAVING Unavailable Unavailable Fons, M Lea SUPERVISOR PHOTOENGRAVING Unavailable Unavailable Fons, M Lea SUPERVISOR PHOTOENGRAVING Unavailable Unavailable Fons, M Lea SUPERVISOR PHOTOENGRAVING Unavailable Unavailable Fons, M Lea SUPERVISOR PHOTOENGRAVING Unavailable Unavailable Fons, M Lea SUPERVISOR PHOTOENGRAVING Unavailable Unavailable Fons, M Lea SUPERVISOR PHOTOENGRAVING Unavailable Unavailable Fons, M Lea SUPERVISOR PHOTOENGRAVING Unavailable Unavailable Fons, M Lea SUPERVISOR PHOTOENGRAVING Unavailable Unavailable Fons, M Lea SUPERVISOR PHOTOENGRAVING Unavailable Unavailable Fons, M Lea SUPERVISOR PHOTOENGRAVING Unavailable Unavailable Fons, M Lea SUPERVISOR PHOTOENGRAVING Unavailable Unavailable Fons, M Lea SUPERVISOR PHOTOENGRAVING Unavailable Unavailable Fons, M Lea SUPERVISOR PHOTOENGRAVING Unavailable Unavailable Fons, M Lea SUPERVISOR PHOTOENGRAVING Unavailable Unavailable Fons, M Lea SUPERVISOR PHOTOENGRAVING Unavailable Unavailable Fons, M Lea SUPERVISOR PHOTOENGRAVING Unavailable Unavailable Fons, M Lea SUPERVISOR PHOTOENGRAVING Unavailable Unavailable Fons, M Lea SUPERVISOR PHOTOENGRAVING Unavailable Unavailable Fons, M Lea SUPERVISOR PHOTOENGRAVING Unavailable Unavailable Fons, M Lea SUPERVISOR PHOTOENGRAVING Unavailable Unavailable Fons, M Lea SUPERVISOR PHOTOENGRAVING Unavailable Unavailable Fons, M Lea SUPERVISOR PHOTOENGRAVING Unavailable Unavailable Fons, M Lea SUPERVISOR PHOTOENGRAVING Unavailable Unavailable Fons, M Lea SUPERVISOR PHOTOENGRAVING Unavailable Unavailable Fons, M Lea SUPERVISOR PHOTOENGRAVING Unavailable Unavailable Fons, M Lea SUPERVISOR PHOTOENGRAVING Unavailable Unavailable Fons, M Lea SUPERVISOR PHOTOENGRAVING Unavailable Unavailable Fons, M Lea SUPERVISOR PHOTOENGRAVING Unavailable Unavailable Fons, M Lea SUPERVISOR PHOTOENGRAVING Unavailable Unavailable Fons, M Lea SUPERVISOR PHOTOENGRAVING Unavailable Unavailable Rechlin, P Cachorro DO Unavailable [...] Unavailable PEÑA, M FLORECITA PA Unavailable Unavailable PÑEA, M FLORECITA PA Unavailable Unavailable PEÑA, M [...] is protected by Article 27-F of the [facility] Public Health law. If you continue you may have access to information: Regarding HIV / AIDS; Provided by facilities licensed or operated by the [facility] Office of Mental Health; or Provided by the [facility] Office for People With Developmental Disabilities. If such information is present, then the following [facility] mandated warning applies: This information has [...] law may result in a fine or group home sentence or both. A general authorization for the release of medical or other information is NOT sufficient authorization for further disc losure. Family History Family Member Name Family Member Gender Family Member Status Date o f Status Description Data Source(s) Unknown Unknown Problem MEDENT ([facility]) Unknown Male Problem MEDENT ([facility]) Unknown Unknown Problem MEDENT ([facility]) Unknown Unknown Problem MEDENT ([facility]) Unknown Female Encounters Encounter Providers Location Date Indications Data Source(s ) Outpatient Attender: Kenny Zafar MD SJP.SONIA-SJP.SONIA 12/2020 02:26:56 PM EDT - 12/19/2020 03:43:09 PM EDT [facility] Office Visit Attender: Channing THOMAS Family Medicine [facility] 12/02/2020 01:20:00 PM EDT MEDENT ([facility]) [place] [address] [address] 11/26/2020 12:00:00 AM EDT [facility] [place] [address] [address] 11/12/2020 12:00:00 AM EDT [facility]CW1 [facility] [place] [address] [address] 11/04/2020 12:00:00 AM EDT eCW1 ([facility]) Outpatient Attender: Cachorro Atkins/Dayton/Aristides/James ndleah 10/29/2020 08:30:00 AM EDT MEDENT ([facility]) [place] [address] [address] 10/15/2020 12:00:00 AM EDT [facility]CW1 [facility] [place] [address] [address] 10/01/2020 12:00:00 AM EDT [facility]CW1 [facility]) Outpatient Attender: Cachorro Atkins/Dayton/Aristides/James ndl 08/22/2020 09:00:00 AM EDT MEDENT ([facility]) Outpatient Attender: Channing THOMAS [facility] 08/13/2020 02:20:00 PM EDT MEDENT ([facility]) Outpatient Attender: Cachorro Atkins/Je/Aristides/James ndl 07/30/2020 11:00:00 AM EDT MEDENT ([facility]) Outpatient Attender: Cachorro Atkins/Je/Aristides/James ndleah 07/04/2020 11:00:00 AM EDT [facility] Outpatient Attender: Kenny Zafar MD SJBraulio.SONIA-SJP.SONIA 06/11 12:00:00 AM EDT - 07/05/2020 09:32:45 AM EDT [facility] TeleMedicine Est. Pt. Level 4 [address] [place] [address] 07/02/2020 12:00:00 AM EDT eCW1 ([facility]) Unknown [address] [facility] [address] 06/30/2020 12:00:00 AM EDT eCW1 ([facility]) Unknown [address] [id number] 06/18/2020 12:00:00 AM EST eCW1 ([facility]) Unknown [address] [facility] [address] 06/14/2020 12:00:00 AM EST eCW1 ([facility]) Outpatient Attender: Kenny Zafar MD SJBraulio.SONIA-SJP.SONIA 05/14 12:00:00 AM EST - 06/06/2020 04:57:05 PM EST [facility] H Attender: Elver Olsen MDAdmitter: Elver chambers MD ES1-SJ 05/30/2020 09:46:00 AM EST - 05/30/2020 03:15:00 PM EST [facility] Patient discharged. Unknown [facility] [facility] [address] 05/24/2020 12:00:00 AM EST eCW1 ([facility]) Outpatient [address] [facility] [id number] 05/21/2020 12:00:00 AM EST eCW1 ([facility]) Outpatient Attender: Ian Deras NPReferrer: Kenny MAYBERRYSONIA-SJP.SONIA 05/20/2020 12:00:00 AM EST - 05/20/2020 11:49:00 AM EST [facility] Outpatient Referrer: Kenny MAYBERRYSONIA-SJP.SONIA 11/2020 12:00:00 AM EST - 05/20/2020 11:48:47 AM EST [facility] Outpatient Attender: Cachorro Atkins/Je/Aristides/James ndleah 05/09/2020 07:30:00 AM EST MEDENT ([facility] Unknown [address] [facility] [address] 05/08/2020 12:00:00 AM EST eCW1 ([facility]) Unknown [address] [facility] [address] 05/03/2020 12:00:00 AM EST eCW1 ([facility]) Unknown [address] [facility] [address] 05/01/2020 12:00:00 AM EST eCW1 ([facility]) Outpatient [address] [facility] [address] 04/26/2020 12:00:00 AM EST eCW1 ([facility]) Outpatient Attender: Kenny MAYBERRYSONIA-SJP.SONIA 04/12 12:00:00 AM EST - 04/25/2020 09:45:25 AM EST [facility] Outpatient Attender: Lea MAYBERRYSONIA-SJP.SONIA 12:00:00 AM EST - 04/18/2020 09:33:16 AM EST [facility] Attender: EUGENE YEE) MDReferrer: Bryce Mclean DO 04/16/2020 08:21:01 PM EST [facility] Outpatient Attender: Channing THOMAS [facility] 03/26/2020 12:20:00 PM EST MEDENT ([facility]) Outpatient Attender: FLORECITA Abraham/Dayton/Aristides/Rein dl 03/15/2020 09:30:00 AM EST MEDENT ([facility]) Attender: EUGENE YEE) MDReferrer: Bryce Mclean DO 02/14/2020 08:20:11 PM EST [facility] Outpatient Attender: rByant Abraham/Dayton/Aristides/Reind l 01/24/2020 09:50:00 AM EDT MEDENT ([facility]) Outpatient Attender: Lea CASEY SJBraulio.SONIA-SJP.SONIA 0 12:00:00 AM EDT - 01/23/2020 08:37:49 AM EDT [facility] Outpatient Attender: Bryant Abraham/Dayton/Aristides/Reind l 01/10/2020 09:05:00 AM EDT MEDENT ([facility]) Outpatient Attender: Bryant Abraham/Dayton/Aristides/Reind l 12/26/2019 09:00:00 AM EDT MEDENT ([facility]) Outpatient Attender: Bryant Abraham/Dayton/Aristides/Reind l 12/11/2019 11:15:00 AM EDT MEDENT ([facility]) Outpatient Attender: LINDSAY SELF DO [facility] 12/08/2019 08:00:00 AM EDT MEDENT ([facility] Medicine [facility]) Immunizations Vaccine Date Status Description Data Source(s) COVID-19 VACCINE Moderna 07/08/2020 12:00:00 AM EDT completed [facility] Vaccine Series Complete: YESThis Data wa s Submitted to [facility] Via [employer]. COVID-19 VACCINE, MRNA-1273, LNP-S (MODERNA)/PF 07/08/2020 1 2:00:00 AM EDT completed [facility] COVID-19 VACCINE Moderna 06/07/2020 12:00:00 AM EST completed [facility] Vaccine Series Complete: NOThis Data was Submitted to [facility] Via [employer]. COVID-19 VACCINE, MRNA-1273, LNP-S (MODERNA)/PF 06/07/2020 1 2:00:00 AM EST completed [facility] Medications Medication Brand Name Start Date Product Form Dose Route Admi nistrative Instructions Pharmacy Instructions Status Indications Reaction Description Data Source(s) Novofine Plus Pen Neddle 32G X 4mm 12/13/2020 12:00:00 AM EDT active [facility] Blood Glucose Test Strips Premium 12/02/2020 12:00:00 AM EDT active MEDENT ([facility]) Tresiba FlexTouch 200 UNIT/ML SOPN 8568-1298-19 11/09/2020 12:00:00 AM EDT 4 U active 4 Units [facility] Methylprednisolone 8 MG Oral Tablet methylPREDNISolone (MEDROL) 8 MG tablet methylPREDNISolone (MEDROL) 8 MG tablet 11/05/2020 12:00:00 AM EDT 16 mg Oral active Take 16 mg by mouth [facility] Hydroxychloroquine Sulfate 200 MG Oral Tablet [Plaquen il] Plaquenil 200 MG Plaquenil 200 MG 11/04/2020 12:00:00 AM EDT a ctive Plaquenil 200 MG eCW1 ([facility]) Hydroxychloroquine Sulfate 200 MG Oral Tablet [Plaquen il] Plaquenil 200 MG Plaquenil 200 MG 11/04/2020 12:00:00 AM EDT a ctive Plaquenil 200 MG eCW1 ([facility]) Treprostinil 0.6 MG/ML Inhalant Solution [Tyvaso] Tyva so 0.6 MG/ML Tyvaso 0.6 MG/ML 11/04/2020 12:00:00 AM EDT active Tyvaso 0.6 MG/ML eCW1 ([facility]) Treprostinil 0.6 MG/ML Inhalant Solution [Tyvaso] Tyva so 0.6 MG/ML Tyvaso 0.6 MG/ML 11/04/2020 12:00:00 AM EDT active Tyvaso 0.6 MG/ML eCW1 ([facility]) Hydroxychloroquine Sulfate 200 MG Oral Tablet [Plaquen il] Plaquenil 200 MG Plaquenil 200 MG 11/04/2020 12:00:00 AM EDT a ctive Plaquenil 200 MG eCW1 ([facility]) Treprostinil 0.6 MG/ML Inhalant Solution [Tyvaso] Tyva so 0.6 MG/ML Tyvaso 0.6 MG/ML 11/04/2020 12:00:00 AM EDT active Tyvaso 0.6 MG/ML eCW1 ([facility]) Treprostinil 0.6 MG/ML Inhalant Solution [Tyvaso] Tyvaso 10/29/2020 12:00:00 AM EDT active MEDENT ([facility], ) Furosemide 40 MG Oral Tablet furosemide (LASIX) 40 MG tablet furosemide (LASIX) 40 MG tablet 10/21/2020 12:00:00 AM EDT active 0.5 tab daily [facility] Treprostinil 0.6 MG/ML Inhalant Solution [Tyvaso] treprostinil (Tyvaso) 0.6 MG/ML SOLN treprostinil (Tyvaso) 0.6 MG/ML SOLN 10/01/2020 12:00:00 AM EDT active Start with 3 b reaths (18mcg) QID, increase by 1 breath weekly if tolerated to goal of 9 breaths (54mcg) QID.Administer using the Tyvaso Inhalation System only. [facility] Tresiba Flextouch Tresiba Flextouch 08/13/2020 12:00:00 AM EDT active MEDENT ([facility]) 4 Wheeled Walker With Seat And Basket 08/13/2020 12:00:00 AM EDT active MEDENT ([facility]) Oxygen 07/10/2020 12:00:00 AM EDT active MEDENT ([facility], ) nintedanib 150 MG Oral Capsule Nintedanib Esylate 150 MG CAPS Nintedanib Esylate 150 MG CAPS 07/10/2020 12:00:00 AM EDT 150 mg Oral activ e Take 150 mg by mouth 2 (two) times a day [facility] Covid-19 vaccine, Unspecified 07/08/2020 12:00:00 AM EDT completed MEDENT ([facility], ) Medication administered onsite nintedanib 150 MG Oral Capsule [Ofev] Ofev 07/05/2020 12:00:00 AM EDT ORAL active MEDENT ([facility], ) gabapentin 300 MG Oral Capsule [Neurontin] Neurontin 07/04 12:00:00 AM EDT ORAL active MEDENT ( [facility], ) Methylprednisolone 32 MG Oral Tablet methylPREDNISolon e (MEDROL) 32 MG tablet methylPREDNISolone (MEDROL) 32 MG tablet 06/21/2020 12:00:00 AM EST 64 mg Oral aborted Take 64 mg by mouth [facility] Hydroxychloroquine Sulfate 200 MG Oral Tablet [Plaquen il] Plaquenil 200 MG Plaquenil 200 MG 06/17/2020 12:00:00 AM EST a ctive Plaquenil 200 MG eCW1 ([facility]) Hydroxychloroquine Sulfate 200 MG Oral Tablet [Plaquen il] Plaquenil 200 MG Plaquenil 200 MG 06/17/2020 12:00:00 AM EST a ctive Plaquenil 200 MG eCW1 ([facility]) Hydroxychloroquine Sulfate 200 MG Oral Tablet [Plaquen il] Plaquenil 200 MG Plaquenil 200 MG 06/17/2020 12:00:00 AM EST a ctive Plaquenil 200 MG eCW1 ([facility]) Hydroxychloroquine Sulfate 200 MG Oral Tablet [Plaquen il] Plaquenil 200 MG Plaquenil 200 MG 06/17/2020 12:00:00 AM EST a ctive Plaquenil 200 MG eCW1 ([facility]) Hydroxychloroquine Sulfate 200 MG Oral Tablet [Plaquen il] Plaquenil 200 MG Plaquenil 200 MG 06/17/2020 12:00:00 AM EST a ctive Plaquenil 200 MG eCW1 ([facility]) Hydroxychloroquine Sulfate 200 MG Oral Tablet [Plaquen il] Plaquenil 200 MG Plaquenil 200 MG 06/17/2020 12:00:00 AM EST a ctive Plaquenil 200 MG eCW1 ([facility]) Hydroxychloroquine Sulfate 200 MG Oral Tablet [Plaquen il] Plaquenil 200 MG Plaquenil 200 MG 06/17/2020 12:00:00 AM EST a ctive Plaquenil 200 MG eCW1 ([facility]) Hydroxychloroquine Sulfate 200 MG Oral Tablet [Plaquen il] Plaquenil 200 MG Plaquenil 200 MG 06/17/2020 12:00:00 AM EST a ctive Plaquenil 200 MG eCW1 ([facility]) Hydroxychloroquine Sulfate 200 MG Oral Tablet [Plaquen il] Plaquenil 200 MG Plaquenil 200 MG 06/17/2020 12:00:00 AM EST a ctive Plaquenil 200 MG eCW1 ([facility]) Hydroxychloroquine Sulfate 200 MG Oral Tablet [Plaquen il] Plaquenil 200 MG Plaquenil 200 MG 06/17/2020 12:00:00 AM EST a ctive Plaquenil 200 MG eCW1 ([facility]) Hydroxychloroquine Sulfate 200 MG Oral Tablet [Plaquen il] Plaquenil 200 MG Plaquenil 200 MG 06/17/2020 12:00:00 AM EST a ctive Plaquenil 200 MG eCW1 ([facility]) Hydroxychloroquine Sulfate 200 MG Oral Tablet [Plaquen il] Plaquenil 200 MG Plaquenil 200 MG 06/17/2020 12:00:00 AM EST a ctive Plaquenil 200 MG eCW1 ([facility]) Hydroxychloroquine Sulfate 200 MG Oral T ablet hydroxychloroquine (PLAQUENIL) 200 MG tablet hydroxychloroquine (PLAQUENIL) 200 MG tablet 12:00:00 AM EST 400 mg Oral active Take 400 mg by mo uth daily [facility] Hydroxychloroquine Sulfate 200 MG Oral Tablet [Plaquen il] Plaquenil 200 MG Plaquenil 200 MG 06/17/2020 12:00:00 AM EST a ctive Plaquenil 200 MG eCW1 ([facility]) Hydroxychloroquine Sulfate 200 MG Oral Tablet [Plaquen il] Plaquenil 200 MG Plaquenil 200 MG 06/17/2020 12:00:00 AM EST a ctive Plaquenil 200 MG eCW1 ([facility]) Hydroxychloroquine Sulfate 200 MG Oral Tablet [Plaquen il] Plaquenil 200 MG Plaquenil 200 MG 06/17/2020 12:00:00 AM EST a ctive Plaquenil 200 MG eCW1 ([facility]) Hydroxychloroquine Sulfate 200 MG Oral Tablet [Plaquen il] Plaquenil 200 MG Plaquenil 200 MG 06/17/2020 12:00:00 AM EST a ctive Plaquenil 200 MG eCW1 ([facility]) Hydroxychloroquine Sulfate 200 MG Oral Tablet [Plaquen il] Plaquenil 200 MG Plaquenil 200 MG 06/17/2020 12:00:00 AM EST a ctive Plaquenil 200 MG eCW1 ([facility]) Hydroxychloroquine Sulfate 200 MG Oral Tablet [Plaquen il] Plaquenil 200 MG Plaquenil 200 MG 06/17/2020 12:00:00 AM EST a ctive Plaquenil 200 MG eCW1 ([facility]) Covid-19 vaccine, Unspecified 06/07/2020 12:00:00 AM EST completed MEDENT ([facility]) Medication administered onsite Furosemide 40 MG Oral Tablet furosemide (LASIX) 40 MG tablet furosemide (LASIX) 40 MG tablet 06/06/2020 12:00:00 AM EST activ e One tab daily, additional 1/2 tab as needed [facility] apixaban 2.5 MG Oral Tablet [Eliquis] Eliquis 2.5 MG T ABS tablet Eliquis 2.5 MG TABS tablet 06/05/2020 12:00:00 AM EST 2.5 mg Oral active Take 2.5 mg by mouth 2 (two) times a day 2 tabs 2 times a day for next 7 days and then one tab bid [facility] normal saline flush 0.9 % injection 3 mL [id number] 05/30/2020 02:00:00 PM EST 3 mL Intravenous active 3 mL , Intravenous, Every 8 hours (scheduled), First dose on Lacey 05/30/20 at 1400, Pre-op
Rapid push positive pressure flushing shall be performed with a 10 cc normal saline syringe to check the PATENCY of a PIV site prior to any infusion therapy initiation unless resistance is met.
[facility] Medication administered onsite lidocaine 1 % injection [id number] 05/30/2020 12:54:20 PM EST active As needed, Starting Lacey 05/30/20 at 1254, Intra-Procedure [facility] Medication administered onsite sodium chloride 0.9% (NS) infusion [id number] 05/30/2020 11:00:00 AM EST 100 mL/h Intravenous active at 100 m L/hr, 100 mL/hr, Intravenous, Continuous, Starting Lacey 05/30/20 at 1100, Pre-op [facility] Medication administered onsite Furosemide 40 MG Oral Tablet furosemide (LASIX) 40 MG tablet furosemide (LASIX) 40 MG tablet 04/26/2020 12:00:00 AM EST abort ed One tab daily, additional 1/2 tab as needed [facility] Spironolactone 25 MG Oral Tablet spironolactone (ALDAC TONE) 25 MG tablet spironolactone (ALDACTONE) 25 MG tablet 04/25/2020 12:00:00 AM EST 25 mg Oral active Take 1 tablet (25 mg tota l) by mouth daily [facility] Furosemide 40 MG Oral Tablet furosemide (LASIX) 40 MG tablet furosemide (LASIX) 40 MG tablet 04/18/2020 12:00:00 AM EST 40 mg Oral activ e Take 1 tablet (40 mg total) by mouth 2 (two) times a day [facility] gabapentin 300 MG Oral Capsule gabapentin (NEURONTIN) 300 MG capsule gabapentin (NEURONTIN) 300 MG capsule 04/15/2020 12:00:00 AM EST 900 mg active 900 mg RT ONCE DAILY NEEDED 6-7 capsule through out the day as needed. [facility] BD Samantha 04/08/2020 12:00:00 AM EST active [facility] ([facility]) Esomeprazole 40 MG Delayed Release Oral Capsule Esomeprazole Magnesium 03/18/2020 12:00:00 AM EST ORAL completed [facility] ([facility]) Oxygen 03/18/2020 12:00:00 AM EST active [facility] ([facility]) Omeprazole 40 MG Delayed Release Oral Capsule Omeprazole 02/08/2020 12:00:00 AM EDT completed [facility] ([facility]) Lidocaine Hydrochloride 40 MG/ML Injectable Solution Lidocai ne HCL (PF) 01/31/2020 12:00:00 AM EDT completed [facility] ([facility], ) Albuterol 1 MG/ML Inhalant Solution Albuterol Sulfate 01/11 12:00:00 AM EDT completed [facility] ([facility], ) Amitriptyline Hydrochloride 25 MG Oral Tablet Amitriptyline HCL 01/24/2020 12:00:00 AM EDT completed [facility] ([facility], ) gabapentin 300 MG Oral Capsule [Neurontin] Neurontin 01/09 12:00:00 AM EDT ORAL active [facility] ( [facility], ) Furosemide 40 MG Oral Tablet Furosemide 12/28/2019 12:00:00 AM EDT ORAL completed [facility] ([facility]) Oxycodone Hydrochloride 5 MG Oral Capsule Oxycodone HCL 12/26/2019 12:00:00 AM EDT completed [facility] ([facility], ) Acetaminophen 300 MG / Codeine Phosphate 15 MG Oral Ta blet Acetaminophen-Codeine #2 12/11/2019 12:00:00 AM EDT completed [facility] ([facility], ) Omeprazole 40 MG Delayed Release Oral Capsule Omeprazole 12/11/2019 12:00:00 AM EDT ORAL completed [facility] ([facility], ) Codeine Phosphate 2 MG/ML / Guaifenesin 20 MG/ML Oral Soluti on Virtussin A/C 11/28/2019 12:00:00 AM EDT ORAL completed [facility] ([facility], ) Codeine Phosphate 2 MG/ML / Guaifenesin 20 MG/ML Oral Solution Virtussin ac W/Alc 11/21/2019 12:00:00 AM EDT ORAL completed [facility] ([facility], ) Furosemide 40 MG Oral Tablet Furosemide 09/11/2019 12:00:00 AM EDT ORAL completed [facility] ([facility]) Losartan Potassium 50 MG Oral Tablet losartan (COZAAR) 50 MG tablet losartan (COZAAR) 50 MG tablet 50 mg Oral aborted Ta ke 50 mg by mouth daily [facility] 1 ML Enoxaparin sodium 150 MG/ML Prefill ed Syringe enoxaparin (LOVENOX) 150 MG/ML injection enoxaparin (LOVENOX) 150 MG/ML injection Subcutaneous aborted Inject under the skin every 12 ( twelve) hours 3.5ml BID [facility] Omeprazole 40 MG Delayed Release Oral Ca psule omeprazole (PRILOSEC) 40 MG capsule omeprazole (PRILOSEC) 40 MG capsule 40 mg Oral aborted Take 40 mg by mouth 2 (two) times a day [facility] Furosemide 40 MG Oral Tablet furosemide (LASIX) 40 MG tablet furosemide (LASIX) 40 MG tablet 40 mg Oral aborted French e 40 mg by mouth 2 (two) times a day [facility] Insurance Providers Payer name Policy type / Coverage type Policy ID Covered libertarian ID Covered libertarian's relationship to [place] Policy [place] Plan Information [facility] P [id number] SELF [id number] [facility] [id number] 0 [id number] Medicare Part B [facility] [id number] 0 [id number] MEDICARE [id number] Dalia [id number] U53 Medicare Part B [facility] [id number] MEDICARE [id number] SP [id number] U53 MEDICARE [id number] xxxxxxxxxxx [id number] [facility] [id number] Dalia [id number] [facility] [id number] xxxxxxxxxxx [id number] Medicare [place] Medicare Primary [id number] Self [id number] Medicare [place] Medicare Primary [id number] Self [id number] Medicare [place] Medicare Primary [id number] Self [id number] MEDICARE [id number] S [id number] [facility] [id number] [employer] [id number] Medicare [id number] Medicare Part B [id number] Medicare [place] Medicare Primary [id number] Self [id number] [facility] Commercial [id number] Self [id number] [facility] Health Maintenance Organization (HMO) [id number] Self [id number] Medicare [place]/NGS Medicare Primary [id number] Self [id number] Medicare [place] Medicare Primary [id number] Self [id number] [facility]ARE [id number] SP [id number] [facility] Commercial [id number] Self [id number] Medicare Natl Gov't Servi Medicare Primary [id number] Self [id number] MVP Health Maintenance Organization (HMO) [id number] Self [id number] Medicare [place]/NGS Medicare Primary [id number] Self [id number] Medicare [place] Medicare Primary [id number] Self [id number] UNAVAILABLE S UNAVAILA BLE MEDICARE [id number] SP [id number] A [employer] HEALTH C[facility] [id number] SP [id number] MVP (HMO/PPO) HEALTH CARE [id number] 0 [id number] Medicare [place] Medicare Primary [id number] Self [id number] MEDICARE C [id number] S [id number] A MVP Health Maintenance Organization (HMO) [id number] Self [id number] Medicare - NGS Medicare Primary [id number] Self 1 [id number] Medicare [place] Medicare Primary [id number] Self [id number] MVP Commercial [id number] Self [id number] Medicare [place] Medicare Primary [id number] Self [id number] MVP Commercial [id number] Self [employer] [id number] 18 [id number] MVP HEALTH [employer]URANCE [employer] [id number] 18 [id number] [facility] O UNAVAILABLE [id number] S UNAVAILABLE MEDICARE [id number] SP [id number] [id number] [facility] [id number] SP [id number] [facility] Health Maintenance Organization (HMO) [id number] Se lf [employer] BCBS P [id number] S [id number] [employer] [place] 200/700 [id number] SP [id number] [facility] [id number] [facility] [id number] S [id number] ONE CALL MEDICAL S [id number] S [id number] [employer] [place] 20 P [id number] S [id number] [employer] O [id number] S [id number] [employer] [id number] S [id number] [facility] HEALTH CARE [id number] SP [id number] [facility] O [id number] S [id number] Problems, Conditions, and Diagnoses Code Display Name Description Problem Type Effective Dates Data Source(s) I50.810 Right heart failure, unspecified Right heart remigio lure, unspecified Diagnosis 12/19/2020 02:26:56 PM EDT [facility] I27.20 Pulmonary hypertension, unspecified Pulmonary hy pertension, unspecified Diagnosis 12/19/2020 02:26:56 PM EDT [facility] E11.9 Type 2 diabetes mellitus without complic ations Type 2 diabetes mellitus without complic Diagnosis 06/06/2020 03:36:47 PM EST [facility] I50.812 Chronic right heart failure Chronic right heart failur e Diagnosis 06/06/2020 03:36:47 PM EST [facility] R06.02 Shortness of breath Shortness of breath Diagnosis 0 06/06/2020 03:36:47 PM EST [facility] I50.31 Acute diastolic (congestive) heart failu re Acute diastolic (congestive) heart failu Diagnosis 06/06/2020 03:36:47 PM [facility] I82.491 Acute embolism and thrombosi s of other specified deep vein of right lower extremity Acute embolism and thrombosis of other s Diagnosis 05/30/2020 09:46:00 AM [facility] E66.01 Morbid (severe) obesity due to excess ca lories Morbid (severe) obesity due to excess ca Diagnosis 05/30/2020 09:46:00 AM [facility] E78.49 Other hyperlipidemia Other hyperlipidemia Diagnosis 05/30/2020 09:46:00 AM [facility] I71.2 Thoracic aortic aneurysm, without ruptur e Thoracic aortic aneurysm, without ruptur Diagnosis 05/30/2020 09:46:00 AM [facility] I10 Essential (primary) hypertension Essential (primary) h ypertension Diagnosis 05/30/2020 09:46:00 AM [facility] I82.409 Acute embolism and thrombosi s of unspecified deep veins of unspecified lower extremity Acute embolism and thrombosis of unspeci Diagnosis 05/30/2020 09:46:00 AM [facility] I82.412 Acute embolism and thrombosis of left fe moral vein Acute embolism and thrombosis of left fe Diagnosis 04/18/2020 07:56:10 AM [facility] 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 Problem 10/01/2020 12:00:00 AM EDT eCW1 ([facility]) Z79.52 [id number] alf systemic steroid user Prob lise 10/01/2020 12:00:00 AM EDT eCW1 ([facility]) I27.20 Pulmonary hypertension Pulmonary hypertension Problem 07/30/2020 12:00:00 AM EDT [facility] ([facility]) I27.20 [id number] Pulmonary hypertension Problem 07/02/2020 12 :00:00 AM EDT eCW1 ([facility]) I27.20 Pulmonary hypertension Pulmonary hypertension [id number] 06/20/2020 12:00:00 AM [facility] E78.49 Other hyperlipidemia Other hyperlipidemia [id number] 05/22/2020 12:00:00 AM [facility] I71.2 Thoracic aortic aneurysm without rupture Thoracic aortic aneurysm without rupture [id number] 05/22/2020 12:00:00 AM [facility] I10 Essential hypertension Essential hypertension [id number] 05/22/2020 12:00:00 AM [facility] I82.409 Deep venous thrombosis Deep venous thrombosis [id number] 05/22/2020 12:00:00 AM [facility] E11.9 Type 2 diabetes mellitus wit hout complication, without long-term current use of insulin Type 2 diabetes mellitus without complic ation, without long-term current use of insulin [id number] 05/22/2020 12:00:00 AM [facility] M35.1 MCTD (mixed connective tissue disease) M CTD (mixed connective tissue disease) [id number] 05/21/2020 12:00:00 AM [facility] M35.9 [id number] Undifferentiated connective tissue diseas e Problem 05/21/2020 12:00:00 AM EST eCW1 ([facility]) R09.02 Hypoxemia Hypoxemia Problem 05/09/2020 12:00:00 AM ES T [facility] ([facility]) 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 Pos t-inflammatory pulmonary fibrosis Problem 05/09/2020 12:00:00 AM EST [facility] ([facility]) I82.402 Embolism from thrombosis of vein of dist al lower extremity Embolism from thrombosis of vein of distal lower extremity Problem 05/09/19 12:00:00 AM EST [facility] ([facility]) R06.00 Difficulty breathing Difficulty breathing Problem 05/09/2020 12:00:00 AM EST [facility] ([facility]) D68.59 Hypercoagulability state Hypercoagulability state Prob lise 05/09/2020 12:00:00 AM EST [facility] ([facility]) I50.31 Acute diastolic heart failure Acute diastolic heart fa ilure Problem 05/09/2020 12:00:00 AM EST [facility] ([facility], ) G47.33 Obstructive sleep apnea syndrome Obstructive sle ep apnea syndrome Problem 05/09/2020 12:00:00 AM EST [facility] ([facility], ) K21.01 Gastro-esophageal reflux disease with es ophagitis Gastro-esophageal reflux disease with esophagitis Problem 05/09/2020 12:00:00 AM EST Cinthya ARECHIGA ([facility], ) J84.9 [id number] Interstitial lung disease Problem 05/03/2020 12:00:00 AM EST eCW1 ([facility]) R20.2 [id number] Paresthesias Problem 04/26/2020 12:00:00 AM EST eCW1 ([facility]) J84.10 [id number] Pulmonary fibrosis Problem 04/26/2020 12:00: 00 AM EST eCW1 ([facility]) G56.00 [id number] Carpal tunnel syndrome, unspecified later ality Problem 04/26/2020 12:00:00 AM EST eCW1 ([facility]) I82.412 Acute deep vein thrombosis ( DVT) of femoral vein of left lower extremity Acute deep vein thrombosis (DVT) of femoral vein of le ft lower extremity [id number] 04/18/2020 12:00:00 AM EST [facility] I50.810 RVF (right ventricular failure) RVF (right ventr icular failure) [id number] 04/18/2020 12:00:00 AM EST [facility] Surgeries/Procedures Procedure Description Date Indications Data Source(s) ECG ROUTINE ECG W/LEAST 12 LDS W/I&R <td>POCT AMB EKG</td><td>Routine</td><td>12/19/2020 3:07 PM EDT</td><td> Pulmonary hypertension RVF (right ventricular failure)</td><td> </td> 12/19/2020 03:07:00 PM EDT RVF (right ventricular failure)Pulmonary hypertension [facility] RVF (right ventricular failure) Pulmonary hypertension HEMOGLOBIN GLYCOSYLATED A1C <td>HEMOGLOBIN A1C</td><td>Routine</td><td>11/26/2020</td><td></td><td> </td> 11/26/2020 12:00:00 AM EDT [facility] BASIC METABOLIC PANEL CALCIUM TOTAL <td>BASIC METABOLI C PANEL</td><td>Routine</td><td>11/26/2020</td><td></td><td> </td> 11/26/2020 12:00:00 AM EDT [facility] OFFICE OUTPATIENT VISIT 25 MINUTES 10/29/2020 12:00:00 AM EDT [facility] ([facility], ) OFFICE OUTPATIENT VISIT 25 MINUTES 08/22/2020 12:00:00 AM EDT [facility] ([facility] ) OFFICE OUTPATIENT VISIT 25 MINUTES 08/13/2020 12:00:00 AM EDT [facility] ([facility]) Bronchospasm Evaluation 07/31/2020 12:00:00 AM EDT [facility] ([facility], ) Plethysmography Determination Lung Volumes & Per Airway Resi st 07/31/2020 12:00:00 AM EDT MED[facility] ([facility], ) BLOOD COUNT COMPLETE AUTO&AUTO DIFRNTL WBC COUNT <td>C BC AND DIFFERENTIAL</td><td>Routine</td><td>07/30/2020</td><td></td><td> </td> 07/30/2020 12:00:00 AM EDT [facility] OFFICE OUTPATIENT VISIT 25 MINUTES 07/30/2020 12:00:00 AM EDT [facility] ([facility], ) Measure Blood Oxygen Level Continuous Overnight Monitor 07/18/2020 12:00:00 AM EDT [facility] Measure Blood Oxygen Level Continuous Overnight Monitor 07/11/2020 12:00:00 AM EDT [facility] ([facility] OFFICE OUTPATIENT VISIT 25 MINUTES 07/04/2020 12:00:00 AM EDT [facility] ([facility], ) ECG ROUTINE ECG W/LEAST 12 LDS W/I&R <td>POCT AMB EKG</td><td>Routine</td><td>06/06/2020 4:17 PM EST</td><td> Shortness of breath PHT (pulmonary hypertension)</td><td> </td> 06/06/2020 09:17:00 PM EST PHT (pulmonary hypertension)Shortness of breath [facility] PHT (pulmonary hypertension) Shortness of breath [...] of insulinShortness of breathAcute diastolic heart failure [facility] Other hyperlipidemia Thoracic aortic aneurysm without rupture [...] 10:21 AM EST</td><td></td><td></td> 05/30/2020 03:21:52 PM EST [facility] OFFICE OUTPATIENT VISIT 25 MINUTES 05/09/2020 12:00:00 AM EST [facility] ([facility], ) ECG ROUTINE ECG W/LEAST 12 LDS W/I&R <td>POCT AMB EKG</td><td>Routine</td><td>04/18/2020 9:54 AM EST</td><td> Essential hypertension Acute diastolic heart failure</td><td> </td> 04/18/2020 02:54:00 PM EST Acute diastolic heart failureEssential hypertension [facility] Acute diastolic heart failure Essential hypertension Airway Inhalation Treatment 02/09/2020 12:00:00 AM EDT [facility] ([facility], ) Airway Inhalation Treatment 01/30/2020 12:00:00 AM EDT [facility] ([facility], ) LARYNGOSCOPY FLEXIBLE FIBEROPTIC DIAGNOSTIC 12/11/2019 12:00:00 AM EDT [facility] ([facility], ) Results ID Date Data Source [id number] 01/14/2021 02:21:00 PM EDT [facility] ([facility]) Name Value Range Interpretation Code Description Data Shaila rce(s) Supporting Document(s) Glucose, Fasting 138 mg/dL 70-100 Above high normal M EDENT ([facility]) Blood Urea Nitrogen 26 mg/dL 7-18 Above high normal [facility] ([facility]) Creatinine For GFR 0.57 mg/dL 0.70-1.30 Below low normal [facility] ([facility]) Glomerular Filtration Rate Laboratory test result Normal (applies to non- numeric results) [facility] ([facility]) <content>Units are mL/min/1.73 m2</content>
<content></content>
<content>Chronic Kidney Disease Staging per NKF:</content>
<content></content>
<content>Stage I & II GFR >=60 Normal to Mildly Decreased</content>
<content>Stage III GFR 30- 59 Moderately Decreased</content>
<content>Stage IV GFR 15-29 Severely Decreased</content>
<content>Stage V GFR <15 Very Little GFR Left</content>
<content>ESRD GFR <15 on SPEECH LANGUAGE PATHOLOGIST ASSISTANT</content>
<content></content> Sodium Level 137 meq/L 136-145 Normal (applies to non-numeric res ults) [facility] ([facility]) Carbon Dioxide Level 34 meq/L 21-32 Above high normal [facility] ([facility]) Chloride Level 100 meq/L 98-107 Normal (applies to non-numeric r esults) [facility] ([facility]) Potassium Serum 4.9 meq/L 3.5-5.1 Normal (applies to non-numeric results) [facility] ([facility]) Calcium Level 8.9 mg/dL 8.8-10.2 Normal (applies to non-numeric re sults) [facility] ([facility]) Anion Gap 3 meq/L 8-16 Below low normal [facility] ( [facility]) Alkaline Phosphatase 63 U/L 45-117 Normal (applies to non-num laura results) [facility] ([facility]) Ast/Sgot 30 U/L 7-37 Normal (applies to non-numeric resul ts) [facility] ([facility]) Alt/SGPT 49 U/L 12-78 Normal (applies to non-numeric resul ts) [facility] ([facility]) Total Protein 7.0 GM/DL 6.4-8.2 Normal (applies to non-numeric re sults) [facility] ([facility]) Bilirubin,Total 0.4 mg/dL 0.2-1.0 Normal (applies to non-numeric results) [facility] ([facility]) Albumin/Globulin Ratio 0.7 Normal (applies to non-n umeric results) [facility] ([facility]) Albumin 2.8 GM/DL 3.2-5.2 Below low normal [facility] ( [facility]) ID Date Data Source [id number] 01/14/2021 02:21:00 PM EDT MEDENT ([facility]) Name Value Range Interpretation Code Description Data Shaila rce(s) Supporting Document(s) White Blood Count 15.0 10 4.0-10.0 Above high normal [facility] ([facility]) Red Blood Count 4.32 10 4.30-6.10 Normal (applies to non-numeric results) [facility] ([facility]) Hemoglobin 14.1 g/dL 13.5-17.5 Normal (applies to non-numeric resul ts) [facility] ([facility]) Hematocrit 44.5 % 42.0-52.0 Normal (applies to non-numeric resul ts) [facility] ([facility]) Mean Corpuscular Hemoglobin 32.6 pg 27.0-33.0 Norm al (applies to non-numeric results) [facility] ([facility]) Mean Corpuscular Volume 103.0 fl 80.0-96.0 Above high normal [facility] ([facility]) Red Cell Distribution Width 13.0 % 11.5-14.5 Norm al (applies to non-numeric results) [facility] ([facility]) Mean Corpuscular HGB Conc 31.7 g/dL 32.0-36.5 Below low normal [facility] ([facility]) Lymph % 5.3 % 24.0-44.0 Below low normal [facility] ( [facility]) Neutrophils % 91.9 % 36.0-66.0 Above high normal [facility] NT ([facility]) Platelet Count, Automated 235 10 150-450 Normal (applies to non-numeric results) [facility] ([facility]) [place] % 1.8 % 2.0-8.0 Below low normal [facility] ( [facility]) Eos % 0.4 % 0.0-3.0 Normal (applies to non-numeric resul ts) [facility] ([facility]) Immature Granulocyte % 0.3 % 0-3.0 Normal (applies to non-n umeric results) [facility] ([facility]) Baso % 0.3 % 0.0-1.0 Normal (applies to non-numeric resul ts) [facility] ([facility]) Neutrophils # 13.8 10 1.5-8.5 Above high normal [facility] ([facility]) Nucleated Red Blood Cell % 0.0 % 0-0 Normal (applies to n on-numeric results) [facility] ([facility]) [place] # 0.3 10 0.0-0.8 Normal (applies to non-numeric resul ts) [facility] ([facility]) Eos # 0.1 10 0.0-0.5 Normal (applies to non-numeric resul ts) [facility] ([facility]) Lymph # 0.8 10 1.5-5.0 Below low normal [facility] ( [facility]) Baso # 0.1 10 0.0-0.2 Normal (applies to non-numeric resul ts) [facility] ([facility]) ID Date Data Source [id number] 11/26/2020 09:28:00 AM EDT MEDENT ([facility]) Name Value Range Interpretation Code Description Data Shaila rce(s) Supporting Document(s) Glucose, Fasting 82 mg/dL 70-100 Normal (applies to non-numeric results) [facility] ([facility]) Blood Urea Nitrogen 19 mg/dL 7-18 Above high normal [facility] ([facility]) Glomerular Filtration Rate Laboratory test result Normal (applies to non- numeric results) [facility] ([facility]) <content>Units are mL/min/1.73 m2</content>
<content></content>
<content>Chronic Kidney Disease Staging per NKF:</content>
<content></content>
<content>Stage I & II GFR >=60 Normal to Mildly Decreased</content>
<content>Stage III GFR 30- 59 Moderately Decreased</content>
<content>Stage IV GFR 15-29 Severely Decreased</content>
<content>Stage V GFR <15 Very Little GFR Left</content>
<content>ESRD GFR <15 on SPEECH LANGUAGE PATHOLOGIST ASSISTANT</content>
<content></content> Sodium Level 141 meq/L 136-145 Normal (applies to non-numeric res ults) [facility] ([facility]) Creatinine For GFR 0.53 mg/dL 0.70-1.30 Below low normal [facility] ([facility]) Potassium Serum 4.3 meq/L 3.5-5.1 Normal (applies to non-numeric results) [facility] ([facility]) Carbon Dioxide Level 37 meq/L 21-32 Above high normal [facility] ([facility]) Chloride Level 101 meq/L 98-107 Normal (applies to non-numeric r esults) [facility] ([facility]) Ast/Sgot 32 U/L 7-37 Normal (applies to non-numeric resul ts) [facility] ([facility]) Calcium Level 8.4 mg/dL 8.8-10.2 Below low normal [facility] ([facility]) Anion Gap 3 meq/L 8-16 Below low normal [facility] ( [facility]) Alkaline Phosphatase 85 U/L 45-117 Normal (applies to non-num laura results) [facility] ([facility]) Alt/SGPT 53 U/L 12-78 Normal (applies to non-numeric resul ts) [facility] ([facility]) Bilirubin,Total 0.4 mg/dL 0.2-1.0 Normal (applies to non-numeric results) [facility] ([facility]) Total Protein 6.1 GM/DL 6.4-8.2 Below low normal [facility] ([facility] [facility]) Albumin 2.8 GM/DL 3.2-5.2 Below low normal [facility] ( [facility]) Albumin/Globulin Ratio 0.8 Normal (applies to non-n umeric results) [facility] ([facility]) ID Date Data Source [id number] 11/26/2020 09:28:00 AM EDT [facility] ([facility]) Name Value Range Interpretation Code Description Data Shaila rce(s) Supporting Document(s) Hemoglobin A1c 6.8 % Normal (applies to non-numeric r esults) [facility] ([facility]) <content>REFERENCE RANGES:</content><br/ ><content></content>
<content><=5.6% NORMAL</content>
<content>5.7-6.4% SUGGESTS IMPAIRED GLUCOSE METABOLISM/PREDIABETIC</content>
<content>>= 6.5% ABNORMAL</content>
<content></content> Estimated Average Glucose 148 mg/dL 60-110 Above high normal [facility] ([facility]) ID Date Data Source TOTAL PROTEIN,RANDOM URINE 10/01/2020 12:00:00 AM EDT eCW1 ( [facility]) Name Value Range Interpretation Code Description Data Shaila rce(s) Supporting Document(s) 31.1 0.0-12.0 TOTAL PROTEIN,RANDOM URIN E eCW1 ([facility]) ID Date Data Source CREATININE,RANDOM URINE 10/01/2020 12:00:00 AM EDT eCW1 ([facility]) Name Value Range Interpretation Code Description Data Shaila rce(s) Supporting Document(s) 163.0 CREATININE,RANDOM URINE eCW1 ( [facility]) ID Date Data Source UA URINALYSIS 10/01/2020 12:00:00 AM EDT eCW1 ([facility]) Name Value Range Interpretation Code Description Data Shaila rce(s) Supporting Document(s) UA URINALYSIS eCW1 ([facility]) ID Date Data Source LUPUS TYPE ANTICOAGULANT SCREE 10/01/2020 12:00:00 AM EDT eC W1 ([facility]) Name Value Range Interpretation Code Description Data Shaial rce(s) Supporting Document(s) 1.0 0-1.2 PTT LUPUS TYPE ANTICOAG S CREEN eCW1 ([facility]) ID Date Data Source COMPLEMENT TOTAL (CH50) 10/01/2020 12:00:00 AM EDT eCW1 ([facility]) Name Value Range Interpretation Code Description Data Shaila rce(s) Supporting Document(s) > 60 >41 COMPLEMENT TOTAL (CH50) eCW1 ( [facility]) ID Date Data Source COMPLEMENT C4 10/01/2020 12:00:00 AM EDT eCW1 ([facility]) Name Value Range Interpretation Code Description Data Shaila rce(s) Supporting Document(s) 22 10-40 COMPLEMENT C4 eCW1 ([facility]) ID Date Data Source COMPLEMENT C3 10/01/2020 12:00:00 AM EDT eCW1 ([facility]) Name Value Range Interpretation Code Description Data Shaila rce(s) Supporting Document(s) 127 90-180 COMPLEMENT C3 eCW1 ([facility]) ID Date Data Source [id number] 09/23/2020 11:35:00 AM EDT [facility] ([facility]) Name Value Range Interpretation Code Description Data Shaila rce(s) Supporting Document(s) Ast/Sgot 22 U/L 7-37 Normal (applies to non-numeric resul ts) [facility] ([facility]) Alt/SGPT 51 U/L 12-78 Normal (applies to non-numeric resul ts) [facility] ([facility]) Alkaline Phosphatase 82 U/L 45-117 Normal (applies to non-num laura results) [facility] ([facility]) Bilirubin,Total 0.7 mg/dL 0.2-1.0 Normal (applies to non-numeric results) [facility] ([facility]) Total Protein 6.3 GM/DL 6.4-8.2 Below low normal [facility] ([facility]) Bilirubin,Direct 0.2 mg/dL 0.0-0.2 Normal (applies to non-numeric results) [facility] ([facility]) Albumin 2.9 GM/DL 3.2-5.2 Below low normal [facility] ( [facility]) Albumin/Globulin Ratio 0.9 Normal (applies to non-n umeric results) [facility] ([facility]) ID Date Data Source [id number] 08/22/2020 09:44:00 AM EDT [facility] ([facility]) Name Value Range Interpretation Code Description Data Shaila rce(s) Supporting Document(s) Ast/Sgot 38 U/L 7-37 Above high normal [facility] ([facility]) Alkaline Phosphatase 100 U/L 45-117 Normal (applies to non-num laura results) [facility] ([facility]) Alt/SGPT 127 U/L 12-78 Above high normal [facility] ([facility]) Bilirubin,Total 0.8 mg/dL 0.2-1.0 Normal (applies to non-numeric results) [facility]) Bilirubin,Direct 0.2 mg/dL 0.0-0.2 Normal (applies to non-numeric results) [facility]) Total Protein 6.6 GM/DL 6.4-8.2 Normal (applies to non-numeric re sults) [facility]) Albumin/Globulin Ratio 0.9 Normal (applies to non-n umeric results) [facility]) Albumin 3.1 GM/DL 3.2-5.2 Below low normal [facility] ( [facility]) ID Date Data Source [id number] 07/30/2020 08:29:00 AM [facility]) Name Value Range Interpretation Code Description Data Shaila rce(s) Supporting Document(s) Prostate specific Ag [Mass/volume] in Serum or Plasma 0.13 ng/mL Normal (applies to non-numeric results) [facility]) The PSA assay is performed on the Passmanta analyzer by [employer] sandwich chemiluminescent immunoassay and should not be compared interchangeably with other methods. It should not be used alone as a screening test or diagnosis for the presence or absence of malignant disease. Predictions of disease recurrence should not be based solely on values obtained from serial patient serum values. ID Date Data Source [id number] 07/30/2020 08:29:00 AM [facility]) Name Value Range Interpretation Code Description Data Shaila rce(s) Supporting Document(s) Jeferson/Creat Ratio 21.6 MCG/MG 0.0-30.0 Normal (applies to non-numeric results) [facility] ([facility]) THE [employer] STATES THAT MICROALBUMINURIA IS PRESENT IF THE MICROALBUMIN/CREATININE RATIO EXCEEDS 30 MCG/MG. THE THRESHOLD FOR CLINICAL ALBUMINURIA IS REACHED AT 300 MCG/MG. THE CLASSIFICATION OF A PATIENT SHOULD BE BASED UPON AT LEAST 2 OF 3 ABNORMAL RESULTS ON SPECIMENS COLLECTED WITHIN A 3 TO 6 MONTH TIME FRAME. Malb Urine Siemens 33.2 mg/L Normal (applies to non-numer ic results) [facility] ([facility]) Creatinine, Urine 153.0 mg/dL Normal (applies to non-numer ic results) [facility] ([facility]) ID Date Data Source [id number] 07/30/2020 08:29:00 AM EDT [facility] ([facility]) Name Value Range Interpretation Code Description Data Shaila rce(s) Supporting Document(s) White Blood Count 9.7 10 4.0-10.0 Normal (applies to non-numeri c results) [facility] ([facility]) Red Blood Count 5.23 10 4.30-6.10 Normal (applies to non-numeric results) [facility] ([facility]) Hemoglobin 15.4 g/dL 13.5-17.5 Normal (applies to non-numeric resul ts) [facility] ([facility]) Hematocrit 47.7 % 42.0-52.0 Normal (applies to non-numeric resul ts) [facility] ([facility]) Mean Corpuscular Volume 91.2 fl 80.0-96.0 Normal ( applies to non-numeric results) [facility] ([facility]) Mean Corpuscular Hemoglobin 29.4 pg 27.0-33.0 Norm al (applies to non-numeric results) [facility] ([facility]) Red Cell Distribution Width 12.6 % 11.5-14.5 Norm al (applies to non-numeric results) [facility] ([facility]) Mean Corpuscular HGB Conc 32.3 g/dL 32.0-36.5 Normal (applies to non-numeric results) [facility] ([facility]) Platelet Count, Automated 155 10 150-450 Normal (applies to non-numeric results) [facility] ([facility]) Neutrophils % 59.4 % 36.0-66.0 Normal (applies to non-numeric re sults) [facility] ([facility]) Lymph % 34.1 % 24.0-44.0 Normal (applies to non-numeric resul ts) [facility] ([facility]) Eos % 2.1 % 0.0-3.0 Normal (applies to non-numeric resul ts) [facility] ([facility]) [place] % 3.8 % 2.0-8.0 Normal (applies to non-numeric resul ts) [facility] ([facility]) Baso % 0.2 % 0.0-1.0 Normal (applies to non-numeric resul ts) [facility] ([facility]) Nucleated Red Blood Cell % 0.0 % 0-0 Normal (applies to n on-numeric results) [facility] ([facility]) Immature Granulocyte % 0.4 % 0-3.0 Normal (applies to non-n umeric results) [facility] ([facility]) Lymph # 3.3 10 1.5-5.0 Normal (applies to non-numeric resul ts) [facility] ([facility]) Neutrophils # 5.7 10 1.5-8.5 Normal (applies to non-numeric re sults) [facility] ([facility]) [place] # 0.4 10 0.0-0.8 Normal (applies to non-numeric resul ts) [facility] ([facility]) Eos # 0.2 10 0.0-0.5 Normal (applies to non-numeric resul ts) [facility] ([facility]) Baso # 0.0 10 0.0-0.2 Normal (applies to non-numeric resul ts) [facility] ([facility]) ID Date Data Source [id number] 07/30/2020 08:29:00 AM EDT [facility] ([facility]) Name Value Range Interpretation Code Description Data Shaila rce(s) Supporting Document(s) Triglycerides Level 72 mg/dL Normal (applies to non-nume cedric results) [facility] ([facility]) Cholesterol Level 123 mg/dL Normal (applies to non-numeri c results) [facility] ([facility]) HDL Cholesterol 79 mg/dL Normal (applies to non-numeric results) [facility] ([facility]) LDL Cholesterol 30 mg/dL Normal (applies to non-numeric results) [facility] ([facility]) Non-HDL-C 44 mg/dL Normal (applies to non-numeric resul ts) [facility] ([facility]) Cholesterol Risk Ratio 1.556 Normal (applies to non-n umeric results) [facility] ([facility]) ID Date Data Source [id number] 07/30/2020 08:29:00 AM EDT [facility] ([facility]) Name Value Range Interpretation Code Description Data Shaila rce(s) Supporting Document(s) Hemoglobin A1c 8.6 % Normal (applies to non-numeric r esults) [facility] ([facility]) <content>REFERENCE RANGES:</content><br/ ><content></content>
<content><=5.6% NORMAL</content>
<content>5.7-6.4% SUGGESTS IMPAIRED GLUCOSE METABOLISM/PREDIABETIC</content>
<content>>= 6.5% ABNORMAL</content>
<content></content> Estimated Average Glucose 200 mg/dL 60-110 Above high normal [facility] ([facility]) ID Date Data Source [id number] 07/30/2020 08:29:00 AM EDT [facility]) Name Value Range Interpretation Code Description Data Shaila rce(s) Supporting Document(s) Blood Urea Nitrogen 35 mg/dL 7-18 Above high normal [facility] ([facility]) Creatinine For GFR 0.76 mg/dL 0.70-1.30 Normal (applies to non -numeric results) [facility] ([facility]) Glucose, Fasting 150 mg/dL 70-100 Above high normal [facility]) Glomerular Filtration Rate Laboratory test result Normal (applies to non- numeric results) [facility] ([facility]) <content>Units are mL/min/1.73 m2</content>
<content></content>
<content>Chronic Kidney Disease Staging per NKF:</content>
<content></content>
<content>Stage I & II GFR >=60 Normal to Mildly Decreased</content>
<content>Stage III GFR 30- 59 Moderately Decreased</content>
<content>Stage IV GFR 15-29 Severely Decreased</content>
<content>Stage V GFR <15 Very Little GFR Left</content>
<content>ESRD GFR <15 on SPEECH LANGUAGE PATHOLOGIST ASSISTANT</content>
<content></content> Sodium Level 136 meq/L 136-145 Normal (applies to non-numeric res ults) [facility] ([facility]) Potassium Serum 4.5 meq/L 3.5-5.1 Normal (applies to non-numeric results) [facility] ([facility]) Chloride Level 95 meq/L 98-107 Below low normal [facility] ([facility]) Carbon Dioxide Level 37 meq/L 21-32 Above high normal [facility] ([facility]) Calcium Level 8.7 mg/dL 8.8-10.2 Below low normal [facility] ([facility]) Anion Gap 4 meq/L 8-16 Below low normal [facility] ( [facility]) Alkaline Phosphatase 84 U/L 45-117 Normal (applies to non-num laura results) [facility] ([facility]) Ast/Sgot 40 U/L 7-37 Above high normal [facility] ([facility]) Alt/SGPT 138 U/L 12-78 Above high normal [facility] ([facility]) Total Protein 6.5 GM/DL 6.4-8.2 Normal (applies to non-numeric re sults) [facility] ([facility]) Albumin 3.1 GM/DL 3.2-5.2 Below low normal [facility] ( [facility]) Bilirubin,Total 1.0 mg/dL 0.2-1.0 Normal (applies to non-numeric results) [facility] ([facility]) Albumin/Globulin Ratio 0.9 Normal (applies to non-n umeric results) [facility] ([facility]) ID Date Data Source [id number] 07/17/2020 10:38:00 AM EDT [facility] ([facility]) Name Value Range Interpretation Code Description Data Shaila rce(s) Supporting Document(s) White Blood Count 12.6 10 4.0-10.0 Above high normal [facility] ([facility]) Red Blood Count 5.03 10 4.30-6.10 Normal (applies to non-numeric results) [facility] ([facility]) Hemoglobin 15.3 g/dL 13.5-17.5 Normal (applies to non-numeric resul ts) [facility] ([facility]) Hematocrit 48.4 % 42.0-52.0 Normal (applies to non-numeric resul ts) [facility] ([facility]) Mean Corpuscular Volume 96.2 fl 80.0-96.0 Above high normal [facility] ([facility]) Mean Corpuscular HGB Conc 31.6 g/dL 32.0-36.5 Below low normal [facility] ([facility]) Mean Corpuscular Hemoglobin 30.4 pg 27.0-33.0 Norm al (applies to non-numeric results) [facility] ([facility]) Red Cell Distribution Width 13.2 % 11.5-14.5 Norm al (applies to non-numeric results) [facility] ([facility]) Platelet Count, Automated 122 10 150-450 Below low normal [facility] ([facility]) Neutrophils % 85.7 % 36.0-66.0 Above high normal [facility] ([facility]) Lymph % 9.8 % 24.0-44.0 Below low normal [facility] ( [facility]) [place] % 2.1 % 2.0-8.0 Normal (applies to non-numeric resul ts) [facility] ([facility]) Baso % 0.1 % 0.0-1.0 Normal (applies to non-numeric resul ts) [facility] ([facility]) Eos % 1.6 % 0.0-3.0 Normal (applies to non-numeric resul ts) [facility] ([facility]) Immature Granulocyte % 0.7 % 0-3.0 Normal (applies to non-n umeric results) [facility] ([facility]) Nucleated Red Blood Cell % 0.0 % 0-0 Normal (applies to n on-numeric results) [facility] ([facility]) Neutrophils # 10.8 10 1.5-8.5 Above high normal [facility] ([facility]) Lymph # 1.2 10 1.5-5.0 Below low normal [facility] ( [facility]) [place] # 0.3 10 0.0-0.8 Normal (applies to non-numeric resul ts) [facility] ([facility]) Eos # 0.2 10 0.0-0.5 Normal (applies to non-numeric resul ts) [facility] ([facility]) Baso # 0.0 10 0.0-0.2 Normal (applies to non-numeric resul ts) [facility] ([facility]) ID Date Data Source [id number] 07/11/2020 03:05:00 PM EDT [facility] ([facility]) Name Value Range Interpretation Code Description Data Shaila rce(s) Supporting Document(s) Ferritin [Mass/volume] in Serum or Plasma 290 ng/mL 26-388 Normal (applies to non-numeric results) [facility]) <content>note:<nlbl:demographic_changed> </content>
<content></content> Transferrin receptor.soluble [Mass/volume] in Serum or Plasm a 12.9 nmol/L 12.2-27.3 Normal (applies to non-numeric results) [facility]) Performed at: [address] [id number] Dairy Technologist: Rashaun Hansen MD, Phone: [phone] ID Date Data Source [id number] 07/11/2020 03:05:00 PM EDT [facility] ([facility]) Name Value Range Interpretation Code Description Data Shaila rce(s) Supporting Document(s) Total Iron Binding Capacity 339 ug/dL 250-450 Norm al (applies to non-numeric results) [facility] ([facility]) Iron (Fe) 154 ug/dL 65-175 Normal (applies to non-numeric resul ts) [facility] Percent Saturation 45.4 % 19.7-50.0 Normal (applies to non-numer ic results) [facility]) ID Date Data Source [id number] 06/05/2020 10:00:00 AM EST [facility] ([facility]) Name Value Range Interpretation Code Description Data Shaila rce(s) Supporting Document(s) Homocysteine [Moles/volume] in Serum or Plasma 9.1 umol/L 0 .0-17.2 Normal (applies to non-numeric results) [facility] ([facility]) Performed at: RN - [facility] [address] [id number] Dairy Technologist: Elda Orellana MD, Phone: [phone] ID Date Data Source [id number] 06/05/2020 10:00:00 AM EST [facility] ([facility]) Name Value Range Interpretation Code Description Data Shaila rce(s) Supporting Document(s) Glucose, Fasting 122 mg/dL 70-100 Above high normal [facility] ([facility]) Blood Urea Nitrogen 18 mg/dL 7-18 Normal (applies to non-nume cedric results) [facility] ([facility]) Creatinine For GFR 0.97 mg/dL 0.70-1.30 Normal (applies to non -numeric results) [facility] ([facility]) Glomerular Filtration Rate Laboratory test result Normal (applies to non- numeric results) [facility] ([facility]) <content>Units are mL/min/1.73 m2</content>
<content></content>
<content>Chronic Kidney Disease Staging per NKF:</content>
<content></content>
<content>Stage I & II GFR >=60 Normal to Mildly Decreased</content>
<content>Stage III GFR 30- 59 Moderately Decreased</content>
<content>Stage IV GFR 15-29 Severely Decreased</content>
<content>Stage V GFR <15 Very Little GFR Left</content>
<content>ESRD GFR <15 on SPEECH LANGUAGE PATHOLOGIST ASSISTANT</content>
<content></content> Sodium Level 139 meq/L 136-145 Normal (applies to non-numeric res ults) [facility] ([facility]) Potassium Serum 4.2 meq/L 3.5-5.1 Normal (applies to non-numeric results) [facility] ([facility]) Chloride Level 100 meq/L 98-107 Normal (applies to non-numeric r esults) [facility] ([facility]) Carbon Dioxide Level 35 meq/L 21-32 Above high normal [facility] ([facility]) Anion Gap 4 meq/L 8-16 Below low normal [facility] ( [facility]) Calcium Level 9.1 mg/dL 8.8-10.2 Normal (applies to non-numeric re sults) [facility] ([facility]) Ast/Sgot 18 U/L 7-37 Normal (applies to non-numeric resul ts) [facility] ([facility]) Alt/SGPT 22 U/L 12-78 Normal (applies to non-numeric resul ts) [facility] ([facility]) Alkaline Phosphatase 90 U/L 45-117 Normal (applies to non-num laura results) [facility] ([facility]) Bilirubin,Total 0.7 mg/dL 0.2-1.0 Normal (applies to non-numeric results) [facility] ([facility]) Total Protein 7.0 GM/DL 6.4-8.2 Normal (applies to non-numeric re sults) [facility] ([facility]) Albumin 3.0 GM/DL 3.2-5.2 Below low normal [facility] ( [facility]) Albumin/Globulin Ratio 0.8 Normal (applies to non-n umeric results) [facility] ([facility]) ID Date Data Source [id number] 06/05/2020 10:00:00 AM EST [facility] ([facility]) Name Value Range Interpretation Code Description Data Shaila rce(s) Supporting Document(s) White Blood Count 8.4 10 4.0-10.0 Normal (applies to non-numeri c results) [facility] ([facility]) Red Blood Count 4.33 10 4.30-6.10 Normal (applies to non-numeric results) [facility] ([facility]) Hematocrit 41.7 % 42.0-52.0 Below low normal [facility] ( [facility]) Hemoglobin 13.2 g/dL 13.5-17.5 Below low normal [facility] ( [facility]) Mean Corpuscular Volume 96.3 fl 80.0-96.0 Above high normal [facility] ([facility]) Mean Corpuscular Hemoglobin 30.5 pg 27.0-33.0 Norm al (applies to non-numeric results) [facility] ([facility]) Red Cell Distribution Width 14.2 % 11.5-14.5 Norm al (applies to non-numeric results) [facility] ([facility]) Mean Corpuscular HGB Conc 31.7 g/dL 32.0-36.5 Below low normal [facility] ([facility]) Platelet Count, Automated 185 10 150-450 Normal (applies to non-numeric results) [facility] ([facility]) Neutrophils % 72.3 % 36.0-66.0 Above high normal [facility] ([facility]) Lymph % 17.3 % 24.0-44.0 Below low normal [facility] ( [facility]) [place] % 4.9 % 2.0-8.0 Normal (applies to non-numeric resul ts) [facility] ([facility]) Eos % 4.2 % 0.0-3.0 Above high normal [facility] ([facility]) Baso % 1.1 % 0.0-1.0 Above high normal [facility] ([facility]) Immature Granulocyte % 0.2 % 0-3.0 Normal (applies to non-n umeric results) [facility] ([facility]) Nucleated Red Blood Cell % 0.0 % 0-0 Normal (applies to n on-numeric results) [facility] ([facility]) Neutrophils # 6.1 10 1.5-8.5 Normal (applies to non-numeric re sults) [facility] ([facility]) Lymph # 1.5 10 1.5-5.0 Normal (applies to non-numeric resul ts) [facility] ([facility]) [place] # 0.4 10 0.0-0.8 Normal (applies to non-numeric resul ts) [facility] ([facility]) Eos # 0.4 10 0.0-0.5 Normal (applies to non-numeric resul ts) [facility] ([facility]) Baso # 0.1 10 0.0-0.2 Normal (applies to non-numeric resul ts) [facility] ([facility]) ID Date Data Source [id number] 05/30/2020 01:08:19 PM EST [facility] Name Value Range Interpretation Code Description Data Shaila rce(s) Supporting Document(s) &PDF [facility] [id number] yKE [file] [id number]/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 [file] [id number]= ID Date Data Source [id number] 05/30/2020 10:55:51 AM EST [facility] Name Value Range Interpretation Code Description Data Shaila rce(s) Supporting Document(s) EKG [facility] [id number] jb2 [file] [id number]+JIG BORER/kKPJ+2C+ [file] [id number]= ID Date Data Source [id number] 05/25/2020 11:00:00 AM EST [facility] ([facility]) Name Value Range Interpretation Code Description Data Shaila rce(s) Supporting Document(s) Coronavirus 2019 Nasopharygeal Laboratory test result [facility] ([facility]) This nucleic acid amplification test was developed and its performance characteristics determined by [facility]. Nucleic acid amplification tests include RT- PCR [...] detected) result in this assay. Performed at: [facility] [address] [id number] Dairy Technologist: Elda Orellana MD, Phone: [phone] Not Detected ID Date Data Source [id number] 05/25/2020 11:00:00 AM EST [facility] Name Value Range Interpretation Code Description Data Shaila rce(s) Supporting Document(s) SARS coronavirus 2 RNA Not Detected [facility] [place] This lab was ordered by [facility] and reported by [facility]. ID Date Data Source CYCLIC CITRULLINATED PEPTIDE 04/29/2020 12:00:00 AM EST eCW1 ([facility]) Name Value Range Interpretation Code Description Data Shaila rce(s) Supporting Document(s) 5 0-19 eCW1 ([facility]) ID Date Data Source ANTI SCLERODERMA ANTIBODIES 04/29/2020 12:00:00 AM EST eCW1 ([facility]) Name Value Range Interpretation Code Description Data Shaila rce(s) Supporting Document(s) <0.2 0.0-0.9 eCW1 ([facility]) ID Date Data Source ANTI DOUBLE STRAND DNA PATRICIA 04/29/2020 12:00:00 AM EST eCW1 ( [facility]) Name Value Range Interpretation Code Description Data Shaila rce(s) Supporting Document(s) eCW1 ([facility]) ID Date Data Source ANTI-SJOGRENS A&B ANTIBODIES 04/29/2020 12:00:00 AM EST eCW1 ([facility]) Name Value Range Interpretation Code Description Data Shaila rce(s) Supporting Document(s) <0.2 0.0-0.9 eCW1 ([facility]) <0.2 0.0-0.9 eCW1 ([facility]) ID Date Data Source ANTI-HISTONE ANTIBODIES 04/29/2020 12:00:00 AM EST eCW1 ([facility]) Name Value Range Interpretation Code Description Data Shaila rce(s) Supporting Document(s) 0.6 0.0-0.9 eCW1 ([facility]) ID Date Data Source FELICIA TITER & PATTERN 04/29/2020 12:00:00 AM EST eCW1 ([facility]) Name Value Range Interpretation Code Description Data Shaila rce(s) Supporting Document(s) Positive . eCW1 ([facility]) ID Date Data Source ANTI-CARDIOLIPIN ANTIBODIES 04/29/2020 12:00:00 AM EST eCW1 ([facility]) Name Value Range Interpretation Code Description Data Shaila rce(s) Supporting Document(s) <9 0-14 eCW1 ([facility]) <9 0-11 eCW1 ([facility]) 20 0-12 eCW1 ([facility]) ID Date Data Source ANTI CENTROMERE ANTIBODY 04/29/2020 12:00:00 AM EST eCW1 ([facility]) Name Value Range Interpretation Code Description Data Shaila rce(s) Supporting Document(s) <0.2 0.0-0.9 eCW1 ([facility]) ID Date Data Source BETA-2 GLYCOPROTEIN 1 PATRICIA GLENN 04/29/2020 12:00:00 AM EST eCW 1 ([facility]) Name Value Range Interpretation Code Description Data Shaila rce(s) Supporting Document(s) <9 0-20 eCW1 ([facility]) <9 0-32 eCW1 ([facility]) <9 0-25 eCW1 ([facility]) ID Date Data Source ANGIOTENSIN 1 CONVERTING ENZYM 04/29/2020 12:00:00 AM EST eC W1 ([facility]) Name Value Range Interpretation Code Description Data Shaila rce(s) Supporting Document(s) 26 14-82 eCW1 ([facility]) ID Date Data Source C REACTIVE PROTEIN QUANTITATIV (At [facility]) 04/29/2020 12:00 :00 AM EST eCW1 ([facility]) Name Value Range Interpretation Code Description Data Shaila rce(s) Supporting Document(s) 0.42 0.00-0.30 eCW1 ([facility]) ID Date Data Source ERYTHROCYTE SEDIMENTATION RATE 04/29/2020 12:00:00 AM EST eC W1 ([facility]) Name Value Range Interpretation Code Description Data Shaila rce(s) Supporting Document(s) 36 0-20 eCW1 ([facility]) ID Date Data Source CBC with Differential 04/29/2020 12:00:00 AM EST eCW1 ([facility]) Name Value Range Interpretation Code Description Data Shaila rce(s) Supporting Document(s) 48.0 42.0-52.0 eCW1 ([facility]) 12.1 4.0-10.0 eCW1 ([facility]) 4.98 4.30-6.10 eCW1 ([facility]) 14.6 13.5-17.5 eCW1 ([facility]) 29.3 27.0-33.0 eCW1 ([facility]) 13.7 11.5-14.5 eCW1 ([facility]) 96.4 80.0-96.0 eCW1 ([facility]) 30.4 32.0-36.5 eCW1 ([facility]) 252 150-450 eCW1 ([facility]) 74.9 36.0-66.0 eCW1 ([facility]) 5.2 0.0-3.0 eCW1 ([facility]) 14.4 24.0-44.0 eCW1 ([facility]) 4.5 0.0-5.0 eCW1 ([facility]) 1.8 1.5-5.0 eCW1 ([facility]) 0.7 0.0-1.0 eCW1 ([facility]) 9.1 1.5-8.5 eCW1 ([facility]) 0.6 0.0-0.8 eCW1 ([facility]) 0.6 0.0-0.5 eCW1 ([facility]) 0.1 0.0-0.2 eCW1 ([facility]) ID Date Data Source [id number] 03/19/2020 05:29:00 PM EST [facility] Name Value Range Interpretation Code Description Data Shaila rce(s) Supporting Document(s) SARS coronavirus 2 RNA [Presence] in Res piratory specimen by RAPHAEL with probe detection [facility] This lab was ordered by [facility] a nd reported by [facility]. ID Date Data Source [id number] 03/19/2020 04:34:00 PM EST [facility] ([facility]) Name Value Range Interpretation Code Description Data Shaila rce(s) Supporting Document(s) Thyrotropin [Units/volume] in Serum or Plasma 0.693 uIU/ML 0. 358-3.740 Normal (applies to non-numeric results) [facility] ([facility]) <content>note:<nlbl:demographic_changed> </content>
<content></content> Thyroxine (T4) [Mass/volume] in Serum or Plasma 6.7 ug/dL 4.5-12.0 Normal (applies to non-numeric results) [facility] ([facility]) <content>note:<nlbl:demographic_changed> </content>
<content></content> Natriuretic peptide.B prohormone N-Terminal [Mass/volu me] in Serum or Plasma 659 pg/mL Above high normal [facility] ([facility]) <content>note:<nlbl:demographic_changed> </content>
<content></content> ID Date Data Source [id number] 03/19/2020 04:34:00 PM EST [facility] ([facility]) Name Value Range Interpretation Code Description Data Shaila rce(s) Supporting Document(s) Glucose, Fasting 155 mg/dL 70-100 Above high normal M [facility] ([facility]) Blood Urea Nitrogen 25 mg/dL 7-18 Above high normal [facility] Creatinine For GFR 0.73 mg/dL 0.70-1.30 Normal (applies to non -numeric results) [facility] ([facility]) Glomerular Filtration Rate Laboratory test result Normal (applies to non- numeric results) [facility] ([facility]) <content>Units are mL/min/1.73 m2</content>
<content></content>
<content>Chronic Kidney Disease Staging per NKF:</content>
<content></content>
<content>Stage I & II GFR >=60 Normal to Mildly Decreased</content>
<content>Stage III GFR 30- 59 Moderately Decreased</content>
<content>Stage IV GFR 15-29 Severely Decreased</content>
<content>Stage V GFR <15 Very Little GFR Left</content>
<content>ESRD GFR <15 on SPEECH LANGUAGE PATHOLOGIST ASSISTANT</content>
<content></content> Sodium Level 138 meq/L 136-145 Normal (applies to non-numeric res ults) [facility] ([facility]) Potassium Serum 4.7 meq/L 3.5-5.1 Normal (applies to non-numeric results) [facility] ([facility]) Chloride Level 103 meq/L 98-107 Normal (applies to non-numeric r esults) [facility] ([facility]) Carbon Dioxide Level 30 meq/L 21-32 Normal (applies to non-num laura results) [facility] ([facility]) Anion Gap 5 meq/L 8-16 Below low normal [facility]) Calcium Level 8.3 mg/dL 8.8-10.2 Below low normal [facility] T ([facility]) ID Date Data Source [id number] 03/19/2020 04:34:00 PM EST [facility] ([facility]) Name Value Range Interpretation Code Description Data Shaila rce(s) Supporting Document(s) Ast/Sgot 26 U/L 7-37 Normal (applies to non-numeric resul ts) [facility] ([facility]) Alt/SGPT 57 U/L 12-78 Normal (applies to non-numeric resul ts) [facility] ([facility]) Alkaline Phosphatase 107 U/L 45-117 Normal (applies to non-num laura results) [facility] ([facility]) Bilirubin,Total 0.4 mg/dL 0.2-1.0 Normal (applies to non-numeric results) [facility] ([facility]) Bilirubin,Direct 0.1 mg/dL 0.0-0.2 Normal (applies to non-numeric results) [facility] ([facility]) Total Protein 6.8 GM/DL 6.4-8.2 Normal (applies to non-numeric re sults) [facility] ([facility]) Albumin 3.1 GM/DL 3.2-5.2 Below low normal [facility] ( [facility]) Albumin/Globulin Ratio 0.8 Normal (applies to non-n umeric results) [facility] ([facility]) ID Date Data Source [id number] 03/19/2020 04:34:00 PM EST [facility] ([facility]) Name Value Range Interpretation Code Description Data [facility] rce(s) Supporting Document(s) MB/CK Relative Index 3.31 Normal (applies to non-num laura results) [facility] ([facility]) <content>DIAGNOSIS CRITERIA</content>
<content>MMB ng/ml Relative Index (RI)</content>
<content>NON-AMI < or = 5 N/A</content>
<content>QUIÑONES ZONE > 5 < or = 4</content>
<content>AMI > 5 > 4</content>
<content></content> CK-MB Value Mass 4.9 ng/mL Above high normal [facility] CPK Creatine Phosphokinase 148 U/L 39-308 Hollie l (applies to non-numeric results) [facility] ([facility]) Troponin I Laboratory test result Normal (applies to non-n umeric results) [facility] ([facility]) <content>Troponin I Reference Interval f or Siemens [place] LOCI:</content>
<content></content>
<content>99th Percentile= 0.00-0.045 ng/ml</content>
<content></content>
<content>Risk Stratification:</content>
<content><= 0.10 ng/ml Decreased Risk for Adverse Clinical</content>
<content>Events.</content>
<content>0.10-1.50 ng/ml Increased Risk for Adverse Clinical</content>
<content>Events. Evaluation of additional</content>
<content>criterion and/or repeat testing in 2-6</content>
<content>hours is suggested to rule out myocardial</content>
<content>damage.</content>
<content>>= 1.50 ng/ml Indicative of Myocardial Injury.</content>
<content></content> ID Date Data Source [id number] 03/19/2020 04:34:00 PM EST [facility] ([facility]) Name Value Range Interpretation Code Description Data Shaila rce(s) Supporting Document(s) aPTT in Platelet poor plasma by Coagulation assay 26.2 s 24.2-38.5 Normal (applies to non-numeric results) [facility] ([facility]) ID Date Data Source [id number] 03/19/2020 04:34:00 PM EST [facility] ([facility]) Name Value Range Interpretation Code Description Data Shaila rce(s) Supporting Document(s) Inr 1.13 Normal (applies to non-numeric resul ts) [facility] ([facility]) THERAPUTIC HUMAN INR VALUES INDICATIONS NORMAL RANGES PROPHYLAXIS/TREATMENT OF: VENOUS THROMBOSIS 2.0-3.0 PULMONARY EMBOLISM 2.0-3.0 PREVENTION OF SYSTEMIC EMBOLISM FROM: TISSUE HEART VALVES 2.0-3.0 ACUTE MYOCARDIAL INFARCTION 2.0-3.0 VALVULAR HEART DISEASE 2.0-3.0 ATRIAL FIBRILLATION 2.0-3.0 MECHANICAL VALVES(HIGH RISK) 2.5-3.5 RECURRENT MYOCARDIAL INFARCTION 2.5-3.5 Prothrombin Time 14.8 s 12.5-14.3 Above high normal [facility] ([facility]) ID Date Data Source [id number] 03/19/2020 04:34:00 PM EST [facility] ([facility]) Name Value Range Interpretation Code Description Data Shaila rce(s) Supporting Document(s) White Blood Count 10.9 10 4.0-10.0 Above high normal [facility] ([facility]) Red Blood Count 4.55 10 4.30-6.10 Normal (applies to non-numeric results) [facility] ([facility]) Hemoglobin 13.2 g/dL 13.5-17.5 Below low normal [facility] ( [facility]) Mean Corpuscular Volume 94.3 fl 80.0-96.0 Normal ( applies to non-numeric results) [facility] ([facility]) Hematocrit 42.9 % 42.0-52.0 Normal (applies to non-numeric resul ts) [facility] ([facility]) Mean Corpuscular Hemoglobin 29.0 pg 27.0-33.0 Norm al (applies to non-numeric results) [facility] ([facility]) Mean Corpuscular HGB Conc 30.8 g/dL 32.0-36.5 Below low normal [facility] ([facility]) Red Cell Distribution Width 13.3 % 11.5-14.5 Norm al (applies to non-numeric results) [facility] ([facility]) Platelet Count, Automated 204 10 150-450 Normal (applies to non-numeric results) [facility] ([facility]) [place] % 2.4 % 0.0-5.0 Normal (applies to non-numeric resul ts) [facility] ([facility]) Neutrophils % 87.9 % 36.0-66.0 Above high normal [facility] NT ([facility]) Lymph % 8.2 % 24.0-44.0 Below low normal [facility] ( [facility]) Baso % 0.5 % 0.0-1.0 Normal (applies to non-numeric resul ts) [facility] ([facility]) Eos % 0.5 % 0.0-3.0 Normal (applies to non-numeric resul ts) [facility] ([facility]) Immature Granulocyte % 0.5 % 0-3.0 Normal (applies to non-n umeric results) [facility] ([facility]) Nucleated Red Blood Cell % 0.0 % 0-0 Normal (applies to n on-numeric results) [facility] ([facility]) Neutrophils # 9.6 10 1.5-8.5 Above high normal [facility]E NT ([facility]) [place] # 0.3 10 0.0-0.8 Normal (applies to non-numeric resul ts) [facility] ([facility]) Lymph # 0.9 10 1.5-5.0 Below low normal [facility] ( [facility]) Eos # 0.1 10 0.0-0.5 Normal (applies to non-numeric resul ts) [facility] ([facility]) Baso # 0.1 10 0.0-0.2 Normal (applies to non-numeric resul ts) [facility] ([facility]) ID Date Data Source [id number] 03/15/2020 12:00:00 PM EST [facility] ([facility]) Name Value Range Interpretation Code Description Data Shaila rce(s) Supporting Document(s) Glucose, Fasting 157 mg/dL 70-100 Above high normal [facility] ([facility]) Blood Urea Nitrogen 29 mg/dL 7-18 Above high normal [facility] ([facility]) Sodium Level 137 meq/L 136-145 Normal (applies to non-numeric res ults) [facility] ([facility]) Glomerular Filtration Rate Laboratory test result Normal (applies to non- numeric results) [facility] ([facility]) <content>Units are mL/min/1.73 m2</content>
<content></content>
<content>Chronic Kidney Disease Staging per NKF:</content>
<content></content>
<content>Stage I & II GFR >=60 Normal to Mildly Decreased</content>
<content>Stage III GFR 30- 59 Moderately Decreased</content>
<content>Stage IV GFR 15-29 Severely Decreased</content>
<content>Stage V GFR <15 Very Little GFR Left</content>
<content>ESRD GFR <15 on SPEECH LANGUAGE PATHOLOGIST ASSISTANT</content>
<content></content> Creatinine For GFR 0.77 mg/dL 0.70-1.30 Normal (applies to non -numeric results) [facility] ([facility]) Potassium Serum 4.9 meq/L 3.5-5.1 Normal (applies to non-numeric results) [facility] ([facility]) This specimen has an elevated potassium level but there is NO visible hemolysis noted. Chloride Level 104 meq/L 98-107 Normal (applies to non-numeric r esults) [facility] ([facility]) Carbon Dioxide Level 28 meq/L 21-32 Normal (applies to non-num laura results) [facility] ([facility]) Anion Gap 5 meq/L 8-16 Below low normal [facility] ( [facility]) Calcium Level 7.9 mg/dL 8.8-10.2 Below low normal [facility]) ID Date Data Source [id number] 03/15/2020 12:00:00 PM EST [facility] ([facility]) Name Value Range Interpretation Code Description Data Shaila rce(s) Supporting Document(s) Natriuretic peptide.B prohormone N-Terminal [Mass/volu me] in Serum or Plasma 482 pg/mL Above high normal [facility] ([facility]) ID Date Data Source [id number] 03/15/2020 11:54:00 AM EST [facility] ([facility] ) Name Value Range Interpretation Code Description Data Shaila rce(s) Supporting Document(s) Glucose, Fasting 157 mg/dL 70-100 Above high normal M EDENT ([facility], ) Creatinine For GFR 0.76 mg/dL 0.70-1.30 Normal (applies to non -numeric results) [facility] ([facility], ) Blood Urea Nitrogen 28 mg/dL 7-18 Above high normal [facility] ([facility]) Glomerular Filtration Rate Laboratory test result Normal (applies to non- numeric results) [facility] ([facility]) <content>Units are mL/min/1.73 m2</content>
<content></content>
<content>Chronic Kidney Disease Staging per NKF:</content>
<content></content>
<content>Stage I & II GFR >=60 Normal to Mildly Decreased</content>
<content>Stage III GFR 30- 59 Moderately Decreased</content>
<content>Stage IV GFR 15-29 Severely Decreased</content>
<content>Stage V GFR <15 Very Little GFR Left</content>
<content>ESRD GFR <15 on SPEECH LANGUAGE PATHOLOGIST ASSISTANT</content>
<content></content> Sodium Level 137 meq/L 136-145 Normal (applies to non-numeric res ults) [facility] ([facility]) Potassium Serum 4.8 meq/L 3.5-5.1 Normal (applies to non-numeric results) [facility] ([facility]) Chloride Level 104 meq/L 98-107 Normal (applies to non-numeric r esults) [facility] ([facility]) Carbon Dioxide Level 29 meq/L 21-32 Normal (applies to non-num laura results) [facility] ([facility]) Anion Gap 4 meq/L 8-16 Below low normal [facility]) Calcium Level 7.9 mg/dL 8.8-10.2 Below low normal [facility] T ([facility]) Albumin 2.9 GM/DL 3.2-5.2 Below low normal [facility] ( [facility]) Phosphorus Level 3.9 mg/dL 2.5-4.9 Normal (applies to non-numeric results) [facility] ([facility]) ID Date Data Source [id number] 03/15/2020 11:54:00 AM EST [facility] ([facility]) Name Value Range Interpretation Code Description Data Shaila rce(s) Supporting Document(s) Natriuretic peptide.B prohormone N-Terminal [Mass/volu me] in Serum or Plasma 478 pg/mL Above high normal [facility] ([facility], ) ID Date Data Source [id number] 03/15/2020 11:54:00 AM [facility] [place]) Name Value Range Interpretation Code Description Data Shaila rce(s) Supporting Document(s) Aspergillus Fumigatus AB Laboratory test result Normal (applies to non-numeric results) [facility] ([facility]) Micropolyspora Faeni AB Laboratory test result N ormal (applies to non-numeric results) [facility] ([facility]) Aureobasidium [place] Laboratory test result N ormal (applies to non-numeric results) [facility] ([facility]) Harris Serum AB Laboratory test result Normal (a pplies to non-numeric results) [facility] ([facility]) Performed at: [facility] [address] [id number] Dairy Technologist: Rashaun Hansen MD, Phone: [phone] Performed at: [facility] [address] [id number] Dairy Technologist: Elda Orellana MD, Phone: [phone] Thermoactinomyces Vulgaris Laboratory test result Normal (applies to non- numeric results) [facility] ([facility]) Thermoactinomyces Sacchari Laboratory test result Normal (applies to non- numeric results) [facility]) ID Date Data Source [id number] 03/15/2020 11:54:00 AM EST [facility] ([facility]) Name Value Range Interpretation Code Description Data Shaila rce(s) Supporting Document(s) Cytoplasmic Neutrop AB Anca-C Laboratory test result Normal (applies to non- numeric results) [facility] ([facility]) Perinuclear AB Anca-P Laboratory test result Nor mal (applies to non-numeric results) [facility] ([facility]) The presence of positive fluorescence ex hibiting P-ANCA or C-ANCA patterns alone is not specific for the diagnosis of Anamaria's Granulomatosis (WG) or microscopic polyangiitis. Decisions about treatment should not be based solely on ANCA IFA results. The International ANCA [employer] Consensus recommends follow up testing of positive sera with both NH- 3 and MPO-ANCA enzyme immunoassays. As m any as 5% serum samples are positive only by EIA. Ref. AM J Clin Pathol 1999;111:507-513. Anca-Atypical Laboratory test result Normal (applies t o non-numeric results) [facility] ([facility]) The atypical pANCA pattern has been obse rved in a significant percentage of patients with ulcerative colitis, primary sclerosing cholangitis and autoimmune hepatitis. ID Date Data Source [id number] 03/15/2020 11:54:00 AM EST [facility] ([facility]) Name Value Range Interpretation Code Description Data Shaila rce(s) Supporting Document(s) Anti Double Strand-Dna AB 20 IU/ml 0-9 Above high normal [facility] ([facility]) <content>Negative <5</content>
<content>Equivocal 5 - 9</content>
<content>Positive >9</content>
<content></content> Antinuclear Antibodies Direct Laboratory test result Abnormal (applies to non- numeric results) [facility] ([facility]) Gardner Antibodies Laboratory test result 0.0-0.9 Normal ( applies to non-numeric results) [facility] ([facility]) DIRECTOR OF COUNTERINTELLIGENCE Antibodies Laboratory test result 0.0-0.9 Normal (a pplies to non-numeric results) [facility] ([facility]) Sjogren's Anti SS-B Laboratory test result 0.0-0.9 Hollie l (applies to non- numeric results) [facility] ([facility]) Sjogren's Anti SS-A Laboratory test result 0.0-0.9 Hollie l (applies to non- numeric results) [facility] ([facility]) Felicia Comment Laboratory test result Normal (applies to non- numeric results) [facility] ([facility]) . Autoantibody Disease Association Condition Frequency [...] (anti-Gardner) SLE 15 - 30% ------- --------- DIRECTOR OF COUNTERINTELLIGENCE Mixed Connective Tissue Disease 95% (U1 nRNP, SLE 30 - 50% anti-ribonucleoprotein) Polymyositis and/or Dermatomyositis 20% -------- --------- Scl-70 (antiDNA Scleroderma (diffuse) 20 - 35% topoisomerase) Crest 13% -------- --------- Shyam-1 Polymyositis and/or Dermatomyositis 20 - 40% -------- --------- Centromere B Scleroderma - Crest variant 80% ID Date Data Source [id number] 03/15/2020 11:54:00 AM EST [facility] ([facility]) Name Value Range Interpretation Code Description Data Shaila rce(s) Supporting Document(s) Erythrocyte sedimentation rate by Westergren method 7 mm/hr 0-20 Normal (applies to non-numeric results) [facility] ([facility]) Rheumatoid factor [Units/volume] in Serum or Plasma Laboratory t est result Normal (applies to non-numeric results) [facility] ([facility]) Angiotensin converting enzyme [Enzymatic activity/volu me] in Serum or Plasma 31 U/L 14-82 Normal (applies to non-numeric results) [facility] ([facility]) C reactive protein [Mass/volume] in Serum or Plasma by High sensitivity method 0.35 mg/dL 0.00-0.30 Above high normal [facility] ([facility]) Cyclic citrullinated peptide IgG Ab [Units/volume] in Serum or Plasma 4 units 0-19 Normal (applies to non-numeric results) [facility] ([facility]) <content>Negative <20</con tent>
<content>Weak positive 20 - 39</content>
<content>Moderate positive 40 - 59</content>
<content>Strong positive >59</content>
<content></content> ID Date Data Source [id number] 02/14/2020 01:00:00 PM EST [facility] Name Value Range Interpretation Code Description Data Shaila rce(s) Supporting Document(s) Follow Up [facility] BGOZMk7eLjLJHgBkYSCtVfmVHLgoBQmkPNCtG0F5ZSasWh4ESPhcdiUgQRFsDe0+QIUlOD5ceu4kBZZp gMy [file] tikmGpzEoyRoTF+mwQgEkfHxjohmHnnIkCLd+kgwim yg6LlCh3tIi7jBte+99KK8G1Xx2wd3RJERo8LGfkhx6sf1KOqjvdpyyGjyaFlPZFLN3uqpZlr48NyNVT 8RnYytdGa8F3+FyG/ZrWcts6JWZ5iKma3Ae9Zwk2X0jvzJYsdDYO+SYzaiYRjOLAzcaAlNETEcIGGXvj 8j6k0C8tDHsSyU1X+101DVYyQpDN4Prvd3PqiZGpt5 RWXkjB/uoW5ckZCQd8Uyo4Cfg5fdBICldvD47b9hBy8jFtT4rNa/97P6CxjOpj2yl0TsKsbih8SOznEf EZ6VdzYyHArWqdhcmxyP+GLSsI8GQfymhRiBzeuid6opsDsQCshV+9GS/aURurp0PgAxwL9JXTJWTn5j SIaxi7rbdGuqOCINUn2ndp+RhtY3kirHovHTu4S3jK ivIh7S9un9cjX12IwT6M+KPb9QxDoKOn6x3Xp/eZjG8OBAeaFO+3c0l2MZ0He/xbLrKjEQYSbk8CDQW9 iZFnvqyQF2iYi3vAabWUfAQK86JdMcXQbbqKRbBBqoaP8a70Avcj8yAyD4vdDmLaRcqIxOYKyg5n5f8u AH/JIG [file] eLpsRletnZkazlfUaGh4nmYBgXP0xfts2VrOed8O/Iván+3ZbpkdqmtC8H66OPKQnL0iBY9aGpkfzAYnn [file] b2Jgxm/xlXgupPjg88LdVlvyCO07PR1mM9JOE5NwOE5P2DL27XEQwjT5Q0KgtZn15/uw0BTC6xjg/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 [file] [facility]+yN3aH+iHyaWkhIb0LVWA0FfhvdyNouLx [file] p5gORmR1UvENTtqhL2lfs2Ak356nvLbRMrX8fCMh+0OboU2gtsG9HbrSseH3K/GTAxcY4WorLeqp/Maria Dolores [file] fjCxV74GdMqE3finV0ZhdG4OshillZwlbz9zVptqHWwZ6d0oz2vQ4L6SGszM9PFQYCUUrXFlwsjm+nursing home [file] script supervisor+yqTCJAwl1X1wAZ/4ChE8o8bL7Bcpn3fZuC/w6H [file] wSeoBcplZA19WSwH4KmZ/half-way/D1/8Jo9lGIsRVIWg59GhYAHzFscNfKyyGqwcGxwHt9TIPzYmERoxv+/ [file] DoImVSvBFAPudztnfuKPytkN1FBBuNhOqNDVmFH7q/pAMN7a/José Luis/nBS4h/aSos2DcXNftMjhyUBw8dw [file] QfCXcZ3k9k8+SObzDEx6IHjiaMLIrMJlIab7MLLVPuA4L16z+ELIGIBILITY SPECIALIST/mOfLtNYog+zF+7PiDL79tPHqKaNP [file] epaCpnFRwkm1qICYcSSf4ibw1cJ6c2XAeUa5L50CTkX1LjNFeRMbguVrup+Pedro Luis/3wPrM2Gzgyj5LH6+X [file] Wl+x/Feather [file] Aircraft Design Engineer+rH0wFscPmQ71R3K4Zd1n+67rmd8VRg5awQjjIZv [file] 8j9Q8rrRiNWILOmbL89jInsmsT4OANdAjX5XFWOJKSK7HYKZEMm0oBBWQ6lST+nurse's assistant/8RxK0yT6b7W1oB [file] /TaZpbmjiJ7+globe changer+l9U52SBll7qKhDC2FSbBDV8kPUW [file] j/MRY3JAUGcvp0qJbOSUE/MARY ANN/gbEWGPX5iW/qfrdT XvCtMgtfQES+phtg46mIORxtRTk1omgDtnQzXe17bXPXFI77/ZW1paCoFcDiGxKfMTuNXJkyfajG1k4j buqNNSwz383EQ/PHc/fU4r5RcKKk2jogYm6skSLpXY1u1LM+YSWEMJae7WlnKqgWM9tQApvP24JUGXrl TVX8A6WFPyVP4GFRJo4MGjvPvrBY2RDKCIo0eUXekV 6tJVXvs2Ie+xWWirmArvoj3FmKA+9eHvKA/0Px80Jyo0POPrXj2uvfdkpKUN7uKvdwVtQMCfHk2Q0qfz pHrsTcLowjJ91DyKvHd8Z17H0LbbKroshG/l78aYQv7S4zJmbJiZ91QLKhYoet9gAEYn/KIsF7xOKn/+ d2vd5/vmjDBxdTxSictGtGJAY1Sf9B7gAz506O3ZgR U3RQNHRDv7cszWr1xS5cSUNvWT6QK2RIQa6sTEyXOHFnchfUoPdHL1XgDUWxqZgd8+V+qtoRbqrWYdio w/pbs9Sfnywqs16p8p42/gV7Hv4nAfUpWd+IDzOLTGpxDBoXL2osGcIKCJnZ/9n4GI8Ps8/OH5GkQJyA D2L2ZhGH017F27Le/0lBFf/VUemUUWFA3CyaiOvFfa Mx9rOszR5m7ge1dv0XZFrftaa/wJppKDSNsuAhf1h2Sbq/1CCMHhSddcB54CNDS2TIKxtUkC3cKn80tn WYZ6f6/iDEjhnmWjW1ekNRzYGCRhK/oO5XCsfHO4omg8rZAly7klUWdEp+nF13ZzVMOJrMgLHSAAXQGk AwsVWvi2eJyyh/vmJ5PSJWcLtySlH5GWwywal7oeSO TK7c1Z3AnhjBe/YH2UpE4bli6oUS9YcCC3U89ztazaWtCMIrWHsgvlTJYtDntJY6pO6VGLKWEk8J2whr CQ8E2wXSXzBe3wVy2Ebzt1k2TCY2G4LSzQlxsd1ljy9w1lhdqy7w7iveRbrnQ9QmxgRKBY8e4ijh5MVW +UHM4V8/K5bh1J4hP0YHZL8dYJQQIf3hOgUAXDZGBL [file] GOFPFtCRTsERQsO7LfUYzzI6kFPPy3ZWYMVWTKXVbVJTOGEGOVYQYJOTOWOzCgSWqoOUKdDPW+IDw0NE N8UjGKDNBCNxQYNQDSSqWZIXFNPEWLRSJvIWHdWF2kS2Ede5WfOEHoWFGwQA9tssIpZKOyCc4MvLexVR MuT3T5wWNfG2wGFMLiFhQoBNP9RURtEu0zbWPsWC0F AjidA1EdKVXlRLRMYOVVExb+HXGL63WnkiWPJS0pWNbir5fi1bDIS6XyfSZ0KhSpWSOQ2RfZwQWIf7LS dNl7HPY9KEj+XnFBVrrmFpmDWOfKCaZHHqNwLNC0ioYrnL7CDN1sb9JvJT2Ua5MeolO2byOaFZghLtf9 MtT2JDthVLJYWt== ID Date Data Source [id number] 12/06/2019 02:25:00 PM EDT [facility] ([facility]) Name Value Range Interpretation Code Description Data Shaila rce(s) Supporting Document(s) Natriuretic peptide.B prohormone N-Terminal [Mass/volu me] in Serum or Plasma 159 pg/mL Above high normal [facility] ([facility]) ID Date Data Source [id number] 12/06/2019 02:25:00 PM EDT [facility] ([facility]) Name Value Range Interpretation Code Description Data Shaila rce(s) Supporting Document(s) Cholesterol Level 97 mg/dL Normal (applies to non-numeri c results) [facility] ([facility]) Triglycerides Level 64 mg/dL Normal (applies to non-nume cedric results) [facility] ([facility]) Non-HDL-C 51 mg/dL Normal (applies to non-numeric resul ts) [facility] ([facility]) HDL Cholesterol 46 mg/dL Normal (applies to non-numeric results) [facility] ([facility]) LDL Cholesterol 38 mg/dL Normal (applies to non-numeric results) [facility] ([facility]) Cholesterol Risk Ratio 2.108 Normal (applies to non-n umeric results) [facility] ([facility]) ID Date Data Source [id number] 12/06/2019 02:25:00 PM EDT [facility] ([facility]) Name Value Range Interpretation Code Description Data Shaila rce(s) Supporting Document(s) White Blood Count 8.9 10 4.0-10.0 Normal (applies to non-numeri c results) [facility] ([facility]) Red Blood Count 4.58 10 4.30-6.10 Normal (applies to non-numeric results) [facility] ([facility]) Hemoglobin 14.3 g/dL 13.5-17.5 Normal (applies to non-numeric resul ts) [facility] ([facility]) Hematocrit 43.4 % 42.0-52.0 Normal (applies to non-numeric resul ts) [facility] ([facility]) Mean Corpuscular Volume 94.8 fl 80.0-96.0 Normal ( applies to non-numeric results) [facility] ([facility]) Mean Corpuscular Hemoglobin 31.2 pg 27.0-33.0 Norm al (applies to non-numeric results) [facility] ([facility]) Mean Corpuscular HGB Conc 32.9 g/dL 32.0-36.5 Normal (applies to non-numeric results) [facility] ([facility]) Platelet Count, Automated 204 10 150-450 Normal (applies to non-numeric results) [facility] ([facility]) Red Cell Distribution Width 12.8 % 11.5-14.5 Norm al (applies to non-numeric results) [facility] ([facility]) [place] % 5.9 % 0.0-5.0 Above high normal [facility] ([facility]) Lymph % 21.9 % 24.0-44.0 Below low normal [facility] ( [facility]) Neutrophils % 67.7 % 36.0-66.0 Above high normal [facility] ([facility]) Baso % 0.9 % 0.0-1.0 Normal (applies to non-numeric resul ts) [facility] ([facility]) Immature Granulocyte % 0.3 % 0-3.0 Normal (applies to non-n umeric results) [facility] ([facility]) Eos % 3.3 % 0.0-3.0 Above high normal [facility] ([facility]) Neutrophils # 6.0 10 1.5-8.5 Normal (applies to non-numeric re sults) [facility] ([facility]) Nucleated Red Blood Cell % 0.0 % 0-0 Normal (applies to n on-numeric results) [facility] ([facility]) Lymph # 2.0 10 1.5-5.0 Normal (applies to non-numeric resul ts) [facility] ([facility]) [place] # 0.5 10 0.0-0.8 Normal (applies to non-numeric resul ts) [facility] ([facility]) Eos # 0.3 10 0.0-0.5 Normal (applies to non-numeric resul ts) [facility] ([facility]) Baso # 0.1 10 0.0-0.2 Normal (applies to non-numeric resul ts) [facility] ([facility]) ID Date Data Source [id number] 12/06/2019 02:25:00 PM EDT [facility] ([facility]) Name Value Range Interpretation Code Description Data Shaila rce(s) Supporting Document(s) Creatinine, Urine 304.0 mg/dL Normal (applies to non-numer ic results) [facility] ([facility]) Malb Urine Siemens 20.1 mg/L Normal (applies to non-numer ic results) [facility] ([facility]) [place]ef[place]/Creat Ratio 6.6 MCG/MG 0.0-30.0 Normal (applies to non-numeric results) [facility] ([facility]) THE [employer] STATES THAT MICROALBUMINURIA IS PRESENT IF THE MICROALBUMIN/CREATININE RATIO EXCEEDS 30 MCG/MG. THE THRESHOLD FOR CLINICAL ALBUMINURIA IS REACHED AT 300 MCG/MG. THE CLASSIFICATION OF A PATIENT SHOULD BE BASED UPON AT LEAST 2 OF 3 ABNORMAL RESULTS ON SPECIMENS COLLECTED WITHIN A 3 TO 6 MONTH TIME FRAME. ID Date Data Source [id number] 12/06/2019 02:25:00 PM EDT [facility] ([facility]) Name Value Range Interpretation Code Description Data Shaila rce(s) Supporting Document(s) Hemoglobin A1c 6.5 % Normal (applies to non-numeric r esults) [facility] ([facility]) <content>REFERENCE RANGES:</content><br/ ><content></content>
<content><=5.6% NORMAL</content>
<content>5.7-6.4% SUGGESTS IMPAIRED GLUCOSE METABOLISM/PREDIABETIC</content>
<content>>= 6.5% ABNORMAL</content>
<content></content> Estimated Average Glucose 140 mg/dL 60-110 Above high normal [facility] ([facility]) ID Date Data Source [id number] 12/06/2019 02:25:00 PM EDT [facility] ([facility]) Name Value Range Interpretation Code Description Data Shaila rce(s) Supporting Document(s) Blood Urea Nitrogen 23 mg/dL 7-18 Above high normal [facility]) Glucose, Fasting 77 mg/dL 70-100 Normal (applies to non-numeric results) [facility] ([facility]) Glomerular Filtration Rate Laboratory test result Normal (applies to non- numeric results) [facility] ([facility]) <content>Units are mL/min/1.73 m2</content>
<content></content>
<content>Chronic Kidney Disease Staging per NKF:</content>
<content></content>
<content>Stage I & II GFR >=60 Normal to Mildly Decreased</content>
<content>Stage III GFR 30- 59 Moderately Decreased</content>
<content>Stage IV GFR 15-29 Severely Decreased</content>
<content>Stage V GFR <15 Very Little GFR Left</content>
<content>ESRD GFR <15 on SPEECH LANGUAGE PATHOLOGIST ASSISTANT</content>
<content></content> Sodium Level 140 meq/L 136-145 Normal (applies to non-numeric res ults) [facility] ([facility]) Creatinine For GFR 0.77 mg/dL 0.70-1.30 Normal (applies to non -numeric results) [facility] ([facility]) Chloride Level 105 meq/L 98-107 Normal (applies to non-numeric r esults) [facility] ([facility]) Potassium Serum 4.3 meq/L 3.5-5.1 Normal (applies to non-numeric results) [facility] ([facility]) Carbon Dioxide Level 31 meq/L 21-32 Normal (applies to non-num laura results) [facility] ([facility]) Ast/Sgot 34 U/L 7-37 Normal (applies to non-numeric resul ts) [facility] ([facility]) Calcium Level 8.7 mg/dL 8.8-10.2 Below low normal [facility] ([facility]) Anion Gap 4 meq/L 8-16 Below low normal [facility] ( [facility]) Alkaline Phosphatase 121 U/L 45-117 Above high normal [facility] ([facility]) Bilirubin,Total 1.1 mg/dL 0.2-1.0 Above high normal [facility] ([facility]) Alt/SGPT 38 U/L 12-78 Normal (applies to non-numeric resul ts) [facility] ([facility]) Albumin/Globulin Ratio 1.0 Normal (applies to non-n umeric results) [facility] ([facility]) Albumin 3.9 GM/DL 3.2-5.2 Normal (applies to non-numeric resul ts) [facility] ([facility]) Total Protein 7.8 GM/DL 6.4-8.2 Normal (applies to non-numeric re sults) [facility] ([facility]) Procedure Social History Code Duration Value Status Description Data Source(s ) Smoking 12/02/2020 12:00:00 AM EDT Patient has never smoked co mpleted Patient has never smoked [facility] ([facility]) Smoking 11/04/2020 12:00:00 AM EDT Never Smoker completed Never S moker eCW1 ([facility]) Smoking 11/04/2020 12:00:00 AM EDT Never Smoker completed Never S moker eCW1 ([facility]) Smoking 11/04/2020 12:00:00 AM EDT Never Smoker completed Never S moker eCW1 ([facility]) Smoking 10/01/2020 12:00:00 AM EDT Never Smoker completed Never S moker eCW1 ([facility]) Smoking 10/01/2020 12:00:00 AM EDT Never Smoker completed Never S moker eCW1 ([facility]) Smoking 08/22/2020 12:00:00 AM EDT Never Smoked Cigarettes com pleted Never Smoked Cigarettes [facility] ([facility]) Smoking 07/20/2020 12:00:00 AM EDT Never Smoker completed Never S moker eCW1 ([facility]) Alcohol intake 07/04/2020 12:00:00 AM EDT Ex-drinker (finding) comp leted Ex- drinker (finding) [facility] Smoking 07/04/2020 12:00:00 AM EDT Never smoker completed Never s moker [facility] Smoking 07/02/2020 12:00:00 AM EDT Never Smoker completed Never S moker eCW1 ([facility]) Alcohol intake 06/06/2020 12:00:00 AM EST Not Currently completed [facility] Smoking 06/06/2020 12:00:00 AM EST Never smoker completed Never s moker [facility] Alcohol intake 05/30/2020 12:00:00 AM EST Not Currently completed [facility] Smoking 05/30/2020 12:00:00 AM EST Never smoker completed Never s moker [facility] Smoking 05/21/2020 12:00:00 AM EST Never Smoker completed Never S moker eCW1 ([facility]) Smoking 05/21/2020 12:00:00 AM EST Never Smoker completed Never S moker eCW1 ([facility]) Smoking 05/21/2020 12:00:00 AM EST Never Smoker completed Never S moker eCW1 ([facility]) Smoking 05/21/2020 12:00:00 AM EST Never Smoker completed Never S moker eCW1 ([facility]) Alcohol intake 05/17/2020 12:00:00 AM EST Not Currently completed [facility] Smoking 05/17/2020 12:00:00 AM EST Never smoker completed Never s moker [facility] Smoking 04/29/2020 12:00:00 AM EST Never Smoker completed Never S moker eCW1 ([facility]) Smoking 04/29/2020 12:00:00 AM EST Never Smoker completed Never S moker eCW1 ([facility]) Smoking 04/29/2020 12:00:00 AM EST Never Smoker completed Never S moker eCW1 ([facility]) Smoking 04/29/2020 12:00:00 AM EST Never Smoker completed Never S moker eCW1 ([facility]) Alcohol intake 04/25/2020 12:00:00 AM EST Not Currently completed [facility] Smoking 04/25/2020 12:00:00 AM EST Never smoker completed Never [facility] Alcohol intake 04/18/2020 12:00:00 AM EST Not Currently completed [facility] Smoking 04/18/2020 12:00:00 AM EST Never smoker completed Never [facility] Vital Signs ID Date Data Source UNK Name Value Range Interpretation Code Description Data Source(s) Systolic blood pressure 104 mm[Hg] 104 mm[Hg] [facility] Oxygen saturation in Arterial blood by Pulse oximetry 95 % 95 % [facility] Diastolic blood pressure 70 mm[Hg] 70 mm[Hg] [facility] Heart rate 94 /min 94 /min [facility] Body height 177.8 cm 177.8 cm [facility] Body weight 85.458 kg 85.458 kg [facility] Body mass index (BMI) [Ratio] 27.03 kg/m2 27.03 kg/m2 [facility] Respiratory rate 20 /min 20 /min [facility] ( [facility]) Body mass index (BMI) [Ratio] 29.3 kg/m2 29.3 k g/m2 [facility] ([facility]) Heart rate 92 /min 92 /min [facility] ([facility]) Body temperature 97.9 [degF] 97.9 [degF] [facility] ([facility]) Oxygen saturation in Arterial blood by Pulse oximetry 93 % 93 % [facility] ([facility]) Systolic blood pressure 124 mm[Hg] 124 mm[Hg] [facility] ([facility]) Diastolic blood pressure 74 mm[Hg] 74 mm[Hg] [facility] ([facility]) Body height 67 [in_i] 67 [in_i] [facility]) 5'7" Body weight 187.25 [lb_av] 187.25 [lb_av] [facility] ([facility]) [place] body weight 148 [lb_av] 148 [lb_av] [facility] ([facility]) Body weight 196.2 [lb_av] 196.2 [lb_av] eCW1 ([facility]) Body weight 89.0 kg 89.0 kg eCW1 ([facility]) Body height 70 [in_i] 70 [in_i] eCW1 ([facility]) Body mass index (BMI) [Ratio] 28.15 kg/m2 28.15 kg/m2 eCW1 ([facility]) Heart rate 115 /min 115 /min eCW1 ([facility]) Body temperature 99.1 [degF] 99.1 [degF] eCW1 ( [facility]) Systolic blood pressure 104 mm[Hg] 104 mm[Hg] e CW1 ([facility]) Diastolic blood pressure 78 mm[Hg] 78 mm[Hg] eCW1 ([facility]) Body height 70 [in_i] 70 [in_i] [facility] ([facility], ) 5'10" Systolic blood pressure 108 mm[Hg] 108 mm[Hg] [facility] ([facility], ) Body weight 193.00 [lb_av] 193.00 [lb_av] [facility] ([facility], ) Body weight 87.545 kg 87.545 kg [facility] ([facility], ) Diastolic blood pressure 72 mm[Hg] 72 mm[Hg] [facility] ([facility], ) Heart rate 83 /min 83 /min [facility] ([facility], ) Oxygen saturation in Arterial blood by Pulse oximetry 9332 % 9332 % [facility] ([facility], ) [place] body weight 166 [lb_av] 166 [lb_av] MEDEN T ([facility], ) Body mass index (BMI) [Ratio] 27.7 kg/m2 27.7 k g/m2 [facility] ([facility], ) Body surface area Derived from formula 2.06 m2 2.06 m2 [facility] ([facility], ) Body weight 198.0 [lb_av] 198.0 [lb_av] eCW1 ([facility]) Body weight 89.8 kg 89.8 kg eCW1 ([facility]) Heart rate 98 /min 98 /min eCW1 ([facility]) Body height 70 [in_i] 70 [in_i] eCW1 ([facility]) Body mass index (BMI) [Ratio] 28.41 kg/m2 28.41 kg/m2 eCW1 ([facility]) Body temperature 98.2 [degF] 98.2 [degF] eCW1 ( [facility]) Systolic blood pressure 116 mm[Hg] 116 mm[Hg] e CW1 ([facility]) Diastolic blood pressure 76 mm[Hg] 76 mm[Hg] eCW1 ([facility]) Body height 70 [in_i] 70 [in_i] [facility] ([facility], ) 5'10" Oxygen saturation in Arterial blood by Pulse oximetry 943 % 943 % [facility] ([facility], ) Systolic blood pressure 122 mm[Hg] 122 mm[Hg] [facility] ([facility], ) Diastolic blood pressure 74 mm[Hg] 74 mm[Hg] [facility] ([facility], ) [place] body weight 166 [lb_av] 166 [lb_av] MEDEN T ([facility], ) [place] body weight 166 [lb_av] 166 [lb_av] MEDEN T ([facility], ) Oxygen saturation in Arterial blood by Pulse oximetry 943 % 943 % [facility] ([facility], ) Body height 70 [in_i] 70 [in_i] [facility] ([facility], ) 5'10" Heart rate 84 /min 84 /min [facility] ([facility], ) Systolic blood pressure 128 mm[Hg] 128 mm[Hg] M EDENT ([facility]) Body weight 209.00 [lb_av] 209.00 [lb_av] MEDEN T ([facility]) Body mass index (BMI) [Ratio] 32.7 kg/m2 32.7 k g/m2 [facility] ([facility]) Heart rate 98 /min 98 /min [facility] ([facility]) Body temperature 97.8 [degF] 97.8 [degF] [facility] ([facility]) Oxygen saturation in Arterial blood by Pulse oximetry 96 % 96 % [facility] ([facility]) [place] body weight 148 [lb_av] 148 [lb_av] MEDEN T ([facility]) Diastolic blood pressure 84 mm[Hg] 84 mm[Hg] [facility] ([facility]) Body height 67 [in_i] 67 [in_i] [facility] ([facility]) 5'7" Systolic blood pressure 130 mm[Hg] 130 mm[Hg] M EDENT ([facility], ) Diastolic blood pressure 80 mm[Hg] 80 mm[Hg] [facility] ([facility], ) Heart rate 91 /min 91 /min [facility] ([facility], ) Oxygen saturation in Arterial blood by Pulse oximetry 904 % 904 % [facility] ([facility], ) Body height 70 [in_i] 70 [in_i] [facility] ([facility], ) 5'10" [place] body weight 166 [lb_av] 166 [lb_av] MEDEN T ([facility], ) Systolic blood pressure 105 mm[Hg] 105 mm[Hg] [facility] Diastolic blood pressure 62 mm[Hg] 62 mm[Hg] [facility] Heart rate 98 /min 98 /min [facility] Body height 177.8 cm 177.8 cm [facility] Body weight 99.791 kg 99.791 kg [facility] Body mass index (BMI) [Ratio] 31.57 kg/m2 31.57 kg/m2 [facility] Oxygen saturation in Arterial blood by Pulse oximetry 93 % 93 % [facility] [place] body weight 166 [lb_av] 166 [lb_av] MEDEN T ([facility], ) Body weight 99.792 kg 99.792 kg MEDENT ([facility]) Body surface area Derived from formula 2.17 m2 2.17 m2 [facility] ([facility]) Body mass index (BMI) [Ratio] 31.6 kg/m2 31.6 k g/m2 [facility] ([facility]) Systolic blood pressure 130 mm[Hg] 130 mm[Hg] [facility] Diastolic blood pressure 78 mm[Hg] 78 mm[Hg] [facility] ([facility]) Heart rate 84 /min 84 /min [facility] ([facility]) Oxygen saturation in Arterial blood by Pulse oximetry 92 % 92 % [facility] ([facility]) o2 sat on 1.5L Body height 70 [in_i] 70 [in_i] [facility] ([facility]) 5'10" Body weight 220.00 [lb_av] 220.00 [lb_av] [facility] Systolic blood pressure 102 mm[Hg] 102 mm[Hg] [facility] Diastolic blood pressure 60 mm[Hg] 60 mm[Hg] [facility] Body height 177.8 cm 177.8 cm [facility] Body weight 100.245 kg 100.245 kg [facility] Heart rate 68 /min 68 /min [facility] Body mass index (BMI) [Ratio] 31.71 kg/m2 31.71 kg/m2 [facility] Oxygen saturation in Arterial blood by Pulse oximetry 86 % 86 % [facility] Body temperature 36.78 Yare[facility] 36.78 [facility] Systolic blood pressure 105 mm[Hg] 105 mm[Hg] [facility] Diastolic blood pressure 67 mm[Hg] 67 mm[Hg] [facility] Heart rate 82 /min 82 /min [facility] Respiratory rate 20 /min 20 /min [facility] Oxygen saturation in Arterial blood by Pulse oximetry 92 % 92 % [facility] Body height 179.1 cm 179.1 cm [facility] Body weight 100.2 kg 100.2 kg [facility] Body mass index (BMI) [Ratio] 31.25 kg/m2 31.25 kg/m2 [facility] Body weight 223 [lb_av] 223 [lb_av] eCW1 ([facility]) Body height 70 [in_i] 70 [in_i] eCW1 ([facility]) Body mass index (BMI) [Ratio] 31.99 kg/m2 31.99 kg/m2 W1 ([facility]) Heart rate 101 /min 101 /min eCW1 ([facility]) Body temperature 98.5 [degF] 98.5 [degF] eCW1 ( [facility]) Systolic blood pressure 116 mm[Hg] 116 mm[Hg] e CW1 ([facility]) Diastolic blood pressure 72 mm[Hg] 72 mm[Hg] eCW1 ([facility]) Systolic blood pressure 130 mm[Hg] 130 mm[Hg] [facility] Diastolic blood pressure 78 mm[Hg] 78 mm[Hg] [facility] Heart rate 88 /min 88 /min [facility] Respiratory rate 16 /min 16 /min [facility] Body height 177.8 cm 177.8 cm [facility] Body weight 101.152 kg 101.152 kg [facility] Body mass index (BMI) [Ratio] 32.00 kg/m2 32.00 kg/m2 [facility] Oxygen saturation in Arterial blood by Pulse oximetry 91 % 91 % [facility] Body weight 231.0 [lb_av] 231.0 [lb_av] eCW1 ([facility]) Body mass index (BMI) [Ratio] 33.14 kg/m2 33.14 kg/m2 W1 ([facility]) Heart rate 109 /min 109 /min eCW1 ([facility]) Body temperature 98.2 [degF] 98.2 [degF] eCW1 ( [facility]) Systolic blood pressure 122 mm[Hg] 122 mm[Hg] e CW1 ([facility]) Diastolic blood pressure 86 mm[Hg] 86 mm[Hg] eCW1 ([facility]) Body weight 104.7 kg 104.7 kg eCW1 ([facility]) Body height 70 [in_i] 70 [in_i] eCW1 ([facility]) Systolic blood pressure 118 mm[Hg] 118 mm[Hg] [facility] Diastolic blood pressure 80 mm[Hg] 80 mm[Hg] [facility] Heart rate 84 /min 84 /min [facility] Body height 177.8 cm 177.8 cm [facility] Body weight 105.325 kg 105.325 kg [facility] Body mass index (BMI) [Ratio] 33.32 kg/m2 33.32 kg/m2 [facility] Oxygen saturation in Arterial blood by Pulse oximetry 89 % 89 % [facility] Systolic blood pressure 102 mm[Hg] 102 mm[Hg] [facility] Diastolic blood pressure 72 mm[Hg] 72 mm[Hg] [facility] Heart rate 76 /min 76 /min [facility] Body height 177.8 cm 177.8 cm [facility] Body weight 110.224 kg 110.224 kg [facility] Body mass index (BMI) [Ratio] 34.87 kg/m2 34.87 kg/m2 [facility] Oxygen saturation in Arterial blood by Pulse oximetry 89 % 89 % [facility] Body temperature 97.4 [degF] 97.4 [degF] [facility] ([facility]) Oxygen saturation in Arterial blood by Pulse oximetry 98 % 98 % [facility] ([facility]) Systolic blood pressure 116 mm[Hg] 116 mm[Hg] M EDENT ([facility]) Diastolic blood pressure 78 mm[Hg] 78 mm[Hg] [facility] ([facility]) Body height 67 [in_i] 67 [in_i] [facility] ([facility]) 5'7" Body weight 235.12 [lb_av] 235.12 [lb_av] MEDEN T ([facility]) Body mass index (BMI) [Ratio] 36.8 kg/m2 36.8 k g/m2 [facility] ([facility]) Heart rate 74 /min 74 /min [facility] ([facility]) Respiratory rate 24 /min 24 /min [facility] ( [facility]) [place] body weight 148 [lb_av] 148 [lb_av] MEDEN T ([facility]) Heart rate 112 /min 112 /min [facility] ([facility], ) Oxygen saturation in Arterial blood by Pulse oximetry 85 % 85 % [facility] ([facility], ) Body height 70 [in_i] 70 [in_i] [facility] ([facility], ) 5'10" [place] body weight 166 [lb_av] 166 [lb_av] MEDEN T ([facility], ) Systolic blood pressure 120 mm[Hg] 120 mm[Hg] [facility], ) Diastolic blood pressure 70 mm[Hg] 70 mm[Hg] [facility] ([facility], ) Systolic blood pressure 102 mm[Hg] 102 mm[Hg] [facility] ([facility], ) Diastolic blood pressure 70 mm[Hg] 70 mm[Hg] [facility] ([facility], ) Heart rate 96 /min 96 /min [facility] ([facility], ) Oxygen saturation in Arterial blood by Pulse oximetry 88 % 88 % [facility] ([facility], ) Body height 70 [in_i] 70 [in_i] [facility] ([facility], ) 5'10" [place] body weight 166 [lb_av] 166 [lb_av] MEDEN T ([facility], ) Body height 70 [in_i] 70 [in_i] [facility] ([facility], ) 5'10" Body weight 235.00 [lb_av] 235.00 [lb_av] MEDEN T ([facility]) Body mass index (BMI) [Ratio] 33.7 kg/m2 33.7 k g/m2 [facility] ([facility]) [place] body weight 166 [lb_av] 166 [lb_av] MEDEN T ([facility]) Body weight 106.596 kg 106.596 kg MED[facility] ([facility]) Body height 70 [in_i] 70 [in_i] [facility] ([facility]) 5'10" Body weight 235.00 [lb_av] 235.00 [lb_av] MEDEN T ([facility]) Body mass index (BMI) [Ratio] 33.7 kg/m2 33.7 k g/m2 [facility] ([facility]) [place] body weight 166 [lb_av] 166 [lb_av] MEDEN T ([facility]) Body weight 106.596 kg 106.596 kg MED[facility] ([facility]) [place] body weight 166 [lb_av] 166 [lb_av] MEDEN T ([facility]) Body weight 106.596 kg 106.596 kg MED[facility] ([facility]) Body mass index (BMI) [Ratio] 33.7 kg/m2 33.7 k g/m2 [facility] ([facility]) Body height 70 [in_i] 70 [in_i] [facility] ([facility]) 5'10" Body weight 235.00 [lb_av] 235.00 [lb_av] MEDEN T ([facility]) Body height 70 [in_i] 70 [in_i] [facility] ([facility]) 5'10" Body weight 235.00 [lb_av] 235.00 [lb_av] MEDEN T ([facility]) Body mass index (BMI) [Ratio] 33.7 kg/m2 33.7 k g/m2 [facility] ([facility]) Body weight 106.596 kg 106.596 kg [facility] ([facility]) Systolic blood pressure 118 mm[Hg] 118 mm[Hg] M EDENT ([facility]) Diastolic blood pressure 78 mm[Hg] 78 mm[Hg] [facility] ([facility]) Body weight 233.12 [lb_av] 233.12 [lb_av] MEDEN T ([facility]) Body mass index (BMI) [Ratio] 36.5 kg/m2 36.5 k g/m2 [facility] ([facility]) Heart rate 82 /min 82 /min [facility] ([facility]) Body temperature 97.7 [degF] 97.7 [degF] [facility] ([facility]) [place] body weight 148 [lb_av] 148 [lb_av] MEDEN T ([facility]) Body height 67 [in_i] 67 [in_i] [facility] ([facility]) 5'7" Respiratory rate 20 /min 20 /min [facility] ( [facility]) Oxygen saturation in Arterial blood by Pulse oximetry 91 % 91 % [facility] ([facility]) Patient Treatment Plan of Care Planned Activity Planned Date Details Description Data Source (s) Tresiba FlexTouch 200 UNIT/ML SOPN 11/09/2020 12:00:00 AM EDT [facility] Methylprednisolone 8 MG Oral Tablet 11/05/2020 12:00:00 AM EDT [facility] Hydroxychloroquine Sulfate 200 MG Oral Tablet [[place]] 11/04/2020 12:00:00 AM EDT eCW1 ([facility]) Hydroxychloroquine Sulfate 200 MG Oral Tablet [[place]] 11/04/2020 12:00:00 AM EDT eCW1 ([facility]) Hydroxychloroquine Sulfate 200 MG Oral Tablet [[place]] 11/04/2020 12:00:00 AM EDT eCW1 ([facility]) Furosemide 40 MG Oral Tablet 10/21/2020 12:00:00 AM EDT [facility] Treprostinil 0.6 MG/ML Inhalant Solution [Tyvaso] 10/01/2020 12: 00:00 AM EDT [facility] nintedanib 150 MG Oral Capsule 07/10/2020 12:00:00 AM EDT [facility] Methylprednisolone 32 MG Oral Tablet 06/21/2020 12:00:00 AM EST [facility] Hydroxychloroquine Sulfate 200 MG Oral Tablet 06/17/2020 12:00:00 A M EST [facility] Hydroxychloroquine Sulfate 200 MG Oral Tablet [[place]] 06/17/2020 12:00:00 AM EST eCW1 ([facility]) Hydroxychloroquine Sulfate 200 MG Oral Tablet [[place]] 06/17/2020 12:00:00 AM EST eCW1 ([facility]) Hydroxychloroquine Sulfate 200 MG Oral Tablet [[place]] 06/17/2020 12:00:00 AM EST eCW1 ([facility]) Hydroxychloroquine Sulfate 200 MG Oral Tablet [[place]] 06/17/2020 12:00:00 AM EST eCW1 ([facility]) Hydroxychloroquine Sulfate 200 MG Oral Tablet [[place]] 06/17/2020 12:00:00 AM EST eCW1 ([facility]) Hydroxychloroquine Sulfate 200 MG Oral Tablet [[place]] 06/17/2020 12:00:00 AM EST eCW1 ([facility]) Furosemide 40 MG Oral Tablet 06/06/2020 12:00:00 AM EST [facility] apixaban 2.5 MG Oral Tablet [Eliquis] 06/05/2020 12:00:00 AM EST [facility] Furosemide 40 MG Oral Tablet 04/26/2020 12:00:00 AM EST [facility] Spironolactone 25 MG Oral Tablet 04/25/2020 12:00:00 AM EST [facility] Furosemide 40 MG Oral Tablet 04/18/2020 12:00:00 AM EST [facility] gabapentin 300 MG Oral Capsule 04/15/2020 12:00:00 AM EST [facility] Losartan Potassium 50 MG Oral Tablet 12/06/2018 12:00:00 AM EDT [facility] 1 ML Enoxaparin sodium 150 MG/ML Prefilled Syringe [facility] Furosemide 40 MG Oral Tablet [facility] Omeprazole 40 MG Delayed Release Oral Capsule [facility]
--- NOTE | 2021-01-24 23:00 | REPVR ---
PROCEDURE INFORMATION: Exam: CT Chest Without Contrast; Diagnostic Exam date and time: 01/24/2021 10:13 PM Age: 65 years old Clinical indication: Shortness of breath; Additional info: SOB TECHNIQUE: Imaging protocol: Diagnostic computed tomography of the chest without contrast. 3D rendering (Not supervised by radiologist): MIP and/or 3D reconstructed images were created by the technologist. Radiation optimization: All CT scans at this facility use at least one of these dose optimization techniques: automated exposure control; mA and/or kV adjustment per patient size (includes targeted exams where dose is matched to clinical indication); or iterative reconstruction. COMPARISON: CT Chest with contrast 08/16/2020 2:00 PM FINDINGS: Lungs: Redemonstration of bilaterally predominantly subpleural septal thickening, honeycombing consistent with the interstitial lung disease. No significant change from prior study. Calcified granuloma in the right upper lobe. There is ground-glass opacification in the left upper and lower lobe which may represent edema/infection. Pleural spaces: Unremarkable. No pneumothorax. No pleural effusion. Heart: Coronary vasculature calcifications. Aorta: Ectatic ascending aorta measuring 4.5 cm. No significant change from prior study. Lymph nodes: Prevascular lymph node measuring 1 cm in the short axis. Multiple mediastinal lymph nodes. Bones/joints: Degenerative changes of the spine. Soft tissues: Unremarkable. IMPRESSION: 1. Redemonstration of bilateral predominantly subpleural septal thickening and honeycombing consistent with the interstitial lung disease. 2. Interval development of ground-glass opacities in the left upper and lower lobe and somewhat at the right lung base which may represent edema/infection. 3. Stable ectatic ascending aorta measuring 4.5 cm. 4. Redemonstration of stable diffuse mediastinal and bilateral hilar lymphadenopathy. 5. Enlarged pulmonary artery. Clinical correlation with pulmonary arterial hypertension. Electronically signed by: Daniel Rogel On 01/24/2021 23:00:11 PM
--- NOTE | 2021-01-24 23:23 | IPNPDOC ---
Text Note Date of Service The patient was seen on 01/24/21. VS,Rafaelbone, I+O VS, Fishbone, I+O Laboratory Tests 01/24/21 19:54 Vital Signs Date Time Temp Pulse Resp B/P (MAP) Pulse Ox O2 Delivery O2 Flow Rate FiO2 01/24/21 23:01 89 102/63 (76) 96 High Flow Cannula 01/24/21 20:06 30.0 100 01/24/21 19:46 98.5 34 NED HART MD Jan 24, 2021 23:23
--- NOTE | 2021-01-24 23:58 | HPEPDOC ---
[facility] Medical History & Physical Date of Admission Jan 24, 2021 Date of Service: Jan 24, 2021 Primary Care Physician: LINDSAY SELF DO Attending Physician: NED HART MD History and Physical CHIEF COMPLAINT: SOB HISTORY OF PRESENT ILLNESS: is a pleasant 65yo male with notable PMHx of chronic hypoxic respiratory failure dependent on 4L home O2 due to idiopathic pulmonary fibrosis with pulmonary htn, idiopathic hyper coagulopathic state with previous DVTs on eliquis, diabetes mellitus type 2 on insulin, undifferentiated connective tissue disease, HTN, and hiatal hernia s/p Nicole fundoplication who presented to the [facility] ED on the evening of 01/24/2021 due to 3 days of worsening shortness of breath. At baseline, the patient is dependent on 4 L of home O2 and follows both with Dr. Mclean for local pulmonology care and Dr. Dennis at [facility] in [place] for IPF/pulmonary HTN. Patient describes his shortness of breath over the past 3 days as an inability to "catch his breath." And has required significant oxygen support beyond his 4 L baseline. He initially started with his home concentrator which has a maximum of 4 L and then moved to using por table oxygen tanks that he titrated all the way up to 10-15 L. The patient unfortunately remained significantly dyspneic even on these high levels of oxygen support. Whenever patient would try to titrate down from that 10-15 L O2 range, reportedly his saturations would drop down into the 60s and 70s. Patient also has a baseline chronic cough which intermittently is productive and this has been relatively unchanged over the past 3 days of symptoms. On review he reports a roughly 100 pound unintentional weight loss since being admitted 10 months ago in March 2020 when he was found to have a left lower extremity DVT. Due to his persistent dyspnea despite the elevated oxygen support, the patient contacted both the office of his local salvage inspector (Dr. Mclean) and [place] salvage inspector (Dr. Dennis), with both groups suggesting the patient presented to the ED for evaluation. Ultimately, one of the patient's sons, who is a physicians exceptional children teacher assistant, called EMS for the patient to be transported to the ED. Upon presentation to the ED, the patient was wearing a full nonrebreather that was applied by EMS. He was saturating between 89-92% on the full nonrebreather and had mild visible retractions with respiration but no conversational dyspnea. The ED provider spoke about the patient with the on-call third cook (Dr. Johnson), who recommended switching over to Vapotherm/high flow oxygen and obtaining a CT of the chest without contrast since the patient was already on anticoagulation and evidence of PE would not significantly change current management/medication regimen. Dr. Johnson plans to see the patient for full evaluation on 01/25. After switching to Vapotherm, patient's saturations improved to 94-97%. He also felt his work of breathing had lessened and he no longer felt he was needing to catch his breath. He had no leukocytosis and ABG showed pH 7.427/PCO2 46/CO2 34. The patient's BNP was elevated to 5019, with recent baseline over the past year being about 500. A chest x-ray showed advanced fibrotic changes that were similar to the prior study; while a CT of the chest showed interval development of ground glass opacities of the left upper and lower lobes as well as the right lung base technical support representative of possible edema/infection, with honeycombing in bilateral septal thickening consistent with interstitial lung disease, as well as enlarged pulmonary artery possibly as a result of pulmonary arterial hypertension. PAST MEDICAL HISTORY: Chronic hypoxic respiratory failure dependent on 4 L home O2 due to idiopathic pulmonary fibrosis with pulmonary hypertension Idiopathic hypercoagulable state with previous DVTs, on Eliquis; has been following with Dr. Rahul Odom of hematology at [facility] Noncalcified nodule in the left lower lung lobe; initially was 5 mm on initial imaging and progressed to 7 mm in 2015 Undifferentiated connective tissue disease currently follows with Dr. Inez Mchugh of rheumatology as outpatient Type 2 diabetes on home Metformin and Victoza; currently takes 2 units of long- acting insulin daily in the setting of steroid taper due to respiratory condition Hiatal hernia status post Nicole fundoplication PAST SURGICAL HISTORY: Nicole fundoplication, April 2019; performed by Dr. Mendoza in [place] SOCIAL HISTORY: Patient is and lives in [facility]. 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 He is a never smoker. Patient denies any current or former alcohol or illegal drug use. FAMILY HISTORY: Father: at age 62 due to complications of diabetes Mother: at age 69; thyroid cancer Brothers (7): 3 brothers who are ; one had a history of mental retardation; a second had a history of mesothelioma; and the third had a history of liver failure Sisters (5): 2 of whom are ; one of renal failure, while the other of complications related to diabetes Patient has 2 grown sons who have no known significant medical issues ALLERGIES: Please see below. REVIEW OF SYSTEMS: CONSTITUTIONAL: Reports roughly 100 pound unintentional weight loss over the past 10 months with associated weakness. Denies any fever, chills, or night sweats. HEENT: Denies any recent vision or hearing changes. CARDIOVASCULAR: Denies any chest pain, chest pressure, or palpitations RESPIRATORY: Reports shortness of breath over the past 3 days as described extensively in HPI with accompanying chronic productive cough. Denies pleuritic chest pain or hemoptysis peer GASTROINTESTINAL: Has abdominal pain, nausea, vomiting, or blood in stool. Reports rare intermittent diarrhea that is baseline. GENITOURINARY: Denies dysuria or hematuria SKIN: Reports athlete's foot present on the plantar aspect of both feet as well as easy bruising in setting of Eliquis. MUSCULOSKELETAL: Reports generalized weakness over the past 10 months that has not progressed. NEUROLOGICAL: Denies headache, lightheadedness, or dizziness HEMATOLOGIC: Reports easy bruising in setting of Eliquis LYMPHATIC: Denies any new lumps or bumps HOME MEDICATIONS: Please see below. PHYSICAL EXAMINATION: VITAL SIGNS: Temperature 98.5, pulse 92, respiratory rate 34, blood pressure 100/75, pulse oximetry 97% on 90% FiO2 with 25 L rate on Vapotherm. GENERAL APPEARANCE: Very pleasant elderly male lying upright in bed. He is wearing high flow Vapotherm nasal cannula. He is alert and oriented x3 and does not appear to be in any significant acute distress. HEENT: Normocephalic, atraumatic. Noninjected, anicteric sclera. No significant conjunctival pallor. PERRLA. EOMI. Oral cavity: Mildly dry mucous. No pharyngeal erythema or exudate appreciated Neck: No lymphadenopathy appreciated. Trachea midline. CARDIOVASCULAR: Borderline tachycardic rate, regular rhythm. Normal S1, S2. Appears to be systolic murmur present but difficult to fully assess in the background noise of Vapotherm and breath sounds. LUNGS: Patient is breathing on high flow nasal cannula oxygen (Vapotherm 90% FiO2 with 25 L). No conversational dyspnea. There are mild inspiratory bilateral crackles of the mid lungs posteriorly which become coarser as one moves inferiorly into the bases, with coarser sounds greater on the left base in the right base. No visualized accessory muscle use. Symmetric chest expansion. ABDOMEN: Soft, nontender nondistended. No guarding or rigidity appreciated. Normoactive bowel sounds throughout. No hepatosplenomegaly or palpable passes appreciated. Skin: There is petechiae present over bilateral forearms chest back and abdomen. There is also what appears to be a tinea infection of bilateral plantar aspects of the feet. EXTREMITIES: There is 2-3+ pitting edema of distal lower extremities bilaterally, greater on the left versus the right; this edema continues at the ankles and manifests also has pedal edema. Negative for calf tenderness bilaterally. 2+ radial pulses bilaterally. There is some signs of clubbing of the toes little bit in the fingers as well. Bilateral onychomycosis. NEUROLOGICAL: No gross focal neurologic deficits appreciated. Nondysarthric speech. Alert and oriented x3 and following commands and answering questions appropriately PSYCHIATRIC: Pleasant mood. Appropriate appearing affect LABORATORY DATA: Please see below. IMAGING: Portable chest x-ray, 01/24/2021 FINDINGS: The mediastinum and cardiac silhouette are stable and mild cardiomegaly is again suggested. The lung santana demonstrate advanced fibrosis and scarring. Superimposed acute process cannot definitively be excluded. No obvious effusion. No pneumothorax. Skeletal structures are intact. IMPRESSION: Advanced fibrotic changes similar to prior examination. Subtle superimposed process cannot be excluded. Chest CT without contrast, 01/24/2021 FINDINGS: Lungs: Redemonstration of bilaterally predominantly subpleural septal thickening, honeycombing consistent with the interstitial lung disease. No significant change from prior study. Calcified granuloma in the right upper lobe. There is ground-glass opacification in the left upper and lower lobe which may represent edema/infection. Pleural spaces: Unremarkable. No pneumothorax. No pleural effusion. Heart: Coronary vasculature calcifications. Aorta: Ectatic ascending aorta measuring 4.5 cm. No significant change from prior study. Lymph nodes: Prevascular lymph node measuring 1 cm in the short axis. Multiple mediastinal lymph nodes. Bones/joints: Degenerative changes of the spine. Soft tissues: Unremarkable. IMPRESSION: 1. Redemonstration of bilateral predominantly subpleural septal thickening and honeycombing consistent with the interstitial lung disease. 2. Interval development of ground-glass opacities in the left upper and lower lobe and somewhat at the right lung base which may represent edema/infection. 3. Stable ectatic ascending aorta measuring 4.5 cm. 4. Redemonstration of stable diffuse mediastinal and bilateral hilar lymphadenopathy. 5. Enlarged pulmonary artery. Clinical correlation with pulmonary arterial hypertension. MICROBIOLOGY: Please see below. ASSESSMENT & PLAN: This is a 65yo male w/ notable h/o chronic hypoxic respiratory failure dependent on home O2 (4 L) due to idiopathic pulmonary fibrosis with pulmonary hypertension, idiopathic hypercoagulable state with prior DVTs on Eliquis, hyp ertension, diabetes mellitus type 2, and undifferentiated connective tissue disease on Plaquenil, who presented to the ED via EMS due to worsening shortness of breath for the past 3 days with significant desaturations whenever not on 10+ liters of oxygen. He initially presented on a full nonrebreather saturating between 89 to 92% and was switched over to Vapotherm high flow with improvement of saturations in the mid to upper 90s. Patient primarily admitted for acute on chronic hypoxic respiratory failure. #Acute on chronic hypoxemic respiratory failure - - i/s/o O2-dependent idiopathic pulmonary fibrosis with pulmonary hypertension -Likely secondary to multiple factors, namely worsening of his idiopathic pulmonary fibrosis and possible acute exacerbation of right-sided heart failure -Patient presented with 3 days of worsening shortness of breath requiring significant more oxygen support than his home O2 dependent baseline of 4 L -brought in by EMS on nonrebreather saturating 89-92% with subsequent improvement to mid to upper 90s saturation on high flow oxygen/Vapotherm -AB.427/PCO2 46/CO2 34; chest x-ray showed advanced fibrotic changes similar to prior study; CT chest without contrast done showing findings consistent with interstitial lung disease as well as interval development of groundglass opacities bilaterally that may represent edema with enlarged pulmonary artery possibly correlating with pulm HTN -The ED provider spoke with Dr. Johnson of the pulmonology/strap cutting machine operator service who recommended to switch to Vapotherm and plans to evaluate the patient on 01/25 -A formal consultation has been placed for pulmonology and hospitalist service appreciates Dr. Johnson's recommendations and insights. -BNP 5019 on presentation (recent baseline is about 500 for the past year); taken in context with the CT findings c/w interval development of opacities that may represent basilar edema w/ coarser bibasilar crackles, one-time 40 mg IV furosemide dose ordered to see how patient responds -His home 20 mg oral furosemide and 25 mg oral spironolactone were continue d and will begin on 01/25; day team can consider based on response to IV Lasix dose if patient should remain with IV diuretics or continue with home oral regimen -Review of records shows that patient underwent an echocardiogram on 05/21/2020 but the only reported finding was pulmonary hypertension; there is no echocardiogram on the [facility] records, therefore a TTE has been ordered -Daily weights; strict I and O's -Continuous pulse ox; O2 titration orders of greater than 90% -Patient is currently on a long steroid taper dose as outpatient, with current amount of steroid being 16 p.o. methylprednisolone daily -Of note, patient follows with Dr. Mclean for local pulmonology care and Dr. Dennis at [facility] for pulmonary HTN/IPF mgmt #Pulmonary hypertension and IPF with high suspicion for cor pulmonale -Patient follows with Dr. Dennis of [facility] for IPF/p ulmonary hypertension management -As discussed above, with elevated BNP and findings on exam/imaging, one-time IV diuretic was given in setting of possible acute exacerbation of right-sided heart failure -Admitting team called the patient's who will bring in his Ofev and Tyvaso pulmonary hypertension medications -Home oral diuretics were initially continued; day team can decide based on response to the IV furosemide if continued IV diuretics warranted -Patient is currently completing a very extended steroid taper as outpatient in his home oral methylprednisolone dose was continued (currently 16 mg daily) #Idiopathic hypercoagulable state with prior DVTs on Eliquis -Patient has a history of right lower extremity DVT in 2014 which subsequently did not respond via clot burden to Xarelto and was switched to Lovenox; then experienced a left lower extremity DVT in March 2020 while on Lovenox and was switched to Eliquis in July 2020 by clinical informatics strategist (Dr. Odom) -Patient had been following with hematology as outpatient but after most recent visit earlier this month, follow-up is on as needed basis -Home Eliquis continued upon admission #Undifferentiated connective tissue disease, on hydroxychloroquine -Follows with Dr. Inez Mchugh of [facility] rheumatology -Has been on hydroxychloroquine for the better part of the last 9 months; this was continued upon admission #Diabetes mellitus type 2 -Patient takes Victoza and Metformin daily; he also has been taking 2 units of long-acting insulin daily in the setting of a long steroid taper for his respiratory condition -Patient was placed on sliding scale insulin and fingersticks before meals and at night with hypoglycemic protocol; 2 g sodium diet -Patient's will bring in Victoza and Metformin not continued upon admission -At time of admission, 2 units long-acting was not initially continued as we wanted to see where patient's sugars were since 2 units is relatively such a low dose; day team may consider ultimately continuing the 2 units LA based on pt's inpatient sugar trend. #Ectatic ascending aorta -This measured 4.[address] chest and was described as stable #DVT prophylaxis: Home Eliquis continued CODE STATUS: Full code Disposition: Admit to PCU and pending improved respiratory status. Contact: Patient's primary point of contact is his [place] (cell [phone]; home [phone]) Vital Signs Vital Signs Date Time Temp Pulse Resp B/P (MAP) Pulse Ox O2 Delivery O2 Flow Rate FiO2 01/24/21 23:01 89 102/63 (76) 96 High Flow Cannula 01/24/21 20:06 30.0 100 01/24/21 19:46 98.5 34 Laboratory Data Labs 24H Laboratory Tests 2 01/24/21 19:46: Blood Gas Bicarbonate Standard 28.6H, Arterial Blood pH 7.427, Arterial Blood Partial Pressure CO2 46.3H, Arterial Blood Partial Pressure O2 116.2H, Arterial Blood Total CO2 31.3H, Arterial Blood HCO3 29.8H, Arterial Blood Base Excess 4.6H, Arterial Blood Oxygen Saturation 97.9 01/24/21 19:54: Immature Granulocyte % (Auto) 0.4, Neutrophils (%) (Auto) 89.3H, Lymphocytes (%) (Auto) 6.2L, Monocytes (%) (Auto) 3.7, Eosinophils (%) (Auto) 0.2, Basophils (%) (Auto) 0.2, Neutrophils # (Auto) 7.9, Lymphocytes # (Auto) 0.6L, Monocytes # (Auto) 0.3, Eosinophils # (Auto) 0.0, Basophils # (Auto) 0.0, Nucleated Red Blood Cells % (auto) 0.0, Prothrombin Time 14.8H, Prothromb Time International R atio 1.12, Activated Partial Thromboplast Time 30.1, Anion Gap 4L, Glomerular Filtration Rate > 60.0, Calcium Level 8.3L, Total Bilirubin 0.8, Direct Bilirubin 0.3H, Aspartate Amino Transf (AST/SGOT) 34, Alanine Aminotransferase (ALT/SGPT) 43, Alkaline Phosphatase 88, Total Creatine Kinase 40, Creatine Kinase MB 2.0, Creatine Kinase MB Relative Index 5.00H, Troponin I < 0.02, JZ-[id number]-Type Natriuretic Peptide 5019H, Total Protein 6.6, Albumin 2.6L, Albumin/Globulin Ratio 0.7, Thyroid Stimulating Hormone (TSH) 0.943, Free Thyroxine 1.21 CBC/BMP Laboratory Tests 01/24/21 19:54 Microbiology Microbiology 01/24/21 Respiratory Virus Panel (PCR) ([facility]) - Final, Complete Home Medications Scheduled Apixaban (Eliquis) 5 Mg Tablet, 2.5 MG PO BID Aspirin (Aspirin EC) 81 Mg Tablet.dr, 81 MG PO DAILY Atorvastatin Calcium (Atorvastatin Calcium) 40 Mg Tablet, 40 MG PO QHS Furosemide (Furosemide) 40 Mg Tablet, 20 MG PO DAILY Hydroxychloroquine Sulfate (Hydroxychloroquine Sulfate) 200 Mg Tablet, 200 MG PO BID Insulin Degludec (Tresiba Flextouch U-200) 200 Unit/1 Ml Insuln.pen, 2 UNITS SC DAILY Liraglutide (Victoza 3-Dontrell) 0.6 Mg/0.1 Ml Pen.injctr, 1.8 MG SC DAILY Metformin HCl (Metformin HCl ER) 500 Mg Tab.er.24h, 1,000 MG PO BID Methylprednisolone (Medrol) 8 Mg Tablet, 16 MG PO DAILY Nintedanib Esylate (Ofev) 150 Mg Capsule, 150 MG PO BID Spironolactone (Spironolactone) 25 Mg Tablet, 25 MG PO DAILY Treprostinil (Tyvaso) 1.74 Mg/2.9 Ml Ampul.neb, 1.74 MG NEB QID Scheduled PRN Gabapentin (Gabapentin) 300 Mg Capsule, 600 MG PO BID PRN for COUGH Allergies Coded Allergies: No Known Drug Allergies (Verified Allergy, Unknown, 12/02/18) Attending Note Attending Note TIME OF SERVICE 1135PM Mr Engle is a 64 yr old w IDL & chronic hypoxemic respiratory failure who is a dmitted for dyspnea that is suspicious for fluid overload. - he will receive IV Lasix tonight & we will ask the day time team f/u w & on an Echo in the morning rest per 's H&P RIYA BRENNER D.O. Jan 24, 2021 23:58 NED HART MD Jan 25, 2021 01:46
[2021-01-25] VITALS (22 sets, daily range): BP systolic 101–140; BP diastolic 72–99; O2SAT 83–99
[2021-01-25] MEDS ORDERED: FUROSEMIDE 40MG/4ML VIAL (J1940) IV ONE (00:05)
[2021-01-25] MEDS ORDERED: GLUCAGON INJ 1MG VIAL SC PRN (00:10)
[2021-01-25] MEDS ORDERED: ACETAMINOPHEN TAB 650MG DOSE (2X325MG) PO PRN (00:10)
[2021-01-25] MEDS ORDERED: GLUCOSE 4GM CHEW TABLET PO PRN (00:10)
[2021-01-25] MEDS ORDERED: MOM 30ML SUSPENSION UDC PO PRN (00:10)
[2021-01-25] MEDS ORDERED: MAALOX 30 ML SUSP *UDC PO PRN (00:10)
[2021-01-25] MEDS ORDERED: GABAPENTIN 300 MG CAP PO PRN (00:10)
[2021-01-25] MEDS ORDERED: DEXTROSE 50% 50 ML SYRINGE IV PRN (00:10)
[2021-01-25] MEDS: ATORVASTATIN 20 MG TAB PO SCH ×2 (02:40→20:35)
[2021-01-25] MEDS: APIXABAN 2.5 MG TAB (ELIQUIS) PO SCH ×3 (02:40→20:35)
[2021-01-25 06:34] LABS: BASO % 0.3 % (0.0-1.0); EOS # 0.2 10^3/uL (0.0-0.5); EOS % 2.1 % (0.0-3.0); HEMATOCRIT 40.9 % (42.0-52.0); LYMPH # 1.9 10^3/uL (1.5-5.0); LYMPH % 19.3 % (24.0-44.0); MEAN CORPUSCULAR HEMOGLOBIN 32.6 pg (27.0-33.0); MEAN CORPUSCULAR HGB CONC 31.8 g/dl (32.0-36.5); MEAN CORPUSCULAR VOLUME 102.5 fl (80.0-96.0); MONO # 0.7 10^3/uL (0.0-0.8); MONO % 7.2 % (2.0-8.0); NEUTROPHILS # 7.1 10^3/uL (1.5-8.5); NEUTROPHILS % 70.8 % (36.0-66.0); PLATELET COUNT, AUTOMATED 188 10^3/uL (150-450); RED BLOOD COUNT 3.99 10^6/uL (4.30-6.10)
[2021-01-25 06:48] LABS: ALBUMIN 2.5 GM/DL (3.2-5.2); ALT/SGPT 40 U/L (12-78); BLOOD UREA NITROGEN 22 MG/DL (7-18); CALCIUM LEVEL 8.4 MG/DL (8.8-10.2); CARBON DIOXIDE LEVEL 36 MEQ/L (21-32); CHLORIDE LEVEL 98 MEQ/L (98-107); CREATININE FOR GFR 0.62 MG/DL (0.70-1.30); GLOMERULAR FILTRATION RATE > 60.0 (>49); GLUCOSE, FASTING 91 MG/DL (70-100); MAGNESIUM LEVEL 1.9 MG/DL (1.8-2.4); SODIUM LEVEL 139 MEQ/L (136-145); TOTAL PROTEIN 6.4 GM/DL (6.4-8.2)
[2021-01-25] MEDS: HumaLOG INSULIN (NovoLOG) PER UNIT SC SCH ×4 (07:30→20:27)
[2021-01-25] MEDS: HYDROXYCHLOROQUINE 200 MG TAB PO SCH ×2 (08:19→20:35)
[2021-01-25] MEDS: SPIRONOLACTONE 25 MG TAB PO SCH (08:19)
[2021-01-25] MEDS: ASPIRIN 81MG ENTERIC TABLET PO SCH (08:19)
[2021-01-25] MEDS ORDERED: FUROSEMIDE 20 MG TAB PO SCH (09:00)
[2021-01-25] MEDS ORDERED: FLUBLOK(EGG FREE)(QUAD)INFLUENZA VACC 0.5ML SYRINGE 18YRS & OLDER IM ONE (09:00)
[2021-01-25] MEDS: FUROSEMIDE 40MG/4ML VIAL (J1940) IV SCH ×2 (11:46→20:35)
[2021-01-25] MEDS: TYVASO INH SCH ×3 (11:48→19:50)
--- NOTE | 2021-01-25 13:20 | IPNPDOC ---
Text Note Date of Service The patient was seen on 01/25/21. NOTE SUBJECTIVE: -On vapotherm 30L/100% FiO2 -Otherwise without acute complaints overnight OBJECTIVE: VITAL SIGNS: see below GENERAL APPEARANCE: NAD, on vapotherm HEENT: Normocephalic, atraumatic. Noninjected, anicteric sclera. No significant conjunctival pallor. PERRLA. EOMI. Oral cavity: MMM Neck: No lymphadenopathy appreciated. Trachea midline. CARDIOVASCULAR: RRR, systolic murmur LUNGS: Diffuse inspiratory bilateral crackles posteriorly which become coarser as one moves inferiorly into the bases, no accessory muscle use. Symmetric chest expansion. ABDOMEN: Soft, nontender nondistended. No guarding or rigidity appreciated. Normoactive bowel sounds throughout. No hepatosplenomegaly or palpable passes appreciated. EXTREMITIES: 2-3+ pitting edema of distal lower extremities bilaterally, greater on the left versus the right. Negative for calf tenderness bilaterally. 2+ radial pulses bilaterally. +clubbing NEUROLOGICAL: No gross focal neurologic deficits appreciated. Nondysarthric speech. Alert and oriented x3 and following commands. PSYCHIATRIC: AOx3 LABORATORY DATA: Reviewed WBC 10 Hgb 13 platelets 188 Na 139 Cr 0.62 K 4 mag 1.9 IMAGING: Portable chest x-ray, 01/24/2021 FINDINGS: The mediastinum and cardiac silhouette are stable and mild cardiomegaly is again suggested. The lung santana demonstrate advanced fibrosis and scarring. Superimposed acute process cannot definitively be excluded. No obvious effusion. No pneumothorax. Skeletal structures are intact. IMPRESSION: Advanced fibrotic changes similar to prior examination. Subtle superimposed process cannot be excluded. Chest CT without contrast, 01/24/2021 FINDINGS: Lungs: Redemonstration of bilaterally predominantly subpleural septal thickening, honeycombing consistent with the interstitial lung disease. No significant change from prior study. Calcified granuloma in the right upper lobe. There is ground-glass opacification in the left upper and lower lobe which may represent edema/infection. Pleural spaces: Unremarkable. No pneumothorax. No pleural effusion. Heart: Coronary vasculature calcifications. Aorta: Ectatic ascending aorta measuring 4.5 cm. No significant change from prior study. Lymph nodes: Prevascular lymph node measuring 1 cm in the short axis. Multiple mediastinal lymph nodes. Bones/joints: Degenerative changes of the spine. Soft tissues: Unremarkable. IMPRESSION: 1. Redemonstration of bilateral predominantly subpleural septal thickening and honeycombing consistent with the interstitial lung disease. 2. Interval development of ground-glass opacities in the left upper and lower lobe and somewhat at the right lung base which may represent edema/infection. 3. Stable ectatic ascending aorta measuring 4.5 cm. 4. Redemonstration of stable diffuse mediastinal and bilateral hilar lymphadenopathy. 5. Enlarged pulmonary artery. Clinical correlation with pulmonary arterial hypertension. MICROBIOLOGY: Please see below. 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 #Acute on chronic hypoxemic respiratory failure - - i/s/o O2-dependent idiopathic pulmonary fibrosis with pulmonary hypertension, likely multifactorial acute on chronic hypoxemic respiratory failure including HFpEF exacerbation -AB.427/PCO2 46/CO2 34; chest x-ray showed advanced fibrotic changes similar to prior study; CT chest without contrast done showing findings consistent with interstitial lung disease as well as interval development of ground glass opacities bilaterally that may represent edema with enlarged pulmonary artery possibly correlating with pulm HTN -DC po diuretics, start lasix 40 IV q8H, for goal negative 2L/24h -2L/24h fluid restriction -will also empirically place on ceftriaxone, azithro for empiric CAP coverage, check procal, sputum Cx, legionella, strep, mycoplasma -daily BMP and Mg for electrolyte repletion while aggressive diuresing -Dr. Johnson was consulted, agrees with diuresis, will evaluate him and the CT s hortly -BNP 5019 on presentation (recent baseline is about 500 for the past year) -Review of records shows that patient underwent an echocardiogram on 05/21/2020 but the only reported finding was pulmonary hypertension; there is no echocardiogram on the [facility] records, therefore a TTE has been ordered -Daily weights; strict I and O's -Continuous pulse ox; O2 titration orders of greater than 90% -Patient is currently on a long steroid taper dose as outpatient, with current amount of steroid being 16 p.o. methylprednisolone daily, will continue -Of note, patient follows with Dr. Mclean for local pulmonology care and Dr. Dennis at [place] in [place] for pulmonary HTN/IPF mgmt Acute on chronic HFpEF: -DC po diuretics, start lasix 40 IV q8H, for goal negative 2L/24h -2L/24h fluid restriction -daily BMP and Mg for electrolyte repletion while aggressive diuresing -Dr. Johnson was consulted, agrees with diuresis, will evaluate him and the CT shortly, at this time, suspicion for PNA is low, no abx onboard -BNP 5019 on presentation (recent baseline is about 500 for the past year) -Review of records shows that patient underwent an echocardiogram on 05/21/2020 but the only reported finding was pulmonary hypertension; there is no echocardiogram on the [facility] records, therefore a TTE has been ordered -Daily weights; strict I and O's -2g sodium diet w/ consistent carb #Pulmonary hypertension and IPF with high suspicion for cor pulmonale -Patient follows with Dr. Dennis of [facility] in [place] for IPF/pulmonary hypertension management -patient's is bringing in his Ofev and Tyvaso pulmonary hypertension medications -Patient is currently completing a very extended steroid taper as outpatient in his home oral methylprednisolone dose, will continue (currently 16 mg daily). #Hypercoagulable state with prior DVTs on Eliquis -Patient has a history of right lower extremity DVT in 2014 which subsequently did not respond via clot burden to Xarelto and was switched to Lovenox; then experienced a left lower extremity DVT in March 2020 while on Lovenox and was switched to Eliquis in July 2020 by medical esthetician (Dr. Odom) -Patient had been following with hematology as outpatient but after most recent visit earlier this month, follow-up is on as needed basis -Home Eliquis continued #Undifferentiated connective tissue disease, on hydroxychloroquine -Follows with Dr. Inez cMhugh of [facility] rheumatology -Has been on hydroxychloroquine for the better part of the last 9 months, co ntinue #Diabetes mellitus type 2 -Patient takes Victoza and Metformin daily; he also has been taking 2 units of long-acting insulin daily in the setting of a long steroid taper for his respiratory condition -Patient was placed on sliding scale insulin and fingersticks before meals and at night with hypoglycemic protocol; 2 g sodium diet -Hold Victoza and Metformin -SSI, FSBG AC/HS -hypoglycemic protocol #Ectatic ascending aorta -This measured 4.[address] chest and was described as stable DVT ppx: eliquis CODE STATUS: Full code VS,Fishbone, I+O VS, Fishbone, I+O Laboratory Tests 01/24/21 19:54 01/25/21 05:56 Vital Signs Date Time Temp Pulse Resp B/P (MAP) Pulse Ox O2 Delivery O2 Flow Rate FiO2 01/25/21 08:00 30.0 100 01/25/21 08:00 97.5 84 30 128/78 (95) 95 HVNI-Vapotherm I&O- Last 24 Hours up to 6 AM 01/25/21 06:00 Intake Total 0 ml Output Total 625 ml Balance -625 ml YSABEL BEAVERS MD Jan 25, 2021 09:31
--- NOTE | 2021-01-25 13:21 | CR.PDOC ---
General Date of Consultation: Jan 25, 2021 Referring Provider: YSABEL BEAVERS MD Attending Physician: YSABEL BEAVERS MD Consultation REASON FOR CONSULTATION/CHIEF COMPLAINT: Shortness of breath. HISTORY OF PRESENT ILLNESS: This is a 59-year-old very pleasant gentleman with p ast medical history of chronic hypoxic respiratory failure on 4 to 5 L oxygen, idiopathic pulmonary fibrosis, group 3 pulmonary hypertension, hypercoagulable state with previous history of DVT on Eliquis, diabetes mellitus, undifferentiated connective tissue disease on Plaquenil, hypertension and GE RD/hiatal hernia status post Nicole fundoplication presented to the hospital on 01/24/2021 with shortness of breath. Patient has been experiencing shortness of breath for the last 3 days. He follow-up with Dr. Mclean for his IPF. He is maintained on Ofev. He was recently started on short course of systemic corticosteroid taper. Despite this therapy, his shortness of breath got worse. He titrated his portable oxygen up to 10 to 15 L without improvement in his respiratory symptom. Therefore, he presented to the emergency department. In the emergency department, he was saturating in the low 90s while being on nonrebreather. I recommended patient to be started on Vapotherm. Other than worsening shortness of breath, patient denies of fever, chills, chest pain, palpitation, nausea, vomiting, abdominal pain or diarrhea. He does endorse worsening of his lower extremity swelling as well as orthopnea. He has occasional dry cough but does not bring up any sputum. Patient has been diagnosed with IPF since 2015. He has been maintained on Ofev. He follow-up with rheumatology at [place] for undifferentiated connective tissue disease. He is maintained on hydroxychloroquine. In addition he follow- up with Dr. Fernando Dennis at [place] for his group 3 pulmonary hypertension. He is currently maintained on Lasix p.o. He is currently in the process of trying to establish with [facility] to be evaluated for lung transplant. CT scan of the chest without contrast was reviewed and compared to the CT scan done August 2020. There is significant honeycombing and traction bronchiectasis on the right lung. However there are new patchy groundglass opacities in the left upper and lower lobe. Pulmonary was consulted for further recommendations. PAST MEDICAL HISTORY: Chronic hypoxic respiratory failure dependent on 4 L home O2 due to idiopathic pulmonary fibrosis with pulmonary hypertension group 3 Idiopathic hypercoagulable state with previous DVTs, on Eliquis; has been following with Dr. Rahul Odom of hematology at [facility] Noncalcified nodule in the left lower lung lobe; initially was 5 mm on initial imaging and progressed to 7 mm in 2015 Undifferentiated connective tissue disease currently follows with Dr. Inez Mchugh of rheumatology as outpatient Type 2 diabetes on home Metformin and Victoza; currently takes 2 units of long- acting insulin daily in the setting of steroid taper due to respiratory condition Hiatal hernia status post Nicole fundoplication PAST SURGICAL HISTORY: Nicole fundoplication, April 2019; performed by Dr. Mendoza in [place] SOCIAL HISTORY: Patient is and lives in [facility]. 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 He is a never smoker. Patient denies any current or former alcohol or illegal drug use. FAMILY HISTORY: Father: at age 62 due to complications of diabetes Mother: at age 69; thyroid cancer Brothers (7): 3 brothers who are ; one had a history of mental retardation; a second had a history of mesothelioma; and the third had a history of liver failure Sisters (5): 2 of whom are ; one of renal failure, while the other of complications related to diabetes Patient has 2 grown sons who have no known significant medical issues ALLERGIES: Please see below. HOME MEDICATIONS: Please see below. REVIEW OF SYSTEMS: CONSTITUTIONAL: Patient admits to experiencing fatigue. He denies fever, chills, night sweats, malaise, diaphoresis. HEENT: He denies of sore throat, sinus pain. CARDIOVASCULAR: He denies of chest pain, palpitation, PND. However, he does admits to orthopnea. RESPIRATORY: He admits to experiencing shortness of breath and dry cough. He denies of hemoptysis or wheezing. GENITOURINARY: He denies of dysuria or hematuria. MUSCULOSKELETAL: Denies joint pain or joint swelling. GASTROINTESTINAL: Denies nausea, vomiting, abdominal pain, diarrhea or constipation. SKIN: Denies any skin changes or rash. NEUROLOGICAL: Denies slurred speech or focal weakness/numbness. PSYCHIATRIC: Denies depression. ENDOCRINE: Denies weight change. HEMATOLOGIC/LYMPHATIC: Denies any evidence of bleeding diathesis. ALLERGIC/IMMUNOLOGIC: Denies allergy. PHYSICAL EXAMINATION: VITAL SIGNS: Please see below. GENERAL APPEARANCE: Pleasant, alert and oriented x3. In mild distress due to shortness of breath HEENT: Large JVD up to the level of upper neck. No evidence of cervical adenopathy. RESPIRATORY: Bilateral coarse crackles predominantly in the lower lung field with Rales. CARDIOVASCULAR: Normal S1 with fixed splitting of S2. Large midsystolic murmur appreciated in the left parasternal border. No radiation of this murmur ABDOMEN: Soft slightly distended, hypoactive bowel sounds. EXTREMITIES: Large pitting edema of the lower extremity up to the level of knees. Clubbing of the fingers NEUROLOGICAL: Nonfocal. PSYCHIATRIC: Alert and oriented x3. LABORATORY DATA: Please see below. ASSESSMENT/PLAN: This is a 59-year-old very pleasant gentleman with past medical history of chronic hypoxic respiratory failure on 4 to 5 L oxygen, idiopathic pulmonary fibrosis, group 3 pulmonary hypertension, hypercoagulable state with previous history of DVT on Eliquis, diabetes mellitus, 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 #Acute on chronic hypoxic respiratory failure -Secondary to ILD/IPF exacerbation superimposed by decompensated right ventricular failure due to group 3 pulmonary hypertension rule out infectious process -Currently on Vapotherm for support. Target oxygen saturation above 90%. #ILD/IPF exacerbation -There is evidence of new groundglass opacity on the left upper and lower lobe. I have sent infectious work-up including sputum culture, Legionella and strep urine antigen, mycoplasma and Chlamydia pneumonia. Procalcitonin level has been sent. -We will empirically cover with ceftriaxone and azithromycin for community- acquired pneumonia. -Finish the short course of systemic corticosteroid which he was at put on as outpatient -Recommend to put him back on Ofev. #Decompensated right heart failure with group III pulmonary hypertension -Repeat echocardiogram pending at this point. Will increase diuretic therapy to target at least net -1 L. Recommend trending proBNP every other day. Closely monitor urinary output as well as renal function. #History is of undifferentiated connective tissue disease -Recommend putting him back on his home Plaquenil. Vital Signs/I&O Vital Signs Date Time Temp Pulse Resp B/P (MAP) Pulse Ox O2 Delivery O2 Flow Rate FiO2 01/25/21 12:19 97.2 93 28 103/75 (84) 95 HVNI-Vapotherm 30.0 100 I&O- Last 24 Hours up to 6 AM 01/25/21 06:00 Intake Total 0 ml Output Total 625 ml Balance -625 ml Laboratory Data Labs 24H Laboratory Tests 2 01/24/21 19:46: Blood Gas Bicarbonate Standard 28.6H, Arterial Blood pH 7.427, Arterial Blood P artial Pressure CO2 46.3H, Arterial Blood Partial Pressure O2 116.2H, Arterial Blood Total CO2 31.3H, Arterial Blood HCO3 29.8H, Arterial Blood Base Excess 4.6H, Arterial Blood Oxygen Saturation 97.9 01/24/21 19:54: Immature Granulocyte % (Auto) 0.4, Neutrophils (%) (Auto) 89.3H, Lymphocytes (%) (Auto) 6.2L, Monocytes (%) (Auto) 3.7, Eosinophils (%) (Auto) 0.2, Basophils (%) (Auto) 0.2, Neutrophils # (Auto) 7.9, Lymphocytes # (Auto) 0.6L, Monocytes # (Auto) 0.3, Eosinophils # (Auto) 0.0, Basophils # (Auto) 0.0, Nucleated Red Blood Cells % (auto) 0.0, Prothrombin Time 14.8H, Prothromb Time International Ratio 1.12, Activated Partial Thromboplast Time 30.1, Anion Gap 4L, Glomerular Filtration Rate > 60.0, Calcium Level 8.3L, Total Bilirubin 0.8, Direct Bilirubin 0.3H, Aspartate Amino Transf (AST/SGOT) 34, Alanine Aminotransferase (ALT/SGPT) 43, Alkaline Phosphatase 88, Total Creatine Kinase 40, Creatine Kinase MB 2.0, Creatine Kinase MB Relative Index 5.00H, Troponin I < 0.02, AI-Ver-L-Type Natriuretic Peptide 5019H, Total Protein 6.6, Albumin 2.6L, Albumin/Globulin Ratio 0.7, Thyroid Stimulating Hormone (TSH) 0.943, Free Thyroxine 1.21 01/25/21 00:39: Whole Blood Ionized Calcium 4.4L 01/25/21 05:56: Immature Granulocyte % (Auto) 0.3, Neutrophils (%) (Auto) 70.8H, Lymphocytes (%) (Auto) 19.3L, Monocytes (%) (Auto) 7.2, Eosinophils (%) (Auto) 2.1, Basophils (%) (Auto) 0.3, Neutrophils # (Auto) 7.1, Lymphocytes # (Auto) 1.9, Monocytes # (Auto) 0.7, Eosinophils # (Auto) 0.2, Basophils # (Auto) 0.0, Nucleated Red Bl ood Cells % (auto) 0.0, Anion Gap 5L, Glomerular Filtration Rate > 60.0, Calcium Level 8.4L, Total Bilirubin 1.0, Aspartate Amino Transf (AST/SGOT) 35, Alanine Aminotransferase (ALT/SGPT) 40, Alkaline Phosphatase 83, Total Protein 6.4, Albumin 2.5L, Albumin/Globulin Ratio 0.6, Magnesium Level 1.9 01/25/21 12:42: Bedside Glucose (Misc Panel) 212H CBC/BMP Laboratory Tests 01/24/21 19:54 01/25/21 05:56 Microbiology Microbiology 01/24/21 Respiratory Virus Panel (PCR) ([facility]) - Final, Complete Allergies Coded Allergies: No Known Drug Allergies (Verified Allergy, Unknown, 12/02/18) Home Medications Scheduled Apixaban (Eliquis) 5 Mg Tablet, 2.5 MG PO BID, (Reported) Aspirin (Aspirin EC) 81 Mg Tablet.dr, 81 MG PO DAILY, (Reported) Atorvastatin Calcium (Atorvastatin Calcium) 40 Mg Tablet, 40 MG PO QHS, (Reported) Furosemide (Furosemide) 40 Mg Tablet, 20 MG PO DAILY, (Reported) Hydroxychloroquine Sulfate (Hydroxychloroquine Sulfate) 200 Mg Tablet, 200 MG PO BID, (Reported) Insulin Degludec (Tresiba Flextouch U-200) 200 Unit/1 Ml Insuln.pen, 2 UNITS SC DAILY, (Reported) Liraglutide (Victoza 3-Dontrell) 0.6 Mg/0.1 Ml Pen.injctr, 1.8 MG SC DAILY, (Reported) Metformin HCl (Metformin HCl ER) 500 Mg Tab.er.24h, 1,000 MG PO BID, (Reported) Methylprednisolone (Medrol) 8 Mg Tablet, 16 MG PO DAILY, (Reported) Nintedanib Esylate (Ofev) 150 Mg Capsule, 150 MG PO BID, (Reported) Spironolactone (Spironolactone) 25 Mg Tablet, 25 MG PO DAILY, (Reported) Treprostinil (Tyvaso) 1.74 Mg/2.9 Ml Ampul.neb, 1.74 MG NEB QID, (Reported) Scheduled PRN Gabapentin (Gabapentin) 300 Mg Capsule, 600 MG PO BID PRN for COUGH, (Reported) FRANCISCA CAMPUZANO MD Jan 25, 2021 13:21
--- NOTE | 2021-01-25 15:03 | ECHO ---
ECHOCARDIOGRAM DATE OF PROCEDURE: 01/25/2021 Age: 65 Gender: Male Height: 70 inches Weight: 185 pounds Body Surface Area: 2.2 m2 PATIENT LOCATION: Inpatient, progressive care unit (PCU), Room 3214. REFERRING PROVIDER: Elton Cheney D.O. INDICATION: Pulmonary fibrosis/pulmonary hypertension. MEASUREMENTS: 2D Measurements: RV - 5.5 cm LV - 4.5 cm Septum 1.1 cm Posterior wall 1.1 cm Aortic root 3.4 cm LV - 3.6 cm LVEF 60% Doppler Measurements: AV - 1.0 m/sec LVOT - 0.98 m/sec MV-E 56, A 96, EA ratio 0.6 Early mitral deceleration time 181 msec E prime 5.5 A prime 9.6 E/E prime ratio 10.2/PCWP - 14.5 mmHg PV - 0.9 m/sec Pulmonary artery acceleration time - not obtainable RVSP 77 mmHg COMMENTS: Normal sinus rhythm without intraventricular conduction disturbance. Frequent isolated unifocal premature ventricular contractions (PVCs). Technically difficult study in light of the patient's pulmonary disease, but some diagnostically useful information was still obtained. M-mode and 2-dimensional echocardiography was performed with pulse, continuous wave, color flow and tissue Doppler study. Normal left ventricular size and wall thickness with septal wall motion abnormality due to right ventricular pressure overload, yet preserved global resting left ventricular systolic function. Normal left atrial size, but Doppler evidence of grade 1 left ventricular (LV) diastolic dysfunction, but current estimated mean left atrial pressure upper limits of normal. Prominently dilated right heart chambers with right ventricular free wall hypokinesis and Doppler evidence of severe pulmonary hypertension. His inferior vena cava could not be well visualized, but in light of his trans-tricuspid valve gradient, it is likely to be dilated with an elevated central venous pressure. Normal aortic diameters. Mild aortic valvular sclerosis without stenosis or insufficiency. Mild degenerative changes of the mitral valvular apparatus without apparent functional abnormality. Tricuspid valve appeared to be normal with at least moderate tricuspid insufficiency. We could not visualize any intracardiac mass or pericardial effusion.
[2021-01-25] MEDS: AZITHROMYCIN INJ 500 MG, VIAL MATE ADAPTER 1 EACH in NS 250 ML IV SCH (15:49)
[2021-01-25] MEDS: cefTRIAXone SOD 2 GM in D5W MINI-BAG PLUS 50 ML IV SCH (18:00)
[2021-01-26] VITALS (34 sets, daily range): BP systolic 102–115; BP diastolic 70–89; O2SAT 88–99
[2021-01-26] MEDS ORDERED: ONDANSETRON 4MG/2ML VIAL IV ONE (00:10)
[2021-01-26] MEDS: FUROSEMIDE 40MG/4ML VIAL (J1940) IV SCH ×3 (03:11→20:00)
[2021-01-26 05:02] LABS: HEMATOCRIT 42.7 % (42.0-52.0); HEMOGLOBIN 13.7 g/dl (13.5-17.5); MEAN CORPUSCULAR HEMOGLOBIN 32.5 pg (27.0-33.0); MEAN CORPUSCULAR HGB CONC 32.1 g/dl (32.0-36.5); MEAN CORPUSCULAR VOLUME 101.4 fl (80.0-96.0); PLATELET COUNT, AUTOMATED 197 10^3/uL (150-450); RED BLOOD COUNT 4.21 10^6/uL (4.30-6.10); WHITE BLOOD COUNT 9.5 10^3/uL (4.0-10.0)
[2021-01-26 05:23] LABS: BLOOD UREA NITROGEN 21 MG/DL (7-18); CALCIUM LEVEL 8.6 MG/DL (8.8-10.2); CARBON DIOXIDE LEVEL 40 MEQ/L (21-32); CHLORIDE LEVEL 96 MEQ/L (98-107); GLOMERULAR FILTRATION RATE > 60.0 (>49); GLUCOSE, FASTING 91 MG/DL (70-100); MAGNESIUM LEVEL 1.8 MG/DL (1.8-2.4); NT-PRO BNP 1999 PG/ML (<125); POTASSIUM SERUM 4.6 MEQ/L (3.5-5.1); SODIUM LEVEL 140 MEQ/L (136-145)
[2021-01-26] MEDS: HumaLOG INSULIN (NovoLOG) PER UNIT SC SCH ×4 (07:14→20:31)
[2021-01-26] MEDS: TYVASO INH SCH ×4 (07:32→19:09)
[2021-01-26] MEDS: ONDANSETRON 4MG/2ML VIAL IV PRN (10:06)
[2021-01-26] MEDS: HYDROXYCHLOROQUINE 200 MG TAB PO SCH ×2 (10:06→20:15)
[2021-01-26] MEDS: APIXABAN 2.5 MG TAB (ELIQUIS) PO SCH ×2 (10:07→20:14)
[2021-01-26] MEDS: SPIRONOLACTONE 25 MG TAB PO SCH (10:07)
[2021-01-26] MEDS: ASPIRIN 81MG ENTERIC TABLET PO SCH (10:08)
--- NOTE | 2021-01-26 10:50 | IPNPDOC ---
Subjective Date Seen The patient was seen on 01/26/21. Subjective Chief Complaint/HPI Patient is breathing better today. Lower extremity swelling also improving. He still has cough. He denies of fever, chills, chest pain, palpitation, orthopnea. General: Denies: Chills Constitutional: Denies: Chills, Fever Eyes: Denies: Pain ENT: Denies: Head Aches Skin: Denies: Rash Pulmonary: Reports: Dyspnea, Cough Cardiovascular: Reports: Edema (Improved lower extremity edema); Denies: Chest Pain, Palpitations, Orthopnea, Paroxysmal Noc. Dyspnea Gastrointestinal: Denies: Nausea, Vomiting, Abdominal Pain, Diarrhea Endocrine: Reports: Polyuria (Due to diuretic therapy) Neurological: Denies: Weakness, Numbness Objective Physical Examination General Exam: Positive: Alert, Cooperative, Mild Distress Eye Exam: Positive: PERRLA; Negative: Sclera icteric ENT Exam: Positive: Atraumatic, Mucous membr. moist/pink Neck Exam: Positive: Supple, JVD (JVD better today compared to yesterday); Negative: Lymphadenopathy Chest Exam: Positive: Rhonchi (Bibasilar coarse crackles) Heart Exam: Positive: Rate Normal, Regular Rhythm, Normal S1, Normal S2, Murmurs (Midsystolic), Other (Extra sound which I believe is S3) Abdomen Exam: Positive: Normal bowel sounds, Soft; Negative: Tenderness Extremity Exam: Positive: Clubbing, Edema (Improved edema of the lower extremities) Skin Exam: Negative: Rash Neuro Exam: Positive: Normal Speech Psych Exam: Positive: Mental status NL, Mood NL, Oriented x 3 Assessment /Plan Assessment This is a 59-year-old very pleasant gentleman with past medical history of chronic hypoxic respiratory failure on 4 to 5 L oxygen, idiopathic pulmonary fibrosis, group 3 pulmonary hypertension, hypercoagulable state with previous history of DVT on Eliquis, diabetes mellitus, 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 Plan/VTE VTE Prophylaxis Ordered?: Yes Plan #Acute on chronic hypoxic respiratory failure -Secondary to ILD/IPF exacerbation superimposed by decompensated right v entricular failure due to group 3 pulmonary hypertension rule out infectious process -Currently on Vapotherm for support. Target oxygen saturation above 90%. Vapotherm setting currently at 30 L/min, FiO2 100%. #ILD/IPF exacerbation -There is evidence of new groundglass opacity on the left upper and lower lobe. I have sent infectious work-up including sputum culture, Legionella and strep urine antigen, mycoplasma and Chlamydia pneumonia. Is grossly negative. I will continue with broad-spectrum antibiotic until infectious work-up are completed. -We will empirically cover with ceftriaxone and azithromycin for community- acquired pneumonia. -Finish the short course of systemic corticosteroid which he was at put on as outpatient -He is back on Ofev. -Currently in the process of getting evaluated for lung transplant at [facility]. #Decompensated right heart failure with group III pulmonary hypertension -Repeat echocardiogram pending at this point. Continue with aggressive diuresis to target net -1 L over 24 hours. Trend proBNP every other day. proBNP is currently trending down with ongoing diuresis. Closely monitor urine output as well as renal function. #History is of undifferentiated connective tissue disease -Recommend putting him back on his home Plaquenil. #Group 3 pulmonary hypertension -Patient is currently put back on Tyvaso and tadalafil I will continue to follow. Disposition Continue hospital care. VS, I&O, 24H, Fishbone Vital Signs/I&O Vital Signs Date Time Temp Pulse Resp B/P (MAP) Pulse Ox O2 Delivery O2 Flow Rate FiO2 01/26/21 10:33 92 30.0 90 01/26/21 07:32 HVNI-Vapotherm 01/26/21 07:16 97.3 79 22 112/82 (92) I&O- Last 24 Hours up to 6 AM 01/26/21 06:00 Intake Total 865 ml Output Total 2925 ml Balance -2060 ml Laboratory Data 24H LABS Laboratory Tests 2 01/25/21 12:42: Bedside Glucose (Misc Panel) 212H 01/25/21 13:21: Procalcitonin <0.05 01/25/21 15:12: 01/25/21 17:46: Bedside Glucose (Misc Panel) 215H 01/25/21 20:22: Bedside Glucose (Misc Panel) 77L 01/26/21 04:16: Nucleated Red Blood Cells % (auto) 0.0, Anion Gap 4L, Glomerular Filtration Rate > 60.0, Calcium Level 8.6L, Magnesium Level 1.8, HO-Sgn-K-Type Natriuretic Peptide CBC/BMP Laboratory Tests 01/26/21 04:16 Microbiology Microbiology 01/26/21 Gram Stain, Received Pending 01/26/21 Sputum Culture, Received Pending 01/24/21 Respiratory Virus Panel (PCR) (ROSI) - Final, Complete FRANCISCA CAMPUZANO MD Jan 26, 2021 10:50
--- NOTE | 2021-01-26 11:44 | IPNPDOC ---
Text Note Date of Service The patient was seen on 01/26/21. NOTE SUBJECTIVE: -On vapotherm 30L/100% FiO2 -Otherwise without acute complaints overnight OBJECTIVE: VITAL SIGNS: see below GENERAL APPEARANCE: NAD, on vapotherm HEENT: Normocephalic, atraumatic. Noninjected, anicteric sclera. No significant conjunctival pallor. PERRLA. EOMI. Oral cavity: MMM Neck: No lymphadenopathy appreciated. Trachea midline. CARDIOVASCULAR: RRR, systolic murmur LUNGS: Diffuse inspiratory bilateral crackles posteriorly which become coarser as one moves inferiorly into the bases, no accessory muscle use. Symmetric chest expansion. ABDOMEN: Soft, nontender nondistended. No guarding or rigidity appreciated. Normoactive bowel sounds throughout. No hepatosplenomegaly or palpable passes appreciated. EXTREMITIES: 2-3+ pitting edema of distal lower extremities bilaterally, greater on the left versus the right. Negative for calf tenderness bilaterally. 2+ radial pulses bilaterally. +clubbing NEUROLOGICAL: No gross focal neurologic deficits appreciated. Nondysarthric speech. Alert and oriented x3 and following commands. PSYCHIATRIC: AOx3 LABORATORY DATA: Reviewed WBC 9.5 Hgb 13.7 platelets 197 Na 140 Cr 0.7 K 4.6 mag 1.8 IMAGING: Portable chest x-ray, 01/24/2021 FINDINGS: The mediastinum and cardiac silhouette are stable and mild cardiomegaly is again suggested. The lung santana demonstrate advanced fibrosis and scarring. Superim posed acute process cannot definitively be excluded. No obvious effusion. No pneumothorax. Skeletal structures are intact. IMPRESSION: Advanced fibrotic changes similar to prior examination. Subtle superimposed process cannot be excluded. Chest CT without contrast, 01/24/2021 FINDINGS: Lungs: Redemonstration of bilaterally predominantly subpleural septal thickening, honeycombing consistent with the interstitial lung disease. No significant change from prior study. Calcified granuloma in the right upper lobe. There is ground-glass opacification in the left upper and lower lobe which may represent edema/infection. Pleural spaces: Unremarkable. No pneumothorax. No pleural effusion. Heart: Coronary vasculature calcifications. Aorta: Ectatic ascending aorta measuring 4.5 cm. No significant change from prior study. Lymph nodes: Prevascular lymph node measuring 1 cm in the short axis. Multiple mediastinal lymph nodes. Bones/joints: Degenerative changes of the spine. Soft tissues: Unremarkable. IMPRESSION: 1. Redemonstration of bilateral predominantly subpleural septal thickening and honeycombing consistent with the interstitial lung disease. 2. Interval development of ground-glass opacities in the left upper and lower lobe and somewhat at the right lung base which may represent edema/infection. 3. Stable ectatic ascending aorta measuring 4.5 cm. 4. Redemonstration of stable diffuse mediastinal and bilateral hilar lymphadenopathy. 5. Enlarged pulmonary artery. Clinical correlation with pulmonary arterial hypertension. MICROBIOLOGY: Please see below. 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 #Acute on chronic hypoxemic respiratory failure - - i/s/o O2-dependent idiopathic pulmonary fibrosis with pulmonary hypertension, likely multifactorial acute on chronic hypoxemic respiratory failure including HFpEF exacerbation -AB.427/PCO2 46/CO2 34; chest x-ray showed advanced fibrotic changes similar to prior study; CT chest without contrast done showing findings consistent with interstitial lung disease as well as interval development of ground glass opacities bilaterally that may represent edema with enlarged pulmonary artery possibly correlating with pulm HTN -Continue lasix 40 IV q8H, for goal negative 2L/24h -2L/24h fluid restriction -continue empiric CAp coverage with ceftriaxone, azithro, per pulm -f/u procal, sputum Cx, legionella, strep, mycoplasma -daily BMP and Mg for electrolyte repletion while aggressive diuresing -Pulm consulted, recommends aggressive diuresis, empiric CAP coverage and not escalating steroids but continuing current taper -f/u TTE -Daily weights; strict I and O's -Continuous pulse ox; O2 titration orders of greater than 90% -Patient is currently on a long steroid taper dose as outpatient, with current amount of steroid being 16 p.o. methylprednisolone daily, will continue -Of note, patient follows with Dr. Mclean for local pulmonology care and Dr. Dennis at [facility] in [place] for pulmonary HTN/IPF mgmt Acute on chronic HFpEF: -Continue lasix 40 IV q8H, for goal negative 2L/24h -2L/24h fluid restriction -daily BMP and Mg for electrolyte repletion while aggressive diuresing -Dr. Johnson was consulted, agrees with diuresis -BNP 5019 on presentation (recent baseline is about 500 for the past year) -f/u TTE -Daily weights; strict I and O's -2g sodium diet w/ consistent carb #Pulmonary hypertension and IPF with high suspicion for cor pulmonale -Patient follows with Dr. Dennis of [facility] in [place] for IPF/pulmonary hypertension management -Continue Ofev and Tyvaso pulmonary hypertension medications -Patient is currently completing a very extended steroid taper as outpatient in his home oral methylprednisolone dose, will continue (currently 16 mg daily). #Hypercoagulable state with prior DVTs on Eliquis -Patient has a history of right lower extremity DVT in 2014 which subsequently did not respond via clot burden to Xarelto and was switched to Lovenox; then experienced a left lower extremity DVT in March 2020 while on Lovenox and was switched to Eliquis in July 2020 by outboard motor assembler (Dr. Odom) -Patient had been following with hematology as outpatient but after most recent visit earlier this month, follow-up is on as needed basis -Home Eliquis continued #Undifferentiated connective tissue disease, on hydroxychloroquine -Follows with Dr. Inez Mchugh of [facility] rheumatology -Has been on hydroxychloroquine for the better part of the last 9 months, cont inue #Diabetes mellitus type 2 -Patient takes Victoza and Metformin daily; he also has been taking 2 units of long-acting insulin daily in the setting of a long steroid taper for his respiratory condition -Patient was placed on sliding scale insulin and fingersticks before meals and at night with hypoglycemic protocol; 2 g sodium diet -Hold Victoza and Metformin -SSI, FSBG AC/HS -hypoglycemic protocol #Ectatic ascending aorta -This measured 4.[address] chest and was described as stable DVT ppx: eliquis CODE STATUS: Full code VS,Fishbone, I+O VS, Fishbone, I+O Laboratory Tests 01/26/21 04:16 Vital Signs Date Time Temp Pulse Resp B/P (MAP) Pulse Ox O2 Delivery O2 Flow Rate FiO2 01/26/21 08:00 96 35.0 100 01/26/21 07:32 HVNI-Vapotherm 01/26/21 07:16 97.3 79 22 112/82 (92) I&O- Last 24 Hours up to 6 AM 01/26/21 06:00 Intake Total 865 ml Output Total 2925 ml Balance -2060 ml YSABEL BEAVERS MD Jan 26, 2021 09:17
[2021-01-26] MEDS: AZITHROMYCIN INJ 500 MG, VIAL MATE ADAPTER 1 EACH in NS 250 ML IV SCH (15:36)
[2021-01-26] MEDS: cefTRIAXone SOD 2 GM in D5W MINI-BAG PLUS 50 ML IV SCH (17:08)
[2021-01-26] MEDS: ATORVASTATIN 20 MG TAB PO SCH (20:14)
[2021-01-27] VITALS (13 sets, daily range): BP systolic 98–115; BP diastolic 56–75; O2SAT 87–99
[2021-01-27] MEDS: FUROSEMIDE 40MG/4ML VIAL (J1940) IV SCH ×3 (03:57→20:23)
[2021-01-27 05:54] LABS: HEMATOCRIT 41.9 % (42.0-52.0); HEMOGLOBIN 13.4 g/dl (13.5-17.5); MEAN CORPUSCULAR HEMOGLOBIN 32.2 pg (27.0-33.0); MEAN CORPUSCULAR VOLUME 100.7 fl (80.0-96.0); PLATELET COUNT, AUTOMATED 203 10^3/uL (150-450); RED BLOOD COUNT 4.16 10^6/uL (4.30-6.10)
[2021-01-27 06:28] LABS: BLOOD UREA NITROGEN 23 MG/DL (7-18); CALCIUM LEVEL 8.5 MG/DL (8.8-10.2); CARBON DIOXIDE LEVEL 41 MEQ/L (21-32); CHLORIDE LEVEL 94 MEQ/L (98-107); CREATININE FOR GFR 0.64 MG/DL (0.70-1.30); GLOMERULAR FILTRATION RATE > 60.0 (>49); GLUCOSE, FASTING 115 MG/DL (70-100); MAGNESIUM LEVEL 1.8 MG/DL (1.8-2.4); POTASSIUM SERUM 4.1 MEQ/L (3.5-5.1); SODIUM LEVEL 138 MEQ/L (136-145)
[2021-01-27] MEDS: HumaLOG INSULIN (NovoLOG) PER UNIT SC SCH ×4 (08:20→20:24)
[2021-01-27] MEDS: HYDROXYCHLOROQUINE 200 MG TAB PO SCH ×2 (08:21→20:23)
[2021-01-27] MEDS: ASPIRIN 81MG ENTERIC TABLET PO SCH (08:21)
[2021-01-27] MEDS: SPIRONOLACTONE 25 MG TAB PO SCH (08:21)
[2021-01-27] MEDS: APIXABAN 2.5 MG TAB (ELIQUIS) PO SCH ×2 (08:21→20:23)
[2021-01-27] MEDS: TYVASO INH SCH ×4 (08:52→19:30)
--- NOTE | 2021-01-27 11:15 | IPNPDOC ---
Text Note Date of Service The patient was seen on 01/27/21. NOTE SUBJECTIVE: -Remains on vapotherm 30L/100% FiO2 -No acute events, reading on his ipad, appears comfortable OBJECTIVE: VITAL SIGNS: see below GENERAL APPEARANCE: NAD, on vapotherm HEENT: Normocephalic, atraumatic. Noninjected, anicteric sclera. EOMI. MMM CARDIOVASCULAR: RRR, systolic murmur LUNGS: Diffuse inspiratory coarse crackles, no accessory muscle use. Symmetric chest expansion. ABDOMEN: Soft, nontender nondistended. No guarding or rigidity appreciated. Normoactive bowel sounds throughout. No hepatosplenomegaly or palpable passes appreciated. EXTREMITIES: 2-3+ pitting edema of distal lower extremities bilaterally, greater on the left versus the right. Negative for calf tenderness bilaterally. 2+ radial pulses bilaterally. +clubbing NEUROLOGICAL: No gross focal neurologic deficits appreciated. Nondysarthric speech. Alert and oriented x3 and following commands. PSYCHIATRIC: AOx3 LABORATORY DATA: Reviewed WBC 10 Hgb 13.4 platelets 203 Na 138 Cr 0.64 K 4.1 mag 1.8 procal <0.05 IMAGING: Portable chest x-ray, 01/24/2021 FINDINGS: The mediastinum and cardiac silhouette are stable and mild cardiomegaly is again suggested. The lung santana demonstrate advanced fibrosis and scarring. Superimposed acute process cannot definitively be excluded. No obvious effusion. No pneumothorax. Skeletal structures are intact. IMPRESSION: Advanced fibrotic changes similar to prior examination. Subtle superimposed process cannot be excluded. Chest CT without contrast, 01/24/2021 FINDINGS: Lungs: Redemonstration of bilaterally predominantly subpleural septal thickening, honeycombing consistent with the interstitial lung disease. No significant change from prior study. Calcified granuloma in the right upper lobe. There is ground-glass opacification in the left upper and lower lobe which may represent edema/infection. Pleural spaces: Unremarkable. No pneumothorax. No pleural effusion. Heart: Coronary vasculature calcifications. Aorta: Ectatic ascending aorta measuring 4.5 cm. No significant change from prior study. Lymph nodes: Prevascular lymph node measuring 1 cm in the short axis. Multiple mediastinal lymph nodes. Bones/joints: Degenerative changes of the spine. Soft tissues: Unremarkable. IMPRESSION: 1. Redemonstration of bilateral predominantly subpleural septal thickening and honeycombing consistent with the interstitial lung disease. 2. Interval development of ground-glass opacities in the left upper and lower lobe and somewhat at the right lung base which may represent edema/infection. 3. Stable ectatic ascending aorta measuring 4.5 cm. 4. Redemonstration of stable diffuse mediastinal and bilateral hilar lymphadenopathy. 5. Enlarged pulmonary artery. Clinical correlation with pulmonary arterial hypertension. MICROBIOLOGY: Please see below. ASSESSMENT & PLAN: 65yo M w/ chronic hypoxic respiratory failure dependent on home O2 (4 L) due to idiopathic pulmonary fibrosis with severe Group 3 pulmonary hypertension on Tyvaso, idiopathic hypercoagulable state with prior DVTs on Eliquis, hypertensio n, diabetes mellitus type 2, and undifferentiated connective tissue disease on Plaquenil, who presented to the ED via EMS due to worsening shortness of breath for the past 3 days and admitted for likely multifactorial acute on chronic hypoxemic respiratory failure including HFpEF exacerbation. #Acute on chronic hypoxemic respiratory failure - - i/s/o O2-dependent idiopathic pulmonary fibrosis with pulmonary hypertension, likely multifactorial acute on chronic hypoxemic respiratory failure including HFpEF exacerbation -AB.427/PCO2 46/CO2 34; chest x-ray showed advanced fibrotic changes similar to prior study; CT chest without contrast done showing findings consistent with interstitial lung disease as well as interval development of ground glass opacities bilaterally that may represent edema with enlarged pulmonary artery possibly correlating with pulm HTN -Continue lasix 40 IV q8H, for goal negative 2L/24h -2L/24h fluid restriction -Will discuss continuation of empiric CAP coverage with ceftriaxone, azithro, w/ pulm that recommended it, procal was negative -f/u sputum Cx, legionella, strep, mycoplasma -daily BMP and Mg for electrolyte repletion while aggressive diuresing -Pulm consulted, recommended aggressive diuresis, empiric CAP coverage and not escalating steroids but continuing current taper -f/u TTE read -Daily weights; strict I and O's -Continuous pulse ox; O2 titration orders of greater than 90% -Patient is currently on a long steroid taper dose as outpatient, with current amount of steroid being 16 p.o. methylprednisolone daily, will continue -Of note, patient follows with Dr. Mclean for local pulmonology care and Dr. Dennis at [facility] in [place] for pulmonary HTN/IPF mgmt Acute on chronic HFpEF: -Continue lasix 40 IV q8H, for goal negative 2L/24h -2L/24h fluid restriction -daily BMP and Mg for electrolyte repletion while aggressive diuresing -Dr. Johnson was consulted, agrees with diuresis -BNP 5019 on presentation (recent baseline is about 500 for the past year) -f/u TTE -Daily weights; strict I and O's -2g sodium diet w/ consistent carb #Pulmonary hypertension and IPF with high suspicion for cor pulmonale -Patient follows with Dr. Dennis of [facility] in [place] for IPF/pulmonary hypertension management -Continue Ofev and Tyvaso pulmonary hypertension medications -Patient is currently completing a very extended steroid taper as outpatient in his home oral methylprednisolone dose, will continue (currently 16 mg daily). #Hypercoagulable state with prior DVTs on Eliquis -Patient has a history of right lower extremity DVT in 2014 which subsequently did not respond via clot burden to Xarelto and was switched to Lovenox; then experienced a left lower extremity DVT in March 2020 while on Lovenox and was switched to Eliquis in July 2020 by career development engineer (Dr. Odom) -Patient had been following with hematology as outpatient but after most recent visit earlier this month, follow-up is on as needed basis -Home Eliquis continued #Undifferentiated connective tissue disease, on hydroxychloroquine -Follows with Dr. Inez Mchugh of [facility] rheumatology -Has been on hydroxychloroquine for the better part of the last 9 months, denys burton #Diabetes mellitus type 2 -Patient takes Victoza and Metformin daily; he also has been taking 2 units of long-acting insulin daily in the setting of a long steroid taper for his respiratory condition -Patient was placed on sliding scale insulin and fingersticks before meals and at night with hypoglycemic protocol; 2 g sodium diet -Hold Victoza and Metformin -SSI, FSBG AC/HS -hypoglycemic protocol #Ectatic ascending aorta -This measured 4.[address] chest and was described as stable DVT ppx: eliquis CODE STATUS: Full code VS,Fishbone, I+O VS, Fishbone, I+O Laboratory Tests 01/27/21 05:40 Vital Signs Date Time Temp Pulse Resp B/P (MAP) Pulse Ox O2 Delivery O2 Flow Rate FiO2 01/27/21 04:00 HVNI-Vapotherm 30.0 100 01/27/21 04:00 97.6 77 18 104/75 (85) 98 I&O- Last 24 Hours up to 6 AM 01/27/21 06:00 Intake Total 1075 ml Output Total 1675 ml Balance -600 ml YSABEL BEAVERS MD Jan 27, 2021 07:50
--- NOTE | 2021-01-27 14:23 | IPNPDOC ---
Subjective Date Seen The patient was seen on 01/27/21. Subjective Chief Complaint/HPI Patient still complaining of hoarseness of voice and dry cough. Shortness of breath remains the same. He denies of fever, chills, chest pain, palpitation, worsening lower extremity swelling. Constitutional: Denies: Chills, Fever Eyes: Denies: Pain ENT: Denies: Head Aches Skin: Denies: Rash Pulmonary: Reports: Dyspnea, Cough (Dry cough) Cardiovascular: Denies: Chest Pain, Palpitations, Orthopnea, Paroxysmal Noc. Dyspnea Gastrointestinal: Denies: Nausea, Vomiting, Abdominal Pain, Diarrhea Neurological: Reports: Other Symptoms (Hoarseness of voice); Denies: Weakness, Numbness Objective Physical Examination General Exam: Positive: Alert, Cooperative, Mild Distress Eye Exam: Positive: PERRLA; Negative: Sclera icteric ENT Exam: Positive: Atraumatic, Mucous membr. moist/pink Neck Exam: Positive: Supple, JVD (JVD better today compared to yesterday); Negative: Lymphadenopathy Chest Exam: Positive: Rhonchi (Bibasilar coarse crackles) Heart Exam: Positive: Rate Normal, Regular Rhythm, Normal S1, Normal S2, Murmurs (Midsystolic), Other (Extra sound which I believe is S3) Abdomen Exam: Positive: Normal bowel sounds, Soft; Negative: Tenderness Extremity Exam: Positive: Clubbing, Edema (Improved edema of the lower extremities) Skin Exam: Negative: Rash Neuro Exam: Positive: Normal Speech, Other (Hoarseness of voice) Psych Exam: Positive: Mental status NL, Mood NL, Oriented x 3 Assessment /Plan Assessment This is a 59-year-old very pleasant gentleman with past medical history of chronic hypoxic respiratory failure on 4 to 5 L oxygen, idiopathic pulmonary fibrosis, group 3 pulmonary hypertension, hypercoagulable state with previous history of DVT on Eliquis, diabetes mellitus, 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 Plan/VTE VTE Prophylaxis Ordered?: Yes Plan #Acute on chronic hypoxic respiratory failure -Secondary to ILD/IPF exacerbation superimposed by decompensated right ventricular failure due to group 3 pulmonary hypertension rule out infectious process -Currently on Vapotherm for support. Target oxygen saturation above 90%. Vapotherm setting currently at 30 L/min, FiO2 100%. #ILD/IPF exacerbation -There is evidence of new groundglass opacity on the left upper and lower lobe. I have sent infectious work-up including sputum culture, Legionella and strep urine antigen, mycoplasma and Chlamydia pneumonia. Is grossly negative. I will continue with broad-spectrum antibiotics for community-acquired pneumonia until infectious work-up are completed. -We will empirically cover with ceftriaxone and azithromycin for community- acquired pneumonia for total of 7 days. -Finish the short course of systemic corticosteroid which he was at put on as outpatient -He is back on Ofev. -Currently in the process of getting evaluated for lung transplant at [facility]. #Decompensated right heart failure with group III pulmonary hypertension -Repeat echocardiogram result pending at this point. Continue with aggressive diuresis to target net -1 L over 24 hours. Trend proBNP every other day. proBNP is currently trending down with ongoing diuresis. Closely monitor urine output as well as renal function. #History is of undifferentiated connective tissue disease -He is back on his home Plaquenil. #Group 3 pulmonary hypertension -Patient is currently put back on Tyvaso #History of GERD status post Nicole fundoplication -Given frequent hoarseness of voice, I suspect aspiration or silent GERD. I recommend starting him on a trial of PPI. Disposition Continue hospital care. VS, I&O, 24H, [facility] Vital Signs/I&O Vital Signs Date Time Temp Pulse Resp B/P (MAP) Pulse Ox O2 Delivery O2 Flow Rate FiO2 01/27/21 12:00 98/66 (77) 01/27/21 12:00 97 32.0 100 01/27/21 12:00 HVNI-Vapotherm 01/27/21 08:00 97.5 85 18 I&O- Last 24 Hours up to 6 AM 01/27/21 06:00 Intake Total 1075 ml Output Total 1675 ml Balance -600 ml Laboratory Data 24H LABS Laboratory Tests 2 01/26/21 17:00: Bedside Glucose (Misc Panel) 197H 01/26/21 20:18: Bedside Glucose (Misc Panel) 168H 01/27/21 05:40: Nucleated Red Blood Cells % (auto) 0.0, Anion Gap 3L, Glomerular Filtration Rate > 60.0, Calcium Level 8.5L, Magnesium Level 1.8 01/27/21 11:50: Bedside Glucose (Misc Panel) 142H CBC/BMP Laboratory Tests 01/27/21 05:40 Microbiology Microbiology 01/26/21 Gram Stain - Final, Complete 01/26/21 Sputum Culture - Final, Complete 01/24/21 Respiratory Virus Panel (PCR) ([facility]) - Final, Complete FRANCISCA CAMPUZANO MD Jan 27, 2021 14:23
[2021-01-27] MEDS: AZITHROMYCIN INJ 500 MG, VIAL MATE ADAPTER 1 EACH in NS 250 ML IV SCH (15:38)
[2021-01-27] MEDS: cefTRIAXone SOD 2 GM in D5W MINI-BAG PLUS 50 ML IV SCH (16:48)
[2021-01-27] MEDS: ATORVASTATIN 20 MG TAB PO SCH (20:24)
[2021-01-28] VITALS (21 sets, daily range): BP systolic 103–117; BP diastolic 67–81; O2SAT 88–99
[2021-01-28] MEDS: FUROSEMIDE 40MG/4ML VIAL (J1940) IV SCH ×2 (03:50→17:00)
[2021-01-28 05:17] LABS: HEMATOCRIT 41.9 % (42.0-52.0); HEMOGLOBIN 13.6 g/dl (13.5-17.5); MEAN CORPUSCULAR HEMOGLOBIN 32.4 pg (27.0-33.0); MEAN CORPUSCULAR HGB CONC 32.5 g/dl (32.0-36.5); MEAN CORPUSCULAR VOLUME 99.8 fl (80.0-96.0); PLATELET COUNT, AUTOMATED 219 10^3/uL (150-450); WHITE BLOOD COUNT 12.5 10^3/uL (4.0-10.0)
[2021-01-28 05:41] LABS: BLOOD UREA NITROGEN 24 MG/DL (7-18); CALCIUM LEVEL 8.4 MG/DL (8.8-10.2); CARBON DIOXIDE LEVEL 41 MEQ/L (21-32); CHLORIDE LEVEL 90 MEQ/L (98-107); CREATININE FOR GFR 0.76 MG/DL (0.70-1.30); GLOMERULAR FILTRATION RATE > 60.0 (>49); GLUCOSE, FASTING 124 MG/DL (70-100); MAGNESIUM LEVEL 1.9 MG/DL (1.8-2.4); POTASSIUM SERUM 4.1 MEQ/L (3.5-5.1); SODIUM LEVEL 134 MEQ/L (136-145)
[2021-01-28] MEDS: ASPIRIN 81MG ENTERIC TABLET PO SCH (08:29)
[2021-01-28] MEDS: HumaLOG INSULIN (NovoLOG) PER UNIT SC SCH ×4 (08:29→20:30)
[2021-01-28] MEDS: HYDROXYCHLOROQUINE 200 MG TAB PO SCH ×2 (08:29→20:26)
[2021-01-28] MEDS: APIXABAN 2.5 MG TAB (ELIQUIS) PO SCH ×2 (08:29→20:26)
[2021-01-28] MEDS: SPIRONOLACTONE 25 MG TAB PO SCH (08:29)
[2021-01-28] MEDS: TYVASO INH SCH ×4 (09:14→20:00)
--- NOTE | 2021-01-28 13:27 | IPNPDOC ---
Date Seen The patient was seen on 01/28/21. Progress Note SUBJECTIVE: -Remains on vapotherm 28L/90% FiO2, slightly improvement -No acute events overnight. OBJECTIVE: PE: VITAL SIGNS: see below GENERAL APPEARANCE: NAD, on vapotherm, comfortable at bedside chair HEENT: Normocephalic, atraumatic. Noninjected, anicteric sclera. EOMI. MMM CARDIOVASCULAR: RRR, systolic murmur LUNGS: diffusecoarse crackles b/l, no accessory muscle use. Symmetric chest expansion. ABDOMEN: Soft, nontender nondistended. No guarding or rigidity appreciated. Normoactive bowel sounds throughout. No hepatosplenomegaly or palpable passes appreciated. EXTREMITIES: 2-3+ pitting edema of distal lower extremities bilaterally, greater on the left versus the right. Negative for calf tenderness bilaterally. 2+ radial pulses bilaterally. +clubbing NEUROLOGICAL: No gross focal neurologic deficits appreciated. Nondysarthric speech. Alert and oriented x3 and following commands. PSYCHIATRIC: AOx3 LABORATORY DATA: Reviewed Please see below IMAGING: Portable chest x-ray, 01/24/2021 Advanced fibrotic changes similar to prior examination. Subtle superimposed process cannot be excluded. Chest CT without contrast, 01/24/2021 1. Redemonstration of bilateral predominantly subpleural septal thickening and honeycombing consistent with the interstitial lung disease. 2. Interval development of ground-glass opacities in the left upper and lower lobe and somewhat at the right lung base which may represent edema/infection. 3. Stable ectatic ascending aorta measuring 4.5 cm. 4. Redemonstration of stable diffuse mediastinal and bilateral hilar lymphadenopathy. 5. Enlarged pulmonary artery. Clinical correlation with pulmonary arterial hypertension. Echocardiogram: Normal sinus rhythm without intraventricular conduction disturbance. Frequent isolated unifocal premature ventricular contractions (PVCs). Technically difficult study in light of the patient's pulmonary disease, but some diagnostically useful information was still obtained. M-mode and 2-dimensional echocardiography was performed with pulse, continuous wave, color flow and tissue Doppler study. Normal left ventricular size and wall thickness with septal wall motion abnormality due to right ventricular pressure overload, yet preserved global resting left ventricular systolic function. Normal left atrial size, but Doppler evidence of grade 1 left ventricular (LV) diastolic dysfunction, but current estimated mean left atrial pressure upper limits of normal. Prominently dilated right heart chambers with right ventricular free wall hypokinesis and Doppler evidence of severe pulmonary hypertension. His inferior vena cava could not be well visualized, but in light of his trans-tricuspid valve gradient, it is likely to be dilated with an elevated central venous pressure. Normal aortic diameters. Mild aortic valvular sclerosis without stenosis or insufficiency. Mild degenerative changes of the mitral valvular apparatus without apparent functional abnormality. Tricuspid valve appeared to be normal with at least moderate tricuspid insufficiency. We could not visualize any intracardiac mass or pericardial effusion. MICROBIOLOGY: Please see below. 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 #Acute on chronic hypoxemic respiratory failure - - i/s/o O2-dependent idiopathic pulmonary fibrosis with pulmonary hypertension, likely multifactorial acute on chronic hypoxemic respiratory failure including HFpEF exacerbation -Imaging above, improving BNP with decreasing FiO2 over 24 hours -Decreased lasix to 40 mg IV Q12Hrs due to electrolyte changes -2L/24h fluid restriction -Per pulm, c/w empiric CAP coverage with ceftriaxone, azithro x 7 days -Sputum cx, resp panel neg. F/u legionella, strep, mycoplasma -daily BMP and Mg for electrolyte repletion while aggressive diuresing -Pulm consulted, recommended aggressive diuresis, empiric CAP coverage and not escalating steroids but continuing current taper -Echo above -Daily weights; strict I and O's -Continuous pulse ox; O2 titration orders of greater than 90% -Patient is currently on a long steroid taper dose as outpatient, will continue with current amount of steroid being 16 p.o. methylprednisolone daily -Of note, patient follows with Dr. Mclean for local pulmonology care and Dr. Dennis at [facility] in [place] for pulmonary HTN/IPF mgmt. Currently in the process of getting evaluated for lung transplant at [facility]. Acute on chronic HFpEF: -2L/24h fluid restriction -daily BMP and Mg for electrolyte repletion while aggressive diuresing -BNP 5019 on presentation (recent baseline is about 500 for the past year) , improved this admission -Echo above -Daily weights; strict I and O's -2g sodium diet w/ consistent carb #Pulmonary hypertension and IPF with high suspicion for cor pulmonale -Patient follows with Dr. Dennis of [facility] in [place] for IPF/pulmonary hypertension management -Continue Ofev and Tyvaso pulmonary hypertension medications -Patient is currently completing a very extended steroid taper as outpatient in his home oral methylprednisolone dose, will continue (currently 16 mg daily). - Currently in the process of getting evaluated for lung transplant at [facility]. #Hypercoagulable state with prior DVTs on Eliquis -Patient has a history of right lower extremity DVT in 2014 which subsequently did not respond via clot burden to Xarelto and was switched to Lovenox; then experienced a left lower extremity DVT in March 2020 while on Lovenox and was switched to Eliquis in July 2020 by wine blender (Dr. Odom) -Patient had been following with hematology as outpatient but after most recent visit earlier this month, follow-up is on as needed basis -Home Eliquis continued #Undifferentiated connective tissue disease, on hydroxychloroquine -Follows with Dr. Inez Mchugh of [facility] rheumatology -Has been on hydroxychloroquine for the better part of the last 9 months, continue #Diabetes mellitus type 2 -BS controlled, watching closely while on steroids -Patient takes Victoza and Metformin daily; he also has been taking 2 units of long-acting insulin daily in the setting of a long steroid taper for his respiratory condition -Patient was placed on sliding scale insulin and fingersticks before meals and at night with hypoglycemic protocol; 2 g sodium diet -Hold Victoza and Metformin -SSI, FSBG AC/HS #Ectatic ascending aorta -This measured 4.[address] chest and was described as stable -F/u o/p DVT ppx: eliquis CODE STATUS: Full code DISPOSITION: Currently inpatient status. Pulmonary consulted. Plan is home when medically improved. VS, I&O, 24H, Fishbone Vital Signs/I&O Vital Signs Date Time Temp Pulse Resp B/P (MAP) Pulse Ox O2 Delivery O2 Flow Rate FiO2 01/28/21 12:00 97.9 78 18 116/81 (93) 97 HVNI-Vapotherm 28.0 90 I&O- Last 24 Hours up to 6 AM 01/28/21 06:00 Intake Total 1485 ml Output Total 1275 ml Balance 210 ml Laboratory Data 24H LABS Laboratory Tests 2 01/27/21 16:50: Bedside Glucose (Misc Panel) 128H 01/27/21 20:16: Bedside Glucose (Misc Panel) 110 01/28/21 04:34: Nucleated Red Blood Cells % (auto) 0.0, Anion Gap 3L, Glomerular Filtration Rate > 60.0, Calcium Level 8.4L, Magnesium Level 1.9 01/28/21 11:26: Bedside Glucose (Misc Panel) 152H CBC/BMP Laboratory Tests 01/28/21 04:34 Microbiology Microbiology 01/26/21 Gram Stain - Final, Complete 01/26/21 Sputum Culture - Final, Complete 01/24/21 Respiratory Virus Panel (PCR) ([facility]) - Final, Complete Leigh Jerez MD Jan 28, 2021 13:27
--- NOTE | 2021-01-28 15:40 | IPNPDOC ---
Subjective Date Seen The patient was seen on 01/28/21. Subjective Chief Complaint/HPI Patient is doing well. Still short of breath and dry cough. Constitutional: Denies: Chills, Fever Eyes: Denies: Pain ENT: Denies: Head Aches Skin: Denies: Rash Pulmonary: Reports: Dyspnea, Cough (dry cough) Cardiovascular: Denies: Chest Pain, Palpitations, Orthopnea, Paroxysmal Noc. Dyspnea Gastrointestinal: Denies: Nausea, Vomiting, Diarrhea Neurological: Denies: Weakness, Numbness Objective Physical Examination General Exam: Positive: Alert, Cooperative, Mild Distress Eye Exam: Positive: PERRLA; Negative: Sclera icteric ENT Exam: Positive: Atraumatic, Mucous membr. moist/pink Neck Exam: Positive: Supple, JVD (JVD better today compared to yesterday); Negative: Lymphadenopathy Chest Exam: Positive: Rhonchi (Bibasilar coarse crackles) Heart Exam: Positive: Rate Normal, Regular Rhythm, Normal S1, Normal S2, Murmurs (Midsystolic), Other (Extra sound which I believe is S3) Abdomen Exam: Positive: Normal bowel sounds, Soft; Negative: Tenderness Extremity Exam: Positive: Clubbing, Edema (Improved edema of the lower extremities) Skin Exam: Negative: Rash Neuro Exam: Positive: Normal Speech, Other (Hoarseness of voice) Psych Exam: Positive: Mental status NL, Mood NL, Oriented x 3 Assessment /Plan Assessment This is a 59-year-old very pleasant gentleman with past medical history of chronic hypoxic respiratory failure on 4 to 5 L oxygen, idiopathic pulmonary fibrosis, group 3 pulmonary hypertension, hypercoagulable state with previous history of DVT on Eliquis, diabetes mellitus, 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 Plan/VTE VTE Prophylaxis Ordered?: Yes Plan #Acute on chronic hypoxic respiratory failure -Secondary to ILD/IPF exacerbation superimposed by decompensated right ventricular failure due to group 3 pulmonary hypertension rule out infectious process -Currently on Vapotherm for support. Target oxygen saturation above 90%. Vapotherm setting currently at 28 L/min, FiO2 90%. #ILD/IPF exacerbation -There is evidence of new groundglass opacity on the left upper and lower lobe. I have sent infectious work-up including sputum culture, Legionella and strep urine antigen, mycoplasma and Chlamydia pneumonia. Is grossly negative. I will continue with broad-spectrum antibiotics for community-acquired pneumonia until infectious work-up are completed. -We will empirically cover with ceftriaxone and azithromycin for community- acquired pneumonia for total of 7 days. -Finish the short course of systemic corticosteroid which he was at put on as outpatient -He is back on Ofev. -Currently in the process of getting evaluated for lung transplant at [facility]. #Decompensated right heart failure with group III pulmonary hypertension -Repeat echocardiogram result pending at this point. Continue with aggressive diuresis to target net -1 L over 24 hours. Trend proBNP every other day. proBNP is currently trending down with ongoing diuresis. Closely monitor urine output as well as renal function. #History is of undifferentiated connective tissue disease -He is back on his home Plaquenil. #Group 3 pulmonary hypertension -Patient is currently put back on Tyvaso #History of GERD status post Nicole fundoplication -please start him on PPI. Disposition continue care in the hospital. VS, I&O, 24H, Fishbone Vital Signs/I&O Vital Signs Date Time Temp Pulse Resp B/P (MAP) Pulse Ox O2 Delivery O2 Flow Rate FiO2 01/28/21 14:00 93 28.0 90 01/28/21 12:00 97.9 78 18 116/81 (93) HVNI-Vapotherm I&O- Last 24 Hours up to 6 AM 01/28/21 06:00 Intake Total 1485 ml Output Total 1275 ml Balance 210 ml Laboratory Data 24H LABS Laboratory Tests 2 01/27/21 16:50: Bedside Glucose (Misc Panel) 128H 01/27/21 20:16: Bedside Glucose (Misc Panel) 110 01/28/21 04:34: Nucleated Red Blood Cells % (auto) 0.0, Anion Gap 3L, Glomerular Filtration Rate > 60.0, Calcium Level 8.4L, Magnesium Level 1.9 01/28/21 11:26: Bedside Glucose (Misc Panel) 152H CBC/BMP Laboratory Tests 01/28/21 04:34 Microbiology Microbiology 01/26/21 Gram Stain - Final, Complete 01/26/21 Sputum Culture - Final, Complete 01/24/21 Respiratory Virus Panel (PCR) ([facility]) - Final, Complete FRANCISCA CAMPUZANO MD Jan 28, 2021 15:40
[2021-01-28] MEDS: AZITHROMYCIN INJ 500 MG, VIAL MATE ADAPTER 1 EACH in NS 250 ML IV SCH (16:00)
[2021-01-28 16:10] LABS: MYCOPLASMA PNEUMONIAE IgG 618 U/mL (0-99); MYCOPLASMA PNEUMONIAE IgM <770 U/mL (0-769)
[2021-01-28] MEDS: ONDANSETRON 4MG/2ML VIAL IV PRN (17:09)
[2021-01-28] MEDS: cefTRIAXone SOD 2 GM in D5W MINI-BAG PLUS 50 ML IV SCH (17:48)
[2021-01-28] MEDS: ATORVASTATIN 20 MG TAB PO SCH (20:26)
[2021-01-29] VITALS (26 sets, daily range): BP systolic 92–111; BP diastolic 62–74; O2SAT 90–100
[2021-01-29] MEDS: FUROSEMIDE 40MG/4ML VIAL (J1940) IV SCH ×3 (04:00→18:22)
[2021-01-29 05:22] LABS: HEMATOCRIT 38.5 % (42.0-52.0); HEMOGLOBIN 12.5 g/dl (13.5-17.5); MEAN CORPUSCULAR HEMOGLOBIN 32.6 pg (27.0-33.0); MEAN CORPUSCULAR HGB CONC 32.5 g/dl (32.0-36.5); MEAN CORPUSCULAR VOLUME 100.5 fl (80.0-96.0); PLATELET COUNT, AUTOMATED 188 10^3/uL (150-450); RED BLOOD COUNT 3.83 10^6/uL (4.30-6.10); WHITE BLOOD COUNT 10.3 10^3/uL (4.0-10.0)
[2021-01-29 05:45] LABS: BLOOD UREA NITROGEN 19 MG/DL (7-18); CALCIUM LEVEL 8.5 MG/DL (8.8-10.2); CARBON DIOXIDE LEVEL 38 MEQ/L (21-32); CHLORIDE LEVEL 95 MEQ/L (98-107); CREATININE FOR GFR 0.54 MG/DL (0.70-1.30); GLOMERULAR FILTRATION RATE > 60.0 (>49); GLUCOSE, FASTING 92 MG/DL (70-100); MAGNESIUM LEVEL 1.8 MG/DL (1.8-2.4); SODIUM LEVEL 136 MEQ/L (136-145)
[2021-01-29] MEDS: HumaLOG INSULIN (NovoLOG) PER UNIT SC SCH ×4 (07:30→21:00)
[2021-01-29] MEDS: HYDROXYCHLOROQUINE 200 MG TAB PO SCH ×2 (08:24→20:58)
[2021-01-29] MEDS: ASPIRIN 81MG ENTERIC TABLET PO SCH (08:24)
[2021-01-29] MEDS: SPIRONOLACTONE 25 MG TAB PO SCH (08:24)
[2021-01-29] MEDS: APIXABAN 2.5 MG TAB (ELIQUIS) PO SCH ×2 (08:24→20:58)
[2021-01-29] MEDS: TYVASO INH SCH ×4 (10:34→20:58)
--- NOTE | 2021-01-29 13:28 | IPNPDOC ---
Subjective Date Seen The patient was seen on 01/29/21. Subjective Chief Complaint/HPI Patient admits to continuous coughing with Tyvaso. Otherwise he remains short of breath. Constitutional: Denies: Chills, Fever Skin: Denies: Rash Pulmonary: Reports: Dyspnea, Cough Cardiovascular: Reports: Edema (Lower extremities); Denies: Chest Pain, Palpitations, Orthopnea Gastrointestinal: Denies: Nausea, Vomiting, Abdominal Pain Neurological: Denies: Weakness, Numbness Objective Physical Examination General Exam: Positive: Alert, Cooperative, Mild Distress Eye Exam: Positive: PERRLA; Negative: Sclera icteric ENT Exam: Positive: Atraumatic, Mucous membr. moist/pink Neck Exam: Positive: Supple, JVD (JVD better today compared to yesterday); Negative: Lymphadenopathy Chest Exam: Positive: Rhonchi (Bibasilar coarse crackles) Heart Exam: Positive: Rate Normal, Regular Rhythm, Normal S1, Normal S2, Murmurs (Midsystolic), Other (Extra sound which I believe is S3) Abdomen Exam: Positive: Normal bowel sounds, Soft; Negative: Tenderness Extremity Exam: Positive: Clubbing, Edema (Improved edema of the lower extremities) Skin Exam: Negative: Rash Neuro Exam: Positive: Normal Speech, Other (Hoarseness of voice) Psych Exam: Positive: Mental status NL, Mood NL, Oriented x 3 Assessment /Plan Assessment This is a 59-year-old very pleasant gentleman with past medical history of chronic hypoxic respiratory failure on 4 to 5 L oxygen, idiopathic pulmonary fibrosis, group 3 pulmonary hypertension, hypercoagulable state with previous history of DVT on Eliquis, diabetes mellitus, undifferentiated connective tissue disease on Plaquenil, hypertension and GERD/hiatal hernia status post Nicole fun doplication presented to the hospital on 01/24/2021 with shortness of breath. Plan/VTE VTE Prophylaxis Ordered?: Yes Plan #Acute on chronic hypoxic respiratory failure -Secondary to ILD/IPF exacerbation superimposed by decompensated right king tricular failure due to group 3 pulmonary hypertension rule out infectious process -Currently on Vapotherm for support. Target oxygen saturation above 90%. Vapotherm setting currently at 25 L/min, FiO2 60%. He is slowly improving. #ILD/IPF exacerbation -There is evidence of new groundglass opacity on the left upper and lower lobe. I have sent infectious work-up including sputum culture, Legionella and strep urine antigen, mycoplasma and Chlamydia pneumonia. Is grossly negative. I will continue with broad-spectrum antibiotics for community-acquired pneumonia until infectious work-up are completed. -We will empirically cover with ceftriaxone and azithromycin for community- acquired pneumonia for total of 7 days. -Finish the short course of systemic corticosteroid which he was at put on as outpatient -He is back on Ofev. -Currently in the process of getting evaluated for lung transplant at [facility]. I have spoken with him and his regarding to potentially transfer him to [facility] or [facility] for potential expedited lung transplant evaluation in the event if his ILD exacerbation is not improving. Currently there is no absolute indication for transfer. #Decompensated right heart failure with group III pulmonary hypertension -Repeat echocardiogram result pending at this point. Continue with aggressive diuresis to target net -1 L over 24 hours. Trend proBNP every other day. proBNP is currently trending down with ongoing diuresis. Closely monitor urine output as well as renal function. #History is of undifferentiated connective tissue disease -He is back on his home Plaquenil. #Group 3 pulmonary hypertension -Patient is currently put back on Tyvaso #History of GERD status post Nicole fundoplication -please start him on PPI. VS, I&O, 24H, Fishbone Vital Signs/I&O Vital Signs Date Time Temp Pulse Resp B/P (MAP) Pulse Ox O2 Delivery O2 Flow Rate FiO2 01/29/21 13:00 91 25.0 60 01/29/21 11:57 97.4 77 20 111/71 (84) HVNI-Vapotherm I&O- Last 24 Hours up to 6 AM 01/29/21 06:00 Intake Total 1135 ml Output Total 800 ml Balance 335 ml Laboratory Data 24H LABS Laboratory Tests 2 01/28/21 17:05: Bedside Glucose (Misc Panel) 125H 01/28/21 20:30: Bedside Glucose (Misc Panel) 116H 01/29/21 04:58: Nucleated Red Blood Cells % (auto) 0.0, Anion Gap 3L, Glomerular Filtration Rate > 60.0, Calcium Level 8.5L, Magnesium Level 1.8 01/29/21 12:05: Bedside Glucose (Misc Panel) 158H CBC/BMP Laboratory Tests 01/29/21 04:58 Microbiology Microbiology 10/17/21 Gram Stain - Final, Complete 01/26/21 Sputum Culture - Final, Complete 01/24/21 Respiratory Virus Panel (PCR) ([facility]) - Final, Complete FRANCISCA CAMPUZANO MD Jan 29, 2021 13:28
--- NOTE | 2021-01-29 13:38 | IPNPDOC ---
Date Seen The patient was seen on 01/29/21. Progress Note SUBJECTIVE: -Remains on vapotherm 28L/100% FiO2, slightly increased O2 demand -COVID exposure by employee since admission so he is now on COVID precautions/quarantine -No acute events overnight OBJECTIVE: PE: VITAL SIGNS: see below GENERAL APPEARANCE: NAD, on vapotherm, comfortable at bedside chair HEENT: Normocephalic, atraumatic. Noninjected, anicteric sclera. EOMI. MMM, Cannula in place CARDIOVASCULAR: RRR, systolic murmur LUNGS: diffusecoarse crackles b/l, no accessory muscle use. Symmetric chest expansion. ABDOMEN: Soft, nontender nondistended. No guarding or rigidity appreciated. Normoactive bowel sounds throughout. No hepatosplenomegaly or palpable passes appreciated. EXTREMITIES: 2-3+ pitting edema of distal lower extremities bilaterally, greater on the left versus the right. Negative for calf tenderness bilaterally. 2+ radial pulses bilaterally. +clubbing NEUROLOGICAL: No gross focal neurologic deficits appreciated. Nondysarthric speech. Alert and oriented x3 and following commands. PSYCHIATRIC: AOx3 LABORATORY DATA: Reviewed Please see below IMAGING: Portable chest x-ray, 01/24/2021 Advanced fibrotic changes similar to prior examination. Subtle superimposed process cannot be excluded. Chest CT without contrast, 01/24/2021 1. Redemonstration of bilateral predominantly subpleural septal thickening and honeycombing consistent with the interstitial lung disease. 2. Interval development of ground-glass opacities in the left upper and lower lobe and somewhat at the right lung base which may represent edema/infection. 3. Stable ectatic ascending aorta measuring 4.5 cm. 4. Redemonstration of stable diffuse mediastinal and bilateral hilar lymphadenopathy. 5. Enlarged pulmonary artery. Clinical correlation with pulmonary arterial hypertension. Echocardiogram: Normal sinus rhythm without intraventricular conduction disturbance. Frequent isolated unifocal premature ventricular contractions (PVCs). Technically difficult study in light of the patient's pulmonary disease, but some diagnostically useful information was still obtained. M-mode and 2-dimensional echocardiography was performed with pulse, continuous wave, color flow and tissue Doppler study. Normal left ventricular size and wall thickness with septal wall motion abnormality due to right ventricular pressure overload, yet preserved global resting left ventricular systolic function. Normal left atrial size, but Doppler evidence of grade 1 left ventricular (LV) diastolic dysfunction, but current estimated mean left atrial pressure upper limits of normal. Prominently dilated right heart chambers with right ventricular free wall hypokinesis and Doppler evidence of severe pulmonary hypertension. His inferior vena cava could not be well visualized, but in light of his trans-tricuspid valve gradient, it is likely to be dilated with an elevated central venous pressure. Normal aortic diameters. Mild aortic valvular sclerosis without stenosis or insufficiency. Mild degenerative changes of the mitral valvular apparatus without apparent functional abnormality. Tricuspid valve appeared to be normal with at least moderate tricuspid insufficiency. We could not visualize any intracardiac mass or pericardial effusion. MICROBIOLOGY: Please see below. 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 #Acute on chronic hypoxemic respiratory failure i/s/o O2-dependent severe idiopathic pulmonary fibrosis with pulmonary hypertension, likely multifactorial acute on chronic hypoxemic respiratory failure including HFpEF exacerbation. Also has hx of undifferentiated connective tissue d/o which may or may not be factor of lung decline? -Imaging above, improving BNP with decreasing FiO2 over 24 hours -Cr stable, electrolytes normalized so lasix was increased to 40 mg IV Q8Hrs -2L/24h fluid restriction -Mycoplasma IgG +. Per pulm, c/w empiric CAP coverage with ceftriaxone, azithro x 7 days (stop 01/31) -Sputum cx, resp panel neg. F/u legionella, strep -daily BMP and Mg for electrolyte repletion while aggressive diuresing -Echo above -Daily weights; strict I and O's -Continuous pulse ox; O2 titration orders of greater than 90% -Patient is currently on a long steroid taper dose as outpatient, will continue with current amount of steroid being 16 p.o. methylprednisolone daily. -Pulmonology following closely. Discussed case and reviewed imaging in detail today. Transferring patient was discussed, pulmonology was to speak with patient today and then get back to me. -NOTE: patient follows with Dr. Mclean for local pulmonology care and Dr. Dennis at [facility] in [place] for pulmonary HTN/IPF mgmt. Currently in the process of getting evaluated for lung transplant at [facility]. Acute on chronic HFpEF: -2L/24h fluid restriction, NEGATIVE fluid balance over 24 hours. -daily BMP and Mg for electrolyte repletion while aggressive diuresing -BNP improving -Echo above -Daily weights; strict I and O's -2g sodium diet w/ consistent carb #Pulmonary hypertension and IPF with high suspicion for cor pulmonale -Patient follows with Dr. Dennis of [facility] in [place] for IPF/pulmonary hypertension management -Continue Ofev and Tyvaso pulmonary hypertension medications -Patient is currently completing a very extended steroid taper as outpatient in his home oral methylprednisolone dose, will continue (currently 16 mg daily). -See plan under problem #1 #COVID exposure by positive employee -No s/s of worsening resp status -Afebrile -On quarantine currently, COVID precautions #Undifferentiated connective tissue disease, on hydroxychloroquine -Follows with Dr. Inez Mchugh of [facility] rheumatology -Has been on hydroxychloroquine for the better part of the last 9 months, continue #Hypercoagulable state with prior DVTs on Eliquis -Patient has a history of right lower extremity DVT in 2014 which subsequently did not respond via clot burden to Xarelto and was switched to Lovenox; then experienced a left lower extremity DVT in March 2020 while on Lovenox and was switched to Eliquis in July 2020 by full service vending driver (Dr. Odom) -Patient had been following with hematology as outpatient but after most recent visit earlier this month, follow-up is on as needed basis -Home Eliquis continued #Diabetes mellitus type 2 -BS controlled, watching closely while on steroids -Patient takes Victoza and Metformin daily; he also has been taking 2 units of long-acting insulin daily in the setting of a long steroid taper for his respiratory condition -Patient was placed on sliding scale insulin and fingersticks before meals and at night with hypoglycemic protocol; 2 g sodium diet -Hold Victoza and Metformin -SSI, FSBG AC/HS #Physical deconditioning -PT/OT - anticipate several more sessions needed #Ectatic ascending aorta -This measured 4.[address] chest and was described as stable -F/u o/p DVT ppx: eliquis CODE STATUS: Full code DISPOSITION: Currently inpatient status. Pulmonary consulted, briefly discussed transferring patient but pulmonary will be discussing with patient to come up with plan. VS, I&O, 24H, Fishbone Vital Signs/I&O Vital Signs Date Time Temp Pulse Resp B/P (MAP) Pulse Ox O2 Delivery O2 Flow Rate FiO2 01/29/21 13:00 91 25.0 60 01/29/21 11:57 97.4 77 20 111/71 (84) HVNI-Vapotherm I&O- Last 24 Hours up to 6 AM 01/29/21 06:00 Intake Total 1135 ml Output Total 800 ml Balance 335 ml Laboratory Data 24H LABS Laboratory Tests 2 01/28/21 17:05: Bedside Glucose (Misc Panel) 125H 01/28/21 20:30: Bedside Glucose (Misc Panel) 116H 01/29/21 04:58: Nucleated Red Blood Cells % (auto) 0.0, Anion Gap 3L, Glomerular Filtration Rate > 60.0, Calcium Level 8.5L, Magnesium Level 1.8 01/29/21 12:05: Bedside Glucose (Misc Panel) 158H CBC/BMP Laboratory Tests 01/29/21 04:58 Microbiology Microbiology 01/26/21 Gram Stain - Final, Complete 01/26/21 Sputum Culture - Final, Complete 01/24/21 Respiratory Virus Panel (PCR) (ROSI) - Final, Complete Leigh Jerez MD Jan 29, 2021 13:38
[2021-01-29] MEDS: AZITHROMYCIN INJ 500 MG, VIAL MATE ADAPTER 1 EACH in NS 250 ML IV SCH (15:54)
[2021-01-29] MEDS: cefTRIAXone SOD 2 GM in D5W MINI-BAG PLUS 50 ML IV SCH (17:16)
[2021-01-29 18:08] LABS: BODY FLUID CULTURE Not indicated. (.); LEGIONELLA ANTIGEN URINE Negative (Negative); ORGANISM ID Not indicated. (.); SPECIMEN SOURCE Urine (.); URINE STREP PNEUMONIAE ANTIGEN Negative (Negative)
[2021-01-29] MEDS: ATORVASTATIN 20 MG TAB PO SCH (20:58)
[2021-01-30] VITALS (26 sets, daily range): BP systolic 102–116; BP diastolic 65–78; O2SAT 86–99
[2021-01-30] MEDS: FUROSEMIDE 40MG/4ML VIAL (J1940) IV SCH ×3 (03:00→18:22)
[2021-01-30 05:35] LABS: HEMATOCRIT 40.3 % (42.0-52.0); MEAN CORPUSCULAR HEMOGLOBIN 32.4 pg (27.0-33.0); MEAN CORPUSCULAR HGB CONC 32.3 g/dl (32.0-36.5); MEAN CORPUSCULAR VOLUME 100.5 fl (80.0-96.0); PLATELET COUNT, AUTOMATED 184 10^3/uL (150-450); RED BLOOD COUNT 4.01 10^6/uL (4.30-6.10); WHITE BLOOD COUNT 11.1 10^3/uL (4.0-10.0)
[2021-01-30 06:00] LABS: BLOOD UREA NITROGEN 18 MG/DL (7-18); CALCIUM LEVEL 8.4 MG/DL (8.8-10.2); CARBON DIOXIDE LEVEL 41 MEQ/L (21-32); CHLORIDE LEVEL 94 MEQ/L (98-107); CREATININE FOR GFR 0.67 MG/DL (0.70-1.30); GLOMERULAR FILTRATION RATE > 60.0 (>49); GLUCOSE, FASTING 83 MG/DL (70-100); MAGNESIUM LEVEL 1.9 MG/DL (1.8-2.4); POTASSIUM SERUM 4.8 MEQ/L (3.5-5.1); SODIUM LEVEL 137 MEQ/L (136-145)
[2021-01-30] MEDS: HumaLOG INSULIN (NovoLOG) PER UNIT SC SCH ×4 (07:30→21:00)
[2021-01-30] MEDS: HYDROXYCHLOROQUINE 200 MG TAB PO SCH ×2 (09:11→21:13)
[2021-01-30] MEDS: ASPIRIN 81MG ENTERIC TABLET PO SCH (09:11)
[2021-01-30] MEDS: APIXABAN 2.5 MG TAB (ELIQUIS) PO SCH ×2 (09:11→21:13)
[2021-01-30] MEDS: SPIRONOLACTONE 25 MG TAB PO SCH (09:11)
[2021-01-30] MEDS ORDERED: BENZONATATE 100MG CAPSULE PO PRN (10:40)
[2021-01-30] MEDS: TYVASO INH SCH ×4 (12:14→20:00)
[2021-01-30] MEDS: PANTOPRAZOLE 40MG TAB (PROTONIX) PO SCH (12:14)
--- NOTE | 2021-01-30 12:53 | IPNPDOC ---
Date Seen The patient was seen on 01/30/21. Progress Note SUBJECTIVE: -Remains on vapotherm 28L/80% FiO2, slightly decreased O2 demand -Denies chest pain, increased SOB, fevers, chill, n/v/d -No acute events overnight OBJECTIVE: PE: VITAL SIGNS: see below GENERAL APPEARANCE: NAD, comfortable at bedside chair HEENT: Normocephalic, atraumatic. EOMI. MMM, cannula in place CARDIOVASCULAR: RRR, systolic murmur LUNGS: diffusecoarse crackles b/l, no accessory muscle use. Symmetric chest expansion. ABDOMEN: Soft, nontender nondistended. No guarding or rigidity appreciated. Normoactive bowel sounds throughout. No hepatosplenomegaly or palpable passes appreciated. EXTREMITIES: 2-3+ pitting edema of distal lower extremities bilaterally, greater on the left versus the right. Negative for calf tenderness bilaterally. 2+ radial pulses bilaterally. +clubbing NEUROLOGICAL: No gross focal neurologic deficits appreciated. Nondysarthric speech. Alert and oriented x3 and following commands. PSYCHIATRIC: AOx3 LABORATORY DATA: Reviewed Please see below IMAGING: Portable chest x-ray, 01/24/2021 Advanced fibrotic changes similar to prior examination. Subtle superimposed process cannot be excluded. Chest CT without contrast, 01/24/2021 1. Redemonstration of bilateral predominantly subpleural septal thickening and honeycombing consistent with the interstitial lung disease. 2. Interval development of ground-glass opacities in the left upper and lower lobe and somewhat at the right lung base which may represent edema/infection. 3. Stable ectatic ascending aorta measuring 4.5 cm. 4. Redemonstration of stable diffuse mediastinal and bilateral hilar lymphadenopathy. 5. Enlarged pulmonary artery. Clinical correlation with pulmonary arterial hypertension. Echocardiogram: Normal sinus rhythm without intraventricular conduction disturbance. Frequent isolated unifocal premature ventricular contractions (PVCs). Technically difficult study in light of the patient's pulmonary disease, but some diagnostically useful information was still obtained. M-mode and 2-dimensional echocardiography was performed with pulse, continuous wave, color flow and tissue Doppler study. Normal left ventricular size and wall thickness with septal wall motion abnormality due to right ventricular pressure overload, yet preserved global resting left ventricular systolic function. Normal left atrial size, but Doppler evidence of grade 1 left ventricular (LV) diastolic dysfunction, but current estimated mean left atrial pressure upper limits of normal. Prominently dilated right heart chambers with right ventricular free wall hypokinesis and Doppler evidence of severe pulmonary hypertension. His inferior vena cava could not be well visualized, but in light of his trans-tricuspid valve gradient, it is likely to be dilated with an elevated central venous pressure. Normal aortic diameters. Mild aortic valvular sclerosis without stenosis or insufficiency. Mild degenerative changes of the mitral valvular apparatus without apparent functional abnormality. Tricuspid valve appeared to be normal with at least moderate tricuspid insufficiency. We could not visualize any intracardiac mass or pericardial effusion. MICROBIOLOGY: Please see below. 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 #Acute on chronic hypoxemic respiratory failure i/s/o O2-dependent severe idiopathic pulmonary fibrosis with pulmonary hypertension, likely multifactorial acute on chronic hypoxemic respiratory failure including HFpEF exacerbation. Also has hx of undifferentiated connective tissue d/o which may or may not be factor of lung decline? -Imaging above, improving BNP with decreasing FiO2 over 24 hours -Cr stable, electrolytes normalized so lasix was increased to 40 mg IV Q8Hrs -2L/24h fluid restriction -Mycoplasma IgG +. Per pulm, c/w empiric CAP coverage with ceftriaxone, azithro x 7 days (stop 01/31) -Sputum cx, resp panel neg. F/u legionella, strep -daily BMP and Mg for electrolyte repletion while aggressive diuresing -Echo above -Daily weights; strict I and O's -Continuous pulse ox; O2 titration orders of greater than 90% -Patient is currently on a long steroid taper dose as outpatient, will continue with current amount of steroid being 16 p.o. methylprednisolone daily. -Pulmonology following closely. Holding off on transferring patient per pulmonology,as O2 improving slightly -NOTE: patient follows with Dr. Mclean for local pulmonology care and Dr. Dennis at [facility] in [place] for pulmonary HTN/IPF mgmt. Currently in the process of getting evaluated for lung transplant at [facility]. Acute on chronic HFpEF: -2L/24h fluid restriction, NEGATIVE fluid balance over 24 hours. -daily BMP and Mg for electrolyte repletion while aggressive diuresing -BNP improving -Echo above -Daily weights; strict I and O's -2g sodium diet w/ consistent carb #Pulmonary hypertension and IPF with high suspicion for cor pulmonale -Patient follows with Dr. Dennis of [facility] in [place] for IPF/pulmo nary hypertension management -Continue Ofev and Tyvaso pulmonary hypertension medications -Patient is currently completing a very extended steroid taper as outpatient in his home oral methylprednisolone dose, will continue (currently 16 mg daily). -See plan under problem #1 #COVID exposure by positive employee -No s/s of worsening resp status -Afebrile -On quarantine currently, COVID precautions #Cough likely multifactorial -PPI, tessalon #Undifferentiated connective tissue disease, on hydroxychloroquine -Follows with Dr. Inez Mchugh of [facility] rheumatology -Has been on hydroxychloroquine for the better part of the last 9 months, continue #Hypercoagulable state with prior DVTs on Eliquis -Patient has a history of right lower extremity DVT in 2014 which subsequently did not respond via clot burden to Xarelto and was switched to Lovenox; then experienced a left lower extremity DVT in March 2020 while on Lovenox and was switched to Eliquis in July 2020 by utility tender carding (Dr. Odom) -Patient had been following with hematology as outpatient but after most recent visit earlier this month, follow-up is on as needed basis -Home Eliquis continued #Diabetes mellitus type 2 -BS controlled, watching closely while on steroids -Patient takes Victoza and Metformin daily; he also has been taking 2 units of long-acting insulin daily in the setting of a long steroid taper for his re spiratory condition -Patient was placed on sliding scale insulin and fingersticks before meals and a t night with hypoglycemic protocol; 2 g sodium diet -Hold Victoza and Metformin -SSI, FSBG AC/HS #Physical deconditioning -PT/OT - anticipate several more sessions needed #Ectatic ascending aorta -This measured 4.[address] chest and was described as stable -F/u o/p DVT ppx: eliquis CODE STATUS: Full code DISPOSITION: Currently inpatient status. Pulmonary following VS, I&O, 24H, Fishbone Vital Signs/I&O Vital Signs Date Time Temp Pulse Resp B/P (MAP) Pulse Ox O2 Delivery O2 Flow Rate FiO2 01/30/21 12:20 96 20.0 60 01/30/21 12:07 97.1 77 20 116/76 (89) HVNI-Vapotherm I&O- Last 24 Hours up to 6 AM0 01/30/21 06:00 Intake Total 1705 ml Output Total 1400 ml Balance 305 ml Laboratory Data 24H LABS Laboratory Tests 2 01/29/21 17:15: Bedside Glucose (Misc Panel) 155H 01/29/21 21:00: Bedside Glucose (Misc Panel) 139H 01/30/21 05:07: Nucleated Red Blood Cells % (auto) 0.0, Anion Gap 2L, Glomerular Filtration Rate > 60.0, Calcium Level 8.4L, Magnesium Level 1.9 01/30/21 12:06: Bedside Glucose (Misc Panel) 210H CBC/BMP Laboratory Tests 01/30/21 05:07 Microbiology Microbiology 01/26/21 Gram Stain - Final, Complete 01/26/21 Sputum Culture - Final, Complete 01/24/21 Respiratory Virus Panel (PCR) (ROSI) - Final, Complete Leigh Jerez MD Jan 30, 2021 12:53
--- NOTE | 2021-01-30 13:27 | IPNPDOC ---
Subjective Date Seen The patient was seen on 01/30/21. Subjective Chief Complaint/HPI Patient still complains of intermittent dry and wet/productive cough. Constitutional: Denies: Chills, Fever Eyes: Denies: Pain ENT: Denies: Head Aches Skin: Denies: Rash Pulmonary: Reports: Dyspnea, Cough; Denies: Pleuritic Chest Pain Cardiovascular: Reports: Edema (Improved edema of the lower extremities); Denies: Chest Pain, Palpitations, Orthopnea, Paroxysmal Noc. Dyspnea Gastrointestinal: Denies: Nausea, Vomiting, Abdominal Pain Genitourinary: Denies: Dysuria Neurological: Denies: Weakness, Numbness Objective Physical Examination General Exam: Positive: Alert, Cooperative, Mild Distress Eye Exam: Positive: PERRLA; Negative: Sclera icteric ENT Exam: Positive: Atraumatic, Mucous membr. moist/pink Neck Exam: Positive: Supple; Negative: Lymphadenopathy Chest Exam: Positive: Rhonchi (Bibasilar coarse crackles) Heart Exam: Positive: Rate Normal, Regular Rhythm, Normal S1, Normal S2, Murmurs (Midsystolic), Other (Extra sound which I believe is S3) Abdomen Exam: Positive: Normal bowel sounds, Soft; Negative: Tenderness Extremity Exam: Positive: Clubbing, Edema (Improved edema of the lower extremities) Skin Exam: Negative: Rash Neuro Exam: Positive: Normal Speech, Other (Hoarseness of voice) Psych Exam: Positive: Mental status NL, Mood NL, Oriented x 3 Assessment /Plan Assessment This is a 59-year-old very pleasant gentleman with past medical history of chronic hypoxic respiratory failure on 4 to 5 L oxygen, idiopathic pulmonary fibrosis, group 3 pulmonary hypertension, hypercoagulable state with previous history of DVT on Eliquis, diabetes mellitus, 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 Plan/VTE VTE Prophylaxis Ordered?: Yes Plan #Acute on chronic hypoxic respiratory failure -Secondary to ILD/IPF exacerbation superimposed by decompensated right ventricular failure due to group 3 pulmonary hypertension rule out infectious process -Currently on Vapotherm for support. Target oxygen saturation above 90%. Vapotherm setting currently at 25 L/min, FiO2 80%. He is slowly improving. #ILD/IPF exacerbation -There is evidence of new groundglass opacity on the left upper and lower lobe. Infectious work-up so far negative. I would continue with broad-spectrum antibiotics for total of 7 days. -We will empirically cover with ceftriaxone and azithromycin for community- acquired pneumonia for total of 7 days. -Finish the short course of systemic corticosteroid which he was at put on as outpatient -He is back on Ofev. -Currently in the process of getting evaluated for lung transplant at [facility]. I have spoken with him and his regarding to potentially transfer him to [facility] or [facility] for potential expedited lung transplant evaluation in the event if his ILD exacerbation is not improving. Currently there is no absolute indication for transfer. #Decompensated right heart failure with group III pulmonary hypertension -Repeat echocardiogram result pending at this point. Continue with aggressive diuresis to target net -1 L over 24 hours. Trend proBNP every other day. proBNP is currently trending down with ongoing diuresis. Closely monitor urine output as well as renal function. #History is of undifferentiated connective tissue disease -He is back on his home Plaquenil. #Group 3 pulmonary hypertension -Patient is currently put back on Tyvaso #History of GERD status post Nicole fundoplication -Trial PPI Disposition Continue hospital care VS, I&O, 24H, Fishbone Vital Signs/I&O Vital Signs Date Time Temp Pulse Resp B/P (MAP) Pulse Ox O2 Delivery O2 Flow Rate FiO2 01/30/21 12:20 96 20.0 60 01/30/21 12:07 97.1 77 20 116/76 (89) HVNI-Vapotherm I&O- Last 24 Hours up to 6 AM 01/30/21 06:00 Intake Total 1705 ml Output Total 1400 ml Balance 305 ml Laboratory Data 24H LABS Laboratory Tests 2 01/29/21 17:15: Bedside Glucose (Misc Panel) 155H 01/29/21 21:00: Bedside Glucose (Misc Panel) 139H 01/30/21 05:07: Nucleated Red Blood Cells % (auto) 0.0, Anion Gap 2L, Glomerular Filtration Rate > 60.0, Calcium Level 8.4L, Magnesium Level 1.9 01/30/21 12:06: Bedside Glucose (Misc Panel) 210H CBC/BMP Laboratory Tests 01/30/21 05:07 Microbiology Microbiology 01/26/21 Gram Stain - Final, Complete 01/26/21 Sputum Culture - Final, Complete 01/24/21 Respiratory Virus Panel (PCR) (ROSI) - Final, Complete FRANCISCA CAMPUZANO MD Jan 30, 2021 13:26
[2021-01-30] MEDS: AZITHROMYCIN INJ 500 MG, VIAL MATE ADAPTER 1 EACH in NS 250 ML IV SCH (15:55)
[2021-01-30] MEDS: cefTRIAXone SOD 2 GM in D5W MINI-BAG PLUS 50 ML IV SCH (17:10)
[2021-01-30] MEDS: ATORVASTATIN 20 MG TAB PO SCH (21:13)
[2021-01-31] VITALS (18 sets, daily range): BP systolic 87–120; BP diastolic 62–77; O2SAT 90–98
[2021-01-31] MEDS: FUROSEMIDE 40MG/4ML VIAL (J1940) IV SCH ×3 (04:27→17:12)
[2021-01-31 06:07] LABS: HEMATOCRIT 42.6 % (42.0-52.0); HEMOGLOBIN 13.8 g/dl (13.5-17.5); MEAN CORPUSCULAR HEMOGLOBIN 31.9 pg (27.0-33.0); MEAN CORPUSCULAR HGB CONC 32.4 g/dl (32.0-36.5); MEAN CORPUSCULAR VOLUME 98.4 fl (80.0-96.0); PLATELET COUNT, AUTOMATED 212 10^3/uL (150-450); RED BLOOD COUNT 4.33 10^6/uL (4.30-6.10); WHITE BLOOD COUNT 12.4 10^3/uL (4.0-10.0)
[2021-01-31 06:35] LABS: ALBUMIN 2.9 GM/DL (3.2-5.2); ALT/SGPT 30 U/L (12-78); BILIRUBIN,TOTAL 0.8 MG/DL (0.2-1.0); BLOOD UREA NITROGEN 18 MG/DL (7-18); CALCIUM LEVEL 8.7 MG/DL (8.8-10.2); CARBON DIOXIDE LEVEL 37 MEQ/L (21-32); CHLORIDE LEVEL 95 MEQ/L (98-107); CREATININE FOR GFR 0.57 MG/DL (0.70-1.30); GLOMERULAR FILTRATION RATE > 60.0 (>49); GLUCOSE, FASTING 99 MG/DL (70-100); POTASSIUM SERUM 3.8 MEQ/L (3.5-5.1); SODIUM LEVEL 136 MEQ/L (136-145); TOTAL PROTEIN 6.8 GM/DL (6.4-8.2)
[2021-01-31] MEDS: SPIRONOLACTONE 25 MG TAB PO SCH (08:10)
[2021-01-31] MEDS: APIXABAN 2.5 MG TAB (ELIQUIS) PO SCH ×2 (08:10→21:05)
[2021-01-31] MEDS: PANTOPRAZOLE 40MG TAB (PROTONIX) PO SCH (08:10)
[2021-01-31] MEDS: ASPIRIN 81MG ENTERIC TABLET PO SCH (08:10)
[2021-01-31] MEDS: HYDROXYCHLOROQUINE 200 MG TAB PO SCH ×2 (08:11→21:05)
[2021-01-31] MEDS: HumaLOG INSULIN (NovoLOG) PER UNIT SC SCH ×4 (08:12→21:00)
[2021-01-31] MEDS: TYVASO INH SCH ×4 (08:16→20:00)
[2021-01-31] MEDS: AZITHROMYCIN INJ 500 MG, VIAL MATE ADAPTER 1 EACH in NS 250 ML IV SCH (12:45)
--- NOTE | 2021-01-31 13:37 | IPN ---
PROGRESS NOTE DATE: 01/31/2021 SUBJECTIVE: I attended Mateusz Engle here in the progressive care unit. Patient has been examined and chart reviewed. I spoke at length with the nurse. He says he feels a little better today. He has been able to be maintained on 5 liters nasal cannula. At rest he has saturations in the mid to upper 90s, with activity or conversation drops into the mid 80s. He is generally maintained on 4-5 liters at home. OBJECTIVE: T-max overnight 97, blood pressure 103-120s, heart rate generally in 70s, respiratory rate 18-24 without obvious accessory muscle use and saturations as outlined above. Ins and outs midnight to midnight 755 mL in with 2050 mL out. He is chronically ill-appearing. Dyspneic with any activity. Pupils do react. Sclerae clear. Trachea midline. Chest shows diminished but symmetric expansion. He has guan-inspiratory Velcro crackles noted throughout, right greater than left. No convincing focal adventitious breath sounds are identified. Cardiac exam is generally regular. Second heart sound is increased. Peripheral pulses palpable, no obvious edema. Abdomen soft with active bowel sounds. Extremities do show no cyanosis but I do believe there is clubbing. Neurological is awake, alert and appropriate. Psych shows normal mood and affect. White blood cell count 12.4, hemoglobin 13.8, platelet count 212,000. Sodium 136, potassium 3.8, chloride 95, CO2 37, BUN 18, creatinine 0.57, glucose 99. BNP pending. No new imaging today. IMPRESSION: 1. Uhpxb-[id number]-[id number] hypoxemic respiratory failure. 2. Interstitial lung disease/pulmonary fibrosis. 3. Right-sided heart failure with decompensation and known underlying group 3 pulmonary hypertension. 4. Connective tissue disease. 5. Gastroesophageal reflux disease. RECOMMENDATIONS: At this point I am in agreement with his current regimen. I had a long discussion with him regarding discharge planning as he would really like to be able to get home. Certainly if we are able to maintain him on 5 liters nasal cannula which is obtainable with his concentrator at home, then we may be able to get him there in the next several days. It may be worthwhile to see if Home Care can obtain a high flow concentrator for him that will do 8 or 10 liters at home. I will continue his diuresis for now. Will recheck a ProBNP. His other medications are as is. I am in agreement, at least at this point, with continuing his antimicrobials. At this point he remains with guarded prognosis in view of the above. Further recommendations will be made in the progress records as new information becomes available.
[2021-01-31] MEDS: cefTRIAXone SOD 2 GM in D5W MINI-BAG PLUS 50 ML IV SCH (14:39)
--- NOTE | 2021-01-31 14:47 | IPNPDOC ---
Date Seen The patient was seen on 01/31/21. Progress Note SUBJECTIVE: -Transitioned from Vapotherm to 68 liters nasal cannula over the past 24 hours -Denies chest pain, increased SOB, fevers, chill, n/v/d -No acute events overnight OBJECTIVE: PE: VITAL SIGNS: see below GENERAL APPEARANCE: NAD, comfortable at bedside chair HEENT: Normocephalic, atraumatic. EOMI. MMM, cannula in place CARDIOVASCULAR: RRR, systolic murmur LUNGS: diffuse coarse crackles b/l, no accessory muscle use. Symmetric chest expansion. ABDOMEN: Soft, nontender nondistended. No guarding or rigidity appreciated. Normoactive bowel sounds throughout. No hepatosplenomegaly or palpable passes appreciated. EXTREMITIES: 2-3+ pitting edema of distal lower extremities bilaterally, greater on the left versus the right. Negative for calf tenderness bilaterally. 2+ radial pulses bilaterally. +clubbing NEUROLOGICAL: No gross focal neurologic deficits appreciated. Nondysarthric speech. Alert and oriented x3 and following commands. PSYCHIATRIC: AOx3 LABORATORY DATA: Reviewed Please see below IMAGING: Portable chest x-ray, 01/24/2021 Advanced fibrotic changes similar to prior examination. Subtle superimposed process cannot be excluded. Chest CT without contrast, 01/24/2021 1. Redemonstration of bilateral predominantly subpleural septal thickening and honeycombing consistent with the interstitial lung disease. 2. Interval development of ground-glass opacities in the left upper and lower lobe and somewhat at the right lung base which may represent edema/infection. 3. Stable ectatic ascending aorta measuring 4.5 cm. 4. Redemonstration of stable diffuse mediastinal and bilateral hilar lymphadenopathy. 5. Enlarged pulmonary artery. Clinical correlation with pulmonary arterial hypertension. Echocardiogram: Normal sinus rhythm without intraventricular conduction disturbance. Frequent isolated unifocal premature ventricular contractions (PVCs). Technically difficult study in light of the patient's pulmonary disease, but some diagnostically useful information was still obtained. M-mode and 2-dimensional echocardiography was performed with pulse, continuous wave, color flow and tissue Doppler study. Normal left ventricular size and wall thickness with septal wall motion abnormality due to right ventricular pressure overload, yet preserved global resting left ventricular systolic function. Normal left atrial size, but Doppler evidence of grade 1 left ventricular (LV) diastolic dysfunction, but current estimated mean left atrial pressure upper limits of normal. Prominently dilated right heart chambers with right ventricular free wall hypokinesis and Doppler evidence of severe pulmonary hypertension. His inferior vena cava could not be well visualized, but in light of his trans-tricuspid valve gradient, it is likely to be dilated with an elevated central venous pressure. Normal aortic diameters. Mild aortic valvular sclerosis without stenosis or insufficiency. Mild degenerative changes of the mitral valvular apparatus without apparent functional abnormality. Tricuspid valve appeared to be normal with at least moderate tricuspid insufficiency. We could not visualize any intracardiac mass or pericardial effusion. MICROBIOLOGY: Please see below. 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 #Acute on chronic hypoxemic respiratory failure i/s/o O2-dependent severe idiopathic pulmonary fibrosis with pulmonary hypertension, likely multifactorial acute on chronic hypoxemic respiratory failure including HFpEF exacerbation. Also has hx of undifferentiated connective tissue d/o which may or may not be factor of lung decline? -Imaging above, improving BNP with decreasing O2 requirement -Cr stable, electrolytes normalized so lasix was increased to 40 mg IV Q8Hrs -2L/24h fluid restriction -Mycoplasma IgG +. Per pulm, c/w empiric CAP coverage with ceftriaxone, azithro x 7 days (stop today) -Sputum cx, resp panel, legionella, strep neg -daily BMP and Mg for electrolyte repletion while aggressive diuresing -Echo above -Daily weights; strict I and O's -Continuous pulse ox; O2 titration orders of greater than 90% -Patient is currently on a long steroid taper dose as outpatient, will continue with current amount of steroid being 16 p.o. methylprednisolone daily. -Pulmonology following closely. Holding off on transferring patient per pulmonology,as O2 improving slightly. Will ask about HF concentrator for home O2 as this may get him home sooner than waiting for him to stay on 5 L NC -NOTE: patient follows with Dr. Mclean for local pulmonology care and Dr. Dennis at [facility] in [place] for pulmonary HTN/IPF mgmt. Currently in the process of getting evaluated for lung transplant at [facility]. Acute on chronic HFpEF: -2L/24h fluid restriction, NEGATIVE fluid balance over 24 hours. -daily BMP and Mg for electrolyte repletion while aggressive diuresing -BNP much improved -Echo above -Daily weights; strict I and O's -2g sodium diet w/ consistent carb #Pulmonary hypertension and IPF with high suspicion for cor pulmonale -Patient follows with Dr. Dennis of [facility] in [place] for IPF/pulmonary hypertension management -Continue Ofev and Tyvaso pulmonary hypertension medications -Patient is currently completing a very extended steroid taper as outpatient in his home oral methylprednisolone dose, will continue (currently 16 mg daily). -See plan under problem #1 #COVID exposure by positive employee -No s/s of worsening resp status -Afebrile -On quarantine currently, COVID precautions #Cough likely multifactorial -PPI, tessalon #Undifferentiated connective tissue disease, on hydroxychloroquine -Follows with Dr. Inez Mchugh of [facility] rheumatology -Has been on hydroxychloroquine for the better part of the last 9 months, continue #Hypercoagulable state with prior DVTs on Eliquis -Patient has a history of right lower extremity DVT in 2014 which subsequently did not respond via clot burden to Xarelto and was switched to Lovenox; then experienced a left lower extremity DVT in March 2020 while on Lovenox and was switched to Eliquis in July 2020 by portfolio administrator (Dr. Odom) -Patient had been following with hematology as outpatient but after most recent visit earlier this month, follow-up is on as needed basis -Home Eliquis continued #Diabetes mellitus type 2 -BS controlled, watching closely while on steroids -Patient takes Victoza and Metformin daily; he also has been taking 2 units of long-acting insulin daily in the setting of a long steroid taper for his respiratory condition -Patient was placed on sliding scale insulin and fingersticks before meals and at night with hypoglycemic protocol; 2 g sodium diet -Hold Victoza and Metformin -SSI, FSBG AC/HS #Physical deconditioning -PT/OT - anticipate several more sessions needed #Ectatic ascending aorta -This measured 4.[address] chest and was described as stable -F/u o/p DVT ppx: eliquis CODE STATUS: Full code DISPOSITION: Currently inpatient status. Pulmonary following. Goal is home when medically improved. VS, I&O, 24H, Fishbone Vital Signs/I&O Vital Signs Date Time Temp Pulse Resp B/P (MAP) Pulse Ox O2 Delivery O2 Flow Rate FiO2 01/31/21 12:00 8.0 01/31/21 12:00 High Flow Cannula 01/31/21 11:28 97.1 79 18 109/77 (88) 92 01/30/21 17:18 60 I&O- Last 24 Hours up to 6 AM 01/31/21 05:59 Intake Total 755 ml Output Total 1525 ml Balance -770 ml Laboratory Data 24H LABS Laboratory Tests 2 01/30/21 17:08: Bedside Glucose (Misc Panel) 137H 01/30/21 21:15: Bedside Glucose (Misc Panel) 114 01/31/21 05:32: Nucleated Red Blood Cells % (auto) 0.0, Anion Gap 4L, Glomerular Filtration Rate > 60.0, Calcium Level 8.7L, Total Bilirubin 0.8, Aspartate Amino Transf (AST/SGOT) 22, Alanine Aminotransferase (ALT/SGPT) 30, Alkaline Phosphatase 77, Total Protein 6.8, Albumin 2.9L, Albumin/Globulin Ratio 0.7 01/31/21 07:55: Bedside Glucose (Misc Panel) 109 01/31/21 10:49: WB-Gkp-X-Type Natriuretic Peptide 839H 01/31/21 11:26: Bedside Glucose (Misc Panel) 158H CBC/BMP Laboratory Tests 01/31/21 05:32 Microbiology Microbiology 01/26/21 Gram Stain - Final, Complete 01/26/21 Sputum Culture - Final, Complete 01/24/21 Respiratory Virus Panel (PCR) (ROSI) - Final, Complete Leigh Jerez MD Jan 31, 2021 14:47
[2021-01-31] MEDS: ATORVASTATIN 20 MG TAB PO SCH (21:05)
[2021-02-01] VITALS (25 sets, daily range): BP systolic 103–122; BP diastolic 73–85; O2SAT 82–98
[2021-02-01] MEDS: FUROSEMIDE 40MG/4ML VIAL (J1940) IV SCH ×3 (03:47→18:48)
[2021-02-01 07:16] LABS: HEMATOCRIT 41.7 % (42.0-52.0); HEMOGLOBIN 13.4 g/dl (13.5-17.5); MEAN CORPUSCULAR HEMOGLOBIN 32.2 pg (27.0-33.0); MEAN CORPUSCULAR HGB CONC 32.1 g/dl (32.0-36.5); MEAN CORPUSCULAR VOLUME 100.2 fl (80.0-96.0); PLATELET COUNT, AUTOMATED 207 10^3/uL (150-450); RED BLOOD COUNT 4.16 10^6/uL (4.30-6.10); WHITE BLOOD COUNT 12.7 10^3/uL (4.0-10.0)
[2021-02-01] MEDS: HumaLOG INSULIN (NovoLOG) PER UNIT SC SCH ×4 (07:30→21:00)
[2021-02-01 07:41] LABS: ALBUMIN 2.8 GM/DL (3.2-5.2); ALT/SGPT 28 U/L (12-78); BILIRUBIN,TOTAL 0.8 MG/DL (0.2-1.0); BLOOD UREA NITROGEN 20 MG/DL (7-18); CALCIUM LEVEL 8.8 MG/DL (8.8-10.2); CARBON DIOXIDE LEVEL 37 MEQ/L (21-32); CHLORIDE LEVEL 96 MEQ/L (98-107); CREATININE FOR GFR 0.62 MG/DL (0.70-1.30); GLOMERULAR FILTRATION RATE > 60.0 (>49); GLUCOSE, FASTING 104 MG/DL (70-100); POTASSIUM SERUM 3.8 MEQ/L (3.5-5.1); SODIUM LEVEL 138 MEQ/L (136-145); TOTAL PROTEIN 6.3 GM/DL (6.4-8.2)
[2021-02-01] MEDS: HYDROXYCHLOROQUINE 200 MG TAB PO SCH ×2 (08:07→21:19)
[2021-02-01] MEDS: ASPIRIN 81MG ENTERIC TABLET PO SCH (08:07)
[2021-02-01] MEDS: APIXABAN 2.5 MG TAB (ELIQUIS) PO SCH ×2 (08:08→21:18)
[2021-02-01] MEDS: PANTOPRAZOLE 40MG TAB (PROTONIX) PO SCH (08:08)
[2021-02-01] MEDS: SPIRONOLACTONE 25 MG TAB PO SCH (08:08)
[2021-02-01] MEDS: TYVASO INH SCH ×4 (08:09→20:00)
--- NOTE | 2021-02-01 11:44 | CCN ---
CRITICAL CARE NOTE DATE: 02/01/2021 SUBJECTIVE: I again attended Casper Engle here in the Progressive Care Unit. The patient has been examined, chart reviewed. OBJECTIVE: T-max overnight 98.4, blood pressure 110-120s, heart rate 60-80s, respiratory rate generally 20-24 without obvious accessory muscle use although he is dyspneic even with conversation. On 5 liters nasal cannula during conversation saturations dropped to 84-86%. He was taken to 6 liters. Saturations still remained 86-87%. On 7 liters nasal cannula flow during conversation he is able to maintain a saturation of 90-91%. This will be discussed further below. Laboratories have been reviewed. Input and output midnight to midnight are essentially matched basically 300 mL to the positive but already net negative 500 this morning. On exam he is awake, alert, and appropriate. Pupils reactive. Sclerae clear. Chest again shows his Velcro crackles, unchanged from yesterday. Expansion although diminished is symmetric. Cardiac exam does show an augmented second heart sound. Peripheral pulses are diminished but palpable, no obvious edema. Abdomen soft with active bowel sounds. Extremities show clubbing is unchanged. Neurologically awake, alert and appropriate. IMPRESSION: 1. Gjofq-hq-jyssxai hypoxemic respiratory failure. 2. Interstitial lung disease/pulmonary fibrosis. 3. Right-sided heart failure with decompensation with underlying group 3 pulmonary hypertension. 4. Connective tissue disease. 5. Gastroesophageal reflux disease. RECOMMENDATIONS: At this point it appears that he clearly needs a high-flow concentrator for home. He is on 5 at home and it is insufficient. We have proven that here. He needs to be titrated to at least 7-8 liters minimum probably with conversation, likely more with activity but clearly needs a high-flow concentrator in the home setting. Currently 7 liters is adequate for conversation at rest. I am in full agreement with his current medication regimen. We will proceed as outlined above. Further recommendations will be placed in the progress records as new information becomes available.
--- NOTE | 2021-02-01 13:40 | IPNPDOC ---
Date Seen The patient was seen on 02/01/21. Progress Note SUBJECTIVE: -REmains on 68 liters nasal cannula. Working on high flow O2 concentrator for home -Denies chest pain, increased SOB, fevers, chill, n/v/d -No acute events overnight OBJECTIVE: PE: VITAL SIGNS: see below GENERAL APPEARANCE: NAD, comfortable at bedside chair HEENT: Normocephalic, atraumatic. EOMI. MMM, cannula in place CARDIOVASCULAR: RRR, systolic murmur LUNGS: diffuse coarse crackles b/l, no accessory muscle use. Symmetric chest expansion. ABDOMEN: Soft, nontender nondistended. No guarding or rigidity appreciated. Normoactive bowel sounds throughout. No hepatosplenomegaly or palpable passes appreciated. EXTREMITIES: 2-3+ pitting edema of distal lower extremities bilaterally, greater on the left versus the right. Negative for calf tenderness bilaterally. 2+ ra dial pulses bilaterally. +clubbing NEUROLOGICAL: No gross focal neurologic deficits appreciated. Nondysarthric speech. Alert and oriented x3 and following commands. PSYCHIATRIC: AOx3 LABORATORY DATA: Reviewed Please see below IMAGING: Portable chest x-ray, 01/24/2021 Advanced fibrotic changes similar to prior examination. Subtle superimposed process cannot be excluded. Chest CT without contrast, 01/24/2021 1. Redemonstration of bilateral predominantly subpleural septal thickening and honeycombing consistent with the interstitial lung disease. 2. Interval development of ground-glass opacities in the left upper and lower lobe and somewhat at the right lung base which may represent edema/infection. 3. Stable ectatic ascending aorta measuring 4.5 cm. 4. Redemonstration of stable diffuse mediastinal and bilateral hilar lymphadenopathy. 5. Enlarged pulmonary artery. Clinical correlation with pulmonary arterial hypertension. Echocardiogram: Normal sinus rhythm without intraventricular conduction disturbance. Frequent isolated unifocal premature ventricular contractions (PVCs). Technically difficult study in light of the patient's pulmonary disease, but some diagnostically useful information was still obtained. M-mode and 2-dimensional echocardiography was performed with pulse, continuous wave, color flow and tissue Doppler study. Normal left ventricular size and wall thickness with septal wall motion abnormality due to right ventricular pressure overload, yet preserved global resting left ventricular systolic function. Normal left atrial size, but Doppler evidence of grade 1 left ventricular (LV) diastolic dysfunction, but current estimated mean left atrial pressure upper limits of normal. Prominently dilated right heart chambers with right ventricular free wall hypokinesis and Doppler evidence of severe pulmonary hypertension. His inferior vena cava could not be well visualized, but in light of his trans-tricuspid valve gradient, it is likely to be dilated with an elevated central venous pressure. Normal aortic diameters. Mild aortic valvular sclerosis without stenosis or insufficiency. Mild degenerative changes of the mitral valvular apparatus without apparent functional abnormality. Tricuspid valve appeared to be normal with at least moderate tricuspid insufficiency. We could not visualize any intracardiac mass or pericardial effusion. MICROBIOLOGY: Please see below. 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 #Acute on chronic hypoxemic respiratory failure i/s/o O2-dependent severe idiopathic pulmonary fibrosis with pulmonary hypertension, likely multifactorial acute on chronic hypoxemic respiratory failure including HFpEF exacerbation. Also has hx of undifferentiated connective tissue d/o which may or may not be factor of lung decline? -Imaging above, improving BNP, remains on 6-8 L NC without increased work of breathing -2L/24h fluid restriction -Mycoplasma IgG +. Completed empiric CAP coverage with ceftriaxone, azithro x 7 days -Sputum cx, resp panel, legionella, strep neg -C/w lasix -daily BMP and Mg for electrolyte repletion while aggressive diuresing -Echo above -Daily weights; strict I and O's -Continuous pulse ox; O2 titration orders of greater than 90% -Patient is currently on a long steroid taper dose as outpatient, will continue with current amount of steroid being 16 p.o. methylprednisolone daily. -Pulmonology following closely. Will ask about HF concentrator for home O2 as t his may get him home sooner than waiting for him to stay on 5 L NC. Will not be able to do so until Wednesday. -NOTE: patient follows with Dr. Mclean for local pulmonology care and Dr. Dennis at [facility] in [place] for pulmonary HTN/IPF mgmt. Currently in the process of getting evaluated for lung transplant at [facility]. Acute on chronic HFpEF: -2L/24h fluid restriction, NEGATIVE fluid balance over 24 hours. -daily BMP and Mg for electrolyte repletion while aggressive diuresing -BNP much improved -Echo above -Daily weights; strict I and O's -2g sodium diet w/ consistent carb #Pulmonary hypertension and IPF with high suspicion for cor pulmonale -Patient follows with Dr. Dennis of [facility] in [place] for IPF/pulmonary hypertension management -Continue Ofev and Tyvaso pulmonary hypertension medications -Patient is currently completing a very extended steroid taper as outpatient in his home oral methylprednisolone dose, will continue (currently 16 mg daily). -See plan under problem #1 #COVID exposure by positive employee -No s/s of worsening resp status -Afebrile -On quarantine currently, COVID precautions #Cough likely multifactorial -PPI, tessalon #Undifferentiated connective tissue disease, on hydroxychloroquine -Follows with Dr. Inez Mchugh of [facility] rheumatology -Has been on hydroxychloroquine for the better part of the last 9 months, continue #Hypercoagulable state with prior DVTs on Eliquis -Patient has a history of right lower extremity DVT in 2014 which subsequently did not respond via clot burden to Xarelto and was switched to Lovenox; then experienced a left lower extremity DVT in March 2020 while on Lovenox and was switched to Eliquis in July 2020 by meat boner (Dr. Odom) -Patient had been following with hematology as outpatient but after most recent visit earlier this month, follow-up is on as needed basis -Home Eliquis continued #Diabetes mellitus type 2 -BS controlled, watching closely while on steroids -Patient takes Victoza and Metformin daily; he also has been taking 2 units of long-acting insulin daily in the setting of a long steroid taper for his respiratory condition -Patient was placed on sliding scale insulin and fingersticks before meals and at night with hypoglycemic protocol; 2 g sodium diet -Hold Victoza and Metformin -SSI, FSBG AC/HS #Physical deconditioning -PT/OT - anticipate several more sessions needed #Ectatic ascending aorta -This measured 4.[address] chest and was described as stable -F/u o/p DVT ppx: eliquis CODE STATUS: Full code DISPOSITION: Currently inpatient status. Pulmonary following. Goal is home when medically improved with HF O2 concentrator . VS, I&O, 24H, Fishbone Vital Signs/I&O Vital Signs Date Time Temp Pulse Resp B/P (MAP) Pulse Ox O2 Delivery O2 Flow Rate FiO2 02/01/21 12:00 5.0 02/01/21 12:00 97.2 77 18 122/85 (97) 91 High Flow Cannula 01/30/21 17:18 60 I&O- Last 24 Hours up to 6 AM 02/01/21 06:00 Intake Total 1290 ml Output Total 1400 ml Balance -110 ml Laboratory Data 24H LABS Laboratory Tests 2 01/31/21 15:51: Bedside Glucose (Misc Panel) 181H 01/31/21 20:41: Bedside Glucose (Misc Panel) 131H 02/01/21 06:41: Nucleated Red Blood Cells % (auto) 0.0, Anion Gap 5L, Glomerular Filtration Rate > 60.0, Calcium Level 8.8, Total Bilirubin 0.8, Aspartate Amino Transf (AST/SGOT) 20, Alanine Aminotransferase (ALT/SGPT) 28, Alkaline Phosphatase 72, Total Protein 6.3L, Albumin 2.8L, Albumin/Globulin Ratio 0.8 02/01/21 12:31: Bedside Glucose (Misc Panel) 165H CBC/BMP Laboratory Tests 02/01/21 06:41 Microbiology Microbiology 01/26/21 Gram Stain - Final, Complete 01/26/21 Sputum Culture - Final, Complete 01/24/21 Respiratory Virus Panel (PCR) (ROSI) - Final, Complete Leigh Jerez MD Feb 01, 2021 13:40
[2021-02-01] MEDS: ATORVASTATIN 20 MG TAB PO SCH (21:18)
[2021-02-02] VITALS (17 sets, daily range): BP systolic 99–119; BP diastolic 73–79; O2SAT 84–98
[2021-02-02] MEDS: FUROSEMIDE 40MG/4ML VIAL (J1940) IV SCH ×3 (03:00→18:04)
[2021-02-02 05:40] LABS: HEMATOCRIT 44.2 % (42.0-52.0); HEMOGLOBIN 14.2 g/dl (13.5-17.5); MEAN CORPUSCULAR HEMOGLOBIN 31.9 pg (27.0-33.0); MEAN CORPUSCULAR HGB CONC 32.1 g/dl (32.0-36.5); MEAN CORPUSCULAR VOLUME 99.3 fl (80.0-96.0); PLATELET COUNT, AUTOMATED 204 10^3/uL (150-450); RED BLOOD COUNT 4.45 10^6/uL (4.30-6.10); WHITE BLOOD COUNT 13.4 10^3/uL (4.0-10.0)
[2021-02-02 06:04] LABS: ALBUMIN 2.9 GM/DL (3.2-5.2); ALT/SGPT 30 U/L (12-78); BILIRUBIN,TOTAL 0.8 MG/DL (0.2-1.0); BLOOD UREA NITROGEN 26 MG/DL (7-18); CALCIUM LEVEL 8.7 MG/DL (8.8-10.2); CARBON DIOXIDE LEVEL 36 MEQ/L (21-32); CHLORIDE LEVEL 97 MEQ/L (98-107); GLOMERULAR FILTRATION RATE > 60.0 (>49); GLUCOSE, FASTING 101 MG/DL (70-100); POTASSIUM SERUM 3.9 MEQ/L (3.5-5.1); SODIUM LEVEL 139 MEQ/L (136-145); TOTAL PROTEIN 6.7 GM/DL (6.4-8.2)
[2021-02-02] MEDS: PANTOPRAZOLE 40MG TAB (PROTONIX) PO SCH (08:37)
[2021-02-02] MEDS: HYDROXYCHLOROQUINE 200 MG TAB PO SCH ×2 (08:37→20:47)
[2021-02-02] MEDS: APIXABAN 2.5 MG TAB (ELIQUIS) PO SCH ×2 (08:37→20:47)
[2021-02-02] MEDS: SPIRONOLACTONE 25 MG TAB PO SCH (08:37)
[2021-02-02] MEDS: ASPIRIN 81MG ENTERIC TABLET PO SCH (08:37)
[2021-02-02] MEDS: HumaLOG INSULIN (NovoLOG) PER UNIT SC SCH ×4 (08:38→20:46)
[2021-02-02] MEDS: TYVASO INH SCH ×4 (08:38→20:49)
--- NOTE | 2021-02-02 16:40 | IPNPDOC ---
Date Seen The patient was seen on 02/02/21. Progress Note SUBJECTIVE: -On 68 liters nasal cannula. Attempts to bring him down are unsuccessful. -Denies chest pain, increased SOB, fevers, chill, n/v/d -No acute events overnight OBJECTIVE: PE: VITAL SIGNS: see below GENERAL APPEARANCE: NAD, comfortable at bedside chair HEENT: Normocephalic, atraumatic. EOMI. MMM, cannula in place CARDIOVASCULAR: RRR, systolic murmur LUNGS: diffuse coarse crackles b/l, no accessory muscle use. Symmetric chest expansion. ABDOMEN: Soft, nontender nondistended. No guarding or rigidity appreciated. Normoactive bowel sounds throughout. No hepatosplenomegaly or palpable passes appreciated. EXTREMITIES: 2-3+ pitting edema of distal lower extremities bilaterally, greater on the left versus the right. Negative for calf tenderness bilaterally. 2+ radial pulses bilaterally. +clubbing NEUROLOGICAL: No gross focal neurologic deficits appreciated. Nondysarthric speech. Alert and oriented x3 and following commands. PSYCHIATRIC: AOx3 LABORATORY DATA: Reviewed Please see below IMAGING: Portable chest x-ray, 01/24/2021 Advanced fibrotic changes similar to prior examination. Subtle superimposed process cannot be excluded. Chest CT without contrast, 01/24/2021 1. Redemonstration of bilateral predominantly subpleural septal thickening and honeycombing consistent with the interstitial lung disease. 2. Interval development of ground-glass opacities in the left upper and lower lobe and somewhat at the right lung base which may represent edema/infection. 3. Stable ectatic ascending aorta measuring 4.5 cm. 4. Redemonstration of stable diffuse mediastinal and bilateral hilar lymphadenopathy. 5. Enlarged pulmonary artery. Clinical correlation with pulmonary arterial hypertension. Echocardiogram: Normal sinus rhythm without intraventricular conduction disturbance. Frequent isolated unifocal premature ventricular contractions (PVCs). Technically difficult study in light of the patient's pulmonary disease, but some diagnostically useful information was still obtained. M-mode and 2-dimensional echocardiography was performed with pulse, continuous wave, color flow and tissue Doppler study. Normal left ventricular size and wall thickness with septal wall motion abnormality due to right ventricular pressure overload, yet preserved global resting left ventricular systolic function. Normal left atrial size, but Doppler evidence of grade 1 left ventricular (LV) diastolic dysfunction, but current estimated mean left atrial pressure upper limits of normal. Prominently dilated right heart chambers with right ventricular free wall hypokinesis and Doppler evidence of severe pulmonary hypertension. His inferior vena cava could not be well visualized, but in light of his trans-tricuspid valve gradient, it is likely to be dilated with an elevated central venous pressure. Normal aortic diameters. Mild aortic valvular sclerosis without stenosis or insufficiency. Mild degenerative changes of the mitral valvular apparatus without apparent functional abnormality. Tricuspid valve appeared to be normal with at least moderate tricuspid insufficiency. We could not visualize any intracardiac mass or pericardial effusion. MICROBIOLOGY: Please see below. 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 #Acute on chronic hypoxemic respiratory failure i/s/o O2-dependent severe idiopathic pulmonary fibrosis with pulmonary hypertension, likely multifactorial acute on chronic hypoxemic respiratory failure including HFpEF exacerbation. Also has hx of undifferentiated connective tissue d/o which may or may not be factor of lung decline? -Per pulmonology when evaluated, on 5 liters nasal cannula during conversation saturations dropped to 84-86%. On 6 L O2 remained 86-87%. On 7 L he is able to maintain a saturation of 90-91% with conversation. This is likely where he will be for some time, as we have tried bringing down lower than 6-7 without success -Imaging above, improving BNP -2L/24h fluid restriction -Mycoplasma IgG +. Completed empiric CAP coverage with ceftriaxone, azithro x 7 days -Sputum cx, resp panel, legionella, strep neg -C/w lasix -daily BMP and Mg for electrolyte repletion while aggressive diuresing -Echo above -Daily weights; strict I and O's -Continuous pulse ox; O2 titration orders of greater than 90% -Patient is currently on a long steroid taper dose as outpatient, will continue with current amount of steroid being 16 p.o. methylprednisolone daily. -Pulmonology following closely. Dr. Nolan, pulmonology, will ask about HF concentrator for home O2 as this may get him home sooner. -NOTE: patient follows with Dr. Mclean for local pulmonology care and Dr. Dennis at [facility] in [place] for pulmonary HTN/IPF mgmt. Currently in the process of getting evaluated for lung transplant at [facility]. Acute on chronic HFpEF: -2L/24h fluid restriction, NEGATIVE fluid balance over 24 hours. -daily BMP and Mg for electrolyte repletion while aggressive diuresing -BNP much improved -Echo above -Daily weights; strict I and O's -2g sodium diet w/ consistent carb #Pulmonary hypertension and IPF with high suspicion for cor pulmonale -Patient follows with Dr. Dennis of [facility] in [place] for IPF/pulmonary hypertension management -Continue Ofev and Tyvaso pulmonary hypertension medications -Patient is currently completing a very extended steroid taper as outpatient in his home oral methylprednisolone dose, will continue (currently 16 mg daily). -See plan under problem #1 #COVID exposure by positive employee -No s/s of worsening resp status -Afebrile -On quarantine currently, COVID precautions #Cough likely multifactorial -PPI, tessalon #Undifferentiated connective tissue disease, on hydroxychloroquine -Follows with Dr. Inez Mchugh of [facility] rheumatology -Has been on hydroxychloroquine for the better part of the last 9 months, continue #Hypercoagulable state with prior DVTs on Eliquis -Patient has a history of right lower extremity DVT in 2014 which subsequently did not respond via clot burden to Xarelto and was switched to Lovenox; then experienced a left lower extremity DVT in March 2020 while on Lovenox and was switched to Eliquis in July 2020 by server assistant (Dr. Odom) -Patient had been following with hematology as outpatient but after most recent visit earlier this month, follow-up is on as needed basis -Home Eliquis continued #Diabetes mellitus type 2 -BS controlled, watching closely while on steroids -Patient takes Victoza and Metformin daily; he also has been taking 2 units of long-acting insulin daily in the setting of a long steroid taper for his respiratory condition -Patient was placed on sliding scale insulin and fingersticks before meals and at night with hypoglycemic protocol; 2 g sodium diet -Hold Victoza and Metformin -SSI, FSBG AC/HS #Physical deconditioning -PT/OT - anticipate several more sessions needed #Ectatic ascending aorta -This measured 4.[address] chest and was described as stable -F/u o/p DVT ppx: eliquis CODE STATUS: Full code DISPOSITION: Currently inpatient status. Pulmonary following. Goal is home when medically improved with HF O2 concentrator . VS, I&O, 24H, Fishbone Vital Signs/I&O Vital Signs Date Time Temp Pulse Resp B/P (MAP) Pulse Ox O2 Delivery O2 Flow Rate FiO2 02/02/21 12:00 6.0 02/02/21 12:00 97.2 89 20 119/78 (92) 91 High Flow Cannula 01/30/21 17:18 60 I&O- Last 24 Hours up to 6 AM 02/02/21 06:00 Intake Total 300 ml Output Total 925 ml Balance -625 ml Laboratory Data 24H LABS Laboratory Tests 2 02/01/21 16:44: Bedside Glucose (Misc Panel) 175H 02/01/21 21:16: Bedside Glucose (Misc Panel) 136H 02/02/21 05:12: Nucleated Red Blood Cells % (auto) 0.0, Anion Gap 6L, Glomerular Filtration Rate > 60.0, Calcium Level 8.7L, Total Bilirubin 0.8, Aspartate Amino Transf (AST/SGOT) 23, Alanine Aminotransferase (ALT/SGPT) 30, Alkaline Phosphatase 73, Total Protein 6.7, Albumin 2.9L, Albumin/Globulin Ratio 0.8 02/02/21 12:11: Bedside Glucose (Misc Panel) 238H CBC/BMP Laboratory Tests 02/02/21 05:12 Microbiology Microbiology 01/26/21 Gram Stain - Final, Complete 01/26/21 Sputum Culture - Final, Complete 01/24/21 Respiratory Virus Panel (PCR) (ROSI) - Final, Complete Leigh Jerez MD Feb 02, 2021 16:40
[2021-02-02] MEDS: ATORVASTATIN 20 MG TAB PO SCH (20:47)
[2021-02-03] VITALS (11 sets, daily range): BP systolic 99–120; BP diastolic 60–85; O2SAT 95–98
[2021-02-03] MEDS: FUROSEMIDE 40MG/4ML VIAL (J1940) IV SCH ×2 (03:36→10:56)
[2021-02-03 05:59] LABS: HEMATOCRIT 45.7 % (42.0-52.0); HEMOGLOBIN 14.9 g/dl (13.5-17.5); MEAN CORPUSCULAR HEMOGLOBIN 32.3 pg (27.0-33.0); MEAN CORPUSCULAR HGB CONC 32.6 g/dl (32.0-36.5); MEAN CORPUSCULAR VOLUME 99.1 fl (80.0-96.0); PLATELET COUNT, AUTOMATED 221 10^3/uL (150-450); RED BLOOD COUNT 4.61 10^6/uL (4.30-6.10); WHITE BLOOD COUNT 14.4 10^3/uL (4.0-10.0)
[2021-02-03 06:24] LABS: ALT/SGPT 33 U/L (12-78); BILIRUBIN,TOTAL 0.9 MG/DL (0.2-1.0); BLOOD UREA NITROGEN 29 MG/DL (7-18); CALCIUM LEVEL 8.5 MG/DL (8.8-10.2); CARBON DIOXIDE LEVEL 38 MEQ/L (21-32); CHLORIDE LEVEL 94 MEQ/L (98-107); CREATININE FOR GFR 0.66 MG/DL (0.70-1.30); GLOMERULAR FILTRATION RATE > 60.0 (>49); GLUCOSE, FASTING 113 MG/DL (70-100); POTASSIUM SERUM 3.7 MEQ/L (3.5-5.1); SODIUM LEVEL 136 MEQ/L (136-145); TOTAL PROTEIN 7.2 GM/DL (6.4-8.2)
[2021-02-03] MEDS: APIXABAN 2.5 MG TAB (ELIQUIS) PO SCH ×2 (08:36→20:02)
[2021-02-03] MEDS: SPIRONOLACTONE 25 MG TAB PO SCH (08:36)
[2021-02-03] MEDS: PANTOPRAZOLE 40MG TAB (PROTONIX) PO SCH (08:36)
[2021-02-03] MEDS: HYDROXYCHLOROQUINE 200 MG TAB PO SCH ×2 (08:36→20:02)
[2021-02-03] MEDS: HumaLOG INSULIN (NovoLOG) PER UNIT SC SCH ×4 (08:37→20:03)
[2021-02-03] MEDS: ASPIRIN 81MG ENTERIC TABLET PO SCH (08:37)
[2021-02-03] MEDS: TYVASO INH SCH ×4 (08:38→19:57)
--- NOTE | 2021-02-03 15:43 | IPNPDOC ---
Date Seen The patient was seen on 02/03/21. Progress Note SUBJECTIVE: -Remains on 68 liters nasal cannula. Working on getting him a HF oxygen concentrator -Denies chest pain, increased SOB, fevers, chill, n/v/d -No acute events overnight OBJECTIVE: PE: VITAL SIGNS: see below GENERAL APPEARANCE: NAD, comfortable at bedside chair HEENT: Normocephalic, atraumatic. EOMI. MMM, cannula in place CARDIOVASCULAR: RRR, systolic murmur LUNGS: diffuse crackles b/l, no accessory muscle use. Symmetric chest expansion. ABDOMEN: Soft, nontender nondistended. No guarding or rigidity appreciated. Normoactive bowel sounds throughout. No hepatosplenomegaly or palpable passes appreciated. EXTREMITIES: +1 pitting edema of distal lower extremities bilaterally, greater on the left versus the right. Negative for calf tenderness bilaterally. 2+ radial pulses bilaterally. +clubbing NEUROLOGICAL: No gross focal neurologic deficits appreciated. Nondysarthric speech. Alert and oriented x3 and following commands. PSYCHIATRIC: AOx3 LABORATORY DATA: Reviewed Please see below IMAGING: Portable chest x-ray, 01/24/2021 Advanced fibrotic changes similar to prior examination. Subtle superimposed process cannot be excluded. Chest CT without contrast, 01/24/2021 1. Redemonstration of bilateral predominantly subpleural septal thickening and honeycombing consistent with the interstitial lung disease. 2. Interval development of ground-glass opacities in the left upper and lower lobe and somewhat at the right lung base which may represent edema/infection. 3. Stable ectatic ascending aorta measuring 4.5 cm. 4. Redemonstration of stable diffuse mediastinal and bilateral hilar lymphadenopathy. 5. Enlarged pulmonary artery. Clinical correlation with pulmonary arterial hypertension. Echocardiogram: Normal sinus rhythm without intraventricular conduction disturbance. Frequent isolated unifocal premature ventricular contractions (PVCs). Technically difficult study in light of the patient's pulmonary disease, but some diagnostically useful information was still obtained. M-mode and 2-dimensional echocardiography was performed with pulse, continuous wave, color flow and tissue Doppler study. Normal left ventricular size and wall thickness with septal wall motion abnormality due to right ventricular pressure overload, yet preserved global resting left ventricular systolic function. Normal left atrial size, but Doppler evidence of grade 1 left ventricular (LV) diastolic dysfunction, but current estimated mean left atrial pressure upper limits of normal. Prominently dilated right heart chambers with right ventricular free wall hypokinesis and Doppler evidence of severe pulmonary hypertension. His inferior vena cava could not be well visualized, but in light of his trans-tricuspid valve gradient, it is likely to be dilated with an elevated central venous pressure. Normal aortic diameters. Mild aortic valvular sclerosis without stenosis or insufficiency. Mild degenerative changes of the mitral valvular apparatus without apparent functional abnormality. Tricuspid valve appeared to be normal with at least moderate tricuspid insufficiency. We could not visualize any intracardiac mass or pericardial effusion. MICROBIOLOGY: Please see below. 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 #Acute on chronic hypoxemic respiratory failure i/s/o O2-dependent severe idiopathic pulmonary fibrosis with pulmonary hypertension, likely multifactorial acute on chronic hypoxemic respiratory failure including HFpEF exacerbation. Also has hx of undifferentiated connective tissue d/o which may or may not be factor of lung decline? -Per pulmonology when evaluated, on 5 liters nasal cannula during conversation saturations dropped to 84-86%. On 6 L O2 remained 86-87%. On 7 L he is able to maintain a saturation of 90-91% with conversation. This is likely where he will be for some time, as we have tried bringing down lower than 6-7 without success -Imaging above, improving BNP to 800, improving lower extremity edema -Mycoplasma IgG +. Completed empiric CAP coverage with ceftriaxone, azithro x 7 days -Sputum cx, resp panel, legionella, strep neg -Stopped IV lasix today and switched to home lasix daily -C/w 2L/24h fluid restriction, daily BMP, daily weights, strict I and O's -Echo above -Patient is currently on a long steroid taper dose as outpatient, will continue with current amount of steroid being 16 p.o. methylprednisolone daily. -Pulmonology following closely. Trying to coordinate HF O2 concentrator between pulmonary clinic and hospital, Dr. Nolan spoke with consumer loan officer today to look into it, our SW advised to reach out to them to f/u -NOTE: patient follows with Dr. Mclean for local pulmonology care and Dr. Dennis at [facility] for pulmonary HTN/IPF mgmt. Currently in the process of getting evaluated for lung transplant at [facility]. #Acute on chronic HFpEF -Echo -See above for treatment #Pulmonary hypertension and IPF with high suspicion for cor pulmonale -Patient follows with Dr. Dennis of [facility] in [place] for IPF/pulmonary hypertension management -Continue Ofev and Tyvaso pulmonary hypertension medications, steroids -See plan under problem #1 #COVID exposure by positive employee -No s/s of worsening resp status -Afebrile -On quarantine currently, COVID precautions #Cough likely 2/2 to chronic lung disease, GERD -PPI, tessalon #Undifferentiated connective tissue disease, on hydroxychloroquine -Follows with Dr. Inez Mchugh of [facility] rheumatology -Has been on hydroxychloroquine for the better part of the last 9 months, contin ue #Hypercoagulable state with prior DVTs on Eliquis -Patient has a history of right lower extremity DVT in 2014 which subsequently did not respond via clot burden to Xarelto and was switched to Lovenox; then experienced a left lower extremity DVT in March 2020 while on Lovenox and was switched to Eliquis in July 2020 by digital coordinator (Dr. Odom) -Patient had been following with hematology as outpatient but after most recent visit earlier this month, follow-up is on as needed basis -Home Eliquis #Diabetes mellitus type 2 -BS controlled, watching closely while on steroids -Patient was placed on sliding scale insulin and fingersticks before meals and at night with hypoglycemic protocol; 2 g sodium diet -Hold home Victoza and Metformin -SSI, FSBG AC/HS #Physical deconditioning -Last PT session - anticipate 1-2 more sessions -F/u next assessment #Ectatic ascending aorta -This measured 4.[address] chest and was described as stable -F/u o/p DVT ppx: eliquis CODE STATUS: Full code DISPOSITION: Currently inpatient status. Pulmonary following. Goal is home when medically improved with HF O2 concentrator . VS, I&O, 24H, Fishbone Vital Signs/I&O Vital Signs Date Time Temp Pulse Resp B/P (MAP) Pulse Ox O2 Delivery O2 Flow Rate FiO2 02/03/21 11:52 97.1 71 17 99/64 (76) 97 High Flow Cannula 5.0 01/30/21 17:18 60 I&O- Last 24 Hours up to 6 AM 02/03/21 06:00 Intake Total 210 ml Output Total 225 ml Balance -15 ml Laboratory Data 24H LABS Laboratory Tests 2 02/02/21 18:02: Bedside Glucose (Misc Panel) 189H 02/02/21 20:45: Bedside Glucose (Misc Panel) 122H 02/03/21 05:35: Nucleated Red Blood Cells % (auto) 0.0, Anion Gap 4L, Glomerular Filtration Rate > 60.0, Calcium Level 8.5L, Total Bilirubin 0.9, Aspartate Amino Transf (AST/SGOT) 25, Alanine Aminotransferase (ALT/SGPT) 33, Alkaline Phosphatase 73, Total Protein 7.2, Albumin 3.0L, Albumin/Globulin Ratio 0.7 CBC/BMP Laboratory Tests 02/03/21 05:35 Microbiology Microbiology 01/26/21 Gram Stain - Final, Complete 01/26/21 Sputum Culture - Final, Complete 01/24/21 Respiratory Virus Panel (PCR) (ROSI) - Final, Complete Leigh Jerez MD Feb 03, 2021 15:43
[2021-02-03] MEDS: ATORVASTATIN 20 MG TAB PO SCH (20:02)
[2021-02-04] VITALS: BP 109/77
[2021-02-04 04:00] VITALS: BP 110/72
[2021-02-04 06:10] LABS: HEMATOCRIT 42.5 % (42.0-52.0); MEAN CORPUSCULAR HEMOGLOBIN 32.3 pg (27.0-33.0); MEAN CORPUSCULAR HGB CONC 32.9 g/dl (32.0-36.5); MEAN CORPUSCULAR VOLUME 98.2 fl (80.0-96.0); PLATELET COUNT, AUTOMATED 201 10^3/uL (150-450); RED BLOOD COUNT 4.33 10^6/uL (4.30-6.10); WHITE BLOOD COUNT 12.7 10^3/uL (4.0-10.0)
[2021-02-04 06:30] LABS: ALBUMIN 2.9 GM/DL (3.2-5.2); ALT/SGPT 31 U/L (12-78); BILIRUBIN,TOTAL 1.1 MG/DL (0.2-1.0); BLOOD UREA NITROGEN 32 MG/DL (7-18); CALCIUM LEVEL 8.9 MG/DL (8.8-10.2); CARBON DIOXIDE LEVEL 37 MEQ/L (21-32); CHLORIDE LEVEL 95 MEQ/L (98-107); CREATININE FOR GFR 0.52 MG/DL (0.70-1.30); GLOMERULAR FILTRATION RATE > 60.0 (>49); GLUCOSE, FASTING 93 MG/DL (70-100); POTASSIUM SERUM 4.1 MEQ/L (3.5-5.1); SODIUM LEVEL 137 MEQ/L (136-145); TOTAL PROTEIN 6.6 GM/DL (6.4-8.2)
[2021-02-04] MEDS: HumaLOG INSULIN (NovoLOG) PER UNIT SC SCH ×4 (07:30→20:15)
[2021-02-04 08:00] VITALS: BP 117/81; O2SAT 95
[2021-02-04] MEDS: SPIRONOLACTONE 25 MG TAB PO SCH (09:05)
[2021-02-04] MEDS: ASPIRIN 81MG ENTERIC TABLET PO SCH (09:05)
[2021-02-04] MEDS: HYDROXYCHLOROQUINE 200 MG TAB PO SCH ×2 (09:05→20:17)
[2021-02-04] MEDS: APIXABAN 2.5 MG TAB (ELIQUIS) PO SCH ×2 (09:06→20:17)
[2021-02-04] MEDS: FUROSEMIDE 20 MG TAB PO SCH (09:06)
[2021-02-04] MEDS: PANTOPRAZOLE 40MG TAB (PROTONIX) PO SCH (09:06)
[2021-02-04] MEDS: TYVASO INH SCH ×4 (09:07→20:18)
[2021-02-04 12:00] VITALS: BP 97/62; O2SAT 90
[2021-02-04 16:00] VITALS: BP 93/65; O2SAT 92
--- NOTE | 2021-02-04 16:27 | IPNPDOC ---
Text Note Date of Service The patient was seen on 02/04/21. NOTE SUBJECTIVE: -Remains on 68 liters nasal cannula. -Denies chest pain, increased SOB, fevers, chill, n/v/d -No acute events overnight -Anxious to get home, it is his '[birth year] tomorrow. Today we made the plan try and get him out early tomorrow morning as soon as [facility] delivers his concentrator OBJECTIVE: VITAL SIGNS: see below GENERAL APPEARANCE: NAD, comfortable at bedside chair HEENT: Normocephalic, atraumatic. EOMI. MMM, cannula in place CARDIOVASCULAR: RRR, systolic murmur LUNGS: diffuse crackles b/l, no accessory muscle use. Symmetric chest expansion. ABDOMEN: Soft, nontender nondistended. No guarding or rigidity appreciated. Normoactive bowel sounds throughout. No hepatosplenomegaly or palpable passes appreciated. EXTREMITIES: +1 pitting edema of distal lower extremities bilaterally, greater on the left versus the right. Negative for calf tenderness bilaterally. 2+ radial pulses bilaterally. +clubbing NEUROLOGICAL: No gross focal neurologic deficits appreciated. Nondysarthric speech. Alert and oriented x3 and following commands. PSYCHIATRIC: AOx3 LABORATORY DATA: Reviewed IMAGING: Portable chest x-ray, 01/24/2021 Advanced fibrotic changes similar to prior examination. Subtle superimposed process cannot be excluded. Chest CT without contrast, 01/24/2021 1. Redemonstration of bilateral predominantly subpleural septal thickening and honeycombing consistent with the interstitial lung disease. 2. Interval development of ground-glass opacities in the left upper and lower lobe and somewhat at the right lung base which may represent edema/infection. 3. Stable ectatic ascending aorta measuring 4.5 cm. 4. Redemonstration of stable diffuse mediastinal and bilateral hilar lymphadenopathy. 5. Enlarged pulmonary artery. Clinical correlation with pulmonary arterial hypertension. Echocardiogram: Normal sinus rhythm without intraventricular conduction disturbance. Frequent isolated unifocal premature ventricular contractions (PVCs). Technically difficult study in light of the patient's pulmonary disease, but some diagnostically useful information was still obtained. M-mode and 2-dimensional echocardiography was performed with pulse, continuous wave, color flow and tissue Doppler study. Normal left ventricular size and wall thickness with septal wall motion abnormality due to right ventricular pressure overload, yet preserved global resting left ventricular systolic function. Normal left atrial size, but Doppler evidence of grade 1 left ventricular (LV) diastolic dysfunction, but current estimated mean left atrial pressure upper limits of normal. Prominently dilated right heart chambers with right ventricular free wall hypokinesis and Doppler evidence of severe pulmonary hypertension. His inferior vena cava could not be well visualized, but in light of his trans-tricuspid valve gradient, it is likely to be dilated with an elevated central venous pressure. Normal aortic diameters. Mild aortic valvular sclerosis without stenosis or insufficiency. Mild degenerative changes of the mitral valvular apparatus without apparent functional abnormality. Tricuspid valve appeared to be normal with at least moderate tricuspid insufficiency. We could not visualize any intracardiac mass or pericardial effusion. MICROBIOLOGY: Please see below. 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 #Acute on chronic hypoxemic respiratory failure i/s/o O2-dependent severe idiopathic pulmonary fibrosis with pulmonary hypertension, likely multifactorial acute on chronic hypoxemic respiratory failure including HFpEF exacerbation. Also has hx of undifferentiated connective tissue d/o which may or may not be factor of lung decline? -Per pulmonology when evaluated, on 5 liters nasal cannula during conversation saturations dropped to 84-86%. On 6 L O2 remained 86-87%. On 7 L he is able to maintain a saturation of 90-91% with conversation. This is likely where he will be for some time, as we have tried bringing down lower than 6-7 without success -Imaging above, improving BNP to 800, improving lower extremity edema -Mycoplasma IgG +. Completed empiric CAP coverage with ceftriaxone, azithro x 7 days -Sputum cx, resp panel, legionella, strep neg -continue home lasix daily -C/w 2L/24h fluid restriction, daily BMP, daily weights, strict I and O's -Echo above -Patient is currently on a long steroid taper dose as outpatient, will continue with current amount of steroid being 16 p.o. methylprednisolone daily. -Pulmonology was consulted. -Today ordered HF O2 concentrator from [facility], [place] with PFS onboard, expect delivery tomorrow -NOTE: patient follows with Dr. Mclean for local pulmonology care and Dr. Dennis at [facility] in [place] for pulmonary HTN/IPF mgmt. Currently in the process of getting evaluated for lung transplant at [facility]. #Acute on chronic HFpEF -Echo -See above for treatment #Pulmonary hypertension and IPF with high suspicion for cor pulmonale -Patient follows with Dr. Dennis of [facility] in [place] for IPF/pulmonary hypertension management -Continue Ofev and Tyvaso pulmonary hypertension medications, steroids -See plan under problem #1 #COVID exposure by positive employee -No s/s of worsening resp status -Afebrile -On quarantine currently, COVID precautions #Cough likely 2/2 to chronic lung disease, GERD -PPI, tessalon #Undifferentiated connective tissue disease, on hydroxychloroquine -Follows with Dr. Inez Mchugh of [facility] rheumatology -Has been on hydroxychloroquine for the better part of the last 9 months, continue #Hypercoagulable state with prior DVTs on Eliquis -Patient has a history of right lower extremity DVT in 2014 which subsequently did not respond via clot burden to Xarelto and was switched to Lovenox; then experienced a left lower extremity DVT in March 2020 while on Lovenox and was switched to Eliquis in July 2020 by handle and vent machine operator (Dr. Odom) -Patient had been following with hematology as outpatient but after most recent visit earlier this month, follow-up is on as needed basis -Home Eliquis #Diabetes mellitus type 2 -BS controlled, watching closely while on steroids -Patient was placed on sliding scale insulin and fingersticks before meals and at night with hypoglycemic protocol; 2 g sodium diet -Hold home Victoza and Metformin -SSI, FSBG AC/HS #Physical deconditioning -Last PT session - anticipate 1-2 more sessions -F/u next assessment #Ectatic ascending aorta -This measured 4.[address] chest and was described as stable -F/u o/p DVT ppx: eliquis CODE STATUS: Full code DISPOSITION: Currently inpatient status. Pulmonary following. Goal is home with HF O2 concentrator. VS,Fishbone, I+O VS, Fishbone, I+O Laboratory Tests 02/04/21 05:53 Vital Signs Date Time Temp Pulse Resp B/P (MAP) Pulse Ox O2 Delivery O2 Flow Rate FiO2 10/26/21 12:00 90 Nasal Cannula 6.0 02/04/21 12:00 97.5 79 18 97/62 (74) 01/30/21 17:18 60 I&O- Last 24 Hours up to 6 AM 02/04/21 06:00 Intake Total 480 ml Output Total 1350 ml Balance -870 ml YSABEL BEAVERS MD Feb 04, 2021 16:27
[2021-02-04 20:00] VITALS: BP 100/72
[2021-02-04] MEDS: ATORVASTATIN 20 MG TAB PO SCH (20:17)
[2021-02-05] VITALS: BP 110/50
[2021-02-05] MEDS: CHLORASEPTIC SPRAY MT PRN ×3 (03:43→08:42)
[2021-02-05 04:00] VITALS: BP 126/87
[2021-02-05 06:45] VITALS: BP 101/67
[2021-02-05 08:00] VITALS: BP 105/69
[2021-02-05] MEDS: HumaLOG INSULIN (NovoLOG) PER UNIT SC SCH ×2 (08:44→12:21)
[2021-02-05] MEDS: SPIRONOLACTONE 25 MG TAB PO SCH (08:44)
[2021-02-05] MEDS: ASPIRIN 81MG ENTERIC TABLET PO SCH (08:44)
[2021-02-05] MEDS: FUROSEMIDE 20 MG TAB PO SCH (08:45)
[2021-02-05] MEDS: PANTOPRAZOLE 40MG TAB (PROTONIX) PO SCH (08:45)
[2021-02-05] MEDS: APIXABAN 2.5 MG TAB (ELIQUIS) PO SCH (08:45)
[2021-02-05] MEDS: TYVASO INH SCH ×2 (08:46→12:22)
[2021-02-05] MEDS ORDERED: PANT40TA29 PO (10:46)
[2021-02-05] MEDS ORDERED: BENZ-18 PO (10:46)
--- NOTE | 2021-02-05 11:03 | DS.PDOC ---
Discharge Summary General Date of Admission Jan 24, 2021 at 22:09 Date of Discharge 02/05/2021 Attending Physician: YSABEL BEAVERS MD Specialist/Consultants Involve: FRANCISCA CAMPUZANO MD Discharge Summary PROCEDURES PERFORMED DURING STAY: None ADMITTING DIAGNOSES: Acute on chronic hypoxemic respiratory failure HFpEF exacerbation Advanced IPF DISCHARGE DIAGNOSES: Acute on chronic hypoxemic respiratory failure HFpEF exacerbation Pulmonary hypertension Idiopathic hyper coagulopathic state with previous DVTs on eliquis diabetes mellitus type 2 on insulin Undifferentiated connective tissue disease likely etiology of idiopathic pulmonary fibrosis HTN GERD with history of hiatal hernia s/p Nicole fundoplication COMPLICATIONS/CHIEF COMPLAINT: Hypoxia. HISTORY OF PRESENT ILLNESS: 65 yo M with notable PMHx of chronic hypoxic respiratory failure dependent on 4L home O2 due to idiopathic pulmonary fibrosis with pulmonary htn, idiopathic hyper coagulopathic state with previous DVTs on eliquis, diabetes mellitus type 2 on insulin, undifferentiated connective tissue disease, HTN, and hiatal hernia s/p Nicole fundoplication who presented to the [facility] ED on the evening of 01/24/2021 due to 3 days of worsening shortness of breath. At baseline, the patient is dependent on 4 L of home O2 and follows both with Dr. Mclean for local pulmonology care and Dr. Dennis at [facility] in [place] for IPF/pulmonary HTN. Patient described his shortness of breath over the past 3 days as an inability to "catch his breath." And had required significant oxygen support beyond his 4 L baseline. He initially started with his home concentrator which has a maximum of 4 L and then moved to using portable oxygen tanks that he titrated all the way up to 10-15 L. The patient unfortunately remained significantly dyspneic even on these high levels of oxygen support. Whenever patient would try to titrate down from that 10-15 L O2 range, reportedly his saturations would drop down into the 60s and 70s. Patient also has a baseline chronic cough which intermittently is productive and this has been relatively unchanged over the past 3 days of symptoms. Due to his persistent dyspnea despite the elevated oxygen support, the patient contacted both the office of his local monument mason (Dr. Mclean) and [place] monument m[facility] (Dr. Dennis), with both groups suggesting the patient presented to the ED for evaluation. Ultimately, one of the patient's sons, who is a physicians assistant associate professor, called EMS for the patient to be transported to the ED. HOSPITAL COURSE: Upon presentation to the ED, the patient was wearing a full nonrebreather that was applied by EMS. He was saturating between 89-92% on the full nonrebreather and had mild visible retractions with respiration but no conversational dyspnea. The ED provider spoke about the patient with the on-call unloader (Dr. Campuzano), who recommended switching over to Vapo therm/high flow oxygen and obtaining a CT of the chest without contrast since the patient was already on anticoagulation and evidence of PE would not significantly change current management/medication regimen. After switching to Vapotherm, patient's saturations improved to 94-97%. He also felt his work of breathing had lessened and he no longer felt he was needing to catch his breath. He had no leukocytosis and ABG showed pH 7.427/PCO2 46/CO2 34. The patient's BNP was elevated to 5019, with recent baseline over the past year being about 500. A chest x-ray showed advanced fibrotic changes that were similar to the prior study; while a CT of the chest showed interval development of ground glass opacities of the left upper and lower lobes as well as the right lung base fuels sales representative of possible edema/infection, with honeycombing in bilateral septal thickening consistent with interstitial lung disease, as well as enlarged pulmonary artery possibly as a result of pulmonary arterial hypertension. He was admitted to the PCU where he was started on empiric CAP coverage, aggressive IV diuretic therapy and continued on his medrol long taper he was on in the outpatient setting. He was on IV diruetics with good effect and eventually his oxygen requirements began to improve from having been on at max on 35L/100% vapotherm back down to 6-7L nasal canula. We worked with [facility] to upgrade his home concentrator per the recommendations of pulmonology and it is being delivered to his home this morning. He is now being discharged home to continue the steroid taper as previously prescribed, and to continue his home lasix 20mg daily that he has now been restored and is to have a fluid restriction of up to 2L/24h with close PCP and pulmonology follow up. DISCHARGE MEDICATIONS: Please see below. ALLERGIES: Please see below. PHYSICAL EXAMINATION ON DISCHARGE: VITAL SIGNS: Please see below. VITAL SIGNS: see below GENERAL APPEARANCE: NAD, comfortable at bedside chair HEENT: Normocephalic, atraumatic. EOMI. MMM, cannula in place CARDIOVASCULAR: RRR, systolic murmur LUNGS: diffuse crackles b/l, no accessory muscle use. Symmetric chest expansion. ABDOMEN: Soft, nontender nondistended. No guarding or rigidity appreciated. Normoactive bowel sounds throughout. No hepatosplenomegaly or palpable passes appreciated. EXTREMITIES: +1 pitting edema of distal lower extremities bilaterally, greater on the left versus the right. Negative for calf tenderness bilaterally. 2+ radial pulses bilaterally. +clubbing NEUROLOGICAL: No gross focal neurologic deficits appreciated. Nondysarthric speech. Alert and oriented x3 and following commands. PSYCHIATRIC: AOx3 LABORATORY DATA: Please see below. IMAGING: Portable chest x-ray, 01/24/2021 Advanced fibrotic changes similar to prior examination. Subtle superimposed process cannot be excluded. Chest CT without contrast, 01/24/2021 1. Redemonstration of bilateral predominantly subpleural septal thickening and honeycombing consistent with the interstitial lung disease. 2. Interval development of ground-glass opacities in the left upper and lower lobe and somewhat at the right lung base which may represent edema/infection. 3. Stable ectatic ascending aorta measuring 4.5 cm. 4. Redemonstration of stable diffuse mediastinal and bilateral hilar lymphadenopathy. 5. Enlarged pulmonary artery. Clinical correlation with pulmonary arterial hypertension. Echocardiogram: Normal sinus rhythm without intraventricular conduction disturbance. Frequent isolated unifocal premature ventricular contractions (PVCs). Technically difficult study in light of the patient's pulmonary disease, but some diagnostically useful information was still obtained. M-mode and 2-dimensional echocardiography was performed with pulse, continuous wave, color flow and tissue Doppler study. Normal left ventricular size and wall thickness with septal wall motion abnormality due to right ventricular pressure overload, yet preserved global resting left ventricular systolic function. Normal left atrial size, but Doppler evidence of grade 1 left ventricular (LV) diastolic dysfunction, but current estimated mean left atrial pressure upper limits of normal. Prominently dilated right heart chambers with right ventricular free wall hypokinesis and Doppler evidence of severe pulmonary hypertension. His inferior vena cava could not be well visualized, but in light of his trans-tricuspid valve gradient, it is likely to be dilated with an elevated central venous pressure. Normal aortic diameters. Mild aortic valvular sclerosis without stenosis or insufficiency. Mild degenerative changes of the mitral valvular apparatus without apparent functional abnormality. Tricuspid valve appeared to be normal with at least moderate tricuspid insufficiency. We could not visualize any intracardiac mass or pericardial effusion. PROGNOSIS: Good ACTIVITY: As tolerated DIET: consistent carb, 2g sodium, 2L/24h DISCHARGE PLAN: Home with services and upgraded home oxygen concentrator, with resumption of steroid taper and close PCP and pulm follow up within 1 week. DISPOSITION: Home with services DISCHARGE INSTRUCTIONS: Home with services and upgraded home oxygen concentrator, with resumption of steroid taper and close PCP and pulm follow up within 1 week. ITEMS TO FOLLOWUP ON ON OUTPATIENT: IPF Acute on chronic hypoxemic respiratory failure CHF, volume status DISCHARGE CONDITION: Stable TIME SPENT ON DISCHARGE: 55 minutes. Vital Signs/I&Os Vital Signs Date Time Temp Pulse Resp B/P (MAP) Pulse Ox O2 Delivery O2 Flow Rate FiO2 02/05/21 08:00 97.2 69 20 105/69 (81) 97 High Flow Cannula 7.0 01/30/21 17:18 60 I&O- Last 24 Hours up to 6 AM 02/05/21 06:00 Intake Total 1290 ml Output Total 550 ml Balance 740 ml Laboratory Data Labs 24H Laboratory Tests 2 02/04/21 12:04: Bedside Glucose (Misc Panel) 229H 02/04/21 17:29: Bedside Glucose (Misc Panel) 216H 02/04/21 20:14: Bedside Glucose (Misc Panel) 226H 02/05/21 06:48: Bedside Glucose (Misc Panel) 111 FSBS Laboratory Tests Test 02/04/21 12:04 02/04/21 17:29 02/04/21 20:14 02/05/21 06:48 Range/Units Bedside Glucose (Misc Panel) 229 216 226 111 80-115 MG/DL Microbiology Microbiology 01/26/21 Gram Stain - Final, Complete 01/26/21 Sputum Culture - Final, Complete Discharge Medications Scheduled Apixaban (Eliquis) 5 Mg Tablet, 2.5 MG PO BID, (Reported) Aspirin (Aspirin EC) 81 Mg Tablet.dr, 81 MG PO DAILY, (Reported) Atorvastatin Calcium (Atorvastatin Calcium) 40 Mg Tablet, 40 MG PO QHS, (Reported) Furosemide (Furosemide) 40 Mg Tablet, 20 MG PO DAILY, (Reported) Hydroxychloroquine Sulfate (Hydroxychloroquine Sulfate) 200 Mg Tablet, 200 MG PO BID, (Reported) Insulin Degludec (Tresiba Flextouch U-200) 200 Unit/1 Ml Insuln.pen, 2 UNITS SC DAILY, (Reported) Liraglutide (Victoza 3-Dontrell) 0.6 Mg/0.1 Ml Pen.injctr, 1.8 MG SC DAILY, (Reported) Metformin HCl (Metformin HCl ER) 500 Mg Tab.er.24h, 1,000 MG PO BID, (Reported) Methylprednisolone (Medrol) 8 Mg Tablet, 16 MG PO DAILY, (Reported) Nintedanib Esylate (Ofev) 150 Mg Capsule, 150 MG PO BID, (Reported) Pantoprazole Sodium (Pantoprazole Sodium) 40 Mg Tablet.dr, 40 MG PO DAILY Spironolactone (Spironolactone) 25 Mg Tablet, 25 MG PO DAILY, (Reported) Treprostinil (Tyvaso) 1.74 Mg/2.9 Ml Ampul.neb, 1.74 MG NEB QID, (Reported) Scheduled PRN Benzonatate (Benzonatate) 100 Mg Capsule, 200 MG PO TIDP PRN for COUGH Gabapentin (Gabapentin) 300 Mg Capsule, 600 MG PO BID PRN for COUGH, (Reported) Allergies Coded Allergies: No Known Drug Allergies (Verified Allergy, Unknown, 12/02/18) YSABEL BEAVERS MD Feb 05, 2021 11:03
[2021-02-05 12:19] VITALS: BP 111/73
[2021-02-05] MEDS: HYDROXYCHLOROQUINE 200 MG TAB PO SCH (12:21)
== END 2021-02-05 13:12 | disposition home health service (06) | DRG 196 ==
LOC: M ED 18:37 → M ED INP 22:09 → M PCU 01-25 01:49
PROVIDERS: ADMIT Internal Medicine; ATTEND Internal Medicine
DX: J84.112 Idiopathic pulmonary fibrosis (principal); J96.21 Acute and chronic respiratory failure with hypoxia; I50.33 Acute on chronic diastolic (congestive) heart failure; Z99.81 Dependence on supplemental oxygen; I27.23 Pulmonary hypertension due to lung diseases and hypoxia; R91.8 Other nonspecific abnormal finding of lung field; E11.9 Type 2 diabetes mellitus without complications; K44.9 Diaphragmatic hernia without obstruction or gangrene; I11.0 Hypertensive heart disease with heart failure; M35.9 Systemic involvement of connective tissue, unspecified; I77.819 Aortic ectasia, unspecified site; Z79.01 Long term (current) use of anticoagulants; Z79.84 Long term (current) use of oral hypoglycemic drugs; Z86.718 Personal history of other venous thrombosis and embolism; I50.811 Acute right heart failure; Z20.822 Contact with and (suspected) exposure to COVID-19; Z72.3 Lack of physical exercise; K21.9 Gastro-esophageal reflux disease without esophagitis

== ENCOUNTER → 2021-02-26 | Outpatient (CLI) | payer MEDICARE, OTHER ==
[~2021-02-26] MED LIST changes: +BENZ-18 PO; +PANT40TA29 PO; +TYVA0.6S NEB
[2021-02-26 10:51] LABS: BASO # 0.1 10^3/uL (0.0-0.2); BASO % 0.5 % (0.0-1.0); EOS # 0.2 10^3/uL (0.0-0.5); EOS % 1.6 % (0.0-3.0); HEMATOCRIT 42.2 % (42.0-52.0); HEMOGLOBIN 13.2 g/dl (13.5-17.5); LYMPH % 27.3 % (24.0-44.0); MEAN CORPUSCULAR HEMOGLOBIN 32.4 pg (27.0-33.0); MEAN CORPUSCULAR HGB CONC 31.3 g/dl (32.0-36.5); MEAN CORPUSCULAR VOLUME 103.4 fl (80.0-96.0); MONO # 0.6 10^3/uL (0.0-0.8); MONO % 5.5 % (2.0-8.0); NEUTROPHILS # 7.1 10^3/uL (1.5-8.5); NEUTROPHILS % 64.8 % (36.0-66.0); PLATELET COUNT, AUTOMATED 233 10^3/uL (150-450); RED BLOOD COUNT 4.08 10^6/uL (4.30-6.10)
[2021-02-26 11:13] LABS: ALT/SGPT 46 U/L (12-78); BILIRUBIN,TOTAL 0.8 MG/DL (0.2-1.0); BLOOD UREA NITROGEN 27 MG/DL (7-18); CARBON DIOXIDE LEVEL 39 MEQ/L (21-32); CHLORIDE LEVEL 96 MEQ/L (98-107); CREATININE FOR GFR 0.64 MG/DL (0.70-1.30); GLOMERULAR FILTRATION RATE > 60.0 (>49); GLUCOSE, FASTING 103 MG/DL (70-100); SODIUM LEVEL 138 MEQ/L (136-145); TOTAL PROTEIN 6.6 GM/DL (6.4-8.2)
[2021-02-26 11:18] LABS: HEMOGLOBIN A1c 6.4 %
== END ==
LOC: M WUC 09:48
PROVIDERS: ATTEND Physician Assistant
DX: I82.402 Acute embolism and thrombosis of unspecified deep veins of left lower extremity (principal); E09.8 Drug or chemical induced diabetes mellitus with unspecified complications